=== PATIENT | male | born 1935 | race Caucasian/White ===

== ENCOUNTER → 2019-05-26 08:46 | Outpatient (BNVA) | payer MEDICARE, OTHER, SELFPAY | PROVIDERS: Family Provider Nurse Practitioner Family; PCP Nurse Practitioner Family; Visit Provider Family Medicine | DX: I10 Essential (primary) hypertension (principal); I50.9 Heart failure, unspecified; E87.6 Hypokalemia; N40.0 Benign prostatic hyperplasia without lower urinary tract symptoms; I50.32 Chronic diastolic (congestive) heart failure; I25.10 Atherosclerotic heart disease of native coronary artery without angina pectoris; L82.1 Other seborrheic keratosis | CPT/HCPCS: 80048 ==

== ENCOUNTER → 2019-11-03 09:13 | Outpatient (BNVA) | payer MEDICARE, OTHER, SELFPAY | PROVIDERS: Family Provider Nurse Practitioner Family; PCP Nurse Practitioner Family; Visit Provider Family Medicine | DX: E87.6 Hypokalemia (principal); I10 Essential (primary) hypertension | CPT/HCPCS: 80048 ==

== ENCOUNTER → 2019-12-30 14:58 | Outpatient (BNVA) | payer MEDICARE, SELFPAY | PROVIDERS: Family Provider Nurse Practitioner Family; PCP Nurse Practitioner Family; Referring Provider Family Medicine; Visit Provider Dermatology | DX: D48.5 Neoplasm of uncertain behavior of skin (principal); L57.0 Actinic keratosis; L81.4 Other melanin hyperpigmentation; D48.9 Neoplasm of uncertain behavior, unspecified | CPT/HCPCS: 11102; 11103; 17000; 17003; 88304; 99202; 99203 ==

== ENCOUNTER 2020-09-05 10:22 | Outpatient (CLI) | payer OTHER, MEDICARE, SELFPAY ==
--- NOTE | 2020-09-05 10:50 | CT_ITS ---
WS: [id number] CTA NECK TECHNIQUE: Contrast enhanced CTA of the neck with coronal and sagittal reformatted images and maximum intensity projection (MIP) images. NASCET criteria utilized. CLINICAL INFORMATION: I65.23 - Occlusion and stenosis of bilateral carotid katey... COMPARISON: Ultrasound June 26, 2020 DLP: 1070.[address] scans at [facility] use at least one of these dose optimization techniques: automat ed exposure control; mA and/or kV adjustment per patient size (includes targeted exams where dose is matched to clinical indication); or iterative reconstruction. FINDINGS: RIGHT: Right common carotid artery is patent. Mild stenosis right proximal ICA measuring less than 50 %. No flow-limiting stenosis. Mild to moderate calcified atheromatous plaque right carotid bulb exten ding into the ICA. Mild stenosis ECA which is patent. Right ICA remains patent to the skull base. LEFT: Left common carotid artery is patent. Occlusion of the left ICA just distal to the bifurcation. Left ICA is occluded to the skull base. ECA is patent. Right cavernous carotid calcification. Left dominant vertebral artery. No flow in the right proximal vertebral artery. This reconstitutes in the mid vertebral artery with a tiny amount of flow distally. Proximal basilar artery is patent. Normal vascularity to the DRESSER TENDER territory bilaterally.Mastoid air c ells are well aerated. Retention cyst right maxillary sinus. No cervical lymphadenopathy. Prior sternotomy. Moderate chronic emphysematous changes in the lung apices. CT/CT angio neck 55673 IMPRESSION: 1. Chronic occlusion of the left ICA unchanged from the prior ultrasound. 2. Less than 50% right ICA stenosis. ICA is patent to the skull base. 3. Left dominant vertebral artery.
[2020-09-05 11:25] LABS: Blood Urea Nitrogen 23 mg/dL (8-23)
== END 2020-09-05 10:23 | disposition home or self-care (01) ==
PROVIDERS: PCP Nurse Practitioner Family; Visit Provider Thoracic Surgery (Cardiothoracic Vascular Surgery)
DX: I65.23 Occlusion and stenosis of bilateral carotid arteries (principal); I25.10 Atherosclerotic heart disease of native coronary artery without angina pectoris; I50.32 Chronic diastolic (congestive) heart failure
CPT/HCPCS: 70498; 82565; 84520; Q9967

== ENCOUNTER → 2021-02-13 07:40 | Outpatient (BNVA) | payer OTHER, MEDICARE, SELFPAY | PROVIDERS: PCP Family Medicine; Visit Provider Urology | DX: N28.89 Other specified disorders of kidney and ureter (principal) | CPT/HCPCS: 81003 ==

== ENCOUNTER → 2021-04-18 09:57 | Outpatient (BNVA) | payer MEDICARE, SELFPAY | PROVIDERS: PCP Family Medicine; Visit Provider Family Medicine | DX: I10 Essential (primary) hypertension (principal); I25.10 Atherosclerotic heart disease of native coronary artery without angina pectoris; E87.6 Hypokalemia; R42 Dizziness and giddiness | CPT/HCPCS: 80053; 80061; 83735; 85025 ==

== ENCOUNTER → 2021-07-17 10:36 | Outpatient (BNVA) | payer MEDICARE, SELFPAY | PROVIDERS: PCP Family Medicine; Visit Provider Family Medicine | DX: J44.9 Chronic obstructive pulmonary disease, unspecified (principal); E87.6 Hypokalemia | CPT/HCPCS: 80048 ==

== ENCOUNTER 2021-08-27 12:52 | Outpatient (CLI) | payer OTHER, SELFPAY ==
--- NOTE | 2021-08-27 12:52 | USCV_ITS ---
Lowell Salazar Age: 86 Gender: M : 1935 Exam Date: 08/27/2021 13:10 Ordering Phys: Joss Whitehead MD (Andy) ([email or web address] [place]) Technologist: [place] [facility] [place]: RT SIDE ENARDECTOMY LT SIDE ICA OCCUSION Risk Factors: Previous Vascular Surgery: Right Brachial BP: / Left Brachial BP: / Right Left Velocity (cm/s) Spectral Plaque Velocity (cm/s) Spectral Plaque Syst/Diast Broadening Syst/Diast Broadening 76.45/ 12.65 Prox CCA 47.10 / 1.10 75.00/ 12.10 Hetro Mid CCA 46.00 / 2.10 62.60/ 11.30 Hetro Distal CCA 42.80 / 2.10 162.40/27.90 Hetro Prox ICA / 146.70/36.70 Hetro Mid ICA / 138.00/33.20 Distal ICA / 185.10 ECA 94.20 2.17 ICA/CCA Antegrade Vertebral Antegrade 31.10/ 5.80 cm/s 69.60/ 13.90 cm/s Tri Subclavian Tri 92.10 133.8 0 CONCLUSIONS Prior right CEA. Right ICA stenosis 50-69%. Moderate atheromatous plaque right carotid bulb/ICA. Left ICA is occluded Normal antegrade Doppler flow noted in the right vertebral artery. Normal antegrade Doppler flow noted in the left vertebral artery. Fidel Milner MD (Electronically Signed) Final Date: 27 Aug 2021 15:35 S
== END 2021-08-27 12:53 | disposition home or self-care (01) ==
PROVIDERS: PCP Family Medicine; Visit Provider Thoracic Surgery (Cardiothoracic Vascular Surgery)
DX: I65.23 Occlusion and stenosis of bilateral carotid arteries (principal)
CPT/HCPCS: 93880

== ENCOUNTER → 2021-08-30 09:00 | Outpatient (BNVA) | payer OTHER, SELFPAY | PROVIDERS: PCP Family Medicine; Visit Provider Thoracic Surgery (Cardiothoracic Vascular Surgery) | DX: I65.23 Occlusion and stenosis of bilateral carotid arteries (principal); Z87.891 Personal history of nicotine dependence | CPT/HCPCS: 99213 ==

== ENCOUNTER → 2021-09-12 14:55 | Outpatient (BNVA) | payer OTHER, MEDICARE, SELFPAY | PROVIDERS: PCP Family Medicine; Visit Provider Nurse Practitioner Family | DX: N40.1 Benign prostatic hyperplasia with lower urinary tract symptoms (principal) | CPT/HCPCS: 51728; 51784; 99212 ==

== ENCOUNTER → 2021-10-17 08:41 | Outpatient (BNVA) | payer MEDICARE, SELFPAY | PROVIDERS: PCP Family Medicine; Visit Provider Family Medicine | DX: I10 Essential (primary) hypertension (principal); I50.9 Heart failure, unspecified; E87.6 Hypokalemia; J44.9 Chronic obstructive pulmonary disease, unspecified; N40.1 Benign prostatic hyperplasia with lower urinary tract symptoms; N18.2 Chronic kidney disease, stage 2 (mild); I25.10 Atherosclerotic heart disease of native coronary artery without angina pectoris | CPT/HCPCS: 80048 ==

== ENCOUNTER → 2021-10-22 13:06 | Outpatient (BNVA) | payer OTHER, MEDICARE, SELFPAY | PROVIDERS: PCP Family Medicine; Visit Provider Urology | DX: N40.1 Benign prostatic hyperplasia with lower urinary tract symptoms (principal); R33.9 Retention of urine, unspecified | CPT/HCPCS: G0463; 99214 ==

== ENCOUNTER 2021-11-14 15:01 | Observation (INO) | payer OTHER, MEDICARE, SELFPAY ==
[2021-11-13 14:00] VITALS: BMI 23.5
[2021-11-14] VITALS (20 sets, daily range): BP systolic 175–201; BP diastolic 62–79; PULSE 50–84; RESP 12–20; TEMP 36.2–36.7; O2SAT 93–98; BMI 23.5
--- NOTE | 2021-11-14 05:49 | P.HPUD_ITS ---
Surgery/Procedure H&P Update DATE OF PROCEDURE: November 14, 2021 DATE H&P PERFORMED: 10/22/21 H&P UPDATE INFORMATION: I have reviewed H&P completed within last 30 days, I have examined patient prior to procedure, No changes to prior documentation and H&P is in [facility] [place] on date indicated PLANNED PROCEDURE: Operation Date: 11/14/21 09:35 Proposed Procedures p TRANSURETHRAL RESECTION /VAPORIZATION PROSTATE 91547,77482, N40.1(Not Applicable) - Austen Grajeda MD s Cystoscopy(Not Applicable) - Austen Grajeda MD
--- NOTE | 2021-11-14 07:39 | ECG_ITS ---
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 Measurements Intervals Olar Rate: 54 P: -35 RI: 294 QRS: 75 QRSD: 131 T: 104 QT: 484 QTc: 459 Interpretive Statements SINUS BRADYCARDIA WITH FIRST DEGREE AV BLOCK INTRAVENTRICULAR CONDUCTION DELAY [130+ ms QRS DURATION] ANTEROLATERAL MYOCARDIAL INFARCTION , OF INDETERMINATE AGE [40+ ms Q WAVE IN I/aVL/V3-V6] Compared to ECG 04/14/2016 18:08:13 Intraventricular conduction delay now present Sinus rhythm no longer present Myocardial infarct finding still present Electronically Signed On 11-14-2021 19:48:43 CDT by Kaylee Luna M.D. [id number]
[2021-11-14 08:29] LABS: Basophils # 0.1 10^3/uL (0.0-0.1); Basophils % 0.6 %; Eosinophils # 0.2 10^3/uL (0.0-0.8); Eosinophils % 1.8 %; Hematocrit 41.8 % (42.0-52.0); Hemoglobin 14.1 g/dL (11.7-16.6); Lymphocytes % 23.8 %; Mean Corpuscular HGB Conc 33.7 g/dL (30.0-36.0); Mean Corpuscular Hemoglobin 30.6 pg (28.0-34.0); Mean Corpuscular Volume 90.7 fl (80-94); Mean Platelet Volume 10.3 fL (7.4-10.4); Monocytes # 1.2 10^3/uL (0.2-0.9); Monocytes % 9.4 %; Neutrophils # 7.93 10^3/uL (1.8-7.7); Neutrophils % 63.9 %; Nucleated Red Blood Cells % 0 %; Platelet Count 238 10^3/cmm (130-400); Red Blood Count 4.61 10^6/uL (4.1-5.3); Red Cell Distribution Width 13.1 % (12.1-15.1); White Blood Count 12.4 10^3/uL (4.0-10.0)
--- NOTE | 2021-11-14 08:34 | P.ANESASSM_ITS ---
Pre-Anesthetic Assessment Height/Weight: Height 1.85 m Weight 80.739 kg Temp Pulse Resp BP Pulse Ox O2 Del Method 97.7 F 62 18 176/73 95 11/14/21 07:49 11/14/21 07:49 11/14/21 07:49 11/14/21 07:49 11/14/21 07:49 11/14/21 07:49 Preop Diagnosis: Chronic urinary retention secondary to BPH/obstruction Operation Date: 11/14/21 09:35 Proposed Procedures p TRANSURETHRAL RESECTION /VAPORIZATION PROSTATE 63698,24629, N40.1(Not Applicable) - Austen Grajeda MD s Cystoscopy(Not Applicable) - Austen Grajeda MD Familial anesthetic complications: none Was Beta Ambar taken within 24 hours: Yes Was Clonidine taken within 24 hours: N/A Last intake: Intake Last Liquid Date 11/13/21 Last Liquid Time 16:30 Last Solid Date 11/13/21 Last Solid Time 16:30 Social No alcohol and No tobacco Exam alert, oriented x 3, clear to auscultation bilaterally and regular rate & rhythm Airway Submandibular: within normal limits Cervical ROM: within normal limits Mallampati: Class II Dentition: partials Pulmonary Chronic Obstructive Pulmonary Disease and Sleep Apnea CV/HEM Arrythmia (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 Right ICA stenosis 50-69%. Moderate ?atheromatous plaque right carotid bulb/ICA. ?Left ICA is occluded ?Normal antegrade Doppler flow noted in the right vertebral ?artery. ?Normal antegrade Doppler flow noted in the left vertebral ?artery. CTA 09/01 CT/CT angio neck [id number] IMPRESSION: ? 1.? Chronic occlusion of the left ICA unchanged from the prior ultrasound. 2.? Less than 50% right ICA stenosis. ICA is patent to the skull base. 3.? Left dominant vertebral artery. ? Left renal mass BPH Urinary retention, self cath K 3.4 Hepatic None reported GI Gastroesophageal Reflux Disease (Well controlled ) Metabolic Diabetes Mellitus Musc/skel Osteoarthritis/DJD Neuropsych None reported Denies hx of stroke Anesthetic Plan ASA status: 3 (86 year old male former smoker with complete occlusion left ca rotid, s/p CABG, hx CHF, COPD, SAURABH, BPH with urinary retention) Anesthesia: Anesthesia Evaluation and General Other: We discussed risk and benefits of general anesthesia including PONV, sore throat (sometimes severe), corneal abrasion, positioning and peripheral nerve injuries, life threatening allergic reaction, post operative ICU admission requiring prolonged intubation, aspiration, stroke, heart attack, , and rare incidences of recall. Patient consents to proceed with general anesthesia. Risk of > 500 ml blood loss (7ml/kg in children): No Medications/Allergies Home Medications Medication Instructions Recorded Confirmed Last Taken Type albuterol sulfate 90 mcg/actuation 2 inh inhalation Q6H PRN Shortness 05/22/19 11/13/21 08/22/21 History breath activated powder Of Breath inhaler,sensor aspirin 81 mg tablet,delayed 81 mg PO DAILY 05/22/19 11/13/21 10/31/21 History release latanoprost 0.005 % eye drops 1 drop ophthalmic (eye) DAILY 05/22/19 11/13/21 11/12/21 20:00 History methylsulfonylmethane 1,000 mg 1,000 mg PO DAILY 05/22/19 11/01/21 Unknown History tablet (MSM) multivitamin 1 cap PO DAILY 05/22/19 11/14/21 10/16/21 History timolol 0.5 % eye drops 1 drop ophthalmic (eye) BID 05/22/19 11/13/21 11/13/21 06:00 History vitamins A,C,G-cnki-qugmuq 14,320 1 cap PO BID 05/22/19 11/13/21 11/05/21 History unit-226 mg-200 unit capsule (PreserVision AREDS) tamsulosin 0.4 mg capsule 0.4 mg PO BID #180 caps 02/13/21 11/13/21 11/12/21 20:00 Rx hydrochlorothiazide 25 mg tablet 25 mg PO QAM 90 days #90 tabs 10/17/21 11/13/21 11/13/21 06:00 Rx metoprolol succinate 50 mg 50 mg PO DAILY 90 days #90 tabs 10/17/21 11/13/21 11/14/21 07:48 Rx tablet,extended release 24 hr potassium chloride 10 mEq 10 meq PO QID 90 days #360 tabs 10/17/21 11/13/21 11/13/21 06:00 Rx tablet,extended release(part/cryst) tiotropium bromide 2.5 2 inh inhalation QAM #4 grams 10/17/21 11/13/21 11/13/21 06:00 Rx mcg/actuation mist for inhalation (Spiriva Respimat) atorvastatin 80 mg tablet 80 mg PO DAILY 10/23/21 11/13/21 11/12/21 History furosemide 20 mg tablet 20 mg PO DAILY 10/23/21 11/13/21 11/13/21 06:00 History mupirocin 2 % topical ointment 1 applic topical BID PRN dryness 10/23/21 11/13/21 Unknown History Allergies Allergy/AdvReac Type Severity Reaction Status Date / Time ranitidine [From Zantac] Allergy Unknown UNKNOWN Verified 11/01/21 11:09 simvastatin [From Zocor] Allergy Unknown ADR-Muscle Verified 11/01/21 11:09 Pain PFSH Anesthesia Medical History BPH (benign prostatic hyperplasia) BPH loc w urin obs/LUTS CAD (coronary atherosclerotic disease) Congestive heart failure (CHF) Enrolled in chronic care management Essential hypertension History of nonmelanoma skin cancer Hypokalemia Left renal mass Urinary retention Surgical History H/O carotid angioplasty H/O heart surgery Hx of knee surgery Family History Mother , at age 65 Cancer Other CAD (coronary artery disease) Social History Smoking and tobacco status: never smoked Quit status (tobacco): has quit using tobacco Former quit date comment: 40 yr 1-3ppd Second hand smoke exposure: No Alcohol intake: never Desire information about alcohol rehabilitation?: No Desire information about substance/drug rehabilitation?: No Caregiver/support person: Yes Lives independently: No Household members: spouse Housing: House Marital status: History of recent travel: No Current gender identity: Male Data Anesthesia : 11/14/21 08:12 11/14/21 08:12 Short CBC 11/14/21 Range/Units 08:12 WBC 12.4 H (4.0-10.0) 10^3/uL Hgb 14.1 (11.7-16.6) g/dL Hct 41.8 L (42.0-52.0) % MCV 90.7 (80-94) fl Plt Count 238 (130-400) 10^3/cmm Neut % (Auto) 63.9 % Neut # (Auto) 7.93 H (1.8-7.7) 10^3/uL Cardiac Studies: No Data to Display
[2021-11-14 09:24] LABS: Alanine Aminotransferase 17 U/L (0-41); Albumin Level 3.9 g/dL (3.5-5.2); Alkaline Phosphatase 111 IU/L (40-130); Anion Gap 14.4 (5-19); Aspartate Amino Transferase 24 U/L (0-40); Blood Urea Nitrogen 33 mg/dL (8-23); Calcium 9.6 mg/dL (8.5-10.5); Carbon Dioxide 30 mmol/L (22-29); Chloride 98 mmol/L (98-107); Creatinine Clr Calc Pharmacy 36.0536; Globulin 2.9 g/dL (1.3-4.6); Glucose 115 mg/dL (65-115); Osmolality Calculated 296 mOsm/kg (285-295); Potassium 3.4 mmol/L (3.5-5.1); Sodium 139 mmol/L (136-145); Total Protein 6.8 g/dL (6.6-8.7)
[2021-11-14] MEDS: sodium chloride 0.9% 1,000 ML 30 ML IV (10:01)
[2021-11-14] MEDS: levofloxacin-dextrose 5 % 500 MG/100 ML PREMIX 100 MG IV (11:20)
--- NOTE | 2021-11-14 11:22 | P.OP_ITS ---
Operative Report Date of procedure: November 14, 2021 Pre-op diagnosis: Chronic urinary retention secondary to BPH/obstruction Post-op diagnosis: Chronic urinary retention secondary to BPH/obstruction Procedure done: Cystoscopy, transurethral resection/vaporization prostate . Specimens removed/disposition: Prostate chips Pathology: Prostate chips Surgeon: Taras Anesthesia: General Estimated blood loss: Minimal Urine output: Not measured Complications: None Findings: Certainly not a huge prostate but significant tissue was vaporized with dramatically different intra prostatic fossa appearance postoperatively with wide open characteristics of the bladder neck and fossa. No other gross pathology identified. Condition: stable Disposition: PACU Brief History: Mr. Salazar is a delightful 86-year-old white male with a history of urinary retention diagnosed February 2021 with about 1700 cc in his bladder. At had progressive bladder outlet obstructive type symptoms for preceding number of years. Cystoscopy revealed high-pressure trabeculation changes in the bladder. The prostate was not overtly enlarged. Was originally treated with Sam catheter and double dose TAMSULOSIN. Converted to SCIC program which she did very well with. He went an extended period with no spontaneous voiding but then began to have more increased sensation as well as some spontaneous voiding. He was offered urodynamics to assess for detrusor function preservation and indeed there appeared to be fairly robust detrusor contraction without Valsalva and evidence of obstruction manifested by increased Pdet and low flow. Based on that information he has elected to proceed with attempt at definitive therapy via transurethral section/vaporization of the prostate. . Procedure: After routine preoperative evaluation examination and obtaining of informed consent he was taken to the operating suite on 11/14/2021 where general anesthesia was administered without difficulty after appropriate timeout was performed, SCDs confirmed to be functioning, preoperative antibiotics administered, beta- branden protocol confirmed. Prepped and draped in usual sterile fashion in dorsolithotomy position paying careful attention to avoiding pressure points. 21 Montserratian cystoscope with 30 degree lens was introduced into the urethra meatus and advanced into the bladder under videoscopy. Bladder was systematically examined with findings as described above on previous cystoscopy. No other gross abnormalities identified. The urethra was calibrated with Villard sounds and easily accommodated 30 Montserratian. 2% lidocaine jelly was instilled into the urethra and then a 25 Montserratian continuous-flow resectoscope sheath with visual obturator in place was advanced into the bladder without difficulty. The gyrus bipolar system was utilized for resection and vaporization. The orifices were identified to be well away from the bladder neck. The verumontanum was easily identifiable. The button probe was utilized first for vaporization around the bladder neck opening up the bladder neck widely. Vaporization was then extended to the left lateral lobe from the 12 o'clock position down to the 5 o'clock position from the bladder neck out to but not distal to the verumontanum and then to the right lateral lobe in the same longitudinal extent. Vaporization was then conducted on the floor the prostate opening up further. Super loop was utilized for some sampling but most of the tissue was actually vaporized and not resected. Throughout the procedure care was made to identify the orifices and stay well away from them as well as tissue distal to the verumontanum. At the completion of procedure the prostatic fossa was wide open. There were no residual chips in the bladder. Hemostasis was very good after vaporization of the prostatic fossa for sculpting and hemostatic purposes. Bladder was drained with a 20 Montserratian three-way Sam catheter with 30 cc placed in the balloon. Efflux was clear and catheter was functioning well. Catheter was placed to dependent drainage and the procedure was completed. He tolerated procedure well without complications and was awakened in the operating room and returned to the recovery room in stable condition. PLANS: 1. Admit for observation status 2. Anticipate discharge tomorrow with Sam catheter in place with voiding trial in my office next week.
[2021-11-14] MEDS: lidocaine 2% Urojet 20 mL TOPICAL (11:51)
--- NOTE | 2021-11-14 12:53 | SUR.PHASEI ---
1238 Pt to PACU. SCDs on and attached to pump. Pump on and working.
[2021-11-14] MEDS: hyDRALAzine 20 mg/mL INJ 1 mL 10 MG IVP (13:15)
--- NOTE | 2021-11-14 14:08 | SUR.EXTENDED ---
patient into extended care in ops. patient awake and alert. cbi running, urine very light yellow/mostly clear. patient states no pain. pt called and notified of arrival to extended care, she went home and wants called when he is ready for D/C. Patient is eating a sandwich.
--- NOTE | 2021-11-14 14:45 | ANE.PACU2 ---
Inpatient post-anesthesia follow up: Airway intact: Yes Vital signs: Temperature 97.3 F Pulse Rate 65 Respiratory Rate 18 Blood Pressure 179/72 Pulse Oximetry 98 Oxygen Delivery Me thod Room Air Oxygen Flow Rate 6 Fraction of Inspir ed Oxygen Hydration adequate: Yes Nausea and vomiting: No Pain level: 1 Mental status: Baseline
--- NOTE | 2021-11-14 15:03 | SUR.EXTENDED ---
CBI: New 3000 bag hung at 1435. Previous 6000 bags hung in OR and total amount out between PACU and extended care is 4550ml.
--- NOTE | 2021-11-14 15:37 | SUR.EXTENDED ---
patient taken to 254-1. report called to nurse camila. patient awake and alert. cbi connected and irrigating. urine in haynes light pink. patient ambulated to floor bed. no complaints of pain. no abd distention. iv in right ac. haynes strapped to right leg.
[2021-11-14] MEDS: D5-NS 0.45% + KCL 20 mEq 20 MEQ/1,000 ML BAG 30 MEQ IV (17:19)
[2021-11-14] MEDS: atorvastatin 40 mg Tablet 80 MG PO (17:21)
[2021-11-14] MEDS: tamsulosin 0.4 mg Capsule PO (17:21)
[2021-11-14] MEDS: potassium chloride ER 10 mEq Tablet PO ×2 (17:23→20:50)
[2021-11-14] MEDS: HYDROcodone-acetaminophen 5-325 mg Tablet 1 TAB PO (21:53)
--- NOTE | 2021-11-15 07:19 | PM.DCS ---
Discharge Providers Date of Admission: 11/14/21 15:01 Date of Discharge: November 15, 2021 Attending Provider at Admission: Austen Grajeda MD Attending Provider at Discharge: Austen Grajeda MD Primary Care Provider: Deloris Conway MD Reason for Visit Reason for Visit: Brief History: Mr. Salazar is a delightful 86-year-old white male who was discovered to be in urinary retention without significant painful symptoms back in March 2021. Was maintained transiently with a Sam catheter followed by SCIC and medical therapy for BPH/obstruction. He did have some recovery of spontaneous voiding but PVRs were consistently high. Ultimately he was interested in determining whether surgical intervention would be helpful and urodynamics were performed that showed what appeared to be a good detrusor sparing and contractile force. TURP/TUVP was scheduled. Hospital Course Hospital Course Admitted on the day of the procedure which went very well. He did not have a very enlarged prostate but he did have trabeculation of the bladder. The prostatic fossa was wide open at the completion of the procedure. Sam catheter was left indwelling at the completion and his urine remained clear. He was discharged on postoperative day #[address] catheter in [address]. Plan was to return to clinic on 11/20/2021 for voiding trial and reinitiation of SCIC to make sure that he can get the catheter in well. Reviewed restrictions expectations perioperative limitations etc. Physical Exam Narrative: Alert oriented no acute distress Respiratory: No labored respiration Abdomen soft nontender Genitourinary shows clear urine via Sam catheter. Extremities good range of motion. No limitations. Mental status: Normal Urinary Catheter Management: 3-way Urethral CBI Latex: Cath Placed During This Visit: yes Reason for Continuing Indwelling Catheter: Acute Urinary Retention or Obstruction Urinary Catheter Date of Insertion: 11/14/21 Urinary Catheter Time of Insertion: 12:28 Discharge Data Studies Completed and Pending Pending at discharge Category Date Time Status Pathology: Surgical [PTH] Routine Pth 11/14/21 12:38 Received Laboratory Results WBC 12.4 10^3/uL (4.0-10.0) H 11/14/21 08:12 RBC 4.61 10^6/uL (4.1-5.3) 11/14/21 08:12 Hgb 14.1 g/dL (11.7-16.6) 11/14/21 08:12 Hct 41.8 % (42.0-52.0) L 11/14/21 08:12 MCV 90.7 fl (80-94) 11/14/21 08:12 MCH 30.6 pg (28.0-34.0) 11/14/21 08:12 MCHC 33.7 g/dL (30.0-36.0) 11/14/21 08:12 RDW 13.1 % (12.1-15.1) 11/14/21 08:12 Plt Count 238 10^3/cmm (130-400) 11/14/21 08:12 MPV 10.3 fL (7.4-10.4) 11/14/21 08:12 Neut % (Auto) 63.9 % 11/14/21 08:12 Lymph % (Auto) 23.8 % 11/14/21 08:12 [place] % (Auto) 9.4 % 11/14/21 08:12 Eos % (Auto) 1.8 % 11/14/21 08:12 Baso % (Auto) 0.6 % 11/14/21 08:12 Neut # (Auto) 7.93 10^3/uL (1.8-7.7) H 11/14/21 08:12 Lymph # (Auto) 3.0 10^3/uL (0.8-4.8) 11/14/21 08:12 [place] # (Auto) 1.2 10^3/uL (0.2-0.9) H 11/14/21 08:12 Eos # (Auto) 0.2 10^3/uL (0.0-0.8) 11/14/21 08:12 Baso # (Auto) 0.1 10^3/uL (0.0-0.1) 11/14/21 08:12 Nucleated RBC % (auto) 0 % 11/14/21 08:12 Nucleated RBCs # 0.0 /100WBC 11/14/21 08:12 Sodium 139 mmol/L (136-145) 11/14/21 08:12 Potassium 3.4 mmol/L (3.5-5.1) L 11/14/21 08:12 Chloride 98 mmol/L (98-107) 11/14/21 08:12 Carbon Dioxide 30 mmol/L (22-29) H 11/14/21 08:12 Anion Gap 14.4 (5-19) 11/14/21 08:12 BUN 33 mg/dL (8-23) H 11/14/21 08:12 Creatinine 1.7 mg/dL (0.7-1.2) H 11/14/21 08:12 GFR Calculation Not Reportable 11/14/21 08:12 Glucose 115 mg/dL (65-115) 11/14/21 08:12 Calculated Osmolality 296 mOsm/kg (285-295) H 11/14/21 08:12 Calcium 9.6 mg/dL (8.5-10.5) 11/14/21 08:12 Total Bilirubin 1.0 mg/dL (0.15-1.2) 11/14/21 08:12 AST 24 U/L (0-40) 11/14/21 08:12 ALT 17 U/L (0-41) 11/14/21 08:12 Alkaline Phosphatase 111 IU/L (40-130) 11/14/21 08:12 Total Protein 6.8 g/dL (6.6-8.7) 11/14/21 08:12 Albumin 3.9 g/dL (3.5-5.2) 11/14/21 08:12 Globulin 2.9 g/dL (1.3-4.6) 11/14/21 08:12 Procedures Performed Cystoscopy, transurethral resection/vaporization of the prostate Vitals Last Vital Signs Temp 98.0 F 11/14/21 15:41 Pulse 84 11/14/21 20:23 Resp 15 11/14/21 20:23 BP 189/62 11/14/21 15:41 Pulse Ox 94 11/14/21 20:23 O2 Del Method 11/14/21 20:23 O2 Flow Rate 6 11/14/21 12:40 Discharge Plan Discharge Patient Disposition: Home Condition: Stable Prescriptions: New levofloxacin 250 mg tablet 250 mg PO DAILY 7 Days Qty: 7 0RF Continued albuterol sulfate 90 mcg/actuation aero powdr breath act w/sensor 2 inh INHALATION Q6H PRN (Reason: Shortness Of Breath) methylsulfonylmethane [MSM] 1,000 mg tablet 1,000 mg PO DAILY PreserVision AREDS 14,320-226-200 uqto-rn-rcep capsule 1 cap PO BID timolol 0.5 % drops 1 drop ophthalmic (eye) BID latanoprost 0.005 % drops 1 drop ophthalmic (eye) DAILY multivitamin Capsule 1 cap PO DAILY tamsulosin 0.4 mg capsule 0.4 mg PO BID Qty: 180 3RF hydrochlorothiazide 25 mg tablet 25 mg PO QAM 90 Days Qty: 90 2RF metoprolol succinate 50 mg tablet extended release 24 hr 50 mg PO DAILY 90 Days Qty: 90 2RF potassium chloride 10 mEq tablet,ER particles/crystals 10 meq PO QID 90 Days Qty: 360 1RF Spiriva Respimat 2.5 mcg/actuation mist 2 inh INHALATION QAM Qty: 4 5RF mupirocin 2 % ointment 1 applic topical BID PRN (Reason: dryness) Rx Instructions: apply to cotton swab and into each nostril atorvastatin 80 mg tablet 80 mg PO DAILY furosemide 20 mg tablet 20 mg PO DAILY Held aspirin 81 mg tablet,delayed release (DR/EC) 81 mg PO DAILY Hold Instructions: Resume on 11/21/21. Discharge Orders: Discharge Order (Routine); Ordered 11/15/21 Ordered By: Austen Grajeda Referrals: Austen Grajeda MD [Physician] - 11/20/21 (Voiding trial, SCIC reinstruction) Discharge Diet: Advance as tolerated Discharge Activity: Limit activity as instructed Patient Instructions: Levofloxacin (By mouth), TURP Activity Restrictions/Additional Instructions: 1. The procedure went very well. The prostatic fossa was wide open at the completion of the procedure. No abnormalities identified. 2. You can use either the leg bag or night bag at home, what ever your preferences. 3. We will see you back in the office next Friday for a voiding trial and go over self-catheterization again to make sure that you can get a catheter in. 4. It may take a while for your voiding to recover. 5. Will be important not to do any strenuous activity for about 3 to 4 weeks. Leisure activity is fine. No straining. 6. Prescription for antibiotics for 1 week has been sent to your pharmacy. Please continue them until they are gone. Discharge Attestations Time Spent in Discharge Care*: less than 30 min Quality Metrics Clinical Quality Measures [ No reported AMI, CVA or VTE this stay] Coding Level of Care Code Acute Chg FW DC note
[2021-11-15] MEDS: atorvastatin 40 mg Tablet 80 MG PO (08:15)
[2021-11-15] MEDS: metoprolol succinate ER (24 HR) 50 mg Tablet PO (08:15)
[2021-11-15] MEDS: potassium chloride ER 10 mEq Tablet PO (08:15)
[2021-11-15] MEDS: tamsulosin 0.4 mg Capsule PO (08:15)
[2021-11-15] MEDS: FUROsemide 20 mg Tablet PO (08:15)
[2021-11-15] MEDS: ipratropium 0.5 mg/2.5 mL Neb INHALATION (09:59)
[2021-11-15 10:00] VITALS: PULSE 79; RESP 15; O2SAT 96
--- NOTE | 2021-11-15 10:00 | PC.CHAP ---
Pastoral Care Encounter/Spiritual Assessment Type of Contact [] Declined deputy clerk visit [] Patient/Family/Request visit [] Outpatient visit [] Follow-up visit [] Physician referral [] Code/Alert [x] Routine visit [] Staff referral [] Actively dying [] Patient sleeping [] Family support [] [] Out of room [] Palliative care [] [x] Receiving care in room [] Pre-surgical visit [] Trauma [] Long length of stay [] ICU visit [] Other: Relational/Emotional Strength [x] Patient feels connected with others/family/visitors/staff [] Distress [] Loneliness/isolation [] Abandonment Spirituality of Patient [x] Person of Aicha [] Attends Islam of their Aicha [x] Believes in Prayer [] Reads Bible or Yarsani materials [] There are Spiritual issues to be addressed Rn L And D Interventions [x] Prayer [x] Active listening [x] Non-anxious presence [x] Spiritual/emotional support [] Crisis/trauma care [x] Spiritual counseling [] Bereavement support [] Provided bereavement packet [] Provided Bible/devotional materials [] Provided toy/stuffed animal, coloring book to patient or family member [] Provided Communion [] Anointing/[place] [] Salvation [x] Completed spiritual assessment [] Other: Impact on Illness or Injury [] Angry [] Fearful [] Anxious [] Often cries [] Exhaustion [] Unable to work [] Unable to attend amish [] Unable to walk/stand [] Unable to read [] Unable to drive [] Unable to eat/drink [] Unable to sleep [] Unable to be with family [] Patient intubated [] Other: Summary Senior had prosate surgery going home has a good attitude Time spent with patient 10 mins
[2021-11-15 12:22] VITALS: PULSE 79; RESP 15; O2SAT 96
== END 2021-11-15 11:30 | disposition home or self-care (01) ==
LOC: MEDSURG 15:02
PROVIDERS: Admitting Provider Urology; PCP Family Medicine; Visit Provider Urology
PROC: 0VT08ZZ Resection of Prostate, Via Natural or Artificial Opening Endoscopic (ICD-10-PCS; CPT 52601; principal; 2021-11-14 09:25)
PROC: 0TJB8ZZ Inspection of Bladder, Via Natural or Artificial Opening Endoscopic (ICD-10-PCS; CPT 52000; 2021-11-14 09:25)
DX: R33.9 Retention of urine, unspecified (principal); N40.1 Benign prostatic hyperplasia with lower urinary tract symptoms; N13.8 Other obstructive and reflux uropathy; J44.9 Chronic obstructive pulmonary disease, unspecified; G47.30 Sleep apnea, unspecified; I25.10 Atherosclerotic heart disease of native coronary artery without angina pectoris; Z95.1 Presence of aortocoronary bypass graft; I11.0 Hypertensive heart disease with heart failure; I50.9 Heart failure, unspecified; I65.23 Occlusion and stenosis of bilateral carotid arteries; K21.9 Gastro-esophageal reflux disease without esophagitis; E11.9 Type 2 diabetes mellitus without complications; Z87.891 Personal history of nicotine dependence; G47.33 Obstructive sleep apnea (adult) (pediatric)
CPT/HCPCS: 52601; 80053; 85025; 88305; 93005; 94640; G0378; J0360; J1100; J1956; J2405; J2704; J2710; J3010; J3490; J7030; J7644

== ENCOUNTER → 2021-11-21 12:34 | Outpatient (BNVA) | payer OTHER, SELFPAY | PROVIDERS: PCP Family Medicine; Visit Provider Urology | DX: N40.1 Benign prostatic hyperplasia with lower urinary tract symptoms (principal); R33.9 Retention of urine, unspecified | CPT/HCPCS: 51700; 99024 ==

== ENCOUNTER 2021-11-27 17:07 | Emergency (ER) | payer OTHER, MEDICARE, SELFPAY ==
[2021-11-27 17:35] VITALS: BP 189/90; PULSE 69; RESP 16; TEMP 36.5; O2SAT 97; BMI 22.8
[2021-11-27 18:07] LABS: Basophils # 0.1 10^3/uL (0.0-0.1); Basophils % 0.5 %; Eosinophils # 0.2 10^3/uL (0.0-0.8); Eosinophils % 1.5 %; Hematocrit 40.4 % (42.0-52.0); Hemoglobin 14.2 g/dL (11.7-16.6); Lymphocytes # 3.7 10^3/uL (0.8-4.8); Lymphocytes % 28.2 %; Mean Corpuscular HGB Conc 35.1 g/dL (30.0-36.0); Mean Corpuscular Hemoglobin 30.5 pg (28.0-34.0); Mean Corpuscular Volume 86.9 fl (80-94); Mean Platelet Volume 10.4 fL (7.4-10.4); Monocytes # 1.3 10^3/uL (0.2-0.9); Neutrophils # 7.86 10^3/uL (1.8-7.7); Neutrophils % 59.3 %; Nucleated Red Blood Cells % 0 %; Platelet Count 292 10^3/cmm (130-400); Red Blood Count 4.65 10^6/uL (4.1-5.3); Red Cell Distribution Width 12.9 % (12.1-15.1); White Blood Count 13.3 10^3/uL (4.0-10.0)
[2021-11-27 18:41] LABS: Alanine Aminotransferase 23 U/L (0-41); Albumin Level 3.9 g/dL (3.5-5.2); Alkaline Phosphatase 137 U/L (40-130); Anion Gap 16.6 (5-19); Aspartate Amino Transferase 29 U/L (0-40); Blood Urea Nitrogen 36 mg/dL (8-23); Calcium 9.3 mg/dL (8.5-10.5); Carbon Dioxide 28 mmol/L (22-29); Chloride 95 mmol/L (98-107); Globulin 2.9 g/dL (1.3-4.6); Glucose 135 mg/dL (65-115); Osmolality Calculated 294 mOsm/kg (285-295); Sodium 137 mmol/L (136-145); Total Bilirubin 0.7 mg/dL (0.15-1.2); Total Protein 6.8 g/dL (6.6-8.7)
[2021-11-27 18:48] LABS: Potassium 2.6 mmol/L (3.5-5.1)
--- NOTE | 2021-11-27 18:51 | ECG_ITS ---
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 Measurements Intervals [place] Rate: 77 P: -3 NH: 184 QRS: 80 QRSD: 125 T: -14 QT: 441 QTc: 500 Interpretive Statements SINUS RHYTHM WITH OCCASIONAL VENTRICULAR PREMATURE COMPLEXES LEFT VENTRICULAR HYPERTROPHY AND ST-T CHANGE INFERIOR MYOCARDIAL INFARCTION , OF INDETERMINATE AGE ANTEROLATERAL MYOCARDIAL INFARCTION , OF INDETERMINATE AGE Compared to ECG 11/14/2021 07:56:07 Ventricular premature complex(es) now present Left ventricular hypertrophy now present ST (T wave) deviation now present Sinus bradycardia no longer present First degree AV block no longer present Intraventricular conduction delay no longer present Myocardial infarct finding still present Electronically Signed On 11-28-2021 14:53:34 CDT by Kaylee Luna M.D. [id number]
[2021-11-27] MEDS: potassium chloride ER 20 mEq Tablet 60 MEQ PO (19:43)
[2021-11-27] MEDS: potassium chloride premix 100 ML 50 MEQ IV (19:43)
--- NOTE | 2021-11-27 19:44 | ED_ITS ---
HPI - Recheck/Abnormal Lab/Rx General: Chief Complaint: Recheck/Abnormal Lab/Rx Stated Complaint: abnormal labs Time Seen by Provider: 11/27/21 19:10 Source: patient Mode of arrival: ambulatory Limitations: no limitations History of Present Illness: 86-year-old male who states that he had not seen his PCP yesterday at [facility] and had blood drawn and called him today and told me to come to ER because his potassium was 2.8. Patient here denies any medical complaints he states he feels great he has had no vomiting no diarrhea does have a history of low potassium takes potassium chloride at home Review of Systems Const: Denies: fever(s), chills, body aches or change in appetite Eyes: Denies: blurry vision or eye discomfort ENMT: Denies: throat pain or dental pain Card: Denies: chest pain Resp: Denies: dyspnea GI: Denies: abdominal pain, nausea, vomiting or diarrhea : Denies: dysuria Musc: Denies: neck pain or back pain Skin/Breast: Denies: rash Neuro: Denies: headache(s) Psych: Denies: depression Brock/Lymph: Denies: easy bruising All/Imm: Denies: urticaria PFSH ED PFSH: Medical History BPH (benign prostatic hyperplasia) BPH loc w urin obs/LUTS CAD (coronary atherosclerotic disease) Congestive heart failure (CHF) Enrolled in chronic care management Essential hypertension History of nonmelanoma skin cancer Hypokalemia Left renal mass Urinary retention Surgical History H/O carotid angioplasty H/O heart surgery Hx of knee surgery Family History Mother , at age 65 Cancer Other CAD (coronary artery disease) Social History Smoking and tobacco status: former smoker Quit status (tobacco): has quit using tobacco Former quit date comment: 40 yr 1-3ppd Second hand smoke exposure: No Alcohol intake: never Desire information about alcohol rehabilitation?: No Desire information about substance/drug rehabilitation?: No Caregiver/support person: Yes Lives independently: No Household members: spouse Housing: House Marital status: Current occupational status: retired History of recent travel: No Current gender identity: Male Physical Exam Const: COMMON NORMALS: no acute distress, patient oriented x3 and healthy appearing HENMT: COMMON NORMALS: normocephalic and atraumatic HEAD & SCALP: normocephalic and atraumatic Eye: COMMON NORMALS: Equal, round and reactive pupils present and EOMs intact bilaterally PUPIL: Yes Equal, round and reactive pupils present Neck/C-Spine: COMMON NORMALS: full ROM and supple Chest: COMMONS NORMALS: normal inspection of the chest and normal palpation of entire chest wall Resp: COMMON NORMALS: normal respiratory effort, No retractions, No use of accessory muscles and clear to auscultation bilaterally AUSCULTATION: clear to auscultation bilaterally Cardio: COMMON NORMALS: regular rate, regular rhythm and No murmurs present (Cardio) RATE: regular rate RHYTHM: regular rhythm GI: COMMON NORMALS: Normal to inspection, nondistended, normoactive bowel sounds present, Soft to palpation, non-tender and no masses PALPATION: Yes Soft to palpation Extremity: COMMON NORMALS: normal to inspection and full ROM Neuro: COMMON NORMALS: patient oriented x3, moves all extremities and no focal motor deficits Psych: COMMON NORMALS: mental status grossly normal, Normal thought process present and cooperative THOUGHT PROCESS: Normal thought process present Skin: COMMON NORMALS: no rashes or lesions noted and no wounds GENERAL SKIN EXAM: no rashes or lesions noted Course Vital Signs: Vital signs: Vital Signs Temperature 97.7 F 11/27/21 17:35 Pulse Rate 79 11/27/21 21:03 Respiratory Rate 16 11/27/21 21:03 Blood Pressure 158/79 11/27/21 21:03 Pulse Oximetry 98 11/27/21 21:03 Oxygen Delivery Me thod 11/27/21 21:03 MDM - Recheck/Abnormal Lab/Rx Medical Decision Making Patient presents with hyperkalemia his potassium went up to 2.71 spoke patient form is still little low at mind watch him longer he states he feels great he does not want to stay in the ER anymore. I instructed him he needs to double his potassium he takes at home over the next week [facility] his [facility] rechecked then if he has any symptoms he is return he understands agrees to plan. Lab Data : 11/27/21 17:45 11/27/21 21:00 Laboratory Results WBC 13.3 10^3/uL (4.0-10.0) H 11/27/21 17:45 RBC 4.65 10^6/uL (4.1-5.3) 11/27/21 17:45 Hgb 14.2 g/dL (11.7-16.6) 11/27/21 17:45 Hct 40.4 % (42.0-52.0) L 11/27/21 17:45 MCV 86.9 fl (80-94) 11/27/21 17:45 MCH 30.5 pg (28.0-34.0) 11/27/21 17:45 MCHC 35.1 g/dL (30.0-36.0) 11/27/21 17:45 RDW 12.9 % (12.1-15.1) 11/27/21 17:45 Plt Count 292 10^3/cmm (130-400) 11/27/21 17:45 MPV 10.4 fL (7.4-10.4) 11/27/21 17:45 Neut % (Auto) 59.3 % 11/27/21 17:45 Lymph % (Auto) 28.2 % 11/27/21 17:45 [place] % (Auto) 10.0 % 11/27/21 17:45 Eos % (Auto) 1.5 % 11/27/21 17:45 Baso % (Auto) 0.5 % 11/27/21 17:45 Neut # (Auto) 7.86 10^3/uL (1.8-7.7) H 11/27/21 17:45 Lymph # (Auto) 3.7 10^3/uL (0.8-4.8) 11/27/21 17:45 [place] # (Auto) 1.3 10^3/uL (0.2-0.9) H 11/27/21 17:45 Eos # (Auto) 0.2 10^3/uL (0.0-0.8) 11/27/21 17:45 Baso # (Auto) 0.1 10^3/uL (0.0-0.1) 11/27/21 17:45 Nucleated RBC % (auto) 0 % 11/27/21 17:45 Nucleated RBCs # 0.0 /100WBC 11/27/21 17:45 Sodium 137 mmol/L (136-145) 11/27/21 17:45 Potassium 2.7 mmol/L (3.5-5.1) L* 11/27/21 21:00 Chloride 95 mmol/L (98-107) L 11/27/21 17:45 Carbon Dioxide 28 mmol/L (22-29) 11/27/21 17:45 Anion Gap 16.6 (5-19) 11/27/21 17:45 BUN 36 mg/dL (8-23) H 11/27/21 17:45 Creatinine 1.5 mg/dL (0.7-1.2) H 11/27/21 17:45 GFR Calculation Not Reportable 11/27/21 17:45 Glucose 135 mg/dL (65-115) H 11/27/21 17:45 Calculated Osmolality 294 mOsm/kg (285-295) 11/27/21 17:45 Calcium 9.3 mg/dL (8.5-10.5) 11/27/21 17:45 Magnesium 2.0 mg/dL (1.7-2.3) 11/27/21 17:45 Total Bilirubin 0.7 mg/dL (0.15-1.2) 11/27/21 17:45 AST 29 U/L (0-40) 11/27/21 17:45 ALT 23 U/L (0-41) 11/27/21 17:45 Alkaline Phosphatase 137 U/L (40-130) H 11/27/21 17:45 Total Protein 6.8 g/dL (6.6-8.7) 11/27/21 17:45 Albumin 3.9 g/dL (3.5-5.2) 11/27/21 17:45 Globulin 2.9 g/dL (1.3-4.6) 11/27/21 17:45 Discharge Plan Discharge Patient Disposition: Home Clinical Impression: Hypokalemia Condition: Stable Prescriptions: No Action albuterol sulfate 90 mcg/actuation aero powdr breath act w/sensor 2 inh INHALATION Q6H PRN (Reason: Shortness Of Breath) methylsulfonylmethane [MSM] 1,000 mg tablet 1,000 mg PO DAILY PreserVision AREDS 14,320-226-200 wkvf-[id number]-bela capsule 1 cap PO BID timolol 0.5 % drops 1 drop ophthalmic (eye) BID Rx Instructions: both eyes aspirin 81 mg tablet,delayed release (DR/EC) 81 mg PO DAILY Hold Instructions: Resume on 11/21/21. latanoprost 0.005 % drops 1 drop ophthalmic (eye) DAILY Rx Instructions: both eyes tamsulosin 0.4 mg capsule 0.4 mg PO BID Qty: 180 3RF hydrochlorothiazide 25 mg tablet 25 mg PO QAM 90 Days Qty: 90 2RF metoprolol succinate 50 mg tablet extended release 24 hr 50 mg PO DAILY 90 Days Qty: 90 2RF Spiriva Respimat 2.5 mcg/actuation mist 2 inh INHALATION QAM Qty: 4 5RF multivitamin Tablet 1 tab PO DAILY potassium chloride 10 mEq tablet,ER particles/crystals 10 meq PO TID mupirocin 2 % ointment 1 applic topical BID PRN (Reason: dryness) Rx Instructions: apply to cotton swab and into each nostril atorvastatin 80 mg tablet 80 mg PO DAILY furosemide 20 mg tablet 20 mg PO DAILY Discharge Orders: Discharge ED (Routine); Ordered 11/27/21 Ordered By: Ayde Maurice Referrals: Deloris Conway MD [Primary Care Provider] - Discharge Diet: Advance as tolerated Discharge Activity: Resume usual activity Patient Instructions: Hypokalemia (ED) Coding Level of Care Code ED Livestock Exhibitor for Randellg Fwd Exam Comprehensive
[2021-11-27] MEDS: sodium chloride 0.9% 250 ML IV (20:09)
[2021-11-27 21:03] VITALS: BP 158/79; PULSE 79; RESP 16; O2SAT 98
[2021-11-27 21:44] LABS: Potassium 2.7 mmol/L (3.5-5.1)
[2021-11-27 22:17] VITALS: PULSE 70; RESP 16; O2SAT 98
== END 2021-11-27 22:22 | disposition home or self-care (01) ==
PROVIDERS: Physician Assistant; Emergency Provider Emergency Medicine; PCP Family Medicine
DX: E87.6 Hypokalemia (principal); Z79.82 Long term (current) use of aspirin; Z87.891 Personal history of nicotine dependence; I25.10 Atherosclerotic heart disease of native coronary artery without angina pectoris; I11.0 Hypertensive heart disease with heart failure; I50.9 Heart failure, unspecified
CPT/HCPCS: 80053; 83735; 84132; 85025; 93005; 96360; 96361; 99284; J3480; J7050

== ENCOUNTER → 2021-12-24 14:50 | Outpatient (BNVA) | payer OTHER, MEDICARE, SELFPAY | PROVIDERS: PCP Family Medicine; Visit Provider Urology | DX: N28.89 Other specified disorders of kidney and ureter (principal); N40.1 Benign prostatic hyperplasia with lower urinary tract symptoms; R33.9 Retention of urine, unspecified; N18.2 Chronic kidney disease, stage 2 (mild) | CPT/HCPCS: 87077; 87086; 87186; 99024 ==

== ENCOUNTER 2022-03-25 18:40 | Inpatient (IN) | payer OTHER, SELFPAY ==
[2022-03-25] VITALS (10 sets, daily range): BP systolic 109–172; BP diastolic 70–86; PULSE 91–111; RESP 15–18; TEMP 37.2; O2SAT 93–98; BMI 22.5
--- NOTE | 2022-03-25 18:44 | XRR_ITS ---
PROCEDURE INFORMATION: Exam: XR Chest Exam date and time: 03/25/2022 7:07 PM Age: 86 years old Clinical indication: Other: Syncope; Prior surgery; Surgery date: 6+ months; Surgery type: Quadruple bypass; Patient HX: Patient says he passed out; Additional info: AMS TECHNIQUE: Imaging protocol: Radiologic exam of the chest. Views: 1 view. COMPARISON: CR XR chest 2V* [id number] 04/25/2016 3:13 PM FINDINGS: Lungs: Emphysematous changes suspected. Pleural spaces: Left costophrenic angle probable scarring. Heart/Mediastinum: Cardiomegaly. Bones/joints: Sternotomy wires. XR/XR chest 1V portable [id number] IMPRESSION: 1. Negative for infiltrate. 2. Cardiomegaly. 3. Left costophrenic angle probable scarring. 4. Emphysematous changes suspected.
--- NOTE | 2022-03-25 18:44 | CTR_ITS ---
PROCEDURE INFORMATION: Exam: CT Head Without Contrast Exam date and time: 03/25/2022 7:10 PM Age: 86 years old Clinical indication: Altered mental status/memory loss; Patient HX: HX of skin cancer; Additional info: AMS TECHNIQUE: Imaging protocol: Computed tomography of the head without contrast. Radiation optimization: All CT scans at this facility use at least one of these dose optimization techniques: automated exposure control; mA and/or kV adjustment per patient size (includes targeted exams where dose is matched to clinical indication); or iterative reconstruction. COMPARISON: CT head wo con* [id number] 04/14/2016 6:35 PM RADIATION DOSE METRICS: Total DLP (mGy-cm): 1062.89 FINDINGS: Brain: Mild to moderate diffuse white matter disease likely reflecting chronic microvascular ischemic changes. Cerebral ventricles: No ventriculomegaly. Paranasal sinuses: Visualized sinuses are unremarkable. No fluid levels. Mastoid air cells: Visualized mastoid air cells are well aerated. Bones/joints: Unremarkable. No acute fracture. Soft tissues: Unremarkable. CT/CT head wo con* [id number] IMPRESSION: Negative for intracranial hemorrhage or mass effect.
--- NOTE | 2022-03-25 18:44 | ECG_ITS ---
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 Measurements Intervals [place] Rate: 104 P: 253 GA: 206 QRS: 86 QRSD: 124 T: -47 QT: 377 QTc: 498 Interpretive Statements Possible junctional tachycardia ST DEPRESSION, CONSIDER SUBENDOCARDIAL INJURY [0.1+ mV ST DEPRESSION] Compared to ECG 11/27/2021 17:26:46 Sinus rhythm no longer present Ventricular premature complex(es) no longer present Left ventricular hypertrophy no longer present Myocardial infarct finding no longer present ST (T wave) deviation still present Electronically Signed On 03-26-2022 23:58:34 GROUNDWATER MONITORING TECHNICIAN by Kristi Vazquez M.D. [email or web address] behavioral [facility] [email or web address] [email or web address]/[id number]
--- NOTE | 2022-03-25 18:47 | ED_ITS ---
HPI - General Adult General: Chief complaint: General Medical Stated complaint: AMS Time Seen by Provider: 03/25/22 18:40 Source: patient and EMS Mode of arrival: EMS Limitations: no limitations History of Present Illness: 86-year-old male extensive history of coronary artery disease Per EMS patient's family found him in the bathroom believe that he had had a syncopal event he was originally very lethargic when EMS arrived he was in a wide-complex tachycardia: I reviewed the EKG looks like atrial flutter they gave him amiodarone his heart rates currently improved patient is now awake and alert and able answer all my questions appropriately he denies any pain he is not sure what happened today. Associated symptoms: Reports syncope; Deny chest pain, dyspnea, headache(s), nausea, rash or vomiting Review of Systems Const: Denies: fever(s), chills, body aches or change in appetite Eyes: Denies: blurry vision or eye discomfort ENMT: Denies: throat pain or dental pain Card: Reports: syncope; Denies: chest pain Resp: Denies: dyspnea GI: Denies: abdominal pain, nausea, vomiting or diarrhea : Denies: dysuria Musc: Denies: neck pain or back pain Skin/Breast: Denies: rash Neuro: Denies: headache(s) Psych: Denies: depression Brock/Lymph: Denies: easy bruising All/Imm: Denies: urticaria PFSH ED PFSH: Medical History BPH (benign prostatic hyperplasia) BPH loc w urin obs/LUTS CAD (coronary atherosclerotic disease) Congestive heart failure (CHF) Enrolled in chronic care management Essential hypertension History of nonmelanoma skin cancer Hypokalemia Left renal mass Urinary retention Surgical History H/O carotid angioplasty H/O heart surgery History of cholecystectomy Hx of knee surgery S/P TURP (transurethral resection of prostate) Family History Mother , at age 65 Cancer Other CAD (coronary artery disease) Social History Smoking and tobacco status: former smoker Quit status (tobacco): has quit using tobacco Former quit date comment: 40 yr 1-3ppd Second hand smoke exposure: No Alcohol intake: never Desire information about alcohol rehabilitation?: No Desire information about substance/drug rehabilitation?: No Caregiver/support person: Yes Lives independently: No Household members: spouse Housing: House Marital status: Current occupational status: retired History of recent travel: No Current gender identity: Male Physical Exam Const: COMMON NORMALS: no acute distress, patient oriented x3 and healthy appearing HENMT: COMMON NORMALS: normocephalic and atraumatic HEAD & SCALP: normocephalic and atraumatic Eye: COMMON NORMALS: Equal, round and reactive pupils present and EOMs intact bilaterally PUPIL: Yes Equal, round and reactive pupils present Neck/C-Spine: COMMON NORMALS: full ROM and supple Chest: COMMONS NORMALS: normal inspection of the chest and normal palpation of entire chest wall Resp: COMMON NORMALS: normal respiratory effort, No retractions, No use of accessory muscles and clear to auscultation bilaterally AUSCULTATION: clear to auscultation bilaterally Cardio: COMMON NORMALS: regular rate, regular rhythm and No murmurs present (Cardio) RATE: regular rate RHYTHM: regular rhythm GI: COMMON NORMALS: Normal to inspection, nondistended, normoactive bowel sounds present, Soft to palpation, non-tender and no masses PALPATION: Yes Soft to palpation Extremity: COMMON NORMALS: normal to inspection and full ROM Neuro: COMMON NORMALS: patient oriented x3, moves all extremities and no focal motor deficits Psych: COMMON NORMALS: mental status grossly normal, Normal thought process present and cooperative THOUGHT PROCESS: Normal thought process present Skin: COMMON NORMALS: no rashes or lesions noted and no wounds GENERAL SKIN EXAM: no rashes or lesions noted Course Vital Signs: Vital signs: Vital Signs Pulse Rate 106 H 03/25/22 18:40 Respiratory Rate 18 03/25/22 18:40 Blood Pressure 155/84 03/25/22 18:40 Pulse Oximetry 96 03/25/22 18:40 Oxygen Delivery Me thod 03/25/22 18:40 Oxygen Flow Rate 2 03/25/22 18:40 [facility] - General Adult Medical Decision Making Patient presents here after syncopal event he has been well-appearing here he is hyponatremic, slightly dehydrated patient given IV fluids spoke to hospitalist will admit for observation. Lab Data 03/25/22 19:07 03/25/22 19:07 Radiology Impressions Chest X-Ray 03/25/22 18:44 IMPRESSION: 1. Negative for infiltrate. 2. Cardiomegaly. 3. Left costophrenic angle probable scarring. 4. Emphysematous changes suspected. Head CT 03/25/22 18:44 IMPRESSION: Negative for intracranial hemorrhage or mass effect. Laboratory Results WBC 21.7 10^3/uL (4.0-10.0) H 03/25/22 19:07 RBC 4.57 10^6/uL (4.1-5.3) 03/25/22 19:07 Hgb 13.9 g/dL (11.7-16.6) 03/25/22 19:07 Hct 41.6 % (42.0-52.0) L 03/25/22 19:07 MCV 91.0 fl (80-94) 03/25/22 19:07 MCH 30.4 pg (28.0-34.0) 03/25/22 19:07 MCHC 33.4 g/dL (30.0-36.0) 03/25/22 19:07 RDW 13.4 % (12.1-15.1) 03/25/22 19:07 Plt Count 171 10^3/cmm (130-400) 03/25/22 19:07 MPV 10.6 fL (7.4-10.4) H 03/25/22 19:07 Neut % (Auto) 87.8 % 03/25/22 19:07 Lymph % (Auto) 3.0 % 03/25/22 19:07 [place] % (Auto) 7.7 % 03/25/22 19:07 Eos % (Auto) 0.5 % 03/25/22 19:07 Baso % (Auto) 0.2 % 03/25/22 19:07 Neut # (Auto) 19.06 10^3/uL (1.8-7.7) H 03/25/22 19:07 Lymph # (Auto) 0.6 10^3/uL (0.8-4.8) L 03/25/22 19:07 [place] # (Auto) 1.7 10^3/uL (0.2-0.9) H 03/25/22 19:07 Eos # (Auto) 0.1 10^3/uL (0.0-0.8) 03/25/22 19:07 Baso # (Auto) 0.0 10^3/uL (0.0-0.1) 03/25/22 19:07 Nucleated RBC % (auto) 0 % 03/25/22 19:07 Nucleated RBCs # 0.0 /100WBC 03/25/22 19:07 PT 14.90 SECONDS (12.1-14.9) 03/25/22 19:07 INR 1.14 (0.8-1.2) 03/25/22 19:07 Sodium 125 mmol/L (136-145) L 03/25/22 19:07 Potassium 3.5 mmol/L (3.5-5.1) 03/25/22 19:07 Chloride 90 mmol/L (98-107) L 03/25/22 19:07 Carbon Dioxide 23 mmol/L (22-29) 03/25/22 19:07 Anion Gap 15.5 (5-19) 03/25/22 19:07 BUN 38 mg/dL (8-23) H 03/25/22 19:07 Creatinine 2.0 mg/dL (0.7-1.2) H 03/25/22 19:07 GFR Calculation Not Reportable 03/25/22 19:07 Glucose 163 mg/dL (65-115) H 03/25/22 19:07 POC Glucose 159 mg/dL (70-110) H 03/25/22 19:10 Calculated Osmolality 273 mOsm/kg (285-295) L 03/25/22 19:07 Calcium 9.0 mg/dL (8.5-10.5) 03/25/22 19:07 Total Bilirubin 1.5 mg/dL (0.15-1.2) H 03/25/22 19:07 AST 34 U/L (0-40) 03/25/22 19:07 ALT 20 U/L (0-41) 03/25/22 19:07 Alkaline Phosphatase 107 U/L (40-130) 03/25/22 19:07 Troponin T Baseline 53 ng/L (0-15) H 03/25/22 19:07 Total Protein 6.8 g/dL (6.6-8.7) 03/25/22 19:07 Albumin 3.5 g/dL (3.5-5.2) 03/25/22 19:07 Globulin 3.3 g/dL (1.3-4.6) 03/25/22 19:07 EKG Data EKG 1: I personally reviewed and interpreted this EKG as follows: EKG interpretation date: 03/25/22 EKG interpretation time: 18:56 Interpretation: sinus tach hr [address] or t wave abnormalities qrs 124 qtc 438 Computer generated interpretation: Chest X-Ray 03/25/22 18:44 IMPRESSION: 1. Negative for infiltrate. 2. Cardiomegaly. 3. Left costophrenic angle probable scarring. 4. Emphysematous changes suspected. Head CT 03/25/22 18:44 IMPRESSION: Negative for intracranial hemorrhage or mass effect. Discharge Plan Discharge Patient Disposition: Placed in Observation Clinical Impression: Syncope, Hyponatremia Condition: Stable Prescriptions: No Action albuterol sulfate 90 mcg/actuation aero powdr breath act w/sensor 2 inh INHALATION Q6H PRN (Reason: Shortness Of Breath) methylsulfonylmethane [MSM] 1,000 mg tablet 1,000 mg PO DAILY PreserVision AREDS 14,320-226-200 [id number]-[id number]-vwmj capsule 1 cap PO BID timolol 0.5 % drops 1 drop ophthalmic (eye) BID Rx Instructions: both eyes aspirin 81 mg tablet,delayed release (DR/EC) 81 mg PO DAILY Hold Instructions: Resume on 11/21/21. latanoprost 0.005 % drops 1 drop ophthalmic (eye) DAILY Rx Instructions: both eyes lisinopril 5 mg tablet 5 mg PO DAILY PRN hydrochlorothiazide 25 mg tablet 25 mg PO QAM 90 Days Qty: 90 2RF metoprolol succinate 50 mg tablet extended release 24 hr 50 mg PO DAILY 90 Days Qty: 90 2RF Spiriva Respimat 2.5 mcg/actuation mist 2 inh INHALATION QAM Qty: 4 5RF amoxicillin-pot clavulanate 875-125 mg tablet 1 tab PO BID Qty: 28 1RF tamsulosin 0.4 mg capsule See Rx Instructions .ROUTE .COMPLEX Qty: 180 3RF Dose Instruction: TAKE 1 CAPSULE TWICE DAILY Rx Instructions: TAKE 1 CAPSULE TWICE DAILY potassium chloride 10 mEq tablet,ER particles/crystals See Rx Instructions .ROUTE .COMPLEX Qty: 360 0RF Dose Instruction: TAKE 1 TABLET FOUR TIMES DAILY Rx Instructions: TAKE 1 TABLET FOUR TIMES DAILY multivitamin Tablet 1 tab PO DAILY mupirocin 2 % ointment 1 applic topical BID PRN (Reason: dryness) Rx Instructions: apply to cotton swab and into each nostril atorvastatin 80 mg tablet 80 mg PO DAILY furosemide 20 mg tablet 20 mg PO DAILY Referrals: Deloris Conway MD [Primary Care Provider] - Coding Level of Care Code ED Self Storage Manager for Chg Fwd Exam Comprehensive
[2022-03-25 19:13] LABS: Basophils % 0.2 %; Eosinophils # 0.1 10^3/uL (0.0-0.8); Eosinophils % 0.5 %; Hematocrit 41.6 % (42.0-52.0); Hemoglobin 13.9 g/dL (11.7-16.6); Lymphocytes # 0.6 10^3/uL (0.8-4.8); Mean Corpuscular HGB Conc 33.4 g/dL (30.0-36.0); Mean Corpuscular Hemoglobin 30.4 pg (28.0-34.0); Mean Platelet Volume 10.6 fL (7.4-10.4); Monocytes # 1.7 10^3/uL (0.2-0.9); Monocytes % 7.7 %; Neutrophils # 19.06 10^3/uL (1.8-7.7); Neutrophils % 87.8 %; Nucleated Red Blood Cells % 0 %; Platelet Count 171 10^3/cmm (130-400); Red Blood Count 4.57 10^6/uL (4.1-5.3); Red Cell Distribution Width 13.4 % (12.1-15.1); White Blood Count 21.7 10^3/uL (4.0-10.0)
[2022-03-25 19:13] LABS: Glucose Point of Care 159 mg/dL (70-110)
[2022-03-25 19:34] LABS: INR 1.14 (0.8-1.2)
[2022-03-25 19:43] LABS: Troponin(5th) Baseline 53 ng/L (0-15)
[2022-03-25 19:46] LABS: Alanine Aminotransferase 20 U/L (0-41); Albumin Level 3.5 g/dL (3.5-5.2); Alkaline Phosphatase 107 U/L (40-130); Blood Urea Nitrogen 38 mg/dL (8-23); Carbon Dioxide 23 mmol/L (22-29); Chloride 90 mmol/L (98-107); Globulin 3.3 g/dL (1.3-4.6); Glucose 163 mg/dL (65-115); Osmolality Calculated 273 mOsm/kg (285-295); Sodium 125 mmol/L (136-145); Total Bilirubin 1.5 mg/dL (0.15-1.2); Total Protein 6.8 g/dL (6.6-8.7)
[2022-03-25 19:47] LABS: Anion Gap 15.5 (5-19); Aspartate Amino Transferase 34 U/L (0-40); Potassium 3.5 mmol/L (3.5-5.1)
--- NOTE | 2022-03-25 20:34 | P.HP_ITS ---
Providers/Chief Complaint Primary Care Provider: Deloris Conway MD Chief Complaint: AMS History of Present Illness Lowell Salazar is a 86 year old male with history of BPH, self catheterizes, nonoxygen pendant COPD, quadruple bypass, chronic kidney disease presented with an episode of syncope. Mrs. Salazar is admitted in this hospital, he visited her today, son is at the bedside who is stating that he checked on his father around 5 PM(when he returned from the hospital), he found him hunched over the sink in the bathroom. He was barely arousable. At that time EMS was called. Son did not check blood pressure or blood glucose. As per EMT they were concerned about malignant arrhythmia wide-complex tachyarrhythmia he was given amiodarone, patient never lost pulse no CPR or signs of cardiac arrest. Patient is stating that he has been feeling weak and lethargic for drop in blood pressure. He is compliant with his medications. He has not noticed any nausea, vomiting, chest pain. Before this event he did not void urine or had any bowel movement. No seizure-like activity. He thinks his blood pressure dropped that made him very confused and drowsy. No recent fever. In the ER he has been diagnosed with UTI, leukocytosis, narrow complex sinus rhythm with questionable atrial flutter rhythm pattern, patient is asymptomatic chest pain-free hemodynamically stable acute on chronic kidney disease, D-dimer 1.9, hyponatremia, Baseline troponin 53, 2-hour troponin 52.4, EKG showing ST depression inferior lateral leads, cloudy urine with multiple RBCs and white blood cells Review of Systems Const: Denies: fever(s) Eyes: Denies: change in vision ENMT: Denies: throat pain Card: Denies: chest pain Resp: Denies: dyspnea GI: Denies: abdominal pain : Denies: flank pain Musc: Denies: neck pain Skin/Breast: Reports: rash Neuro: Denies: headache(s) Endo: Denies: polyuria Brock/Lymph: Denies: easy bruising All/Imm: Denies: urticaria Medications/Allergies Home Medications Medication Instructions Recorded Confirmed Last Taken Type albuterol sulfate 90 mcg/actuation 2 inh inhalation Q6H PRN Shortness 05/22/19 0 12/24/21 08/22/21 History breath activated powder Of Breath inhaler,sensor aspirin 81 mg tablet,delayed 81 mg PO DAILY 05/22/19 12/24/21 11/24/21 History release latanoprost 0.005 % eye drops 1 drop ophthalmic (eye) DAILY 05/22/19 12/24/21 11/27/21 History methylsulfonylmethane 1,000 mg 1,000 mg PO DAILY 05/22/19 12/24/21 11/26/21 History tablet (MSM) timolol 0.5 % eye drops 1 drop ophthalmic (eye) BID 05/22/19 12/24/21 11/27/21 History vitamins A,C,Z-rqoi-mengju 14,320 1 cap PO BID 05/22/19 12/24/21 11/27/21 History unit-226 mg-200 unit capsule (PreserVision AREDS) hydrochlorothiazide 25 mg tablet 25 mg PO QAM 90 days #90 tabs 10/17/21 12/24/21 11/27/21 Rx metoprolol succinate 50 mg 50 mg PO DAILY 90 days #90 tabs 10/17/21 12/24/21 11/24/21 Rx tablet,extended release 24 hr tiotropium bromide 2.5 2 inh inhalation QAM #4 grams 10/17/21 12/24/21 11/27/21 Rx mcg/actuation mist for inhalation (Spiriva Respimat) atorvastatin 80 mg tablet 80 mg PO DAILY 10/23/21 12/24/21 11/26/21 History furosemide 20 mg tablet 20 mg PO DAILY 10/23/21 12/24/21 11/27/21 History mupirocin 2 % topical ointment 1 applic topical BID PRN dryness 10/23/21 12/24/21 Unknown History multivitamin 1 tab PO DAILY 11/27/21 12/24/21 11/27/21 History lisinopril 5 mg tablet 5 mg PO DAILY PRN 12/24/21 12/24/21 Unknown History amoxicillin 875 mg-potassium 1 tab PO BID #28 tabs 12/28/21 Unknown Rx clavulanate 125 mg tablet tamsulosin 0.4 mg capsule See Rx Instructions .Route 01/07/22 Unknown Rx .COMPLEX #180 caps potassium chloride 10 mEq See Rx Instructions .Route 03/25/22 Unknown Rx tablet,extended release(part/cryst) .COMPLEX #360 tabs Allergies Allergy/AdvReac Type Severity Reaction Status Date / Time ranitidine [From Zantac] Allergy Unknown UNKNOWN Verified 12/24/21 15:09 simvastatin [From Zocor] Allergy Unknown ADR-Muscle Verified 12/24/21 15:09 Pain PFSH Acute PFSH: Medical History BPH (benign prostatic hyperplasia) BPH loc w urin obs/LUTS CAD (coronary atherosclerotic disease) Congestive heart failure (CHF) Enrolled in chronic care management Essential hypertension History of nonmelanoma skin cancer Hypokalemia Left renal mass Urinary retention Surgical History H/O carotid angioplasty H/O heart surgery History of cholecystectomy Hx of knee surgery S/P TURP (transurethral resection of prostate) Family History Mother , at age 65 Cancer Other CAD (coronary artery disease) Social History Smoking and tobacco status: former smoker Quit status (tobacco): has quit using tobacco Former quit date comment: 40 yr 1-3ppd Second hand smoke exposure: No Alcohol intake: never Desire information about alcohol rehabilitation?: No Desire information about substance/drug rehabilitation?: No Caregiver/support person: Yes Lives independently: No Household members: spouse Housing: House Marital status: Current occupational status: retired History of recent travel: No Current gender identity: Male Vitals/I&O/Wt Last Vital Signs Pulse 106 H 03/25/22 18:40 Resp 18 03/25/22 18:40 BP 155/84 03/25/22 18:40 Pulse Ox 96 03/25/22 18:40 O2 Del Method 03/25/22 18:40 O2 Flow Rate 2 03/25/22 18:40 Weight last 48 hrs Weight 77.564 kg Physical Exam Narrative: Very pleasant cooperative elderly male Hemodynamically stable S1, S2 Abdomen soft No signs of congestive heart failure clinically Awake and alert Doing well on room air Abdomen soft Appropriate mood and affect Multiple petechiae noticed on extremities Data 03/25/22 19:07 03/25/22 19:07 A&P Assessment and plan (1) Syncope: (2) Hypokalemia: (3) BPH loc w urin obs/LUTS: (4) Bacteriuria: Plan Syncope Orthostatic hypotension? Check orthostatics History of BPH 3 cm left renal mass(follows up with Dr. Grajeda, complex cyst?) Requested CT abdomen pelvis without contrast No signs of tachyarrhythmia or wide-complex tachycardia Currently sinus rhythm Concern for atrial flutter: Patient has history of atrial flutter status post ablation, on aspirin and metoprolol succinate EKG showing ST depression, troponin not significantly high we will start him on ACS protocol because of history of coronary disease/quadruple bypass, if echo does not show significant wall motion abnormality, ACS protocol may be discontinued Requested echo, check D-dimer UTI: Patient is not endorsing any symptoms he self catheterizes at home Hematuria, pyuria Bacteriuria Check urine culture Significant white count, previous urine culture showed ESBL E. coli, will use Zosyn for now, previous culture and sensitivity reviewed Hyponatremia Clinically does not look fluid overloaded High BNP Bedside ultrasound showed collapsible IVC, does not look distended I would avoid giving him diuretics for now Gentle fluid hydration DNR/DNI Cardiac diet Attestations Medical Necessity Statement*: Anticipating discharge within 48 hours Time Spent in Patient Care: 40 Coding Level of Care Code Acute Clinical Rehabilitation Coordinator for Sobeida Zambrano Diagnoses Syncope R55 Hypokalemia E87.6 BPH loc w urin obs/LUTS N40.1 Bacteriuria R82.71
--- NOTE | 2022-03-25 20:44 | ECG_ITS ---
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 Measurements Intervals [place] Rate: 92 P: 158 RI: 217 QRS: 80 QRSD: 133 T: 74 QT: 403 QTc: 500 Interpretive Statements ECTOPIC ATRIAL RHYTHM WITH FIRST DEGREE AV BLOCK INTRAVENTRICULAR CONDUCTION DELAY [130+ ms QRS DURATION] PROBABLE ANTERIOR MYOCARDIAL INFARCTION , OF INDETERMINATE AGE [35 ms Q WAVE IN V3/V4] Compared to ECG 03/25/2022 18:56:38 Ectopic atrial rhythm now present First degree AV block now present Intraventricular conduction delay now present Myocardial infarct finding now present Sinus tachycardia no longer present ST (T wave) deviation no longer present Electronically Signed On 03-27-2022 0:10:08 [employer] by Kristi Vazquez M.D. [id number]
[2022-03-25] MEDS: sodium chloride 0.9% 1,000 ML 999 ML IV (20:45)
[2022-03-25 21:14] LABS: Add Urine Microscopic? YES; Bilirubin Urine Neg (Negative); Blood Urine 3+ (Negative); Glucose Urine UA Norm (Normal); Ketones Urine Negative (Negative); Leukocyte Esterase Urine Trace (Negative); Nitrate Urine Positive (Negative); Protein Urine 1+ (Negative); Specific Gravity, Urine 1.015 (1.005-1.030); Urine Appearance Cloudy (CLEAR); Urine Color Yellow (Yellow); Urobilinogen Urine Neg (Negative); pH Urine 6 (5-7)
[2022-03-25 21:15] LABS: Add Urine Culture? Yes; Bacteria Urine 4+ /hpf; RBC Urine TOO NUMEROUS TO CNT /hpf (0-2); WBC Urine 80-100 /hpf (0-5)
[2022-03-25 21:34] LABS: D Dimer 1.95 ug/mIFEU (0-0.59)
--- NOTE | 2022-03-25 21:34 | PC.NURSE ---
Called report to Cintia Rowland
[2022-03-25 21:40] LABS: Troponin 5 2HR 52.49 ng/L (0-15)
[2022-03-25 21:45] LABS: Troponin 5 2HR Delta -0.51 ABS# (0-10)
[2022-03-25 21:50] LABS: NT Pro B Type Natriuretic Pept 13154 pg/mL (0-450); Prolactin 8.04 ng/mL (4.0-15.2)
[2022-03-25] MEDS: clopidogrel 75 mg Tablet PO (22:25)
[2022-03-25] MEDS: sodium chloride 0.9% 1,000 ML 75 ML IV (22:25)
[2022-03-25] MEDS: piperacillin-tazobactam 3.375 GM in sodium chloride 0.9% (plus) 50 ML IV (23:08)
[2022-03-26] VITALS (7 sets, daily range): BP systolic 126–175; BP diastolic 57–77; PULSE 63–116; RESP 13–18; TEMP 36.4–38.3; O2SAT 92–98
[2022-03-26 00:26] LABS: Urine Random Sodium 86 mmol/L
[2022-03-26] MEDS: heparin drip 25,000 UNIT/500 ML PREMIX 22 UNIT IV (01:09)
[2022-03-26] MEDS: heparin 5,000 unit/mL INJ 1 mL IV (01:11)
[2022-03-26 01:52] LABS: Basophils % 0.2 %; Eosinophils # 0.1 10^3/uL (0.0-0.8); Eosinophils % 0.3 %; Hematocrit 40.1 % (42.0-52.0); Hemoglobin 13.1 g/dL (11.7-16.6); Lymphocytes # 1.2 10^3/uL (0.8-4.8); Lymphocytes % 6.6 %; Mean Corpuscular HGB Conc 32.7 g/dL (30.0-36.0); Mean Corpuscular Hemoglobin 30.5 pg (28.0-34.0); Mean Corpuscular Volume 93.5 fl (80-94); Mean Platelet Volume 10.8 fL (7.4-10.4); Monocytes # 0.7 10^3/uL (0.2-0.9); Monocytes % 3.8 %; Neutrophils # 16.31 10^3/uL (1.8-7.7); Neutrophils % 88.4 %; Nucleated Red Blood Cells % 0 %; Platelet Count 152 10^3/cmm (130-400); Red Blood Count 4.29 10^6/uL (4.1-5.3); Red Cell Distribution Width 13.5 % (12.1-15.1); White Blood Count 18.5 10^3/uL (4.0-10.0)
[2022-03-26] MEDS: acetaminophen 500 mg Tablet PO (02:24)
[2022-03-26 03:00] LABS: Troponin 5 6HR 54.57 ng/L (0-15)
[2022-03-26 03:04] LABS: Troponin 5 6HR Delta 1.57 ng/L (0-12)
[2022-03-26 03:07] LABS: Anion Gap 18.6 (5-19); Blood Urea Nitrogen 36 mg/dL (8-23); Calcium 8.9 mg/dL (8.5-10.5); Carbon Dioxide 24 mmol/L (22-29); Chloride 97 mmol/L (98-107); Glucose 181 mg/dL (65-115); Magnesium 1.7 mg/dL (1.7-2.3); Osmolality Calculated 295 mOsm/kg (285-295); Phosphorus 3.4 mg/dL (2.5-4.5); Potassium 3.6 mmol/L (3.5-5.1); Sodium 136 mmol/L (136-145)
[2022-03-26 03:28] LABS: Thyroid Stimulating Hormone 0.84 uIU/mL (0.27-4.20); Uric Acid 7.4 mg/dL (3.4-7.0); Vitamin B12 536 pg/mL (232-1245)
[2022-03-26] MEDS: piperacillin-tazobactam 3.375 GM in sodium chloride 0.9% (plus) 50 ML IV ×3 (06:03→23:12)
[2022-03-26 07:29] LABS: Partial Thromboplastin Time 133.3 SECONDS (23.9-36.7)
[2022-03-26] MEDS: aspirin 81 mg EC Tablet PO (08:28)
[2022-03-26] MEDS: metoprolol succinate ER (24 HR) 50 mg Tablet PO (08:28)
[2022-03-26] MEDS: clopidogrel 75 mg Tablet PO (08:28)
--- NOTE | 2022-03-26 09:03 | PC.PHAR ---
PT UNABLE TO VERIFY MEDICATIONS DUE TO AMS- PT IS ALSO IN THE HOSPITAL AND DOES NOT KNOW PTS MEDICATIONS- [facility] AFTER [facility]IPLE CALLS- [facility] AT 9 AM ON 03/26/2022
--- NOTE | 2022-03-26 10:18 | PC.CHAP ---
Pastoral Care Encounter/Spiritual Assessment Type of Contact [] Declined tank operator visit [] Patient/Family/Request visit [] Outpatient visit [] Follow-up visit [] Physician referral [] Code/Alert [x] Routine visit [] Staff referral [] Actively dying [x] Patient sleeping [] Family support [] [] Out of room [] Palliative care [] [] Receiving care in room [] Pre-surgical visit [] Trauma [] Long length of stay [] ICU visit [] Other: Relational/Emotional Strength [] Patient feels connected with others/family/visitors/staff [] Distress [] Loneliness/isolation [] Abandonment Spirituality of Patient [] Person of Aicha [] Attends Restorationism of their Aicha [] Believes in Prayer [] Reads Bible or Restorationism materials [] There are Spiritual issues to be addressed Manager Order Interventions [] Prayer [] Active listening [] Non-anxious presence [] Spiritual/emotional support [] Crisis/trauma care [] Spiritual counseling [] Bereavement support [] Provided bereavement packet [] Provided Bible/devotional materials [] Provided toy/stuffed animal, coloring book to patient or family member [] Provided Communion [] Anointing/[place] [] Salvation [] Completed spiritual assessment [] Other: Impact on Illness or Injury [] Angry [] Fearful [] Anxious [] Often cries [] Exhaustion [] Unable to work [] Unable to attend rastafari [] Unable to walk/stand [] Unable to read [] Unable to drive [] Unable to eat/drink [] Unable to sleep [] Unable to be with family [] Patient intubated [] Other: Summary Time spent with patient
[2022-03-26 14:32] LABS: Total Iron Binding Capacity 178 mcg/dl; Unsaturated Iron Binding 167 ug/dL (112-347)
[2022-03-26 14:39] LABS: Procalcitonin 20.78 ng/mL (0-0.5)
[2022-03-26 14:43] LABS: Iron 11 ug/dL (59-158); Percent Saturation 6.1 % (20-50)
[2022-03-26] MEDS: sodium chloride 0.9% 1,000 ML 75 ML IV (14:43)
[2022-03-26 16:01] LABS: Partial Thromboplastin Time 64.1 SECONDS (23.9-36.7)
--- NOTE | 2022-03-26 16:02 | PM.PN ---
Subjective Subjective: Admitted overnight. Seen with family at bedside. H&P and labs appreciated. Examination patient sitting comfortably in bed having his breakfast. States he is feeling a lot better. Denies any nausea, vomiting, headache. Able to self catheterize like at home. Post catheterization bladder scan shows minimal urine retention. Appreciate CT results. T-max since admission 100.9 Fahrenheit. Vitals/I&O/Wt Last Vital Signs Temp 100.9 F H 03/26/22 15:51 Pulse 89 03/26/22 15:51 Resp 18 03/26/22 15:51 BP 167/70 03/26/22 15:51 Pulse Ox 93 03/26/22 15:51 O2 Del Method 03/26/22 15:51 O2 Flow Rate 2 03/26/22 08:00 03/26/22 03/26/22 03/26/22 06:59 14:59 22:59 Intake Total 650 / 1650 1431.9 / 1431.9 Output Total 500 / 500 Balance 150 / 1150 1431.9 / 1431.9 Weight last 48 hrs Weight 77.564 kg Physical Exam Narrative: Very pleasant cooperative elderly male Hemodynamically stable S1, S2 regular, no tachycardia, no gallops Abdomen soft, nontender, no renal angle tenderness, bowel sounds present Neurological: Moving all limbs, 4 x 4 pupils bilaterally equal and reactive reactive Data 03/26/22 01:33 03/26/22 01:33 Micro: Microbiology 03/26/22 13:45 Blood Culture - Preliminary Blood SPECIMEN COLLECTED 03/26/22 13:50 Blood Culture - Preliminary Blood SPECIMEN COLLECTED A&P Assessment and plan (1) Sepsis: Qualifiers: Sepsis type: Escherichia coli Sepsis acute organ dysfunction status: with acute organ dysfunction Severe sepsis acute organ dysfunction type: encephalopathy Severe sepsis shock status: without septic shock Qualified Code(s): A41.51 - Sepsis due to Escherichia coli [E. coli]; R65.20 - Severe sepsis without septic shock; G93.41 - Metabolic encephalopathy (2) Syncope: Most likely secondary to sepsis from UTI. Sepsis present on admission. Source UTI. Endorgan damage acute metabolic encephalopathy. Ruled in by leukocytosis, fever. Cannot rule out secondary to arrhythmia, ACS in setting of history of CABG though patient denies any chest pain. Also has history of right-sided carotid stenosis. No active signs of CVA currently though TIA cannot be ruled out. (3) UTI due to extended-spectrum beta lactamase (ESBL) producing Escherichia coli: History of ESBL E. coli UTI. Also has history of heart catheterization with left renal mass and complex bilateral renal cysts. Pyelonephritis or obstructive nephropathy ruled out. Continue with Zosyn. Check MRSA swab, urine Legionella, bacterial antigen. Check blood culture. Follow-up urine culture. (4) CAD (coronary atherosclerotic disease): Post CABG. Denies chest pain. Troponin on admission was slightly elevated with negative delta. Elevated troponin most likely secondary to type II [place] versus elevated creatinine. Echocardiogram pending. For now hold off on heparin drip. Check A1c, lipid panel. Continue with aspirin, statin. Continue Plavix for now. If echocardiogram without regional wall motion abnormality more than baseline we will stop Plavix. Qualifiers: Coronary Disease-Associated Artery/Lesion type: [place] artery [place] vs. transplanted heart: [place] heart Associated angina: without angina Qualified Code(s): I25.10 - Atherosclerotic heart disease of [place] coronary artery without angina pectoris (5) Carotid stenosis, right: (6) Intermittent self-catheterization of bladder: (7) Urinary retention: (8) Left renal mass: Chronic. Follows up with Dr. Grajeda. (9) Acute metabolic encephalopathy: Resolved. Present on admission most likely secondary to sepsis along with hyponatremia from dehydration. Plan CODE STATUS: DNR/DNI. Cardiac diet. Heparin 5000 every 12 hourly for DVT prophylaxis. Stop heparin drip. Restart chronic home medications including metoprolol, Flomax, atorvastatin. Attestations Medical Necessity Statement*: Requires further hospitalization for management of sepsis secondary to ESBL UTI while CAD is ruled out in a patient with a history of CABG Time Spent in Patient Care: Greater than 35 minutes Coding Level of Care Code Acute Buying Agent for [facility] Fwd Diagnoses Sepsis A41.51; R65.20; G93.41 Sepsis type: Escherichia coli Sepsis acute organ dysfunction status: with acute organ dysfunction Severe sepsis acute organ dysfunction type: encephalopathy Severe sepsis shock status: without septic shock Syncope R55 UTI due to extended-spectrum beta lactamase (ESBL) producing Escherichia coli N39.0; B96.29; Z16.12 CAD (coronary atherosclerotic disease) I25.10 Coronary Disease-Associated Artery/Lesion type: [place] artery [place] vs. transplanted heart: [place] heart Associated angina: without angina Carotid stenosis, right I65.21 Intermittent self-catheterization of bladder Z78.9 Urinary retention R33.9 Left renal mass N28.89 Acute metabolic encephalopathy G93.41
[2022-03-26] MEDS: amlodipine 10 mg Tablet PO (17:35)
[2022-03-26] MEDS: acetaminophen 325 mg Tablet 650 MG PO (17:35)
[2022-03-26] MEDS: tamsulosin 0.4 mg Capsule 0.8 MG PO (17:35)
[2022-03-26] MEDS: heparin 5,000 unit/mL INJ 1 mL 5000 UNIT SUBCUT (17:36)
--- NOTE | 2022-03-26 21:19 | CT_ITS ---
WS: [id number] CT ABDOMEN PELVIS TECHNIQUE: Noncontrast CT of the abdomen and pelvis with coronal and sagittal reformatted images. CLINICAL INFORMATION: hematuria ivana COMPARISON: None. DLP: 491.[address] scans at [facility] use at least one of these dose optimization techniques: automated e xposure control; mA and/or kV adjustment per patient size (includes targeted exams where dose is matc hed to clinical indication); or iterative reconstruction. FINDINGS: Lung bases are well aerated. Adrenal glands are normal. Noncontrast liver is normal. Cholecystectomy clips. Small esophageal hiatal hernia. Noncontrast spleen is normal. Fatty atrophy of the pancreas. S plenic artery calcification. Adrenal glands are normal. No hydronephrosis. Large RIGHT renal cyst [place] 7.1 x 6.1 CM. Prior cholecystectomy. Suspicious septated lesion medial aspect of the LEFT kidney measuring 3.0 x 2.6 cm suspicious for karlie plasm. This is similar in appearance prior MRI from outside facility. Recommend urology cons ultation. Hemorrhagic complex LEFT upper pole renal cyst. No hydronephrosis in either kidney. 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 Infrarenal abdominal aortic aneurysm measures 2.9 x 3.5 cm AP by transverse. Additi onal distal infrarenal abdominal aortic aneurysm measuring 3.1 x 2.8 cm AP by transverse. Sigmoid diverticulosis. No evidence of acute diverticulitis. CT/CT abdomen pelvis con [id number] IMPRESSION: 1. No hydronephrosis in either kidney. 2. Suspected LEFT renal neoplasm measuring 3.0 x 2.6 cm unchanged since the [facility] MRI January 10, 2021. Recommend urology consultation. 3. Hemorrhagic LEFT upper pole renal cyst measuring 3.5 x 3.1 CM. 4. Large RIGHT renal cyst measuring 6.0 x 7.1 CM. 5. Lobulated abdominal aortic aneurysms described above with dense aortic calc ification. Aortic endograft with biiliac extension. 6. Small esophageal hiatal hernia.
[2022-03-26 21:38] LABS: Folate Level > 20.0 ng/mL (4.5-32.2)
--- NOTE | 2022-03-26 22:14 | USCV_ITS ---
Lowell Salazar Age: 86 Gender: M : 1935 Exam Date: 03/26/2022 09:44 Ordering Phys: Uriah Malin MD Technologist: Mayur Duran [place] [facility] [place]: syncope BP: 126 / 67 HR: 37 Rhythm: Sinus Technical Quality: Adequate MEASUREMENTS (Male / Female) Normal Values 2D ECHO LV Diastolic Diameter PLAX 5.7 cm 4.2 - 5.9 / 3.9 - 5.3 cm LV Systolic Diameter PLAX 4.2 cm IVS Diastolic Thickness 1.1 cm 0.6 - 1.0 / 0.6 - 0.9 cm IVS Systolic Thickness 1.5 cm LVPW Diastolic Thickness 1.1 cm 0.6 - 1.0 / 0.6 - 0.9 cm LVPW Systolic Thickness 1.3 cm LVOT Diameter 2.0 cm LV Ejection Fraction 2D Teich 52.1 % LV Ejection Fraction MOD 2C 45.5 % LV Ejection Fraction 2C AL 47.3 % LA Diameter 3.8 cm Aorta at Sinotubular Diameter 2.9 cm IVC Diameter 1.6 cm M-MODE Aortic Annulus Diameter 3.8 cm LA Ao Ratio MM 1.1 MV E Point Septal Separation 0.9 cm DOPPLER AV Peak Velocity 126.0 cm/s LVOT Peak Velocity 72.0 cm/s AV Area Cont Eq vti 1.8 cm squared AV Area Cont Eq pk 1.8 cm squared TR Peak Velocity 234.0 cm/s TR Peak Gradient 21.9 mmHg TV Peak E Velocity 57.0 cm/s Right Atrial Pressure 3.0 mmHg Pulmonary Artery Systolic Pressu 24.9 mmHg RV Acceleration Time 0.1 s FINDINGS Left Ventricle Normal left-ventricular size with diminished ejection fraction of 35 to 40%(visual). diffuse hypokinesia of the left ventricle. Right Ventricle The right ventricle is normal in size and function. Right Atrium The right atrium is normal in size. Left Atrium The left atrium is normal in size. Mitral Valve Thickened mitral valve. Mild mitral valve regurgitation. Aortic Valve Thickened aortic valve. Tricuspid Valve Mild tricuspid valve regurgitation. Pulmonic Valve Mild pulmonary valve regurgitation. Pericardium No pericardial effusion. Aorta Normal aortic annulus size. IVC Normal IVC dimension with <50% respiratory change of the inferior vena cava. CONCLUSIONS Normal left-ventricular size with diminished ejection fraction of 35 to 40%(visual). Diffuse hypokinesia of the left ventricle. Thickened mitral valve. Mild mitral valve regurgitation. Mild tricuspid valve regurgitation. Thickened aortic valve. Estimated pulmonary artery peak systolic pressure 25 mmHg. There is no pericardial effusion. There are no intracardiac masses. No similar previous studies are available for comparison Dr Kristi Vazquez MD [facility] (Electronically Signed) Final Date: 26 March 2022 20:44 S
[2022-03-27] VITALS (7 sets, daily range): BP systolic 154–186; BP diastolic 57–71; PULSE 56–100; RESP 15–18; TEMP 36.7–38.4; O2SAT 90–95
[2022-03-27 03:53] LABS: Basophils % 0.2 %; Eosinophils % 0.3 %; Hemoglobin 11.4 g/dL (11.7-16.6); Lymphocytes # 1.1 10^3/uL (0.8-4.8); Lymphocytes % 8.3 %; Mean Corpuscular HGB Conc 33.5 g/dL (30.0-36.0); Mean Corpuscular Hemoglobin 31.1 pg (28.0-34.0); Mean Corpuscular Volume 92.6 fl (80-94); Mean Platelet Volume 10.9 fL (7.4-10.4); Monocytes % 7.7 %; Neutrophils # 10.56 10^3/uL (1.8-7.7); Nucleated Red Blood Cells % 0 %; Platelet Count 135 10^3/cmm (130-400); Red Blood Count 3.67 10^6/uL (4.1-5.3); Red Cell Distribution Width 13.8 % (12.1-15.1); White Blood Count 12.7 10^3/uL (4.0-10.0)
[2022-03-27] MEDS: sodium chloride 0.9% 1,000 ML 75 ML IV (04:06)
[2022-03-27 04:17] LABS: Alanine Aminotransferase 43 U/L (0-41); Alkaline Phosphatase 77 U/L (40-130); Anion Gap 15.6 (5-19); Aspartate Amino Transferase 98 U/L (0-40); Blood Urea Nitrogen 37 mg/dL (8-23); Calcium 8.4 mg/dL (8.5-10.5); Carbon Dioxide 25 mmol/L (22-29); Chloride 98 mmol/L (98-107); Globulin 2.4 g/dL (1.3-4.6); Glucose 98 mg/dL (65-115); Osmolality Calculated 289 mOsm/kg (285-295); Potassium 3.6 mmol/L (3.5-5.1); Sodium 135 mmol/L (136-145); Total Protein 5.4 g/dL (6.6-8.7)
[2022-03-27] MEDS: heparin 5,000 unit/mL INJ 1 mL 5000 UNIT SUBCUT ×2 (04:27→18:18)
[2022-03-27] MEDS: acetaminophen 325 mg Tablet 650 MG PO (04:49)
[2022-03-27] MEDS: piperacillin-tazobactam 3.375 GM in sodium chloride 0.9% (plus) 50 ML IV (06:22)
[2022-03-27] MEDS: metoprolol succinate ER (24 HR) 50 mg Tablet PO (10:20)
[2022-03-27] MEDS: cyanocobalamin 1,000 mcg Tablet 500 MCG PO (10:21)
[2022-03-27] MEDS: amlodipine 10 mg Tablet PO (10:21)
[2022-03-27] MEDS: atorvastatin 40 mg Tablet 80 MG PO (10:23)
[2022-03-27] MEDS: aspirin 81 mg EC Tablet PO (10:23)
[2022-03-27] MEDS: clopidogrel 75 mg Tablet PO (10:23)
[2022-03-27] MEDS: meropenem 1,000 MG in sodium chloride 0.9% (plus) 50 ML 100 MG IV ×2 (11:53→22:13)
[2022-03-27 16:19] LABS: Osmolality Urine 435 mOsm/kg (50-1200)
[2022-03-27 16:19] LABS: Osmolality Serum 286 mOsm/kg (278-305)
--- NOTE | 2022-03-27 16:25 | P.PN_ITS ---
Subjective Subjective: No acute events overnight. Patient has remained hemodynamically stable and afebrile. On examination sleeping comfortably in bed. Continues to remain on room air. Able to self catheterize. T-max since last 24 hours 101.2 Fahrenheit. Cultures so far have remained negative. Vitals/I&O/Wt Last Vital Signs Temp 98.0 F 03/27/22 12:00 Pulse 100 03/27/22 16:00 Resp 18 03/27/22 16:00 BP 186/71 03/27/22 16:00 Pulse Ox 91 03/27/22 16:00 O2 Del Method 03/27/22 16:00 O2 Flow Rate 2 03/27/22 08:00 03/27/22 03/27/22 03/27/22 06:59 14:59 22:59 Intake Total 1290 / 3125.3 480 / 480 100 / 580 Output Total 650 / 1250 350 / 350 400 / 750 Balance 640 / 1875.3 130 / 130 -300 / -170 Weight last 48 hrs Weight 77.564 kg Physical Exam Narrative: Very pleasant cooperative elderly male Hemodynamically stable S1, S2 regular, no tachycardia, no gallops Abdomen soft, nontender, no renal angle tenderness, bowel sounds present Neurological: Moving all limbs, 4 x 4 pupils bilaterally equal and reactive reactive Data 03/27/22 03:16 03/27/22 03:16 Micro: Microbiology 03/26/22 13:45 Blood Culture - Preliminary Blood NEGATIVE TO DATE 03/26/22 13:50 Blood Culture - Preliminary Blood NEGATIVE TO DATE 03/25/22 20:10 Urine Culture - Preliminary Urine,Clean Catch Gram Negative Rods 03/25/22 20:10 Bacterial Antigens - Final Urine Kidney A&P Assessment and plan (1) Sepsis: Qualifiers: Sepsis type: Escherichia coli Sepsis acute organ dysfunction status: with acute organ dysfunction Severe sepsis acute organ dysfunction type: encephalopathy Severe sepsis shock status: without septic shock Qualified Code(s): A41.51 - Sepsis due to Escherichia coli [E. coli]; R65.20 - Severe sepsis without septic shock; G93.41 - Metabolic encephalopathy (2) Syncope: Most likely secondary to sepsis from UTI. Sepsis present on admission. Source UTI. Endorgan damage acute metabolic encephalopath and worsening of kidney functions. Ruled in by leukocytosis, fever. Cannot rule out secondary to arrhythmia, ACS in setting of history of CABG john malin patient denies any chest pain. Also has history of right-sided carotid stenosis. No active signs of CVA currently though TIA cannot be ruled out. (3) UTI due to extended-spectrum beta lactamase (ESBL) producing Escherichia coli: History of ESBL E. coli UTI. Also has history of heart catheterization with left renal mass and complex bilateral renal cysts. Pyelonephritis or obstructive nephropathy ruled out. Because of persistent leukocytosis and fever for now we will switch to meropenem. Check MRSA swab. Follow-up culture results. Patient will most likely need to be discharged on IV or ertapenem to finish a 10-day course given complicated UTI (4) CAD (coronary atherosclerotic disease): Post CABG. Denies chest pain. Troponin on admission was slightly elevated with negative delta. Elevated troponin most likely secondary to type II [place] versus elevated creatinine. Echocardiogram results appreciated. Continue with aspirin, statin. Continue Plavix for now. Qualifiers: Coronary Disease-Associated Artery/Lesion type: [place] artery [place] vs. transplanted heart: [place] heart Associated angina: without angina Qualified Code(s): I25.10 - Atherosclerotic heart disease of [place] coronary artery without angina pectoris (5) Carotid stenosis, right: (6) Intermittent self-catheterization of bladder: (7) Urinary retention: (8) Left renal mass: Chronic. Follows up with Dr. Grajeda. (9) Acute metabolic encephalopathy: Resolved. Present on admission most likely secondary to sepsis along with hyponatremia from dehydration. (10) Complicated UTI (urinary tract infection): Plan Hypertension: Goal blood pressure less than 140/90 mmHg. At home patient takes lisinopril 40 mg oral daily, metoprolol succinate 50 mg oral daily. Lisinopril withheld for now secondary to ALISSA. For now start on amlodipine 10 mg daily. Switch to Coreg 6.25 mg twice daily. Hold off on metoprolol. CODE STATUS: DNR/DNI. Cardiac diet. Heparin 5000 every 12 hourly for DVT prophylaxis. Stop heparin drip. Restart chronic home medications including metoprolol, Flomax, atorvastatin. Attestations Medical Necessity Statement*: Requires further hospitalization for management of sepsis secondary to complicated UTI, acute kidney injury Time Spent in Patient Care: Greater than 35 minutes Coding Level of Care Code Acute Utilities Service Investigator for [facility] Diagnoses Sepsis A41.51; R65.20; G93.41 Sepsis type: Escherichia coli Sepsis acute organ dysfunction status: with acute organ dysfunction Severe sepsis acute organ dysfunction type: encephalopathy Severe sepsis shock status: without septic shock Syncope R55 UTI due to extended-spectrum beta lactamase (ESBL) producing Escherichia coli N39.0; B96.29; Z16.12 CAD (coronary atherosclerotic disease) I25.10 Coronary Disease-Associated Artery/Lesion type: [place] artery [place] vs. transplanted heart: [place] heart Associated angina: without angina Carotid stenosis, right I65.21 Intermittent self-catheterization of bladder Z78.9 Urinary retention R33.9 Left renal mass N28.89 Acute metabolic encephalopathy G93.41 Complicated UTI (urinary tract infection) N39.0
[2022-03-27] MEDS: tamsulosin 0.4 mg Capsule 0.8 MG PO (18:17)
[2022-03-27] MEDS: carvedilol 6.25 mg Tablet PO (18:18)
[2022-03-28] VITALS (10 sets, daily range): BP systolic 146–188; BP diastolic 54–80; PULSE 62–92; RESP 16–18; TEMP 36.4–38.6; O2SAT 90–94
[2022-03-28] MEDS: acetaminophen 325 mg Tablet 650 MG PO
[2022-03-28 02:33] LABS: Basophils % 0.2 %; Eosinophils % 0.4 %; Hematocrit 31.2 % (42.0-52.0); Hemoglobin 10.6 g/dL (11.7-16.6); Lymphocytes # 1.8 10^3/uL (0.8-4.8); Lymphocytes % 17.5 %; Mean Corpuscular Hemoglobin 30.9 pg (28.0-34.0); Mean Platelet Volume 10.9 fL (7.4-10.4); Monocytes # 1.6 10^3/uL (0.2-0.9); Monocytes % 15.9 %; Neutrophils # 6.75 10^3/uL (1.8-7.7); Neutrophils % 65.6 %; Nucleated Red Blood Cells % 0 %; Platelet Count 124 10^3/cmm (130-400); Red Blood Count 3.43 10^6/uL (4.1-5.3); Red Cell Distribution Width 13.4 % (12.1-15.1); White Blood Count 10.3 10^3/uL (4.0-10.0)
[2022-03-28 02:50] LABS: Alanine Aminotransferase 40 U/L (0-41); Albumin Level 2.7 g/dL (3.5-5.2); Alkaline Phosphatase 103 U/L (40-130); Aspartate Amino Transferase 74 U/L (0-40); Blood Urea Nitrogen 38 mg/dL (8-23); Calcium 8.2 mg/dL (8.5-10.5); Carbon Dioxide 24 mmol/L (22-29); Chloride 102 mmol/L (98-107); Globulin 2.3 g/dL (1.3-4.6); Glucose 105 mg/dL (65-115); Osmolality Calculated 289 mOsm/kg (285-295); Sodium 135 mmol/L (136-145); Total Bilirubin 0.8 mg/dL (0.15-1.2)
[2022-03-28] MEDS: heparin 5,000 unit/mL INJ 1 mL 5000 UNIT SUBCUT ×2 (04:34→17:46)
[2022-03-28] MEDS: clopidogrel 75 mg Tablet PO (09:49)
[2022-03-28] MEDS: aspirin 81 mg EC Tablet PO (09:49)
[2022-03-28] MEDS: amlodipine 10 mg Tablet PO (09:49)
[2022-03-28] MEDS: hyDRALAzine 25 mg Tablet PO ×4 (09:49→20:08)
[2022-03-28] MEDS: atorvastatin 40 mg Tablet 80 MG PO (09:49)
[2022-03-28] MEDS: carvedilol 6.25 mg Tablet PO ×2 (09:49→17:52)
[2022-03-28] MEDS: cyanocobalamin 1,000 mcg Tablet 500 MCG PO (09:49)
[2022-03-28] MEDS: meropenem 1,000 MG in sodium chloride 0.9% (plus) 50 ML 100 MG IV ×2 (11:57→22:21)
[2022-03-28] MEDS: magnesium hydroxide 30 mL UDC PO (12:52)
--- NOTE | 2022-03-28 14:04 | PM.PN ---
Subjective Subjective: No acute events overnight. Patient denies any nausea, vomiting, headache. Again had fever of 101.5 Fahrenheit overnight. Denies any complaints. Complaining of constipation otherwise. Vitals/I&O/Wt Last Vital Signs Temp 97.6 F 03/28/22 12:00 Pulse 90 03/28/22 12:00 Resp 16 03/28/22 12:00 BP 182/71 03/28/22 12:00 Pulse Ox 90 03/28/22 12:00 O2 Del Method 03/28/22 12:00 O2 Flow Rate 2 03/28/22 08:00 03/27/22 03/28/22 03/28/22 22:59 06:59 14:59 Intake Total 1630 / 2110 240 / 2350 720 / 720 Output Total 850 / 1200 600 / 1800 350 / 350 Balance 780 / 910 -360 / 550 370 / 370 Physical Exam Narrative: Very pleasant cooperative elderly male Hemodynamically stable S1, S2 regular, no tachycardia, no gallops Abdomen soft, nontender, no renal angle tenderness, bowel sounds present Neurological: Moving all limbs, 4 x 4 pupils bilaterally equal and reactive reactive Data 03/28/22 02:17 03/28/22 02:17 Micro: Microbiology 03/28/22 02:19 Blood Culture - Preliminary Blood SPECIMEN COLLECTED 03/28/22 02:17 Blood Culture - Preliminary Blood SPECIMEN COLLECTED 03/26/22 13:45 Blood Culture - Preliminary Blood NEGATIVE TO DATE 03/26/22 13:50 Blood Culture - Preliminary Blood NEGATIVE TO DATE 03/25/22 20:10 Urine Culture - Preliminary Urine,Clean Catch Gram Negative Rods A&P Assessment and plan (1) Sepsis: Qualifiers: Sepsis type: Escherichia coli Sepsis acute organ dysfunction status: with acute organ dysfunction Severe sepsis acute organ dysfunction type: encephalopathy Severe sepsis shock status: without septic shock Qualified Code(s): A41.51 - Sepsis due to Escherichia coli [E. coli]; R65.20 - Severe sepsis without septic shock; G93.41 - Metabolic encephalopathy (2) Syncope: Most likely secondary to sepsis from UTI. Sepsis present on admission. Source UTI. Endorgan damage acute metabolic encephalopath and worsening of kidney functions. Ruled in by leukocytosis, fever. Cannot rule out secondary to arrhythmia, ACS in setting of history of CABG though patient denies any chest pain. Patient has not had any chest pain or arrhythmia while being hospitalized for last 3 days so unlikely. Also has history of right-sided carotid stenosis. No active signs of CVA currently though TIA cannot be ruled out. No complains of weakness in any of the arms or legs. Patient able to ambulate by self. So CVA ruled out. (3) UTI due to extended-spectrum beta lactamase (ESBL) producing Escherichia coli: History of ESBL E. coli UTI. Also has history of heart catheterization with left renal mass and complex bilateral renal cysts. Obstructive nephropathy ruled out. Leukocytosis improving. Patient still had 1 spike of fever overnight. Continue with meropenem for now. Blood cultures so far negative. MRSA pending. Patient will most likely need to be discharged on IV or ertapenem to finish a 10-day course given complicated UTI (4) Complicated UTI (urinary tract infection): (5) Acute kidney injury superimposed on CKD: Baseline creatinine 1.5-1.8. Trending to 2.1 today. Slightly better. Continue to monitor daily. Medical reconciliation done for nephrotoxic drugs. (6) CAD (coronary atherosclerotic disease): Post CABG. Denies chest pain. Troponin on admission was slightly elevated with negative delta. Elevated troponin most likely secondary to type II [place] versus elevated creatinine. Echocardiogram results appreciated. Continue with aspirin, statin. Continue Plavix for now. Qualifiers: Coronary Disease-Associated Artery/Lesion type: [place] artery [place] vs. transplanted heart: [place] heart Associated angina: without angina Qualified Code(s): I25.10 - Atherosclerotic heart disease of [place] coronary artery without angina pectoris (7) Carotid stenosis, right: (8) Intermittent self-catheterization of bladder: (9) Urinary retention: (10) Left renal mass: Chronic. Follows up with Dr. Grajeda. (11) Acute metabolic encephalopathy: Resolved. Present on admission most likely secondary to sepsis along with hyponatremia from dehydration. Plan Hypertension: Goal blood pressure less than 140/90 mmHg. At home patient takes lisinopril 40 mg oral daily, metoprolol succinate 50 mg oral daily. Lisinopril withheld for now secondary to ALISSA. For now start on amlodipine 10 mg daily. Switch to Coreg 6.25 mg twice daily. Hold off on metoprolol. Add hydralazine 25 mg 4 times daily. Will uptitrate as per blood pressure goals. Given CKD, history of obstructive nephropathy and advanced age for now will be better to hold off on ANNIE or ARB's. We will try to discharge off these medications. CODE STATUS: DNR/DNI. Cardiac diet. Heparin 5000 every 12 hourly for DVT prophylaxis. Ambulate. Aggressive bowel regimen. Attestations Medical Necessity Statement*: Requires further hospitalization for management of sepsis secondary to complicated UTI in a patient with history of ESBL E. coli UTI, ALISSA on CKD Time Spent in Patient Care: Greater than 35 minutes Coding Level of Care Code Acute Physician Credentialing Specialist for [facility] Diagnoses Sepsis A41.51; R65.20; G93.41 Sepsis type: Escherichia coli Sepsis acute organ dysfunction status: with acute organ dysfunction Severe sepsis acute organ dysfunction type: encephalopathy Severe sepsis shock status: without septic shock Syncope R55 UTI due to extended-spectrum beta lactamase (ESBL) producing Escherichia coli N39.0; B96.29; Z16.12 Complicated UTI (urinary tract infection) N39.0 Acute kidney injury superimposed on CKD N17.9; N18.9 CAD (coronary atherosclerotic disease) I25.10 Coronary Disease-Associated Artery/Lesion type: [place] artery [place] vs. transplanted heart: [place] heart Associated angina: without angina Carotid stenosis, right I65.21 Intermittent self-catheterization of bladder Z78.9 Urinary retention R33.9 Left renal mass N28.89 Acute metabolic encephalopathy G93.41
[2022-03-28] MEDS: sennosides-docusate Tablet 1 TAB PO (17:47)
[2022-03-28] MEDS: tamsulosin 0.4 mg Capsule 0.8 MG PO (17:50)
[2022-03-28] MEDS: ipratropium-albuterol 3 mL Neb INHALATION (23:13)
[2022-03-29] VITALS (8 sets, daily range): BP systolic 172–183; BP diastolic 66–81; PULSE 79–96; RESP 16–24; TEMP 36.4–36.9; O2SAT 90–93
[2022-03-29] MEDS: heparin 5,000 unit/mL INJ 1 mL 5000 UNIT SUBCUT (05:24)
[2022-03-29 05:45] LABS: Basophils % 0.2 %; Eosinophils % 0.2 %; Hematocrit 30.8 % (42.0-52.0); Hemoglobin 10.7 g/dL (11.7-16.6); Lymphocytes # 1.4 10^3/uL (0.8-4.8); Lymphocytes % 11.3 %; Mean Corpuscular HGB Conc 34.7 g/dL (30.0-36.0); Mean Corpuscular Hemoglobin 30.7 pg (28.0-34.0); Mean Corpuscular Volume 88.3 fl (80-94); Mean Platelet Volume 10.8 fL (7.4-10.4); Monocytes # 1.9 10^3/uL (0.2-0.9); Monocytes % 15.9 %; Neutrophils # 8.74 10^3/uL (1.8-7.7); Neutrophils % 71.7 %; Nucleated Red Blood Cells % 0 %; Platelet Count 136 10^3/cmm (130-400); Red Blood Count 3.49 10^6/uL (4.1-5.3); Red Cell Distribution Width 13.5 % (12.1-15.1); White Blood Count 12.2 10^3/uL (4.0-10.0)
[2022-03-29 06:01] LABS: Alanine Aminotransferase 42 U/L (0-41); Albumin Level 3.1 g/dL (3.5-5.2); Alkaline Phosphatase 116 U/L (40-130); Anion Gap 13.1 (5-19); Aspartate Amino Transferase 59 U/L (0-40); Blood Urea Nitrogen 14 mg/dL (8-23); Calcium 8.7 mg/dL (8.5-10.5); Carbon Dioxide 24 mmol/L (22-29); Chloride 101 mmol/L (98-107); Globulin 2.6 g/dL (1.3-4.6); Glucose 131 mg/dL (65-115); Osmolality Calculated 282 mOsm/kg (285-295); Potassium 3.1 mmol/L (3.5-5.1); Sodium 135 mmol/L (136-145); Total Protein 5.7 g/dL (6.6-8.7)
[2022-03-29] MEDS: ipratropium-albuterol 3 mL Neb INHALATION (07:55)
[2022-03-29] MEDS: carvedilol 6.25 mg Tablet PO (09:01)
[2022-03-29] MEDS: sennosides-docusate Tablet 1 TAB PO (09:01)
[2022-03-29] MEDS: cyanocobalamin 1,000 mcg Tablet 500 MCG PO (09:02)
[2022-03-29] MEDS: clopidogrel 75 mg Tablet PO (09:02)
[2022-03-29] MEDS: atorvastatin 40 mg Tablet 80 MG PO (09:02)
[2022-03-29] MEDS: hyDRALAzine 25 mg Tablet PO ×2 (09:02→14:39)
[2022-03-29] MEDS: amlodipine 10 mg Tablet PO (09:02)
[2022-03-29] MEDS: aspirin 81 mg EC Tablet PO (09:02)
[2022-03-29] MEDS: meropenem 1,000 MG in sodium chloride 0.9% (plus) 50 ML 100 MG IV (11:06)
--- NOTE | 2022-03-29 12:16 | PM.DCS ---
Discharge Providers Date of Admission: 03/26/22 16:03 Date of Discharge: March 29, 2022 Attending Provider at Admission: Uriah Malin MD Attending Provider at Discharge: Scooby Montalvo MD Primary Care Provider: Deloris Conway MD Diagnoses at Discharge Discharge Diagnosis (1) Sepsis: Status: Acute Qualifiers: Sepsis type: Escherichia coli Sepsis acute organ dysfunction status: with acute organ dysfunction Severe sepsis acute organ dysfunction type: encephalopathy Severe sepsis shock status: without septic shock Qualified Code(s): A41.51 - Sepsis due to Escherichia coli [E. coli]; R65.20 - Severe sepsis without septic shock; G93.41 - Metabolic encephalopathy (2) Syncope: Status: Acute (3) UTI due to extended-spectrum beta lactamase (ESBL) producing Escherichia coli: Status: Acute (4) Complicated UTI (urinary tract infection): Status: Acute (5) Acute kidney injury superimposed on CKD: Status: Acute (6) CAD (coronary atherosclerotic disease): Status: Chronic Qualifiers: Coronary Disease-Associated Artery/Lesion type: [place] artery [place] vs. transplanted heart: [place] heart Associated angina: without angina Qualified Code(s): I25.10 - Atherosclerotic heart disease of [place] coronary artery without angina pectoris (7) Carotid stenosis, right: Status: Acute (8) Intermittent self-catheterization of bladder: Status: Acute (9) Urinary retention: Status: Acute (10) Left renal mass: Status: Acute (11) Acute metabolic encephalopathy: Status: Acute Reason for Visit Reason for Visit: AMS Brief History: History as per HPI: Lowell Salazar is a 86 year old male with history of BPH, self catheterizes, nonoxygen pendant COPD, quadruple bypass, chronic kidney disease presented with an episode of syncope. Mrs. Salazar is admitted in this hospital, he visited her today, son is at the bedside who is stating that he checked on his father around 5 PM(when he returned from the hospital), he found him hunched over the sink in the bathroom.? He was barely arousable.? At that time EMS was called.? Son did not check blood pressure or blood glucose.? As per EMT they were concerned about malignant arrhythmia wide-complex tachyarrhythmia he was given amiodarone, patient never lost pulse no CPR or signs of cardiac arrest. Patient is stating that he has been feeling weak and lethargic for drop in blood pressure.? He is compliant with his medications.? He has not noticed any nausea, vomiting, chest pain.? Before this event he did not void urine or had any bowel movement.? No seizure-like activity.? He thinks his blood pressure dropped that made him very confused and drowsy.? No recent fever. In the ER he has been diagnosed with UTI, leukocytosis, narrow complex sinus rhythm with questionable atrial flutter rhythm pattern, patient is asymptomatic chest pain-free hemodynamically stable acute on chronic kidney disease, D-dimer 1.9, hyponatremia, Baseline troponin 53, 2-hour troponin 52.4, EKG showing ST depression inferior lateral leads, cloudy urine with multiple RBCs and white blood cells 6 Hospital Course Hospital Course Patient was admitted to the hospital for further evaluation and management of syncope. On admission there was a concern for cardiac event given elevated troponins versus TIA with history of carotid artery stenosis versus sepsis given history of ESBL E. coli UTI in a patient who self catheterizes. On admission he was also found to be in acute kidney injury on his baseline CKD. ALISSA from CKD is most likely secondary dehydration. Echocardiogram was done which ruled out new or WMA. Patient denied of having any chest pains. Patient was back to his mentation by next morning. Cardiac or neurological events were ruled out by negative telemetry, no chest pain or weakness in any of the limbs. On admission he was found to be slightly dehydrated along with leukocytosis with concern for sepsis from UTI. He was continued on broad-spectrum antibiotics. Urine cultures came back positive again for ESBL while blood cultures remain negative. Patient has been afebrile for more than 24 hours. He has been discharged in medically stable condition with advised to continue taking IV ertapenem 1 g daily as per creatinine clearance for next 6 days. He is to repeat his CBC and BMP on Friday. He is also advised to follow-up with ID clinic for possible long-term oral suppression. During admission he was found to have elevated blood pressures for which his antihypertensives were adjusted. Physical Exam Narrative: Very pleasant cooperative elderly male Hemodynamically stable S1, S2 regular, no tachycardia, no gallops Abdomen soft, nontender, no renal angle tenderness, bowel sounds present Neurological: Moving all limbs, 4 x 4 pupils bilaterally equal and reactive reactive Discharge Data Studies Completed and Pending Completed Studies During Hospitalization Category Date Time Status CT abdomen pelvis wo con [id number] Stat Cat Scan 03/26/22 21:[address] head wo con* [id number] Stat Cat Scan 03/25/22 18:44 Completed XR chest 1V portable [id number] Stat Exams 03/25/22 18:44 Completed CV. echo complete* [id number] Routine Ultrasound 03/26/22 22:14 Completed Pending at discharge Category Date Time Status Blood Culture AM LABS Lab 03/28/22 02:19 Results Blood Culture Stat Lab 03/26/22 13:45 Results Complete Blood Count w/Auto AM LABS Lab 03/30/22 04:00 Ordered Comprehensive Metabolic Panel AM LABS Lab 03/30/22 04:00 Ordered Legionella Antigen STAT Routine Lab 03/26/22 16:03 Received Radiology Impressions Chest X-Ray 03/25/22 18:44 IMPRESSION: 1. Negative for infiltrate. 2. Cardiomegaly. 3. Left costophrenic angle probable scarring. 4. Emphysematous changes suspected. Head CT 03/25/22 18:44 IMPRESSION: Negative for intracranial hemorrhage or mass effect. Abdomen/Pelvis CT 03/26/22 21:19 IMPRESSION: 1. No hydronephrosis in either kidney. 2. Suspected LEFT renal neoplasm measuring 3.0 x 2.6 cm unchanged since the outside MRI January 10, 2021. Recommend urology consultation. 3. Hemorrhagic LEFT upper pole renal cyst measuring 3.5 x 3.1 CM. 4. Large RIGHT renal cyst measuring 6.0 x 7.1 CM. 5. Lobulated abdominal aortic aneurysms described above with dense aortic calcification. Aortic endograft with biiliac extension. 6. Small esophageal hiatal hernia. Echocardiogram CONCLUSIONS ?Normal left-ventricular size with diminished ejection fraction ?of 35 to 40%(visual). ?Diffuse hypokinesia of the left ventricle. ?Thickened mitral valve. Mild mitral valve regurgitation. ?Mild tricuspid valve regurgitation. ?Thickened aortic valve. ?Estimated pulmonary artery peak systolic pressure 25 mmHg. ?There is no pericardial effusion. ?There are no intracardiac masses. ?No similar previous studies are available for comparison ?Dr Kristi Vazquez MD [facility] ?(Electronically Signed) ?Final Date:? ? ? 26 March 2022 ? 20:44 S Laboratory Results WBC 12.2 10^3/uL (4.0-10.0) H 03/29/22 05:33 RBC 3.49 10^6/uL (4.1-5.3) L 03/29/22 05:33 Hgb 10.7 g/dL (11.7-16.6) L 03/29/22 05:33 Hct 30.8 % (42.0-52.0) L 03/29/22 05:33 MCV 88.3 fl (80-94) 03/29/22 05:33 MCH 30.7 pg (28.0-34.0) 03/29/22 05:33 MCHC 34.7 g/dL (30.0-36.0) 03/29/22 05:33 RDW 13.5 % (12.1-15.1) 03/29/22 05:33 Plt Count 136 10^3/cmm (130-400) 03/29/22 05:33 MPV 10.8 fL (7.4-10.4) H 03/29/22 05:33 Neut % (Auto) 71.7 % 03/29/22 05:33 Lymph % (Auto) 11.3 % 03/29/22 05:33 [place] % (Auto) 15.9 % 03/29/22 05:33 Eos % (Auto) 0.2 % 03/29/22 05:33 Baso % (Auto) 0.2 % 03/29/22 05:33 Neut # (Auto) 8.74 10^3/uL (1.8-7.7) H 03/29/22 05:33 Lymph # (Auto) 1.4 10^3/uL (0.8-4.8) 03/29/22 05:33 [place] # (Auto) 1.9 10^3/uL (0.2-0.9) H 03/29/22 05:33 Eos # (Auto) 0.0 10^3/uL (0.0-0.8) 03/29/22 05:33 Baso # (Auto) 0.0 10^3/uL (0.0-0.1) 03/29/22 05:33 Nucleated RBC % (auto) 0 % 03/29/22 05:33 Nucleated RBCs # 0.0 /100WBC 03/29/22 05:33 PT 14.90 SECONDS (12.1-14.9) 03/25/22 19:07 INR 1.14 (0.8-1.2) 03/25/22 19:07 APTT 64.1 SECONDS (23.9-36.7) H D 03/26/22 15:24 D-Dimer 1.95 ug/mIFEU (0-0.59) H 03/25/22 21:15 Sodium 135 mmol/L (136-145) L 03/29/22 05:20 Potassium 3.1 mmol/L (3.5-5.1) L 03/29/22 05:20 Chloride 101 mmol/L (98-107) 03/29/22 05:20 Carbon Dioxide 24 mmol/L (22-29) 03/29/22 05:20 Anion Gap 13.1 (5-19) 03/29/22 05:20 BUN 14 mg/dL (8-23) 03/29/22 05:20 Creatinine 1.8 mg/dL (0.7-1.2) H 03/29/22 05:20 GFR Calculation Not Reportable 03/29/22 05:20 Glucose 131 mg/dL (65-115) H 03/29/22 05:20 POC Glucose 159 mg/dL (70-110) H 03/25/22 19:10 Serum Osmolality 286 mOsm/kg (278-305) 03/25/22 21:15 Calculated Osmolality 282 mOsm/kg (285-295) L 03/29/22 05:20 Uric Acid 7.4 mg/dL (3.4-7.0) H 03/25/22 21:15 Calcium 8.7 mg/dL (8.5-10.5) 03/29/22 05:20 Phosphorus 3.4 mg/dL (2.5-4.5) 03/26/22 01:33 Magnesium 1.7 mg/dL (1.7-2.3) 03/26/22 01:33 Iron 11 ug/dL (59-158) L 03/26/22 13:50 TIBC 178 mcg/dl 03/26/22 13:50 % Saturation 6.1 % (20-50) L 03/26/22 13:50 Unsat Iron Binding 167 ug/dL (112-347) 03/26/22 13:50 Total Bilirubin 1.0 mg/dL (0.15-1.2) 03/29/22 05:20 AST 59 U/L (0-40) H 03/29/22 05:20 ALT 42 U/L (0-41) H 03/29/22 05:20 Alkaline Phosphatase 116 U/L (40-130) 03/29/22 05:20 Troponin T Baseline 53 ng/L (0-15) H 03/25/22 19:07 Troponin T 120 Minute 52.49 ng/L (0-15) H 03/25/22 21:15 Delta Troponin T -0.51 ABS# (0-10) L 03/25/22 21:15 Troponin T Hi Sens 6Hr 54.57 ng/L (0-15) H 03/26/22 01:33 Troponin T Hi Sens 6Hr Delta 1.57 ng/L (0-12) 03/26/22 01:33 NT-Pro-B Natriuret Pep 12170 pg/mL (0-450) H 03/25/22 21:15 Total Protein 5.7 g/dL (6.6-8.7) L 03/29/22 05:20 Albumin 3.1 g/dL (3.5-5.2) L 03/29/22 05:20 Globulin 2.6 g/dL (1.3-4.6) 03/29/22 05:20 Vitamin B12 536 pg/mL (232-1245) 03/25/22 21:15 Folate > 20.0 ng/mL (4.5-32.2) 03/26/22 13:50 Procalcitonin 20.78 ng/mL (0-0.5) H 03/26/22 13:50 TSH 0.84 uIU/mL (0.27-4.20) 03/25/22 21:15 Prolactin 8.04 ng/mL (4.0-15.2) 03/25/22 21:15 Urine Color Yellow (Yellow) 03/25/22 20:10 Urine Appearance Cloudy (CLEAR) A 03/25/22 20:10 Urine pH 6 (5-7) 03/25/22 20:10 Ur Specific La[place] 1.015 (1.005-1.030) 03/25/22 20:10 Urine Protein 1+ (Negative) H 03/25/22 20:10 Urine Glucose (UA) Norm (Normal) 03/25/22 20:10 Urine Ketones Negative (Negative) 03/25/22 20:10 Urine Blood 3+ (Negative) H 03/25/22 20:10 Urine Nitrate Positive (Negative) H 03/25/22 20:10 Urine Bilirubin Neg (Negative) 03/25/22 20:10 Urine Urobilinogen Neg mg/dL (Negative) 03/25/22 20:10 Ur Leukocyte Esterase Trace (Negative) H 03/25/22 20:10 Urine RBC Too numerous to cnt /hpf (0-2) H 03/25/22 20:10 Urine WBC 80-100 /hpf (0-5) H 03/25/22 20:10 Ur Squamous Epith Cells None /hpf (0-5) 03/25/22 20:10 Amorphous Sediment Not Reportable 03/25/22 20:10 Urine Bacteria 4+ /hpf (NONE) H 03/25/22 20:10 Urine Osmolality 435 mOsm/kg (50-1200) 03/24/22 20:10 Ur Random Sodium 86 mmol/L 03/24/22 20:10 Vitals Last Vital Signs Temp 98.0 F 03/29/22 11:25 Pulse 85 03/29/22 11:25 Resp 18 03/29/22 11:25 BP 172/74 03/29/22 11:25 Pulse Ox 91 03/29/22 11:25 O2 Del Method 03/29/22 11:25 O2 Flow Rate 0 03/29/22 08:00 FiO2 2 03/28/22 23:14 Discharge Plan Discharge Patient Disposition: Home Condition: Stable Prescriptions: New amlodipine 10 mg Tablet 10 mg PO DAILY Qty: 90 0RF carvedilol 6.25 mg Tablet 12.5 mg PO BID 90 Days Qty: 360 0RF hydralazine 25 mg Tablet 50 mg PO TID 90 Days Qty: 540 0RF Continued albuterol sulfate 90 mcg/actuation aero powdr breath act w/sensor 2 inh INHALATION Q6H PRN (Reason: Shortness Of Breath) methylsulfonylmethane [MSM] 1,000 mg tablet 1,000 mg PO DAILY PreserVision AREDS [id number] capsule 1 cap PO BID timolol 0.5 % drops 1 drop ophthalmic (eye) BID Rx Instructions: both eyes aspirin 81 mg tablet,delayed release (DR/EC) 81 mg PO DAILY Hold Instructions: Resume on 11/21/21. latanoprost 0.005 % drops 1 drop ophthalmic (eye) DAILY Rx Instructions: both eyes Spiriva Respimat 2.5 mcg/actuation mist 2 inh INHALATION QAM Qty: 4 5RF multivitamin Tablet 1 tab PO DAILY fluticasone propion-salmeterol 250-50 mcg/dose Blister With Device 1 inh INHALATION BID tamsulosin 0.4 mg capsule 0.8 mg PO QPM potassium chloride 10 mEq tablet,ER particles/crystals 10 meq PO QID magnesium gluconate 30 mg (550 mg) Tablet 30 mg PO DAILY atorvastatin 80 mg tablet 80 mg PO DAILY furosemide 20 mg tablet 20 mg PO DAILY Discontinued hydrochlorothiazide 25 mg tablet 25 mg PO QAM 90 Days Qty: 90 2RF metoprolol succinate 100 mg tablet extended release 24 hr 50 mg PO DAILY lisinopril 40 mg tablet 40 mg PO DAILY Discharge Orders: Discharge Order (Routine); Ordered 03/29/22 Ordered By: Scooby Montalvo Other Ambulatory Orders: Basic Metabolic Panel (Routine) Timeframe: 20220402 Facility: [facility] - Location: GI Lab Ordered By: Scooby Montalvo Complete Blood Count w/Auto (Routine) Timeframe: 20220402 Facility: [facility] - Location: GI Lab Ordered By: Scooby Montalvo Referrals: Deloris Conway MD [Primary Care Provider] - 7-10 days Discharge Diet: Cardiac Discharge Activity: Resume usual activity and Increase activity as tolerated Patient Instructions: Opioid Safety Activity Restrictions/Additional Instructions: Please check your blood pressure daily and maintain blood pressure diary and follow-up with a primary care provider within next 1 week for further adjustment of antihypertensives as needed. You will need to follow-up with GI Lab daily for next 6 days for ertapenem 1 g IV daily. He will have a repeat CBC and BMP on Friday. Labs will be followed up by her primary care provider. You should follow-up with ID going forward within next 1 month for possible chronic oral suppression. Multiple blood pressure medications have been changed. Do not take hydrochlorothiazide, lisinopril or metoprolol anymore. It has been switched to carvedilol, amlodipine and hydralazine as discussed. Discharge Attestations Time Spent in Discharge Care*: greater than 30 min Specific Discharge Activities: educating patient, discussing with pcp/other providers, discussing with case monitor/social workers/dc planners, documenting/other paperwork and evaluating patient/reviewing data Status at Discharge: Cognitive status at discharge: cognitively intact, Behavioral status at discharge: cooperative, Functional status at discharge: uses cane/walker, Overall status at discharge: patient is back to baseline Quality Metrics Clinical Quality Measures [ No reported AMI, CVA or VTE this stay] Coding Level of Care Code Acute Chg FW DC note Diagnoses Sepsis A41.51; R65.20; G93.41 Sepsis type: Escherichia coli Sepsis acute organ dysfunction status: with acute organ dysfunction Severe sepsis acute organ dysfunction type: encephalopathy Severe sepsis shock status: without septic shock Syncope R55 UTI due to extended-spectrum beta lactamase (ESBL) producing Escherichia coli N39.0; B96.29; Z16.12 Complicated UTI (urinary tract infection) N39.0 Acute kidney injury superimposed on CKD N17.9; N18.9 CAD (coronary atherosclerotic disease) I25.10 Coronary Disease-Associated Artery/Lesion type: [place] artery [place] vs. transplanted heart: [place] heart Associated angina: without angina Carotid stenosis, right I65.21 Intermittent self-catheterization of bladder Z78.9 Urinary retention R33.9 Left renal mass N28.89 Acute metabolic encephalopathy G93.41
[2022-03-29] MEDS: ertapenem 1,000 MG in sodium chloride 0.9% (plus) 100 ML 200 MG IV (13:08)
--- NOTE | 2022-03-29 15:36 | PC.SOCIAL ---
IMM Update pg 2 of IMM updated and reviewed w/ patient. Copy provided and Copy dated, initialed and placed in chart.
--- NOTE | 2022-03-29 16:49 | PC.NURSE ---
Discussed discharge with patient along with new medications, stopped medications and follow up appointments. Verbalized understanding
== END 2022-03-29 16:00 | disposition home or self-care (01) | DRG 871 ==
LOC: ER 21:09 → MEDSURG 21:31
PROVIDERS: Admitting Provider Internal Medicine; Emergency Provider Emergency Medicine; PCP Family Medicine; Visit Provider Student in an Organized Health Care Education/Training Program
DX: A41.51 Sepsis due to Escherichia coli [E. coli] (principal); G93.41 Metabolic encephalopathy; N39.0 Urinary tract infection, site not specified; N17.9 Acute kidney failure, unspecified; I13.0 Hypertensive heart and chronic kidney disease with heart failure and stage 1 through stage 4 chronic kidney disease, or unspecified chronic kidney disease; I50.22 Chronic systolic (congestive) heart failure; E87.1 Hypo-osmolality and hyponatremia; I48.92 Unspecified atrial flutter; Z16.12 Extended spectrum beta lactamase (ESBL) resistance; R65.20 Severe sepsis without septic shock; N18.9 Chronic kidney disease, unspecified; I25.10 Atherosclerotic heart disease of native coronary artery without angina pectoris; Z95.1 Presence of aortocoronary bypass graft; N40.1 Benign prostatic hyperplasia with lower urinary tract symptoms; R33.8 Other retention of urine; J44.9 Chronic obstructive pulmonary disease, unspecified; E86.0 Dehydration; Z79.51 Long term (current) use of inhaled steroids; Z79.82 Long term (current) use of aspirin; Z87.891 Personal history of nicotine dependence; Z66 Do not resuscitate; I65.21 Occlusion and stenosis of right carotid artery
CPT/HCPCS: 36415; 36416; 51798; 70450; 71045; 74176; 80048; 80053; 81001; 82607; 82746; 82962; 83540; 83550; 83735; 83880; 83930; 83935; 84100; 84145; 84146; 84300; 84443; 84484; 84550; 85025; 85378; 85610; 85730; 86403; 87040; 87077; 87086; 87186; 87449; 87641; 93005; 93306; 94640; 96372; G0378; J1335; J1644; J2185; J2543; J7030

== ENCOUNTER 2022-04-04 07:48 | Outpatient (RCR) | payer OTHER, MEDICARE, SELFPAY ==
[2022-03-30] MEDS: ertapenem 1,000 MG in sodium chloride 0.9% (plus) 100 ML 200 MG IV (08:35)
[2022-03-30 08:40] VITALS: BP 196/79; PULSE 68; RESP 18; TEMP 36.9; O2SAT 93
[2022-03-31 08:01] VITALS: BP 158/66; PULSE 60; RESP 17; TEMP 36.3; O2SAT 95
[2022-03-31] MEDS: ertapenem 1,000 MG in sodium chloride 0.9% (plus) 100 ML 200 MG IV (08:03)
[2022-04-01 08:32] VITALS: BP 158/63; PULSE 63; RESP 18; TEMP 36.1; O2SAT 100
[2022-04-02 08:03] VITALS: BP 152/72; PULSE 61; RESP 16; TEMP 36.2; O2SAT 99
[2022-04-03 08:57] VITALS: BP 143/52; PULSE 61; RESP 18; TEMP 36.3; O2SAT 98
[2022-04-04 08:25] VITALS: BP 132/61; PULSE 70; RESP 18; TEMP 36.1; O2SAT 98
[2022-04-04 08:29] LABS: Basophils # 0.1 10^3/uL (0.0-0.1); Basophils % 0.5 %; Eosinophils # 0.1 10^3/uL (0.0-0.8); Eosinophils % 0.8 %; Hematocrit 34.1 % (42.0-52.0); Lymphocytes % 16.3 %; Mean Corpuscular HGB Conc 32.3 g/dL (30.0-36.0); Mean Corpuscular Hemoglobin 30.2 pg (28.0-34.0); Mean Corpuscular Volume 93.7 fl (80-94); Mean Platelet Volume 9.7 fL (7.4-10.4); Monocytes % 8.3 %; Neutrophils # 8.92 10^3/uL (1.8-7.7); Neutrophils % 72.4 %; Nucleated Red Blood Cells % 0 %; Platelet Count 385 10^3/cmm (130-400); Red Blood Count 3.64 10^6/uL (4.1-5.3); Red Cell Distribution Width 14.6 % (12.1-15.1); White Blood Count 12.3 10^3/uL (4.0-10.0)
[2022-04-04 09:28] LABS: Alanine Aminotransferase 47 U/L (0-41); Alkaline Phosphatase 134 U/L (40-130); Anion Gap 12.1 (5-19); Aspartate Amino Transferase 46 U/L (0-40); Blood Urea Nitrogen 24 mg/dL (8-23); Calcium 8.5 mg/dL (8.5-10.5); Carbon Dioxide 24 mmol/L (22-29); Chloride 103 mmol/L (98-107); Glucose 134 mg/dL (65-115); Magnesium 2.3 mg/dL (1.7-2.3); Osmolality Calculated 286 mOsm/kg (285-295); Potassium 4.1 mmol/L (3.5-5.1); Sodium 135 mmol/L (136-145); Total Bilirubin 0.6 mg/dL (0.15-1.2)
== END 2022-04-13 23:59 | disposition home or self-care (01) ==
LOC: GILAB 07:48
PROVIDERS: PCP Family Medicine; Referring Provider Family Medicine; Visit Provider Student in an Organized Health Care Education/Training Program
DX: N39.0 Urinary tract infection, site not specified (principal); B96.29 Other Escherichia coli [E. coli] as the cause of diseases classified elsewhere; Z16.12 Extended spectrum beta lactamase (ESBL) resistance; A41.9 Sepsis, unspecified organism; N17.9 Acute kidney failure, unspecified; N18.9 Chronic kidney disease, unspecified
CPT/HCPCS: 36415; 76937; 80053; 83735; 85025; 96365; J1335

== ENCOUNTER → 2022-04-12 09:54 | Outpatient (BNVA) | payer MEDICARE, SELFPAY | PROVIDERS: PCP Family Medicine; Visit Provider Urology | DX: R33.9 Retention of urine, unspecified (principal); N39.0 Urinary tract infection, site not specified; B96.29 Other Escherichia coli [E. coli] as the cause of diseases classified elsewhere; Z16.12 Extended spectrum beta lactamase (ESBL) resistance; Z78.9 Other specified health status | CPT/HCPCS: 99213 ==

== ENCOUNTER → 2022-04-17 09:15 | Outpatient (BNVA) | payer MEDICARE, SELFPAY | PROVIDERS: PCP Family Medicine; Visit Provider Family Medicine | DX: I50.32 Chronic diastolic (congestive) heart failure (principal); I10 Essential (primary) hypertension; N40.1 Benign prostatic hyperplasia with lower urinary tract symptoms; N18.9 Chronic kidney disease, unspecified; J44.9 Chronic obstructive pulmonary disease, unspecified; I25.10 Atherosclerotic heart disease of native coronary artery without angina pectoris; N39.0 Urinary tract infection, site not specified; R42 Dizziness and giddiness; N17.9 Acute kidney failure, unspecified | CPT/HCPCS: 80053; 83735; 83880; 85025 ==

== ENCOUNTER → 2022-05-07 10:19 | Outpatient (BNVA) | payer MEDICARE, SELFPAY | PROVIDERS: PCP Family Medicine; Visit Provider Family Medicine | DX: E87.1 Hypo-osmolality and hyponatremia (principal) | CPT/HCPCS: 80048 ==

== ENCOUNTER 2022-06-05 07:06 | Outpatient (CLI) | payer OTHER, SELFPAY ==
--- NOTE | 2022-06-05 | ECG_ITS ---
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 Interpretive Statements NAME OF STUDY: LEXISCAN SESTAMIBI STRESS TEST INDICATION: [Shortness of Breath, ] Procedure: At the baseline, the blood pressure was 191/66 mmHg with a heart rate of 65 bpm. The electrocardiogram showed normal sinus rhythm, interventricular conduction delay and left ventricular hypertrophy changes. The Lexiscan was infused over a period of 20 seconds. A total of 0.4 mg of Lexiscan was infused. The stress phase was continued for a total of 5 minutes. Heart rate was at the end of stress phase was 77 bpm and a blood pressure of 166/56 mmHg. The EKG at the peak infusion revealed normal sinus rhythm with no significant ST-T wave changes. Sestamibi was injected 20 seconds after the Lexiscan infusion. Blood pressure at the end of recovery phase was 160/54 mmHg with a heart rate of 76 bpm. Frequent PVCs were noted. Conclusion: 1. Normal EKG response to Lexiscan infusion 2. No Lexiscan induced chest pain or cardiac arrhythmia. 3. Normal blood pressure and heart rate response. 4. Sestamibi/sestamibi perfusion scan pending; see separate report. Electronically Signed On 06-15-2022 18:43:54 [employer] UTILITY WORKER by Dionisio Ansari M.D. [id number]
[2022-06-05 07:13] VITALS: BMI 22.4
--- NOTE | 2022-06-05 07:48 | NMCV_ITS ---
NM narendra perf SPECT r/s* [id number] Lowell Salazar Age: 87 Gender: M : 1935 Exam Date: 06/05/2022 08:19 Ordering Phys: Kristi Vazquez MD ([email or web address]) Technologist: KAYLEY Jones Exam Location: [facility] Indications: CHEST PAIN; ATHEROSCLEROTIC HEART DISEASE STRESS TEST Please see separate stress test report in [facility] for full findings IMAGE PROTOCOL Rest/Stress 1 Lexiscan Day Radiopharmaceutical Dose (mCi) Administration Site Administered by Rest: Tc-99m 10.6 IV KAYLEY Sue Sestamibi Stress:Tc-99m 32.5 IV KAYLEY Sue Sestamibi Rest: 05-Jun-2022 60 Discovery 630 Stress: 05-Jun-2022 30 Discovery 630 0.4mg Lexiscan. Images obtained in supine and prone position. SPECT RESULTS Technical Quality: Excellent Raw Data Analysis: Normal Image Corrections: No attenuation or motion correction applied Summed Stress Score: 9 Summed Rest Score: 12 Summed Difference Score: 0 PERFUSION FINDINGS Moderate area of moderately decreased tracer uptake was noted in the basal, mid and apical inferior, basal and mid inferolateral and mid anterolateral regions. No significant reversibility was noted in these regions. FUNCTIONAL RESULTS (calculated via Gated SPECT) Stress Image LV EF (%): 41 Stress EDV (mL):178 TID: 0.97 Stress ESV (mL):105 FUNCTIONAL FINDINGS: Segmental wall motion analysis revealed diffuse hypokinesia of the septum and the LV apex. IMPRESSIONS 1. Myocardial perfusion imaging revealing moderate area of persistent decreased tracer uptake in the inferior, inferolateral and anterolateral regions. Features suggesting myocardial scarring in the distribution of the right coronary artery, circumflex and left anterior descending artery 2. Diminished LV ejection fraction of 41%. 3. LV wall motion analysis revealing diffuse hypokinesia of the septum and the LV apex. 4. Moderately dilated LV cavity, LV end-systolic volume of 105 mL No significant coronary ischemia, based on the above findings No similar previous studies are available for comparison Dr Kristi Vazquez MD [facility] (Electronically Signed) Final Date: 05 June 2022 16:44 S
[2022-06-05] MEDS: regadenoson 0.4 Mg/5 ml Syringe IVP (08:50)
[2022-06-05 09:14] VITALS: BP 160/54; PULSE 76
== END 2022-06-05 07:07 | disposition home or self-care (01) ==
LOC: CDL 07:08
PROVIDERS: PCP Family Medicine; Visit Provider Internal Medicine Cardiovascular Disease
DX: R60.0 Localized edema (principal); R07.9 Chest pain, unspecified; R46.89 Other symptoms and signs involving appearance and behavior; G24.01 Drug induced subacute dyskinesia; G47.30 Sleep apnea, unspecified; Z86.711 Personal history of pulmonary embolism; G40.909 Epilepsy, unspecified, not intractable, without status epilepticus
CPT/HCPCS: 36415; 78452; 93017; 96374; A9500; J2785

== ENCOUNTER 2022-06-13 15:30 | Outpatient (CLI) | payer OTHER, SELFPAY ==
[2022-06-13 16:16] LABS: Anion Gap 15.9 (5-19); Blood Urea Nitrogen 23 mg/dL (8-23); Calcium 9.3 mg/dL (8.5-10.5); Carbon Dioxide 25 mmol/L (22-29); Chloride 103 mmol/L (98-107); Glucose 115 mg/dL (65-115); Osmolality Calculated 295 mOsm/kg (285-295); Potassium 3.9 mmol/L (3.5-5.1); Sodium 140 mmol/L (136-145)
== END 2022-06-13 15:31 | disposition home or self-care (01) ==
LOC: LAB 15:32
PROVIDERS: PCP Family Medicine; Visit Provider Urology
DX: R33.9 Retention of urine, unspecified (principal); Z78.9 Other specified health status; Z87.440 Personal history of urinary (tract) infections; N28.89 Other specified disorders of kidney and ureter; N31.8 Other neuromuscular dysfunction of bladder
CPT/HCPCS: 80048; 99213

== ENCOUNTER → 2022-06-19 10:30 | Outpatient (BNVA) | payer MEDICARE, SELFPAY | PROVIDERS: PCP Family Medicine; Visit Provider Family Medicine | DX: I11.0 Hypertensive heart disease with heart failure (principal); I50.32 Chronic diastolic (congestive) heart failure; I25.10 Atherosclerotic heart disease of native coronary artery without angina pectoris; R73.03 Prediabetes | CPT/HCPCS: 80048; 80061; 83036; 83880 ==

== ENCOUNTER 2022-07-22 09:45 | Outpatient (CLI) | payer MEDICARE, SELFPAY ==
--- NOTE | 2022-07-22 10:15 | USCV_ITS ---
Lowell Salazar Age: 87 Gender: M : 1935 Exam Date: 07/22/2022 10:39 Ordering Phys: Joss Whitehead MD (Andy) ([email or web address]) Technologist: CT Exam Location: [facility] [place] Indication: Risk Factors: Previous Vascular Surgery: Right Brachial BP: / Left Brachial BP: / Right Left Velocity (cm/s) Spectral Plaque Velocity (cm/s) Spectral Plaque Syst/Diast Broadening Syst/Diast Broadening 149.10/23.30 Prox CCA 71.50 / 5.30 98.10/ 18.70 Mid CCA 85.40 / 7.50 100.30/19.80 Distal CCA 63.20 / 4.90 141.10/25.90 Prox ICA / 119.80/29.50 Mid ICA / 97.70/ 21.40 Distal ICA / 344.90 ECA 135.50 0.95 ICA/CCA Antegrade Vertebral Antegrade 19.70/ 7.90 cm/s 69.20/ 19.80 cm/s Bi Subclavian Bi 113.1 169.2 0 0 FINDINGS pt with hx of bilateral cea's and known left ica occlusion No significant changes since 2021 CONCLUSIONS Right ICA stenosis 50-69%. Moderate atheromatous plaque right carotid bulb/ICA. Chronic Left ICA occlusion Bilateral CEAs Normal antegrade Doppler flow noted in the right vertebral artery. Normal antegrade Doppler flow noted in the left vertebral artery. Fidel Milner MD (Electronically Signed) Final Date: 22 July 2022 15:26 S
== END 2022-07-22 09:46 | disposition home or self-care (01) ==
PROVIDERS: PCP Family Medicine; Visit Provider Thoracic Surgery (Cardiothoracic Vascular Surgery)
DX: I65.23 Occlusion and stenosis of bilateral carotid arteries (principal)
CPT/HCPCS: 93880

== ENCOUNTER 2022-07-27 08:46 | Inpatient (IN) | payer OTHER, SELFPAY ==
[2022-07-27] VITALS (62 sets, daily range): BP systolic 98–189; BP diastolic 61–121; PULSE 65–90; RESP 4–37; TEMP 36.2–36.7; O2SAT 79–98; BMI 21.7; BMI 22.0
--- NOTE | 2022-07-27 08:57 | ECG_ITS ---
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 Measurements Intervals [place] Rate: 67 P: 36 WV: 303 QRS: 77 QRSD: 121 T: 265 QT: 443 QTc: 469 Interpretive Statements SINUS RHYTHM WITH FIRST DEGREE AV BLOCK ANTEROLATERAL MYOCARDIAL INFARCTION , OF INDETERMINATE AGE [40+ ms Q WAVE IN I/aVL/V3-V6] Compared to ECG 03/25/2022 21:27:38 Ectopic atrial rhythm no longer present Intraventricular conduction delay no longer present Myocardial infarct finding still present Electronically Signed On 07-27-2022 10:28:51 CDT by Dionisio Ansari M.D. [email or web address] [email or web address].[email or web address]/store/[id number] f
--- NOTE | 2022-07-27 09:12 | XRR_ITS ---
PROCEDURE INFORMATION: Exam: XR Chest Exam date and time: 07/27/2022 9:36 AM Age: 87 years old Clinical indication: Dyspnea TECHNIQUE: Imaging protocol: Radiologic exam of the chest. Views: 1 view. COMPARISON: CR XR chest 1V portable [id number] 03/25/2022 7:07 PM FINDINGS: Lungs: Subtle ground-glass opacities in the upper lobes not present on prior exam. Could be consistent with airspace consolidation versus scarring. Dense consolidation in the left lower lung concerning for pneumonia. Pleural spaces: Blunting of the costophrenic angles more prominent on the left versus the right concerning for small pleural effusions. Heart/Mediastinum: The cardiomediastinal silhouette is within normal limits. Bones/joints: Median sternotomy wires noted. XR/XR chest 1V portable [id number] IMPRESSION: Findings concerning for pneumonia and small pleural effusions.
[2022-07-27] MEDS: ipratropium-albuterol 3 mL Neb INHALATION ×2 (09:26→14:56)
[2022-07-27 09:34] LABS: Basophils # 0.1 10^3/uL (0.0-0.1); Basophils % 0.4 %; Eosinophils # 0.2 10^3/uL (0.0-0.8); Hematocrit 37.9 % (42.0-52.0); Hemoglobin 12.3 g/dL (11.7-16.6); Lymphocytes # 1.5 10^3/uL (0.8-4.8); Lymphocytes % 13.4 %; Mean Corpuscular HGB Conc 32.5 g/dL (30.0-36.0); Mean Corpuscular Hemoglobin 30.4 pg (28.0-34.0); Mean Corpuscular Volume 93.8 fl (80-94); Monocytes % 8.4 %; Neutrophils % 75.3 %; Nucleated Red Blood Cells % 0 %; Platelet Count 285 10^3/cmm (130-400); Red Blood Count 4.04 10^6/uL (4.1-5.3); Red Cell Distribution Width 13.6 % (12.1-15.1); White Blood Count 11.3 10^3/uL (4.0-10.0)
--- NOTE | 2022-07-27 09:40 | W.ED.SOB ---
HPI - SOB/Dyspnea General: Chief Complaint: Shortness of Breath/Dyspnea Stated Complaint: SOB Time Seen by Provider: 07/27/22 09:00 History of Present Illness: HPI Narrative: Patient presents to the ER with complaints of shortness of breath over 3 weeks, has steadily gotten worse. Patient does not use oxygen at home however he is on multiple as needed and scheduled inhalers. Patient states that shortness of breath is better when he is sitting still and worsens with activity. Patient occasionally feels dizzy. Patient is on 3 L of oxygen per nasal cannula and satting 95% here. MD elicited complaint: shortness of breath Pertinent past history: COPD and congestive heart failure Onset (ago): week(s) (3 weeks ago progressively getting worse) Timing: constant and progressively worsening Severity: moderate Exacerbating factors: exertion Relieving factors: nothing Known history of: COPD Associated symptoms: Deny abdominal pain, chest pain, fever(s), nausea, palpitations, polydipsia, polyuria or vomiting Treatment prior to arrival: none Review of Systems General: Reports: 10 or more systems reviewed and unremarkable except in HPI and below Const: Denies: fever(s) or chills Eyes: Denies: change in vision ENMT: Denies: throat pain or odynophagia Card: Denies: chest pain, palpitations or irregular heart rhythm Resp: Reports: dyspnea; Denies: productive cough or non-productive cough GI: Denies: abdominal pain, nausea, vomiting or diarrhea : Denies: flank pain Musc: Denies: neck pain or back pain Skin/Breast: Denies: rash or pruritus Neuro: Denies: headache(s) or numbness in extremities Psych: Denies: anxiety or depression Endo: Denies: polyuria or polydipsia Brock/Lymph: Denies: easy bruising or easy bleeding PFSH ED PFSH: Medical History BPH (benign prostatic hyperplasia) CAD (coronary atherosclerotic disease) Carotid artery disease Congestive heart failure (CHF) Enrolled in chronic care management Essential hypertension History of nonmelanoma skin cancer Hypokalemia Intermittent self-catheterization of bladder Left renal mass Urinary retention UTI due to extended-spectrum beta lactamase (ESBL) producing Escherichia coli Surgical History H/O carotid angioplasty H/O heart surgery History of cholecystectomy History of quadruple bypass Hx of knee surgery S/P TURP (transurethral resection of prostate) Family History Mother , at age 65 Cancer Other CAD (coronary artery disease) Social History Smoking and tobacco status: former smoker Quit status (tobacco): has quit using tobacco Former quit date comment: 40 yr 1-3ppd Second hand smoke exposure: No Alcohol intake: never Desire information about alcohol rehabilitation?: No Desire information about substance/drug rehabilitation?: No Caregiver/support person: Yes Lives independently: No Housing: House Marital status: / Current occupational status: retired Current gender identity: Male Physical Exam Const: COMMON NORMALS: no acute distress, average body habitus, patient oriented x3, no limitations, healthy appearing, alert and well nourished HENMT: COMMON NORMALS: normocephalic, atraumatic, hearing grossly normal bilaterally, external ears normal, Normal external nose present and moist oral mucous membranes HEAD & SCALP: normocephalic and atraumatic NOSE: Normal external nose present EXTERNAL EAR: Yes external ears normal Eye: COMMON NORMALS: Equal, round and reactive pupils present, EOMs intact bilaterally, conjunctivae normal and no scleral icterus CONJUNCTIVA: Yes conjunctivae normal PUPIL: Yes Equal, round and reactive pupils present Neck/C-Spine: COMMON NORMALS: full ROM, no lymphadenopathy, supple, no meningeal signs, no JVD and Thyroid normal THYROID: Thyroid normal Lymph: LYMPHATIC: no lymphadenopathy noted Chest: COMMONS NORMALS: normal inspection of the chest and normal palpation of entire chest wall Resp: COMMON NORMALS: normal respiratory effort and No use of accessory muscles AUSCULTATION: diminished lung sounds Cardio: COMMON NORMALS: no JVD, regular rate, regular rhythm, S1 normal heart sound present and S2 normal heart sound present RATE: regular rate RHYTHM: regular rhythm HEART SOUNDS: S1 normal heart sound present and S2 normal heart sound present GI: COMMON NORMALS: Normal to inspection, nondistended, normoactive bowel sounds present, Soft to palpation, non-tender, No hepatosplenomegaly present and no masses PALPATION: Yes Soft to palpation and Yes No hepatosplenomegaly present : COMMON NORMALS: Yes no CVA tenderness BLADDER/KIDNEY EXAM: Yes no CVA tenderness Back/Pelvis: COMMON NORMALS: no CVA tenderness Neuro: COMMON NORMALS: patient oriented x3 SENSORIUM/ORIENTATION: Yes alert MENINGEAL SIGNS: Yes no meningeal signs Course Vital Signs: Vital signs: Vital Signs Temperature 97.1 F L 07/27/22 08:51 Pulse Rate 66 07/27/22 09:22 Respiratory Rate 18 07/27/22 09:22 Blood Pressure 172/71 07/27/22 08:51 Pulse Oximetry 94 07/27/22 10:03 Oxygen Delivery Me thod Nasal Cannula 07/27/22 10:03 Oxygen Flow Rate 3 07/27/22 10:03 MDM - SOB/Dyspnea Medical Decision Making Patient presents to the ER with shortness of breath x2 weeks. It is worsening in nature. Patient was approximately 88% on room air upon arrival however during the work-up we titrated him off 3 L of oxygen and his saturation dropped all the way to 81% on room air. On 3 L of oxygen his saturation stays up in the mid 90s. Chest x-ray was obtained which showed signs of pneumonia small pleural effusions and CHF. Lab work was obtained which showed a white count of 11.3. And a BNP of 5508 patient was given 40 mg of Lasix IV and Zosyn 3.[address] Gaspar was consulted who agreed to accept the patient as an inpatient admission Differential Diagnosis Likely acute exacerbation of chronic obstructive airways disease; Unlikely congestive heart failure, community acquired pneumonia, asthma with exacerbation or pulmonary embolism Medical Records I reviewed the patient's medical records. Lab Data I reviewed the patient's lab results. 07/27/22 09:05 07/27/22 09:05 Labs/Radiology: Radiology Impressions Chest X-Ray 07/27/22 09:12 IMPRESSION: Findings concerning for pneumonia and small pleural effusions. Laboratory Results WBC 11.3 10^3/uL (4.0-10.0) H 07/27/22 09:05 RBC 4.04 10^6/uL (4.1-5.3) L 07/27/22 09:05 Hgb 12.3 g/dL (11.7-16.6) 07/27/22 09:05 Hct 37.9 % (42.0-52.0) L 07/27/22 09:05 MCV 93.8 fl (80-94) 07/27/22 09:05 MCH 30.4 pg (28.0-34.0) 07/27/22 09:05 MCHC 32.5 g/dL (30.0-36.0) 07/27/22 09:05 RDW 13.6 % (12.1-15.1) 07/27/22 09:05 Plt Count 285 10^3/cmm (130-400) 07/27/22 09:05 MPV 10.0 fL (7.4-10.4) 07/27/22 09:05 Neut % (Auto) 75.3 % 07/27/22 09:05 Lymph % (Auto) 13.4 % 07/27/22 09:05 [place] % (Auto) 8.4 % 07/27/22 09:05 Eos % (Auto) 2.0 % 07/27/22 09:05 Baso % (Auto) 0.4 % 07/27/22 09:05 Neut # (Auto) 8.50 10^3/uL (1.8-7.7) H 07/27/22 09:05 Lymph # (Auto) 1.5 10^3/uL (0.8-4.8) 07/27/22 09:05 [place] # (Auto) 1.0 10^3/uL (0.2-0.9) H 07/27/22 09:05 Eos # (Auto) 0.2 10^3/uL (0.0-0.8) 07/27/22 09:05 Baso # (Auto) 0.1 10^3/uL (0.0-0.1) 07/27/22 09:05 Nucleated RBC % (auto) 0 % 07/27/22 09:05 Nucleated RBCs # 0.0 /100WBC 07/27/22 09:05 D-Dimer 1.34 ug/mIFEU (0-0.59) H 07/27/22 09:05 Sodium 137 mmol/L (136-145) 07/27/22 09:05 Potassium 4.1 mmol/L (3.5-5.1) 07/27/22 09:05 Chloride 102 mmol/L (98-107) 07/27/22 09:05 Carbon Dioxide 24 mmol/L (22-29) 07/27/22 09:05 Anion Gap 15.1 (5-19) 07/27/22 09:05 BUN 15 mg/dL (8-23) 07/27/22 09:05 Creatinine 1.4 mg/dL (0.7-1.2) H 07/27/22 09:05 GFR Calculation Not Reportable 07/27/22 09:05 Glucose 111 mg/dL (65-115) 07/27/22 09:05 Calculated Osmolality 286 mOsm/kg (285-295) 07/27/22 09:05 Lactic Acid 1.2 mmol/L (0.5-2.2) 07/27/22 09:05 Calcium 9.2 mg/dL (8.5-10.5) 07/27/22 09:05 Magnesium 2.0 mg/dL (1.7-2.3) 07/27/22 09:05 Total Bilirubin 1.1 mg/dL (0.15-1.2) 07/27/22 09:05 AST 26 U/L (0-40) 07/27/22 09:05 ALT 31 U/L (0-41) 07/27/22 09:05 Alkaline Phosphatase 183 U/L (40-130) H 07/27/22 09:05 Troponin T Baseline 31 ng/L (0-15) H 07/27/22 09:05 Troponin T 120 Minute 28.40 ng/L (0-15) H 07/27/22 10:51 Delta Troponin T -2.60 ABS# (0-10) L 07/27/22 10:51 NT-Pro-B Natriuret Pep 5508 pg/mL (0-450) H 07/27/22 09:05 Total Protein 6.7 g/dL (6.6-8.7) 07/27/22 09:05 Albumin 3.6 g/dL (3.5-5.2) 07/27/22 09:05 Globulin 3.1 g/dL (1.3-4.6) 07/27/22 09:05 Procalcitonin 0.08 ng/mL (0-0.5) 07/27/22 09:05 EKG Data EKG 1: I personally reviewed and interpreted this EKG as follows: EKG Interpretation Date: 07/27/22 EKG interpretation time: 11:53 Interpretation: EKG showed normal sinus rhythm with first-degree AV block, ventricular rate of 70 bpm, CT interval at 298, QRS duration 124, QTc of 469, Discharge Plan Discharge Patient Disposition: Admitted As Inpatient Admit Provider: James Gaspar Clinical Impression: Acute exacerbation of chronic obstructive airways disease, Hypoxia Community acquired pneumonia Qualifiers: Laterality: left Lung location: lower lobe of lung Qualified Code(s): J18.9 - Pneumonia, unspecified organism Congestive heart failure Qualifiers: Heart failure type: unspecified Heart failure chronicity: acute on chronic Qualified Code(s): I50.9 - Heart failure, unspecified Condition: Stable Coding Level of Care Code ED Fertilizer Supervisor for Sobeida Zambrano
[2022-07-27 10:01] LABS: Alanine Aminotransferase 31 U/L (0-41); Albumin Level 3.6 g/dL (3.5-5.2); Alkaline Phosphatase 183 U/L (40-130); Anion Gap 15.1 (5-19); Aspartate Amino Transferase 26 U/L (0-40); Blood Urea Nitrogen 15 mg/dL (8-23); Calcium 9.2 mg/dL (8.5-10.5); Carbon Dioxide 24 mmol/L (22-29); Chloride 102 mmol/L (98-107); Globulin 3.1 g/dL (1.3-4.6); Glucose 111 mg/dL (65-115); NT Pro B Type Natriuretic Pept 5508 pg/mL (0-450); Osmolality Calculated 286 mOsm/kg (285-295); Potassium 4.1 mmol/L (3.5-5.1); Sodium 137 mmol/L (136-145); Total Bilirubin 1.1 mg/dL (0.15-1.2); Total Protein 6.7 g/dL (6.6-8.7)
[2022-07-27 10:23] LABS: Procalcitonin 0.08 ng/mL (0-0.5)
[2022-07-27 10:29] LABS: Troponin(5th) Baseline 31 ng/L (0-15)
[2022-07-27] MEDS: FUROsemide 10 mg/mL SDV 4mL 40 MG IVP (10:33)
[2022-07-27 11:02] LABS: Lactic Sepsis W/Reflex 1.2 mmol/L (0.5-2.2)
[2022-07-27 11:40] LABS: D Dimer 1.34 ug/mIFEU (0-0.59)
--- NOTE | 2022-07-27 11:42 | ECG_ITS ---
[facility] Test Date: 2022-07-27 Pat Name: Lowell Salazar Department: Room: 105 Gender: Male [place] Seamer: : 1935 Requested By: Jon Simeon Order Number: [id number] Jose Alberto MD: Dionisio Ansari M.D. Measurements Intervals [place] Rate: 70 P: 21 [place]: 298 QRS: 76 QRSD: 124 T: -41 QT: 449 QTc: 485 Interpretive Statements SINUS RHYTHM WITH FIRST DEGREE AV BLOCK INFERIOR MYOCARDIAL INFARCTION , OF INDETERMINATE AGE [40+ ms Q WAVE AND/OR ST/T ABNORMALITY IN II/aVF] ANTEROLATERAL MYOCARDIAL INFARCTION , OF INDETERMINATE AGE [40+ ms Q WAVE IN I/aVL/V3-V6] Compared to ECG 07/27/2022 08:57:06 No significant changes Electronically Signed On 07-27-2022 13:23:09 CDT by Dionisio Ansari M.D. [id number]
[2022-07-27] MEDS: piperacillin-tazobactam 3.375 GM in sodium chloride 0.9% (plus) 50 ML IV (11:55)
--- NOTE | 2022-07-27 12:50 | PM.HP ---
Providers/Chief Complaint Admitting Physician: James Gaspar Primary Care Provider: Deloris Conway MD Chief Complaint: SOB History of Present Illness 87-year-old gentleman with history of COPD, asthma, CAD, CABG, PAD, lower extremity stenting, carotid artery stenosis, presents due to progressive dyspnea, productive cough, over the last week. Some heaviness in his chest, denies chest pain. Has been using his inhalers at home. Not normally on oxygen, in ER finding of new desaturation down to as low as 81% on room air. He has been taking his 81 mg aspirin only on and off. He has been having some swelling in his lower extremities, his left leg usually swells worse. In ER he is hypertensive. At home he states last few days his blood pressure was running on the higher side 150s systolic. Otherwise it is better than that. In terms of CODE STATUS, he would want attempted resuscitation, would not want prolonged life support. Review of Systems Const: Denies: fever(s), chills, body aches or malaise ENMT: Denies: throat pain Card: Reports: other (Chest pressure); Denies: edema, pre-syncope or dyspnea on exertion Resp: Reports: dyspnea and productive cough; Denies: hemoptysis GI: Denies: abdominal pain, nausea, vomiting, diarrhea, constipation, hematochezia or melena : Denies: flank pain, difficulty urinating, urinary frequency or hematuria Musc: Denies: back pain, joint swelling or joint redness Skin/Breast: Denies: rash or new lesions Neuro: Denies: headache(s), numbness in extremities, weakness in extremities, dizziness, confusion or seizure-like activity Medications/Allergies Home Medications Medication Instructions Recorded Confirmed Last Taken Type albuterol sulfate 90 mcg/actuation 2 inh inhalation Q6H PRN Shortness 05/22/19 07/27/22 03/29/22 History breath activated powder Of Breath inhaler,sensor aspirin 81 mg tablet,delayed 81 mg PO DAILY 05/22/19 07/27/22 07/27/22 History release latanoprost 0.005 % eye drops 1 drop ophthalmic (eye) DAILY 05/22/19 07/27/22 07/27/22 History methylsulfonylmethane 1,000 mg 1,000 mg PO DAILY 05/22/19 07/27/22 07/27/22 History tablet (MSM) timolol 0.5 % eye drops 1 drop ophthalmic (eye) BID 05/22/19 07/27/22 07/27/22 History vitamins A,C,K-edhp-mecfqa 14,320 1 cap PO BID 05/22/19 07/27/22 07/27/22 History unit-226 mg-200 unit capsule (PreserVision AREDS) tiotropium bromide 2.5 2 inh inhalation QAM #4 grams 10/17/21 07/27/22 07/27/22 Rx mcg/actuation mist for inhalation (Spiriva Respimat) multivitamin 1 tab PO DAILY 11/27/21 07/27/22 07/27/22 History fluticasone 250 mcg-salmeterol 50 1 inh inhalation BID 03/26/22 07/27/22 03/29/22 History mcg/dose blistr powdr for inhalation magnesium gluconate 30 mg (550 mg) 30 mg PO DAILY 03/26/22 07/27/22 07/27/22 History tablet potassium chloride 10 mEq 10 meq PO QID 03/26/22 07/27/22 07/27/22 History tablet,extended release(part/cryst) tamsulosin 0.4 mg capsule 0.8 mg PO QPM 03/26/22 07/27/22 07/26/22 History amlodipine 10 mg tablet 10 mg PO DAILY #90 tabs 07/11/22 07/27/22 07/27/22 Rx atorvastatin 80 mg tablet 80 mg PO DAILY #90 tabs 07/11/22 07/27/22 07/27/22 Rx carvedilol 6.25 mg tablet 12.5 mg PO BID #180 tabs 07/11/22 07/27/22 07/27/22 Rx hydralazine 25 mg tablet 25 mg PO BID PRN BP >150/90 #180 07/11/22 07/27/22 Unknown Rx tabs furosemide 20 mg tablet 20 mg PO DAILY 07/27/22 07/27/22 07/27/22 History Allergies Allergy/AdvReac Type Severity Reaction Status Date / Time ranitidine [From Zantac] Allergy Unknown UNKNOWN Verified 07/27/22 09:33 simvastatin [From Zocor] Allergy Unknown ADR-Muscle Verified 07/27/22 09:33 Pain PFSH Acute PFSH: Medical History (Updated 07/27/22 @ 13:32 by James Gaspar MD) BPH (benign prostatic hyperplasia) CAD (coronary atherosclerotic disease) Carotid artery disease Congestive heart failure (CHF) Enrolled in chronic care management Essential hypertension History of nonmelanoma skin cancer Hypokalemia Intermittent self-catheterization of bladder Left renal mass Lung granuloma Urinary retention UTI due to extended-spectrum beta lactamase (ESBL) producing Escherichia coli Surgical History H/O carotid angioplasty H/O heart surgery History of cholecystectomy History of quadruple bypass Hx of knee surgery S/P TURP (transurethral resection of prostate) Family History (Updated 07/27/22 @ 13:12 by James Gaspar MD) Mother , at age 65 Cancer Brother Tuberculosis Brother Tuberculosis Other CAD (coronary artery disease) Social History Smoking and tobacco status: former smoker Quit status (tobacco): has quit using tobacco Former quit date comment: 40 yr 1-3ppd Second hand smoke exposure: No Alcohol intake: never Desire information about alcohol rehabilitation?: No Desire information about substance/drug rehabilitation?: No Caregiver/support person: Yes Lives independently: No Housing: House Marital status: / Current occupational status: retired Current gender identity: Male Vitals/I&O/Wt Last Vital Signs Temp 97.1 F L 07/27/22 08:51 Pulse 68 07/27/22 12:35 Resp 18 07/27/22 09:22 BP 171/68 07/27/22 12:45 Pulse Ox 97 07/27/22 12:35 O2 Del Method Nasal Cannula 07/27/22 10:03 O2 Flow Rate 3 07/27/22 10:03 Weight last 48 hrs Weight 74.843 kg Physical Exam Narrative: Adopted son at bedside Const: COMMON NORMALS: patient oriented x3 and alert GENERAL APPEARANCE: cooperative ORIENTATION/CONSCIOUSNESS: Yes awake HENMT: COMMON NORMALS: oropharynx normal Neck/C-Spine: COMMON NORMALS: no JVD Resp: COMMON NORMALS: normal respiratory effort and clear to auscultation bilaterally AUSCULTATION: clear to auscultation bilaterally Cardio: COMMON NORMALS: no JVD, regular rhythm, S1 normal heart sound present, S2 normal heart sound present and No murmurs present (Cardio) RHYTHM: regular rhythm HEART SOUNDS: S1 normal heart sound present and S2 normal heart sound present GI: COMMON NORMALS: Normal to inspection, nondistended, normoactive bowel sounds present, Soft to palpation and non-tender PALPATION: Yes Soft to palpation Extremity: COMMON NORMALS: no joint enlargement GENERAL: Yes edema (trace) Neuro: COMMON NORMALS: patient oriented x3 and moves all extremities SENSORIUM/ORIENTATION: Yes alert Skin: COMMON NORMALS: no rashes or lesions noted GENERAL SKIN EXAM: no rashes or lesions noted Data 07/27/22 09:05 07/27/22 09:05 Micro: Microbiology 07/27/22 11:59 Blood Culture - Preliminary Blood SPECIMEN COLLECTED 07/27/22 11:57 Blood Culture - Preliminary Blood SPECIMEN COLLECTED A&P Assessment and plan (1) Acute respiratory failure: Dyspnea, productive cough, saturation down to 81% in ER. Not normally on oxygen. Used his home inhalers without success. Pneumonia, possible small parapneumonic effusion versus CHF, acute systolic and diastolic CHF exacerbation elevation of BNP 5508, lower extremity edema, small pleural effusion, severe exacerbation of COPD with cough, dyspnea, purulent sputum, hypoxia. X-ray appreciated. Mild leukocytosis 11.3. Most neutrophilic 8.5. Afebrile. No signs tachycardia. No other signs of sepsis. Additionally noted elevated D-dimer. He has CKD. With his symptom concern for possible PE, discussed consideration of evaluation, CTA may carry risk of contrast-induced nephropathy and in the setting of CKD may be risky in his case. Discussed alternatively empiric anticoagulation, VQ scan when possible to exclude, and then de-escalation if nothing found. Additionally discussed testing COVID-19. Empiric antibiotic coverage with ceftriaxone, azithromycin, IV Solu-Medrol. Maintain oxygen support. RT assess and treat. Neb treatments. Inhaled budesonide. Check sputum culture, urine bacterial antigen panel, Legionella antigen, COVID PCR Lasix IV 40 mg every 24 hours, reassess volume status. Monitor TASHA. Monitor on telemetry. Monitor electrolytes with diuresis at risk of electrolyte deficiency. Monitor renal function at risk of ALISSA with chronic kidney disease. Discussed with ER physician. ER documentation reviewed. (2) Community acquired pneumonia: Qualifiers: Laterality: left Lung location: lower lobe of lung Qualified Code(s): J18.9 - Pneumonia, unspecified organism (3) Congestive heart failure: Acute systolic and diastolic congestive heart failure exacerbation as above. Complete troponin EKG series to exclude ischemia triggering CHF exacerbation. Qualifiers: Heart failure chronicity: acute on chronic Heart failure type: unspecified Qualified Code(s): I50.9 - Heart failure, unspecified (4) Chest pressure: We will complete troponin EKG series. So far mild elevation of troponin EKG on my interpretation without acute ischemia. He is at risk of progression of CAD as he only has been taking his aspirin sporadically due to easy bruising. (5) Acute exacerbation of chronic obstructive airways disease: As above. (6) Hypoxia: (7) CAD (coronary atherosclerotic disease): As above. Continue aspirin statin, beta-branden. Qualifiers: Associated angina: without angina Coronary Disease-Associated Artery/Lesion type: [place] artery [place] vs. transplanted heart: [place] heart Qualified Code(s): I25.10 - Atherosclerotic heart disease of [place] coronary artery without angina pectoris (8) Essential hypertension: Blood pressure elevated in ER, continue amlodipine, vital, hydralazine, treat respiratory insufficiency. Otherwise his blood pressure usually runs better than this, suspect this is related to acute illness. Cardiac diet. (9) D-dimer, elevated: As above, empiric anticoagulation, monitor for bleeding. Heparin drip. Monitor PTTs. Plan History of asthma, not in exacerbation. Will benefit from CT follow-up with pulmonology. Discussed with him and his son. History of lung granuloma BPH: flomax Carotid artery disease: Continue aspirin, discussed with him importance of not missing his aspirin doses, statin Peripheral artery disease, left leg arterial stent Other chronic problems noted. Attestations Medical Necessity Statement*: Admission of over 2 midnights anticipated for assessment management of acute respiratory failure with pneumonia, is acute CHF, COPD exacerbation and gentleman with underlying asthma, CKD, CAD, additional comorbidities as above and advanced age. Diagnoses Acute respiratory failure J96.00 Community acquired pneumonia J18.9 Laterality: left Lung location: lower lobe of lung Congestive heart failure I50.9 Heart failure chronicity: acute on chronic Heart failure type: unspecified Chest pressure R07.89 Acute exacerbation of chronic obstructive airways disease J44.1 Hypoxia R09.02 CAD (coronary atherosclerotic disease) I25.10 Associated angina: without angina Coronary Disease-Associated Artery/Lesion type: [place] artery [place] vs. transplanted heart: [place] heart Essential hypertension I10 D-dimer, elevated R79.89
[2022-07-27] MEDS: azithromycin 500 MG in sodium chloride 0.9% 250 ML 250 MG IV (14:11)
[2022-07-27] MEDS: aspirin 81 mg EC Tablet PO (14:27)
[2022-07-27 14:59] LABS: Adenovirus Not Detected (NOT DETECT); Chlamydia Pneumoniae Not Detected (NOT DETECT); Coronavirus 229E,HKU1,NL63,OC4 Not Detected (NOT DETECT); Human Metapneumovirus Not Detected (NOT DETECT); Human Rhinovirus/Enterovirus Not Detected (NOT DETECT); Influenza A Not Detected (NOT DETECT); Influenza A H1 Not Detected (NOT DETECT); Influenza A H1-2009 Not Detected (NOT DETECT); Influenza A H3 Not Detected (NOT DETECT); Influenza B Not Detected (NOT DETECT); Mycoplasma Pneumoniae Not Detected (NOT DETECT); Parainfluenza Virus Type 1 Not Detected (NOT DETECT); Parainfluenza Virus Type 2 Not Detected (NOT DETECT); Parainfluenza Virus Type 3 Not Detected (NOT DETECT); Parainfluenza Virus Type 4 Not Detected (NOT DETECT); Respiratory Syncytial Virus A Not Detected (NOT DETECT); Respiratory Syncytial Virus B Not Detected (NOT DETECT); SARS-COV-2 Not Detected (NOT DETECT)
[2022-07-27] MEDS: heparin drip 25,000 UNIT/500 ML PREMIX 21 UNIT IV (15:08)
--- NOTE | 2022-07-27 15:14 | ECG_ITS ---
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 Measurements Intervals [place] Rate: 72 P: 0 [place]: 0 QRS: 84 QRSD: 116 T: -55 QT: 451 QTc: 496 Interpretive Statements ATRIAL FIBRILLATION PROBABLE LATERAL MYOCARDIAL INFARCTION , OF INDETERMINATE AGE [35 ms Q WAVE IN I/aVL/V5/V6] INFERIOR MYOCARDIAL INFARCTION , OF INDETERMINATE AGE [40+ ms Q WAVE AND/OR ST/T ABNORMALITY IN II/aVF] Compared to ECG 07/27/2022 11:53:53 Sinus rhythm no longer present First degree AV block no longer present Myocardial infarct finding still present Electronically Signed On 07-28-2022 11:51:02 CDT by Dionisio Ansari M.D. [id number]
[2022-07-27 15:53] LABS: Troponin 5 6HR 26.65 ng/L (0-15)
[2022-07-27 15:57] LABS: Troponin 5 6HR Delta -4.35 ng/L (0-12)
[2022-07-27] MEDS: guaiFENesin 600 mg Tablet 1200 MG PO (18:05)
[2022-07-27] MEDS: carvedilol 6.25 mg Tablet 12.5 MG PO (18:06)
[2022-07-27] MEDS: tamsulosin 0.4 mg Capsule 0.8 MG PO (18:06)
--- NOTE | 2022-07-27 18:36 | PC.NURSE ---
admitted into room 106 from er,via stretcher,at 1255.pt is alert and oriented x 4.denies pain or sob at present.sr w/occas pvc's on monitor.oriented to room environment.pt states he in and out caths self at home about every 4 hours .provided with equipment to do so here.instructed to notify staff for any sob,pain,or for any concerns at all.pt verb understanding of instructions
[2022-07-27] MEDS: cefTRIAXone 1,000 MG in sodium chloride 0.9% (plus) 50 ML 100 MG IV (19:59)
[2022-07-28] VITALS (33 sets, daily range): BP systolic 142–162; BP diastolic 48–74; PULSE 63–90; RESP 12–32; TEMP 36.7–37; O2SAT 89–99
[2022-07-28] MEDS: hyDRALAzine 25 mg Tablet PO (00:03)
[2022-07-28] MEDS: acetaminophen 325 mg Tablet 650 MG PO (02:03)
[2022-07-28 04:38] LABS: Hematocrit 33.8 % (42.0-52.0); Lymphocytes # 0.8 10^3/uL (0.8-4.8); Lymphocytes % 9.6 %; Mean Corpuscular HGB Conc 32.5 g/dL (30.0-36.0); Mean Corpuscular Hemoglobin 30.1 pg (28.0-34.0); Mean Corpuscular Volume 92.3 fl (80-94); Mean Platelet Volume 9.9 fL (7.4-10.4); Monocytes # 0.1 10^3/uL (0.2-0.9); Monocytes % 0.8 %; Neutrophils # 7.43 10^3/uL (1.8-7.7); Neutrophils % 89.1 %; Nucleated Red Blood Cells % 0 %; Platelet Count 252 10^3/cmm (130-400); Red Blood Count 3.66 10^6/uL (4.1-5.3); Red Cell Distribution Width 13.2 % (12.1-15.1); White Blood Count 8.3 10^3/uL (4.0-10.0)
[2022-07-28 05:04] LABS: Alanine Aminotransferase 23 U/L (0-41); Albumin Level 3.2 g/dL (3.5-5.2); Alkaline Phosphatase 144 U/L (40-130); Anion Gap 14.9 (5-19); Aspartate Amino Transferase 17 U/L (0-40); Blood Urea Nitrogen 23 mg/dL (8-23); Calcium 8.7 mg/dL (8.5-10.5); Carbon Dioxide 23 mmol/L (22-29); Chloride 102 mmol/L (98-107); Globulin 2.6 g/dL (1.3-4.6); Glucose 138 mg/dL (65-115); Osmolality Calculated 288 mOsm/kg (285-295); Potassium 3.9 mmol/L (3.5-5.1); Sodium 136 mmol/L (136-145); Total Bilirubin 0.6 mg/dL (0.15-1.2); Total Protein 5.8 g/dL (6.6-8.7)
[2022-07-28 05:07] LABS: Partial Thromboplastin Time 74.1 SECONDS (23.9-36.7)
[2022-07-28] MEDS: FUROsemide 10 mg/mL SDV 4mL 40 MG IVP (05:24)
[2022-07-28] MEDS: budesonide 0.5 mg/2 mL Neb 0.25 MG INHALATION ×2 (08:20→20:58)
[2022-07-28] MEDS: ipratropium-albuterol 3 mL Neb INHALATION ×3 (08:20→20:59)
[2022-07-28] MEDS: carvedilol 6.25 mg Tablet 12.5 MG PO ×2 (08:47→17:14)
[2022-07-28] MEDS: guaiFENesin 600 mg Tablet 1200 MG PO ×2 (08:47→17:14)
[2022-07-28] MEDS: aspirin 81 mg EC Tablet PO (08:47)
[2022-07-28] MEDS: atorvastatin 40 mg Tablet 80 MG PO (08:47)
[2022-07-28] MEDS: amlodipine 10 mg Tablet PO (08:47)
[2022-07-28] MEDS: latanoprost 0.005% Op Soln 2.5 mL Btl 1 DROP EYE-BOTH (10:20)
[2022-07-28] MEDS: azithromycin 500 MG in sodium chloride 0.9% 250 ML 250 MG IV (15:10)
[2022-07-28 16:57] LABS: Partial Thromboplastin Time 59.6 SECONDS (23.9-36.7)
[2022-07-28] MEDS: tamsulosin 0.4 mg Capsule 0.8 MG PO (17:14)
[2022-07-28] MEDS: efferdent effervescent 1 EACH DENTAL (17:50)
[2022-07-28] MEDS: cefTRIAXone 1,000 MG in sodium chloride 0.9% (plus) 50 ML 100 MG IV (21:19)
[2022-07-28] MEDS: heparin drip 25,000 UNIT/500 ML PREMIX 16 UNIT IV (21:20)
--- NOTE | 2022-07-28 22:03 | PM.PN ---
Subjective Subjective: He is feeling somewhat better today. No chest pain. Continues on heparin. Looks forward to coming off of it as he bruises easily. Vitals/I&O/Wt Last Vital Signs Temp 98.6 F 07/28/22 20:00 Pulse 74 07/28/22 21:05 Resp 18 07/28/22 21:05 BP 145/58 07/28/22 20:00 Pulse Ox 98 07/28/22 21:05 O2 Del Method Room Air 07/28/22 21:05 O2 Flow Rate 0.5 07/28/22 20:59 07/28/22 07/28/22 07/28/22 06:59 14:59 22:59 Intake Total 580 / 1075.25 600 / 600 854.75 / 1454.75 Output Total 650 / 1710 875 / 875 300 / 1175 Balance -70 / -634.75 -275 / -275 554.75 / 279.75 Weight last 48 hrs Weight 76.566 kg Weight 75.75 kg Weight 74.843 kg Physical Exam Narrative: Accompanied by family. Const: COMMON NORMALS: patient oriented x3 and alert GENERAL APPEARANCE: cooperative ORIENTATION/CONSCIOUSNESS: Yes awake HENMT: COMMON NORMALS: oropharynx normal Neck/C-Spine: COMMON NORMALS: no JVD Resp: COMMON NORMALS: normal respiratory effort OTHER: Better air entry. Cardio: COMMON NORMALS: no JVD, regular rhythm, S1 normal heart sound present, S2 normal heart sound present and No murmurs present (Cardio) RHYTHM: regular rhythm HEART SOUNDS: S1 normal heart sound present and S2 normal heart sound present GI: COMMON NORMALS: Normal to inspection, nondistended, normoactive bowel sounds present, Soft to palpation and non-tender PALPATION: Yes Soft to palpation Extremity: COMMON NORMALS: no joint enlargement and no pedal edema GENERAL: Yes edema (trace) Neuro: COMMON NORMALS: patient oriented x3 and moves all extremities SENSORIUM/ORIENTATION: Yes alert Skin: COMMON NORMALS: no rashes or lesions noted GENERAL SKIN EXAM: no rashes or lesions noted Data 07/28/22 04:10 07/28/22 04:10 Micro: Microbiology 07/27/22 11:59 Blood Culture - Preliminary Blood NEGATIVE TO DATE 07/27/22 11:57 Blood Culture - Preliminary Blood NEGATIVE TO DATE 07/27/22 14:30 Bacterial Antigens - Final Urine,Clean Catch 07/27/22 14:30 Legionella Urinary Antigen - Final Urine Catheterized A&P Assessment and plan (1) Acute respiratory failure: VQ scan morning. Home O2 evaluation. O2 requirement appears to be improving, weaning down on oxygen, turned down t to 2 L during my visit and should be able to wean down further. Not normally on oxygen. Used his home inhalers without success. Pneumonia, possible small parapneumonic effusion versus CHF, acute systolic and diastolic CHF exacerbation elevation of BNP 5508, lower extremity edema, small pleural effusion, severe exacerbation of COPD with cough, dyspnea, purulent sputum, hypoxia. X-ray appreciated. Leukocytosis resolved. Neutrophilia resolved. Noted worsening creatinine up to 1.7. Hold further Lasix. Afebrile. No signs tachycardia. No other signs of sepsis. Continue empiric antibiotic coverage with ceftriaxone, azithromycin, Switch Solu-Medrol to prednisone. Maintain oxygen support. RT assess and treat. Neb treatments. Inhaled budesonide. Check sputum culture, urine bacterial antigen panel, Legionella antigen, COVID PCR (2) Community acquired pneumonia: Qualifiers: Laterality: left Lung location: lower lobe of lung Qualified Code(s): J18.9 - Pneumonia, unspecified organism (3) Congestive heart failure: Improved. Also noted worsening creatinine up to 1.7. Hold any further Lasix. Recheck chemistry. Qualifiers: Heart failure chronicity: acute on chronic Heart failure type: unspecified Qualified Code(s): I50.9 - Heart failure, unspecified (4) Chest pressure: No further chest pain or pressure. Troponin series not suggestive of acute [place]. Suspect related to his respiratory failure. He is at risk of progression of CAD as he only has been taking his aspirin sporadically due to easy bruising. Consider follow-up with stress test. (5) Acute exacerbation of chronic obstructive airways disease: As above. (6) Hypoxia: (7) CAD (coronary atherosclerotic disease): As above. Continue aspirin statin, beta-branden. Qualifiers: Coronary Disease-Associated Artery/Lesion type: [place] artery [place] vs. transplanted heart: [place] heart Associated angina: without angina Qualified Code(s): I25.10 - Atherosclerotic heart disease of [place] coronary artery without angina pectoris (8) Essential hypertension: Blood pressure elevated in ER, continue amlodipine, vital, hydralazine, treat respiratory insufficiency. Otherwise his blood pressure usually runs better than this, suspect this is related to acute illness. Cardiac diet. (9) D-dimer, elevated: As above, empiric anticoagulation, monitor for bleeding. Heparin drip. Monitor PTTs. V/Q in the morning. Plan History of asthma, not in exacerbation. Will benefit from CT follow-up with pulmonology. Discussed with him and his son. History of lung granuloma BPH: flomax Carotid artery disease: Continue aspirin, discussed with him importance of not missing his aspirin doses, statin Peripheral artery disease, left leg arterial stent Other chronic problems noted. Attestations Medical Necessity Statement*: Continue admission for assessment management of improved respiratory failure, treatment of pneumonia, COPD exacerbation. Assessment for PE. Diagnoses Acute respiratory failure J96.00 Community acquired pneumonia J18.9 Laterality: left Lung location: lower lobe of lung Congestive heart failure I50.9 Heart failure chronicity: acute on chronic Heart failure type: unspecified Chest pressure R07.89 Acute exacerbation of chronic obstructive airways disease J44.1 Hypoxia R09.02 CAD (coronary atherosclerotic disease) I25.10 Coronary Disease-Associated Artery/Lesion type: [place] artery [place] vs. transplanted heart: [place] heart Associated angina: without angina Essential hypertension I10 D-dimer, elevated R79.89
[2022-07-28 22:23] LABS: Partial Thromboplastin Time 58.2 SECONDS (23.9-36.7)
[2022-07-29] VITALS (25 sets, daily range): BP systolic 133–167; BP diastolic 58–70; PULSE 59–91; RESP 16–26; TEMP 36.6–36.8; O2SAT 85–97
[2022-07-29 04:13] LABS: Basophils % 0.1 %; Hematocrit 34.2 % (42.0-52.0); Hemoglobin 11.2 g/dL (11.7-16.6); Lymphocytes # 0.9 10^3/uL (0.8-4.8); Lymphocytes % 5.1 %; Mean Corpuscular HGB Conc 32.7 g/dL (30.0-36.0); Mean Corpuscular Hemoglobin 30.3 pg (28.0-34.0); Mean Corpuscular Volume 92.4 fl (80-94); Monocytes # 0.6 10^3/uL (0.2-0.9); Monocytes % 3.1 %; Neutrophils % 90.7 %; Nucleated Red Blood Cells % 0 %; Platelet Count 259 10^3/cmm (130-400); Red Cell Distribution Width 13.5 % (12.1-15.1); White Blood Count 18.1 10^3/uL (4.0-10.0)
[2022-07-29 04:18] LABS: Partial Thromboplastin Time 60.9 SECONDS (23.9-36.7)
[2022-07-29 04:30] LABS: Alanine Aminotransferase 20 U/L (0-41); Albumin Level 3.2 g/dL (3.5-5.2); Alkaline Phosphatase 127 U/L (40-130); Anion Gap 16.3 (5-19); Aspartate Amino Transferase 14 U/L (0-40); Blood Urea Nitrogen 31 mg/dL (8-23); Calcium 8.7 mg/dL (8.5-10.5); Carbon Dioxide 23 mmol/L (22-29); Chloride 98 mmol/L (98-107); Globulin 2.3 g/dL (1.3-4.6); Glucose 148 mg/dL (65-115); Osmolality Calculated 287 mOsm/kg (285-295); Potassium 3.3 mmol/L (3.5-5.1); Sodium 134 mmol/L (136-145); Total Bilirubin 0.4 mg/dL (0.15-1.2); Total Protein 5.5 g/dL (6.6-8.7)
[2022-07-29] MEDS: budesonide 0.5 mg/2 mL Neb 0.25 MG INHALATION ×2 (08:29→19:11)
[2022-07-29] MEDS: ipratropium-albuterol 3 mL Neb INHALATION ×3 (08:29→19:11)
[2022-07-29] MEDS: carvedilol 6.25 mg Tablet 12.5 MG PO ×2 (08:36→18:42)
[2022-07-29] MEDS: atorvastatin 40 mg Tablet 80 MG PO (08:36)
[2022-07-29] MEDS: predniSONE 20 mg Tablet PO (08:36)
[2022-07-29] MEDS: aspirin 81 mg EC Tablet PO (08:38)
[2022-07-29] MEDS: guaiFENesin 600 mg Tablet 1200 MG PO ×2 (08:38→18:42)
[2022-07-29] MEDS: amlodipine 10 mg Tablet PO (08:38)
[2022-07-29] MEDS: latanoprost 0.005% Op Soln 2.5 mL Btl 1 DROP EYE-BOTH (08:38)
--- NOTE | 2022-07-29 08:43 | XR_ITS ---
WS: [id number] Portable AP upright chest, 07/29/2022 Clinical Data: pna, worsened WBC Comparison: Portable chest, 07/27/2022 Findings: There is a small right pleural effusion with a minimal opacity over the right diaphragm. Th ere is a small left pleural effusion with opacity over the surface left diaphragm. These opacities co uld represent atelectasis and/or pneumonia. The heart is slightly enlarged. The pulmonary vascularity is not increased. No pneumothorax is seen. The aortic arch and descending thoracic aorta show calcif ication and tortuosity. There are midline mediastinal sutures and monitor leads over the chest wall. XR/XR chest 1V portable [id number] Impression: 1. Small bilateral pleural effusions with bibasilar opacities. 2. Cardiomegaly and atherosclerosis.
--- NOTE | 2022-07-29 11:22 | NM_ITS ---
WS: [id number] NUCLEAR MEDICINE VENTILATION/PERFUSION LUNG SCAN HISTORY: assess for PE COMPARISON: Chest radiograph 07/29/2022 TECHNIQUE: Ventilation: 28.1 mCi of Technetium 99 DTPA aerosol inhaled. Perfusion: 5.0 mCi of technetium 99m MAA IV. Heterogeneous distribution of radioisotope throughout both lungs. Slightly greater distribution in th e lower lung [place]. There is a subsegmental very minimal matched defect in the periphery of the RIGH T lower lobe. There may be an additional wedge-shaped defect in the RIGHT upper lobe. Due to the asym metric distribution of radionuclide in the ventilatory scan this is difficult to be more certain. NM/NM pul vent and perfus* [id number] IMPRESSION: Moderate probability pulmonary emboli.
[2022-07-29] MEDS: azithromycin 500 MG in sodium chloride 0.9% 250 ML 250 MG IV (14:35)
--- NOTE | 2022-07-29 15:30 | PC.NURSE ---
pt off unit at 1500
--- NOTE | 2022-07-29 16:05 | PC.NURSE ---
1538 pt back in room
[2022-07-29] MEDS: tamsulosin 0.4 mg Capsule 0.8 MG PO (18:42)
[2022-07-29] MEDS: efferdent effervescent 1 EACH DENTAL (18:56)
[2022-07-29] MEDS: acetaminophen 325 mg Tablet 650 MG PO (20:00)
--- NOTE | 2022-07-29 20:55 | PM.PN ---
Subjective Subjective: He is feeling better today. Breathing overall has been improving. Denies chest pain or pressure. Vitals/I&O/Wt Last Vital Signs Temp 98.3 F 07/29/22 20:00 Pulse 75 07/29/22 20:00 Resp 16 07/29/22 20:00 BP 133/59 07/29/22 20:00 Pulse Ox 95 07/29/22 20:00 O2 Del Method Nasal Cannula 07/29/22 20:00 O2 Flow Rate 2 07/29/22 20:00 07/29/22 07/29/22 07/29/22 06:59 14:59 22:59 Intake Total 720 / 720 1072.133 / 1792.133 Output Total 350 / 1875 400 / 400 300 / 700 Balance -350 / -370.25 320 / 320 772.133 / 1092.133 Weight last 48 hrs Weight 77.292 kg Weight 76.566 kg Physical Exam Const: COMMON NORMALS: patient oriented x3 and alert GENERAL APPEARANCE: cooperative ORIENTATION/CONSCIOUSNESS: Yes awake HENMT: COMMON NORMALS: oropharynx normal Neck/C-Spine: COMMON NORMALS: no JVD Resp: COMMON NORMALS: normal respiratory effort and clear to auscultation bilaterally AUSCULTATION: clear to auscultation bilaterally OTHER: Better air entry. Cardio: COMMON NORMALS: no JVD, regular rhythm, S1 normal heart sound present, S2 normal heart sound present and No murmurs present (Cardio) RHYTHM: regular rhythm HEART SOUNDS: S1 normal heart sound present and S2 normal heart sound present GI: COMMON NORMALS: Normal to inspection, nondistended, normoactive bowel sounds present, Soft to palpation and non-tender PALPATION: Yes Soft to palpation Extremity: COMMON NORMALS: no joint enlargement and no pedal edema GENERAL: Yes edema (trace) Neuro: COMMON NORMALS: patient oriented x3 and moves all extremities SENSORIUM/ORIENTATION: Yes alert Skin: COMMON NORMALS: no rashes or lesions noted GENERAL SKIN EXAM: no rashes or lesions noted Data 07/29/22 03:57 07/29/22 03:57 Micro: Microbiology 07/29/22 13:30 Gram Stain - Final Sputum - Expectorated Sputum A&P Assessment and plan (1) Acute respiratory failure: VQ scan obtained, pending read. On heparin drip. Otherwise improving. Does require some oxygen with exertion on home oxygen evaluation, requested. Not normally on oxygen. Acute CHF component compensated. Continue to biotic for pneumonia, COPD. Leukocytosis noted worsened up to 18,000 today, but he is improving, likely secondary to thyroid. Noted worsening creatinine up to 1.7. Lasix on hold. Afebrile. No signs tachycardia. No other signs of sepsis. Continue empiric antibiotic coverage with ceftriaxone, azithromycin, Decrease prednisone dose. Maintain oxygen support. RT assess and treat. Neb treatments. Inhaled budesonide. Micro labs reviewed. Sputum culture pending, few WBC, rare GPC, rare yeast on Gram stain. Bacterial antigen panel, Legionella antigen negative. COVID PCR panel negative. (2) Community acquired pneumonia: As above Qualifiers: Laterality: left Lung location: lower lobe of lung Qualified Code(s): J18.9 - Pneumonia, unspecified organism (3) Congestive heart failure: Improved. Also noted worsening creatinine up to 1.7. Hold any further Lasix. Recheck chemistry. Qualifiers: Heart failure chronicity: acute on chronic Heart failure type: unspecified Qualified Code(s): I50.9 - Heart failure, unspecified (4) Chest pressure: No further chest pain or pressure. Troponin series not suggestive of acute [place]. Suspect related to his respiratory failure. He is at risk of progression of CAD as he only has been taking his aspirin sporadically due to easy bruising. Consider follow-up with stress test. (5) Acute exacerbation of chronic obstructive airways disease: As above. (6) Hypoxia: (7) CAD (coronary atherosclerotic disease): As above. Continue aspirin statin, beta-branden. Qualifiers: Coronary Disease-Associated Artery/Lesion type: [place] artery [place] vs. transplanted heart: [place] heart Associated angina: without angina Qualified Code(s): I25.10 - Atherosclerotic heart disease of [place] coronary artery without angina pectoris (8) Essential hypertension: Blood pressure is doing better. Cardiac diet. (9) D-dimer, elevated: VQ scan obtained, pending read. As above, empiric anticoagulation, monitor for bleeding. Heparin drip. Monitor PTTs. Plan History of asthma, not in exacerbation. Will benefit from CT follow-up with pulmonology. Discussed with him and his son. History of lung granuloma BPH: flomax Carotid artery disease: Continue aspirin, discussed with him importance of not missing his aspirin doses, statin Peripheral artery disease, left leg arterial stent Other chronic problems noted. Attestations Medical Necessity Statement*: Continue admission for assessment management of community-acquired pneumonia, COPD exacerbation, rule out PE, Diagnoses Acute respiratory failure J96.00 Community acquired pneumonia J18.9 Laterality: left Lung location: lower lobe of lung Congestive heart failure I50.9 Heart failure chronicity: acute on chronic Heart failure type: unspecified Chest pressure R07.89 Acute exacerbation of chronic obstructive airways disease J44.1 Hypoxia R09.02 CAD (coronary atherosclerotic disease) I25.10 Coronary Disease-Associated Artery/Lesion type: [place] artery [place] vs. transplanted heart: [place] heart Associated angina: without angina Essential hypertension I10 D-dimer, elevated R79.89
[2022-07-29] MEDS: cefTRIAXone 1,000 MG in sodium chloride 0.9% (plus) 50 ML 100 MG IV (21:13)
[2022-07-30] VITALS (7 sets, daily range): BP systolic 148–182; BP diastolic 60–84; PULSE 59–78; RESP 14–19; TEMP 36.6–36.9; O2SAT 92–95
[2022-07-30] MEDS: heparin drip 25,000 UNIT/500 ML PREMIX 18 UNIT IV (04:45)
[2022-07-30 05:33] LABS: Basophils % 0.1 %; Hematocrit 32.5 % (42.0-52.0); Hemoglobin 10.7 g/dL (11.7-16.6); Lymphocytes # 1.6 10^3/uL (0.8-4.8); Lymphocytes % 9.3 %; Mean Corpuscular HGB Conc 32.9 g/dL (30.0-36.0); Mean Corpuscular Hemoglobin 30.6 pg (28.0-34.0); Mean Corpuscular Volume 92.9 fl (80-94); Mean Platelet Volume 10.3 fL (7.4-10.4); Monocytes # 1.2 10^3/uL (0.2-0.9); Monocytes % 7.1 %; Neutrophils # 14.17 10^3/uL (1.8-7.7); Nucleated Red Blood Cells % 0 %; Platelet Count 249 10^3/cmm (130-400); Red Cell Distribution Width 13.5 % (12.1-15.1); White Blood Count 17.1 10^3/uL (4.0-10.0)
[2022-07-30 05:52] LABS: Alanine Aminotransferase 22 U/L (0-41); Albumin Level 3.2 g/dL (3.5-5.2); Alkaline Phosphatase 134 U/L (40-130); Anion Gap 13.5 (5-19); Aspartate Amino Transferase 17 U/L (0-40); Blood Urea Nitrogen 35 mg/dL (8-23); Calcium 8.7 mg/dL (8.5-10.5); Carbon Dioxide 24 mmol/L (22-29); Chloride 101 mmol/L (98-107); Globulin 2.3 g/dL (1.3-4.6); Glucose 117 mg/dL (65-115); Osmolality Calculated 289 mOsm/kg (285-295); Potassium 3.5 mmol/L (3.5-5.1); Sodium 135 mmol/L (136-145); Total Bilirubin 0.4 mg/dL (0.15-1.2); Total Protein 5.5 g/dL (6.6-8.7)
[2022-07-30] MEDS: budesonide 0.5 mg/2 mL Neb 0.25 MG INHALATION (07:58)
[2022-07-30] MEDS: latanoprost 0.005% Op Soln 2.5 mL Btl 1 DROP EYE-BOTH (08:51)
[2022-07-30] MEDS: carvedilol 6.25 mg Tablet 12.5 MG PO (08:52)
[2022-07-30] MEDS: guaiFENesin 600 mg Tablet 1200 MG PO (08:52)
[2022-07-30] MEDS: amlodipine 10 mg Tablet PO (08:52)
[2022-07-30] MEDS: atorvastatin 40 mg Tablet 80 MG PO (08:52)
[2022-07-30] MEDS: predniSONE 10 mg Tablet PO (08:52)
[2022-07-30] MEDS: aspirin 81 mg EC Tablet PO (08:53)
--- NOTE | 2022-07-30 09:49 | CT_ITS ---
WS: [id number] CT CHEST ANGIOGRAPHY WITH REFORMATS HISTORY: assess for PE TECHNIQUE: Contiguous axial images are obtained through the chest during arterial injection of intrav enous contrast. Images are reconstructed to evaluate the pulmonary arteries. MIP imaging also reviewe d. All CT scans at [facility] use at least one of these dose optimization techniques: automat ed exposure control; mA and/or kV adjustment per patient size (includes targeted exams where dose is matched to clinical indication); or iterative reconstruction. CONTRAST: Omnipaque 350; 100 mL IV. DLP: 417.52 mGy.cm COMPARISON: Chest radiograph and VQ scan 07/29/2022. Good opacification of the pulmonary arteries centrally. There is good opacification through the lobar and portions of the segmental branches. No filling defects. Peripheral pulmonary arteries are less w ell opacified. There are no pulmonary emboli corresponding to the defects on the recent VQ scan. Bilateral small pleural effusions. Bilateral pulmonary opacifications, greatest in the RIGHT upper lo be. This may correspond to the abnormality seen on the recent view skin due to its shape and appearan ce. Marked emphysema. Mild enlargement of the LEFT heart chambers. No RIGHT heart strain. Normal size pulmonary artery. Mod erate atherosclerotic disease in the aorta. Numerous, small to moderate lymph nodes which are may be reactive. Solid, heterogeneous mass associated with the posterior medial LEFT kidney measures 2.7 x 2.8 cm. Itzel picious for renal cell neoplasm the previously described on 03/26/2022. There is a hyperdense mass ex tending exophytic from the upper pole measuring 3.0 x 3.9 cm which is unchanged. Partially visualized RIGHT renal cyst. Prior cholecystectomy. Advanced atherosclerosis suprarenal aorta extending into th e splenic artery. CT/CT angio chest PE protcl [id number] IMPRESSION: 1. No pulmonary embolism identified. 2. Small bilateral pleural effusions. 3. Opacification RIGHT upper lobe may be pneumonia. 4. Severe chronic emphysema. 5. No RIGHT heart strain. 6. Reidentified LEFT renal neoplasm. Previously described and suspicious for n eoplasm without increase in size.
--- NOTE | 2022-07-30 12:25 | P.DS_ITS ---
Discharge Providers Date of Admission: 07/27/22 11:47 Date of Discharge: July 30, 2022 Attending Provider at Admission: James Gaspar Attending Provider at Discharge: James Gaspar Primary Care Provider: Deloris Conway MD Diagnoses at Discharge Discharge Diagnosis (1) Acute respiratory failure: Status: Acute (2) Community acquired pneumonia: Status: Acute Qualifiers: Laterality: left Lung location: lower lobe of lung Qualified Code(s): J18.9 - Pneumonia, unspecified organism (3) Congestive heart failure: Status: Acute Qualifiers: Heart failure chronicity: acute on chronic Heart failure type: unspecified Qualified Code(s): I50.9 - Heart failure, unspecified (4) Chest pressure: Status: Acute (5) Acute exacerbation of chronic obstructive airways disease: Status: Acute (6) Hypoxia: Status: Acute (7) CAD (coronary atherosclerotic disease): Status: Chronic Qualifiers: Coronary Disease-Associated Artery/Lesion type: [place] artery [place] vs. transplanted heart: [place] heart Associated angina: without angina Qualified Code(s): I25.10 - Atherosclerotic heart disease of [place] coronary artery without angina pectoris (8) Essential hypertension: Status: Chronic (9) D-dimer, elevated: Status: Acute Reason for Visit Reason for Visit: SOB Hospital Course Hospital Course Pleasant 87-year-old gentleman was admitted for assessment management of pneumonia, COPD exacerbation with new oxygen requirement, previously not on oxygen. Treated with ceftriaxone, azithromycin, initially IV, then switch to oral steroid, breathing treatments, inhaled steroid, with gradual improvement in his condition, improvement in air entry, subjectively feeling much better. Leukocytosis initially resolved but then worse likely secondary to steroid. On presentation with abnormal D-dimer, empirically on inspiration heparin drip during hospitalization, VQ scan with moderate probability of PE, CT angiogram initially held due to CKD, subsequently obtained with no PE prescription sent out for risk of contrast nephropathy. He bruises easily and preferred to get off anticoagulation. Noted small bilateral pleural effusions. Opacification of right upper lobe suspected pneumonia. Severe chronic emphysema Re-identified left renal neoplasm. Previously described at suspicious for neoplasm without increase in size. Please follow-up with him with regards to the finding, he is aware of this but states he was not aware that there was suspicion of possible neoplasm and he would consider hearing more about risks and benefits of further diagnostic and treatment options if such were indicated. On presentation additionally with component of acute congestive heart failure. Treated with Lasix, volume status optimized. Some worsening in creatinine noted up to 1.7, today better at 1.6. Please follow-up renal function. He had admitted that he would not always take his aspirin and seems was not aware of the importance. He was informed to make sure to take it daily. He is worried about bruising. Please reinforce with him importance of aspirin with history of CAD and PAD. Troponin with mild elevation, no suggestion of acute OH during hospitalization. Some chest pressure on presentation related likely secondary to acute respiratory failure which had resolved without recurrence. Noted recent stress test back in May, please see results. Physical Exam Narrative: Reports he is feeling much better. States has been ready to return home. Const: COMMON NORMALS: patient oriented x3 and alert GENERAL APPEARANCE: cooperative ORIENTATION/CONSCIOUSNESS: Yes awake HENMT: COMMON NORMALS: oropharynx normal Neck/C-Spine: COMMON NORMALS: no JVD Resp: COMMON NORMALS: normal respiratory effort and clear to auscultation bilaterally EFFORT & INSPECTION: Yes able to speak in complete sentences AUSCULTATION: clear to auscultation bilaterally Cardio: COMMON NORMALS: no JVD, regular rhythm, S1 normal heart sound present, S2 normal heart sound present and No murmurs present (Cardio) RHYTHM: regular rhythm HEART SOUNDS: S1 normal heart sound present and S2 normal heart sound present GI: COMMON NORMALS: Normal to inspection, nondistended, normoactive bowel sounds present, Soft to palpation and non-tender PALPATION: Yes Soft to palpation Extremity: COMMON NORMALS: no joint enlargement and no pedal edema GENERAL: Yes edema (trace) Neuro: COMMON NORMALS: patient oriented x3 and moves all extremities SENSORIUM/ORIENTATION: Yes alert Skin: COMMON NORMALS: no rashes or lesions noted GENERAL SKIN EXAM: no rashes or lesions noted Discharge Data Studies Completed and Pending Completed Studies During Hospitalization Category Date Time Status CTA chest [CT angio chest PE protcl [id number]] Stat Cat Scan 07/30/22 09:49 Completed CXRP [XR chest 1V portable [id number]] Routine Exams 07/29/22 08:43 Completed XR chest 1V portable [id number] Stat Exams 07/27/22 09:12 Completed NM pulmonary ventilation and perfusion [NM pul vent and Nuc Med 04/17/23 11:22 Completed perfus* [id number]] Stat Pending at discharge Category Date Time Status Blood Culture Stat Lab 07/27/22 11:59 Results Platelet Count Q2D Lab 07/31/22 04:00 Ordered Sputum Culture and Gram Stain Routine Lab 07/29/22 13:30 Results Radiology Impressions Chest X-Ray 07/29/22 08:43 Impression: 1. Small bilateral pleural effusions with bibasilar opacities. 2. Cardiomegaly and atherosclerosis. Pulmonary Perfusion Imaging 07/29/22 11:22 IMPRESSION: Moderate probability pulmonary emboli. Chest CTA 07/30/22 09:49 IMPRESSION: 1. No pulmonary embolism identified. 2. Small bilateral pleural effusions. 3. Opacification RIGHT upper lobe may be pneumonia. 4. Severe chronic emphysema. 5. No RIGHT heart strain. 6. Reidentified LEFT renal neoplasm. Previously described and suspicious for neoplasm without increase in size. Laboratory Results WBC 17.1 10^3/uL (4.0-10.0) H 07/30/22 04:38 RBC 3.50 10^6/uL (4.1-5.3) L 07/30/22 04:38 Hgb 10.7 g/dL (11.7-16.6) L 07/30/22 04:38 Hct 32.5 % (42.0-52.0) L 07/30/22 04:38 MCV 92.9 fl (80-94) 07/30/22 04:38 MCH 30.6 pg (28.0-34.0) 07/30/22 04:38 MCHC 32.9 g/dL (30.0-36.0) 07/30/22 04:38 RDW 13.5 % (12.1-15.1) 07/30/22 04:38 Plt Count 249 10^3/cmm (130-400) 07/30/22 04:38 MPV 10.3 fL (7.4-10.4) 07/30/22 04:38 Neut % (Auto) 83.0 % 07/30/22 04:38 Lymph % (Auto) 9.3 % 07/30/22 04:38 [place] % (Auto) 7.1 % 07/30/22 04:38 Eos % (Auto) 0.0 % 07/30/22 04:38 Baso % (Auto) 0.1 % 07/30/22 04:38 Neut # (Auto) 14.17 10^3/uL (1.8-7.7) H 07/30/22 04:38 Lymph # (Auto) 1.6 10^3/uL (0.8-4.8) 07/30/22 04:38 [place] # (Auto) 1.2 10^3/uL (0.2-0.9) H 07/30/22 04:38 Eos # (Auto) 0.0 10^3/uL (0.0-0.8) 07/30/22 04:38 Baso # (Auto) 0.0 10^3/uL (0.0-0.1) 07/30/22 04:38 Nucleated RBC % (auto) 0 % 07/30/22 04:38 Nucleated RBCs # 0.0 /100WBC 07/30/22 04:38 APTT 49.0 SECONDS (23.9-36.7) H 07/30/22 04:38 D-Dimer 1.34 ug/mIFEU (0-0.59) H 07/27/22 09:05 Sodium 135 mmol/L (136-145) L 07/30/22 04:38 Potassium 3.5 mmol/L (3.5-5.1) 07/30/22 04:38 Chloride 101 mmol/L (98-107) 07/30/22 04:38 Carbon Dioxide 24 mmol/L (22-29) 07/30/22 04:38 Anion Gap 13.5 (5-19) 07/30/22 04:38 BUN 35 mg/dL (8-23) H 07/30/22 04:38 Creatinine 1.6 mg/dL (0.7-1.2) H 07/30/22 04:38 GFR Calculation Not Reportable 07/30/22 04:38 Glucose 117 mg/dL (65-115) H 07/30/22 04:38 Calculated Osmolality 289 mOsm/kg (285-295) 07/30/22 04:38 Lactic Acid 1.2 mmol/L (0.5-2.2) 07/27/22 09:05 Calcium 8.7 mg/dL (8.5-10.5) 07/30/22 04:38 Magnesium 2.0 mg/dL (1.7-2.3) 07/27/22 09:05 Total Bilirubin 0.4 mg/dL (0.15-1.2) 07/30/22 04:38 AST 17 U/L (0-40) 07/30/22 04:38 ALT 22 U/L (0-41) 07/30/22 04:38 Alkaline Phosphatase 134 U/L (40-130) H 07/30/22 04:38 Troponin T Baseline 31 ng/L (0-15) H 07/27/22 09:05 Troponin T 120 Minute 28.40 ng/L (0-15) H 07/27/22 10:51 Delta Troponin T -2.60 ABS# (0-10) L 07/27/22 10:51 Troponin T Hi Sens 6Hr 26.65 ng/L (0-15) H 07/27/22 15:08 Troponin T Hi Sens 6Hr Delta -4.35 ng/L (0-12) L 07/27/22 15:08 NT-Pro-B Natriuret Pep 5508 pg/mL (0-450) H 07/27/22 09:05 Total Protein 5.5 g/dL (6.6-8.7) L 07/30/22 04:38 Albumin 3.2 g/dL (3.5-5.2) L 07/30/22 04:38 Globulin 2.3 g/dL (1.3-4.6) 07/30/22 04:38 Procalcitonin 0.08 ng/mL (0-0.5) 07/27/22 09:05 Coronavirus 229E (PCR) Not detected (NOT DETECT) 07/27/22 11:46 SARS-CoV-2 (PCR) Not detected (NOT DETECT) 07/27/22 11:46 Vitals Last Vital Signs Temp 97.9 F 07/30/22 04:00 Pulse 59 L 07/30/22 11:09 Resp 19 H 07/30/22 11:09 BP 166/70 07/30/22 11:09 Pulse Ox 95 07/30/22 11:09 O2 Del Method Nasal Cannula 07/30/22 11:09 O2 Flow Rate 2 07/30/22 07:59 Discharge Plan Discharge Patient Disposition: Home Condition: Stable Prescriptions: New cefdinir 300 mg capsule 300 mg PO BID 5 Days Qty: 10 0RF azithromycin 500 mg tablet 500 mg PO DAILY 5 Days Qty: 5 0RF prednisone 10 mg tablet 10 mg PO DAILY Qty: 3 0RF Continued albuterol sulfate 90 mcg/actuation aero powdr breath act w/sensor 2 inh INHALATION Q6H PRN (Reason: Shortness Of Breath) methylsulfonylmethane [MSM] 1,000 mg tablet 1,000 mg PO DAILY PreserVision AREDS [phone] [id number]-ha-zixs capsule 1 cap PO BID timolol 0.5 % drops 1 drop ophthalmic (eye) BID Rx Instructions: both eyes aspirin 81 mg tablet,delayed release (DR/EC) 81 mg PO DAILY Hold Instructions: Resume on 11/21/21. latanoprost 0.005 % drops 1 drop ophthalmic (eye) DAILY Rx Instructions: both eyes Spiriva Respimat 2.5 mcg/actuation mist 2 inh INHALATION QAM Qty: 4 5RF amlodipine 10 mg tablet 10 mg PO DAILY Qty: 90 3RF atorvastatin 80 mg tablet 80 mg PO DAILY Qty: 90 3RF carvedilol 6.25 mg tablet 12.5 mg PO BID Qty: 180 3RF hydralazine 25 mg tablet 25 mg PO BID PRN (Reason: BP >150/90) Qty: 180 2RF multivitamin Tablet 1 tab PO DAILY fluticasone propion-salmeterol 250-50 mcg/dose Blister With Device 1 inh INHALATION BID tamsulosin 0.4 mg capsule 0.8 mg PO QPM potassium chloride 10 mEq tablet,ER particles/crystals 10 meq PO QID magnesium gluconate 30 mg (550 mg) Tablet 30 mg PO DAILY furosemide 20 mg tablet 20 mg PO DAILY Discharge Orders: Discharge Order (Routine); Ordered 07/30/22 Ordered By: James Gaspar Other Ambulatory Orders: DME: Oxygen (Order) Location: None Selected Ordered By: James Gaspar Referrals: Deloris Conway MD [Primary Care Provider] - 4-7 days ([facility] will contact you within 24 hours to schedule an follow-up appointment in 4 to 7 days. If you haven't heard from them in that time frame. Please call ) Discharge Diet: Cardiac Discharge Activity: Oxygen as instructed Patient Instructions: Prednisone (By mouth) (predniSONE Intensol, Prednicot, Deltasone, Zev), Azithromycin (By mouth) (Zithromax, Zithromax Tri-Kayode, Zithromax..., Cefdinir (By mouth) (Omnicef), Heart Failure (DC), COPD (Chronic Obstructive Pulmonary Disease) (GEN), Community Acquired Pneumonia (GEN), CHF Stoplight, COPD Stoplight, Pneumonia Stoplight Activity Restrictions/Additional Instructions: Follow-up with your primary doctor for reassessment of improvement of pneumonia and COPD exacerbation as well as mild exacerbation of congestive heart failure. Return to the hospital in case you have bothersome shortness of breath, chest pain, high fever, or any other concerning symptoms. Please do not forget to take your aspirin daily. Please have your primary doctor recheck your kidney function at next visit with noted mild worsening in creatinine with diuresis of 1.7. Follow-up with your primary doctor regarding chronic problems as well as left renal mass. Discharge Attestations 2 Time Spent in Discharge Care*: greater than 30 min Status at Discharge: Cognitive status at discharge: cognitively intact , Behavioral status at discharge: cooperative , Quality Metrics Clinical Quality Measures [ No reported AMI, CVA or VTE this stay] Coding Level of Care Code Acute Code for [employer] F[facility] Diagnoses Acute respiratory failure J96.00 Community acquired pneumonia J18.9 Laterality: left Lung location: lower lobe of lung Congestive heart failure I50.9 Heart failure chronicity: acute on chronic Heart failure type: unspecified Chest pressure R07.89 Acute exacerbation of chronic obstructive airways disease J44.1 Hypoxia R09.02 CAD (coronary atherosclerotic disease) I25.10 Coronary Disease-Associated Artery/Lesion type: [place] artery [place] vs. transplanted heart: [place] heart Associated angina: without angina Essential hypertension I10 D-dimer, elevated R79.89
[2022-07-30] MEDS: ipratropium-albuterol 3 mL Neb INHALATION (13:25)
== END 2022-07-30 13:35 | disposition home or self-care (01) | DRG 193 ==
LOC: ER 11:47 → CSU 11:53
PROVIDERS: Admitting Provider Internal Medicine; Emergency Provider Emergency Medicine; PCP Family Medicine; Visit Provider Internal Medicine
DX: J18.9 Pneumonia, unspecified organism (principal); I50.43 Acute on chronic combined systolic (congestive) and diastolic (congestive) heart failure; J96.01 Acute respiratory failure with hypoxia; I13.0 Hypertensive heart and chronic kidney disease with heart failure and stage 1 through stage 4 chronic kidney disease, or unspecified chronic kidney disease; J43.9 Emphysema, unspecified; N18.9 Chronic kidney disease, unspecified; I25.10 Atherosclerotic heart disease of native coronary artery without angina pectoris; I73.9 Peripheral vascular disease, unspecified; R07.89 Other chest pain; R79.1 Abnormal coagulation profile; N40.0 Benign prostatic hyperplasia without lower urinary tract symptoms; Z87.891 Personal history of nicotine dependence; Z95.828 Presence of other vascular implants and grafts; Z79.82 Long term (current) use of aspirin
CPT/HCPCS: 36415; 71045; 71275; 78014; 80053; 83605; 83735; 83880; 84145; 84484; 85025; 85378; 85730; 86403; 87040; 87070; 87205; 87449; 87635; 93005; 94640; 94664; 94760; 96365; 96375; 96376; 99285; A9540; A9567; J0456; J0696; J1644; J1940; J2543; J2920; J7050; J7512; J7626; Q9967

== ENCOUNTER → 2022-08-06 11:44 | Outpatient (BNVA) | payer OTHER, SELFPAY | PROVIDERS: PCP Family Medicine; Visit Provider Family Medicine | DX: I50.9 Heart failure, unspecified (principal); I25.10 Atherosclerotic heart disease of native coronary artery without angina pectoris; J44.9 Chronic obstructive pulmonary disease, unspecified; N18.2 Chronic kidney disease, stage 2 (mild); J18.9 Pneumonia, unspecified organism; J96.01 Acute respiratory failure with hypoxia; Z74.09 Other reduced mobility; Z78.9 Other specified health status; Z09 Encounter for follow-up examination after completed treatment for conditions other than malignant neoplasm | CPT/HCPCS: 80053; 85025 ==

== ENCOUNTER 2022-08-18 16:31 | Emergency (ER) | payer OTHER, SELFPAY ==
[2022-08-18 16:37] VITALS: BP 197/64; PULSE 81; RESP 17; TEMP 36.4; O2SAT 92; BMI 21.4
--- NOTE | 2022-08-18 17:21 | XRR_ITS ---
PROCEDURE INFORMATION: Exam: XR Chest Exam date and time: 08/18/2022 5:57 PM Age: 87 years old Clinical indication: Shortness of breath; Additional info: SOB HX of recent pna TECHNIQUE: Imaging protocol: Radiologic exam of the chest. Views: 2 views. COMPARISON: CR (CHEST, ) 07/27/2022 9:36 AM FINDINGS: Lungs: Emphysematous change with mild interstitial prominence, particularly upper lungs, though less prominent than prior exam. Findings likely represent a component of scarring or fibrosis. Opacity seen in the left lung base with blunting of the left costophrenic angle. Mild blunting of the right costophrenic angle also noted. Small nodule mid right lung is unchanged from prior exam. No pneumothorax. Pleural spaces: See Lungs finding. Heart/Mediastinum: Cardiac is stable without significant overall enlargement. Vasculature: Arteriosclerosis of the thoracic aorta. Bones/joints: Postsurgical changes of sternotomy or CABG. Degenerative bony changes. XR/XR chest 2V* [id number] IMPRESSION: 1. Emphysematous change with interstitial prominence of scarring or fibrosis and stable small nodule mid right lung with prior exam. 2. Opacity left lung base with associated blunting of the left costophrenic angle as well as mild blunting of the right costophrenic angle. These findings are similar in appearance to prior exam. Findings suggest basilar effusion with atelectasis, though component of underlying infiltrate left lung base not excluded.
--- NOTE | 2022-08-18 17:24 | ECG_ITS ---
[facility] Test Date: 2022-08-18 Pat Name: Lowell Salazar Department: Room: Gender: Male [employer]: : [id number] Requested By: Yusef Barker Order Number: [id number] Jose Alberto MD: Robert Mcdaniel M.D. Measurements Intervals [place] Rate: 84 P: 50 [place]: 292 QRS: 78 QRSD: 115 T: 46 QT: 396 QTc: 470 Interpretive Statements SINUS RHYTHM WITH FIRST DEGREE AV BLOCK WITH FREQUENT VENTRICULAR PREMATURE COMPLEXES INFERIOR MYOCARDIAL INFARCTION , OF INDETERMINATE AGE [40+ ms Q WAVE AND/OR ST/T ABNORMALITY IN II/aVF] Compared to ECG 07/27/2022 15:14:10 First degree AV block now present Atrial fibrillation no longer present Myocardial infarct finding still present Electronically Signed On 08-19-2022 17:06:54 CDT by Robert Mcdaniel M.D. [email or web address], Servicios para pro[facility]ariosall[facility].[employer]/store/NU/[id number] f
[2022-08-18 17:52] LABS: Basophils # 0.1 10^3/uL (0.0-0.1); Basophils % 0.8 %; Eosinophils # 0.1 10^3/uL (0.0-0.8); Eosinophils % 1.1 %; Hemoglobin 12.2 g/dL (11.7-16.6); Lymphocytes # 1.8 10^3/uL (0.8-4.8); Lymphocytes % 18.5 %; Mean Corpuscular HGB Conc 32.1 g/dL (30.0-36.0); Mean Corpuscular Hemoglobin 29.3 pg (28.0-34.0); Mean Corpuscular Volume 91.3 fl (80-94); Monocytes % 10.5 %; Neutrophils # 6.67 10^3/uL (1.8-7.7); Neutrophils % 68.6 %; Nucleated Red Blood Cells % 0 %; Platelet Count 260 10^3/cmm (130-400); Red Blood Count 4.16 10^6/uL (4.1-5.3); Red Cell Distribution Width 13.9 % (12.1-15.1); White Blood Count 9.7 10^3/uL (4.0-10.0)
[2022-08-18 18:29] LABS: Troponin(5th) Baseline 35 ng/L (0-15)
--- NOTE | 2022-08-18 18:34 | W.ED.SOB ---
HPI - SOB/Dyspnea General: Chief Complaint: Shortness of Breath/Dyspnea Stated Complaint: SOB, dizziness Time Seen by Provider: 08/18/22 16:53 History of Present Illness: HPI Narrative: 87-year-old male with prior history of recent pneumonia last week presents emergency department chief complaint of productive cough and moderate shortness of breath patient reports having a known history Heart and lung issues patient presents to the ER for further assessment management he does not recall any recent additional swelling in his legs or any other associated symptoms. Patient reports he is currently not on any antibiotics or steroids. Patient does not recall any recent additional swelling in his leg or any other associated symptoms. Associated symptoms: Reports chest congestion; Deny abdominal pain, chest pain, extremity pain, fever(s), nausea, palpitations or vomiting Review of Systems General: Reports: 10 or more systems reviewed and unremarkable except in HPI and below Const: Denies: fever(s), chills, fatigue or malaise Eyes: Denies: change in vision or blurry vision Card: Denies: chest pain or palpitations Resp: Reports: dyspnea, productive cough and chest congestion GI: Denies: abdominal pain, nausea or vomiting : Denies: flank pain Musc: Denies: extremity pain or extremity swelling Skin/Breast: Denies: rash or pruritus Neuro: Denies: headache(s) Psych: Denies: anxiety or depression Brock/Lymph: Denies: easy bleeding All/Imm: Denies: urticaria, throat swelling or facial swelling PFSH ED PFSH: Medical History BPH (benign prostatic hyperplasia) CAD (coronary atherosclerotic disease) Carotid artery disease Congestive heart failure (CHF) Enrolled in chronic care management Essential hypertension History of nonmelanoma skin cancer Hypokalemia Intermittent self-catheterization of bladder Left renal mass Lung granuloma Urinary retention UTI due to extended-spectrum beta lactamase (ESBL) producing Escherichia coli Surgical History H/O carotid angioplasty H/O heart surgery History of cholecystectomy History of quadruple bypass Hx of knee surgery S/P TURP (transurethral resection of prostate) Family History Mother , at age 65 Cancer Brother Tuberculosis Brother Tuberculosis Other CAD (coronary artery disease) Social History Smoking and tobacco status: former smoker Quit status (tobacco): has quit using tobacco Former quit date comment: 40 yr 1-3ppd Second hand smoke exposure: No Alcohol intake: never Desire information about alcohol rehabilitation?: No Substance/Drug Use: never Desire information about substance/drug rehabilitation?: No Caregiver/support person: Yes Lives independently: No Housing: House Marital status: / Current occupational status: retired Do you think of yourself as: Straight/Heterosexual Current gender identity: Male Physical Exam Const: COMMON NORMALS: no acute distress, patient oriented x3 and healthy appearing HENMT: COMMON NORMALS: normocephalic and atraumatic HEAD & SCALP: normocephalic and atraumatic Eye: COMMON NORMALS: Equal, round and reactive pupils present and EOMs intact bilaterally PUPIL: Yes Equal, round and reactive pupils present Neck/C-Spine: COMMON NORMALS: full ROM, supple and no JVD Lymph: LYMPHATIC: no lymphadenopathy noted Chest: COMMONS NORMALS: normal inspection of the chest and normal palpation of entire chest wall Resp: OTHER: Diminished breath sounds in the bases bilaterally no obvious wheezing crackles rales or rhonchi noted.. Cardio: COMMON NORMALS: no JVD, regular rate and regular rhythm RATE: regular rate RHYTHM: regular rhythm GI: COMMON NORMALS: Normal to inspection, nondistended, normoactive bowel sounds present, Soft to palpation and non-tender INSPECTION: Yes normal to inspection PALPATION: Yes Soft to palpation : COMMON NORMALS: Yes no CVA tenderness BLADDER/KIDNEY EXAM: Yes no CVA tenderness Back/Pelvis: COMMON NORMALS: no CVA tenderness Extremity: COMMON NORMALS: normal to inspection and full ROM Neuro: COMMON NORMALS: patient oriented x3, CN's II-XII intact bilaterally, moves all extremities and no focal motor deficits Psych: COMMON NORMALS: mental status grossly normal, Normal thought process present, cooperative and normal affect THOUGHT PROCESS: Normal thought process present Skin: COMMON NORMALS: no rashes or lesions noted GENERAL SKIN EXAM: no rashes or lesions noted Course Vital Signs: Vital signs: Vital Signs Temperature 97.5 F L 08/18/22 16:37 Pulse Rate 88 08/18/22 19:14 Respiratory Rate 16 08/18/22 19:14 Blood Pressure 170/117 08/18/22 19:14 Pulse Oximetry 90 08/18/22 19:14 Oxygen Delivery Me thod Room Air 08/18/22 18:37 MDM - SOB/Dyspnea Medical Decision Making Due to patient's symptoms and condition I will establish EKG will be obtained basic lab work and imaging obtained we will continue to follow. Patient's been asked if he was elevated to provide a dose of some Lasix for that she was found to have emphysema in his lungs otherwise no obvious pneumonia appreciated patient was found with small bibasilar effusions patient appears to be stable condition this time endorsing no current chest pain EKG normal for him patient was simply discharged home with addition medication with diuretics and some meds for his lower advised further follow-up primary care in 3 to 5 days which was advised to return the interim if any of his symptoms persist or worse. Lab Data 08/18/22 17:35 08/18/22 17:35 Labs/Radiology: Radiology Impressions Chest X-Ray 08/18/22 17:21 IMPRESSION: 1. Emphysematous change with interstitial prominence of scarring or fibrosis and stable small nodule mid right lung with prior exam. 2. Opacity left lung base with associated blunting of the left costophrenic angle as well as mild blunting of the right costophrenic angle. These findings are similar in appearance to prior exam. Findings suggest basilar effusion with atelectasis, though component of underlying infiltrate left lung base not excluded. Laboratory Results WBC 9.7 10^3/uL (4.0-10.0) 08/18/22 17:35 RBC 4.16 10^6/uL (4.1-5.3) 08/18/22 17:35 Hgb 12.2 g/dL (11.7-16.6) 08/18/22 17:35 Hct 38.0 % (42.0-52.0) L 08/18/22 17:35 MCV 91.3 fl (80-94) 08/18/22 17:35 MCH 29.3 pg (28.0-34.0) 08/18/22 17:35 MCHC 32.1 g/dL (30.0-36.0) 08/18/22 17:35 RDW 13.9 % (12.1-15.1) 08/18/22 17:35 Plt Count 260 10^3/cmm (130-400) 08/18/22 17:35 MPV 10.0 fL (7.4-10.4) 08/18/22 17:35 Neut % (Auto) 68.6 % 08/18/22 17:35 Lymph % (Auto) 18.5 % 08/18/22 17:35 [place] % (Auto) 10.5 % 08/18/22 17:35 Eos % (Auto) 1.1 % 08/18/22 17:35 Baso % (Auto) 0.8 % 08/18/22 17:35 Neut # (Auto) 6.67 10^3/uL (1.8-7.7) 08/18/22 17:35 Lymph # (Auto) 1.8 10^3/uL (0.8-4.8) 08/18/22 17:35 [place] # (Auto) 1.0 10^3/uL (0.2-0.9) H 08/18/22 17:35 Eos # (Auto) 0.1 10^3/uL (0.0-0.8) 08/18/22 17:35 Baso # (Auto) 0.1 10^3/uL (0.0-0.1) 08/18/22 17:35 Nucleated RBC % (auto) 0 % 08/18/22 17:35 Nucleated RBCs # 0.0 /100WBC 08/18/22 17:35 Sodium 140 mmol/L (136-145) 08/18/22 17:35 Potassium 3.4 mmol/L (3.5-5.1) L 08/18/22 17:35 Chloride 104 mmol/L (98-107) 08/18/22 17:35 Carbon Dioxide 23 mmol/L (22-29) 08/18/22 17:35 Anion Gap 16.4 (5-19) 08/18/22 17:35 BUN 18 mg/dL (8-23) 08/18/22 17:35 Creatinine 1.3 mg/dL (0.7-1.2) H 08/18/22 17:35 GFR Calculation Not Reportable 08/18/22 17:35 Glucose 103 mg/dL (65-115) 08/18/22 17:35 Calculated Osmolality 292 mOsm/kg (285-295) 08/18/22 17:35 Calcium 9.0 mg/dL (8.5-10.5) 08/18/22 17:35 Total Bilirubin 1.1 mg/dL (0.15-1.2) 08/18/22 17:35 AST 16 U/L (0-40) 08/18/22 17:35 ALT 17 U/L (0-41) 08/18/22 17:35 Alkaline Phosphatase 150 U/L (40-130) H 08/18/22 17:35 Troponin T Baseline 35 ng/L (0-15) H 08/18/22 17:35 Troponin T 120 Minute 31.62 ng/L (0-15) H 08/18/22 19:32 Delta Troponin T -3.38 ABS# (0-10) L 08/18/22 19:32 C-Reactive Protein 8.7 mg/L (0.0-4.9) H 08/18/22 17:35 NT-Pro-B Natriuret Pep 6765 pg/mL (0-450) H 08/18/22 17:35 Total Protein 6.4 g/dL (6.6-8.7) L 08/18/22 17:35 Albumin 3.7 g/dL (3.5-5.2) 08/18/22 17:35 Globulin 2.7 g/dL (1.3-4.6) 08/18/22 17:35 Discharge Plan Discharge Patient Disposition: Home Clinical Impression: Congestive heart failure, Emphysema lung Condition: Stable Prescriptions: New prednisone 20 mg tablet 20 mg PO BID Qty: 10 0RF Ventolin HFA 90 mcg/actuation HFA aerosol inhaler 1 inh inhalation Q6H PRN (Reason: shortness of breath or wheezing) Qty: 6.7 0RF No Action albuterol sulfate 90 mcg/actuation aero powdr breath act w/sensor 2 inh INHALATION Q6H PRN (Reason: Shortness Of Breath) PreserVision AREDS [id number] gtol-pq-[id number] capsule 1 cap PO BID timolol 0.5 % drops 1 drop ophthalmic (eye) BID Rx Instructions: both eyes aspirin 81 mg tablet,delayed release (DR/EC) 81 mg PO DAILY Hold Instructions: Resume on 11/21/21. latanoprost 0.005 % drops 1 drop ophthalmic (eye) DAILY Rx Instructions: both eyes Spiriva Respimat 2.5 mcg/actuation mist 2 inh INHALATION QAM Qty: 4 5RF amlodipine 10 mg tablet 10 mg PO DAILY Qty: 90 3RF atorvastatin 80 mg tablet 80 mg PO DAILY Qty: 90 3RF carvedilol 6.25 mg tablet 12.5 mg PO BID Qty: 180 3RF hydralazine 25 mg tablet 25 mg PO BID PRN (Reason: BP >150/90) Qty: 180 2RF multivitamin Tablet 1 tab PO DAILY fluticasone propion-salmeterol 250-50 mcg/dose Blister With Device 1 inh INHALATION BID tamsulosin 0.4 mg capsule 0.4 mg PO BID magnesium gluconate 30 mg (550 mg) Tablet 30 mg PO DAILY furosemide 20 mg tablet 20 mg PO DAILY potassium chloride 10 mEq tablet,ER particles/crystals 20 meq PO BID Discharge Orders: Discharge ED (Routine); Ordered 08/18/22 Ordered By: Yusef Barker Referrals: Deloris Conway MD [Primary Care Provider] - 1-3 days Discharge Diet: Advance as tolerated Discharge Activity: Increase activity as tolerated Patient Instructions: COPD - Emphysema, Heart Failure (ED), Pulmonary Edema (ED) Activity Restrictions/Additional Instructions: Please further follow-up with your doctor in 3 to 5 days for repeat chest x-ray today while emergency department he been found to have mild emphysema as well as congestive heart failure you are instructed continue on your Lasix as previously prescribed and start taking the steroids and neb treatments as for your additional respiratory issues please return the interim if any of your symptoms persist or worse Coding Level of Care Code ED Roll Up Guider Operator for Sobeida Zambrano
[2022-08-18 18:37] VITALS: BP 190/77; PULSE 75; O2SAT 92
[2022-08-18 18:37] LABS: Alanine Aminotransferase 17 U/L (0-41); Albumin Level 3.7 g/dL (3.5-5.2); Alkaline Phosphatase 150 U/L (40-130); Anion Gap 16.4 (5-19); Aspartate Amino Transferase 16 U/L (0-40); Blood Urea Nitrogen 18 mg/dL (8-23); C Reactive Protein 8.7 mg/L (0.0-4.9); Carbon Dioxide 23 mmol/L (22-29); Chloride 104 mmol/L (98-107); Globulin 2.7 g/dL (1.3-4.6); Glucose 103 mg/dL (65-115); NT Pro B Type Natriuretic Pept 6765 pg/mL (0-450); Osmolality Calculated 292 mOsm/kg (285-295); Potassium 3.4 mmol/L (3.5-5.1); Sodium 140 mmol/L (136-145); Total Bilirubin 1.1 mg/dL (0.15-1.2); Total Protein 6.4 g/dL (6.6-8.7)
[2022-08-18] MEDS: carvedilol 12.5 mg Tablet PO (19:09)
[2022-08-18] MEDS: hyDRALAzine 25 mg Tablet PO (19:09)
[2022-08-18 19:14] VITALS: BP 170/117; PULSE 88; RESP 16; O2SAT 90
[2022-08-18 19:57] LABS: Troponin 5 2HR 31.62 ng/L (0-15)
[2022-08-18] MEDS: FUROsemide 10 mg/mL SDV 4mL 40 MG IVP (20:04)
[2022-08-18 20:10] LABS: Troponin 5 2HR Delta -3.38 ABS# (0-10)
[2022-08-18 20:48] VITALS: BP 170/117; PULSE 88; RESP 16; TEMP 36.4; O2SAT 90
== END 2022-08-18 20:49 | disposition home or self-care (01) ==
PROVIDERS: Emergency Provider Emergency Medicine; PCP Family Medicine
DX: J43.9 Emphysema, unspecified (principal); I11.0 Hypertensive heart disease with heart failure; I50.9 Heart failure, unspecified; Z79.82 Long term (current) use of aspirin; Z87.891 Personal history of nicotine dependence; I25.10 Atherosclerotic heart disease of native coronary artery without angina pectoris
CPT/HCPCS: 71046; 80053; 83880; 84484; 85025; 86140; 93005; 96374; 99284; J1940

== ENCOUNTER → 2022-08-22 10:23 | Outpatient (BNVA) | payer OTHER, SELFPAY | PROVIDERS: PCP Family Medicine; Visit Provider Nurse Practitioner Family | DX: I11.0 Hypertensive heart disease with heart failure (principal); I50.9 Heart failure, unspecified; I25.10 Atherosclerotic heart disease of native coronary artery without angina pectoris; Z87.891 Personal history of nicotine dependence; Z79.82 Long term (current) use of aspirin | CPT/HCPCS: 99214 ==

== ENCOUNTER → 2022-08-27 16:59 | Outpatient (BNVA) | payer MEDICARE, SELFPAY | PROVIDERS: PCP Family Medicine; Visit Provider Nurse Practitioner Family | DX: R06.02 Shortness of breath (principal); J90 Pleural effusion, not elsewhere classified | CPT/HCPCS: 71046 ==

== ENCOUNTER 2022-09-05 07:30 | Outpatient (CLI) | payer OTHER, SELFPAY ==
--- NOTE | 2022-09-05 07:44 | USCV_ITS ---
Lowell Salazar Age: 87 Gender: M : 1935 Exam Date: 09/05/2022 08:08 Ordering Phys: Technologist: BM Exam Location: [facility] [place] Indication: AAA HISTORY: Diameter (cm) AP x Transverse x Length Velocity (cm/s) Waveform Prox Aorta: 1.54 x 1.58 x 88.90 Mid Aorta: 1.96 x 1.77 x 79.40 Distal Aorta: 3.17 x 3.60 x 4.73 42.40 Right Iliac Prox: 0.91 x 0.92 x 98.30 Left Iliac Prox: 0.96 x 1.03 x 104.10 Stent Prox Landing x x Aneurysmal Sac Max x x Lt Lat Sac Dim Rt Lat Sac Dim Stent Dist Landing x x Right Iliac Stent x x Left Iliac Stent x x Right Renal Art Left Renal Art FINDINGS: CONCLUSIONS 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 Moderate atheromatous disease Normal iliac arteries Fidel Milner MD (Electronically Signed) Final Date: 05 Sep 2022 17:43 S
== END 2022-09-05 07:31 | disposition home or self-care (01) ==
LOC: RAD 07:33
PROVIDERS: PCP Family Medicine; Visit Provider Nurse Practitioner Family
DX: I71.40 Abdominal aortic aneurysm, without rupture, unspecified (principal); I70.0 Atherosclerosis of aorta
CPT/HCPCS: 93978

== ENCOUNTER 2022-10-01 18:26 | Observation (INO) | payer MEDICARE, SELFPAY ==
[2022-10-01] VITALS (8 sets, daily range): BP systolic 126–179; BP diastolic 73–86; PULSE 71–89; RESP 16–28; TEMP 36.5–36.7; O2SAT 92–96
--- NOTE | 2022-10-01 18:28 | XRR_ITS ---
PROCEDURE INFORMATION: Exam: XR Chest Exam date and time: 10/01/2022 6:43 PM Age: 87 years old Clinical indication: Shortness of breath; Additional info: SOB TECHNIQUE: Imaging protocol: Radiologic exam of the chest. Views: 1 view. COMPARISON: CR XR chest 2V* [id number] 08/27/2022 5:08 PM FINDINGS: Lungs: Emphysematous changes. Bibasilar and bilateral upper lobe atelectasis versus early infiltrate. Pleural spaces: Small right and small to moderate left pleural effusion. Heart/Mediastinum: Unremarkable. No cardiomegaly. Bones/joints: Sternotomy wires. XR/XR chest 1V portable [id number] IMPRESSION: 1. Small right and small to moderate left pleural effusion. 2. Emphysematous changes. 3. Bibasilar and bilateral upper lobe atelectasis versus early infiltrate. 4. Sternotomy wires.
--- NOTE | 2022-10-01 18:28 | ECG_ITS ---
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 Measurements Intervals Walker Rate: 73 P: 0 [place]: 0 QRS: 71 QRSD: 114 T: 67 QT: 424 QTc: 470 Interpretive Statements SUPRAVENTRICULAR RHYTHM PROBABLE LATERAL MYOCARDIAL INFARCTION , OF INDETERMINATE AGE [35 ms Q WAVE IN I/aVL/V5/V6] INFERIOR MYOCARDIAL INFARCTION , PROBABLY OLD [40+ ms Q WAVE AND/OR ST/T ABNORMALITY IN II/aVF] Compared to ECG 08/18/2022 16:46:05 Supraventricular rhythm now present Sinus rhythm no longer present First degree AV block no longer present Myocardial infarct finding still present Electronically Signed On 10-02-2022 9:46:53 CDT by Dionisio Ansari M.D. [id number]
--- NOTE | 2022-10-01 19:09 | ED_ITS ---
HPI - SOB/Dyspnea General: Chief Complaint: Shortness of Breath/Dyspnea Stated Complaint: SOB,Low 02 sent by PCP Time Seen by Provider: 10/01/22 18:55 Source: patient Mode of arrival: ambulatory Limitations: no limitations History of Present Illness: HPI Narrative: 87-year-old male who has history of COPD along with CHF states he is here by his PCP due to hypoxia. He states he has had increasing shortness of breath over the last week he states gotten much worse for last 2 to 3 days he states he is very short of breath when any exertion. Is had some increased leg swelling states mainly today he denies any cough or fever denies any chest pain when seen at his PCP he was not on his oxygen he is typically on 2 L and he was in the 60s at that here on 3 L he is 95%. States at rest he feels improved. He is on Lasix for CHF states he takes 20 some days and 40 some days he took 40 this morning. Associated symptoms: Deny abdominal pain, chest pain, fever(s), nausea or vomiting Review of Systems Const: Denies: fever(s), chills, body aches or change in appetite Eyes: Denies: eye discomfort ENMT: Denies: dental pain Card: Denies: chest pain Resp: Reports: dyspnea GI: Denies: abdominal pain, nausea, vomiting or diarrhea Musc: Reports: extremity swelling; Denies: neck pain or back pain Skin/Breast: Denies: rash Neuro: Denies: headache(s) PFSH ED PFSH: Medical History BPH (benign prostatic hyperplasia) CAD (coronary atherosclerotic disease) Carotid artery disease Congestive heart failure (CHF) Enrolled in chronic care management Essential hypertension History of nonmelanoma skin cancer Hypokalemia Intermittent self-catheterization of bladder Left renal mass Lung granuloma Urinary retention UTI due to extended-spectrum beta lactamase (ESBL) producing Escherichia coli Surgical History H/O carotid angioplasty H/O heart surgery History of cholecystectomy History of quadruple bypass Hx of knee surgery S/P TURP (transurethral resection of prostate) Family History Mother , at age 65 Cancer Brother Tuberculosis Brother Tuberculosis Other CAD (coronary artery disease) Social History Smoking and tobacco status: former smoker Quit status (tobacco): has quit using tobacco Former quit date comment: 40 yr 1-3ppd Second hand smoke exposure: No Alcohol intake: never Desire information about alcohol rehabilitation?: No Substance/Drug Use: never Desire information about substance/drug rehabilitation?: No Caregiver/support person: Yes Lives independently: No Housing: House Marital status: / Current occupational status: retired Do you think of yourself as: Straight/Heterosexual Current gender identity: Male Physical Exam Const: COMMON NORMALS: patient oriented x3 HENMT: COMMON NORMALS: normocephalic and atraumatic HEAD & SCALP: normocephalic and atraumatic Eye: COMMON NORMALS: Equal, round and reactive pupils present and EOMs intact bilaterally PUPIL: Yes Equal, round and reactive pupils present Neck/C-Spine: COMMON NORMALS: full ROM and supple Chest: COMMONS NORMALS: normal inspection of the chest and normal palpation of entire chest wall Resp: COMMON NORMALS: No retractions and No use of accessory muscles AUSCULTATION: rales Cardio: COMMON NORMALS: regular rate, regular rhythm and No murmurs present (Cardio) RATE: regular rate RHYTHM: regular rhythm GI: COMMON NORMALS: Normal to inspection, nondistended, normoactive bowel sounds present, Soft to palpation, non-tender and no masses PALPATION: Yes Soft to palpation Extremity: COMMON NORMALS: full ROM NARRATIVE EXTREMITY EXAM: 2+ LE edema Neuro: COMMON NORMALS: patient oriented x3, moves all extremities and no focal motor deficits Psych: COMMON NORMALS: mental status grossly normal, Normal thought process present and cooperative THOUGHT PROCESS: Normal thought process present Skin: COMMON NORMALS: no rashes or lesions noted and no wounds GENERAL SKIN EXAM: no rashes or lesions noted Course Vital Signs: Vital signs: Vital Signs Temperature 98.1 F 10/01/22 18:34 Pulse Rate 85 10/01/22 20:04 Respiratory Rate 22 H 10/01/22 20:04 Blood Pressure 176/86 10/01/22 20:04 Pulse Oximetry 92 10/01/22 20:04 Oxygen Delivery Me thod Room Air 10/01/22 20:04 Oxygen Flow Rate 4 10/01/22 19:24 MDM - SOB/Dyspnea Medical Decision Making Patient presents here with CHF exacerbation he is requiring 3 L he is typically on 2 L oxygen at home with severe exertional dyspnea his BNP is elevated did give him Roger here spoke to the hospitalist will admit at this time. He had no chest pain or cough or fever. Medical Records I reviewed the patient's medical records. Lab Data I reviewed the patient's lab results. 10/01/22 19:15 10/01/22 19:15 Labs/Radiology: Radiology Impressions Chest X-Ray 10/01/22 18:28 IMPRESSION: 1. Small right and small to moderate left pleural effusion. 2. Emphysematous changes. 3. Bibasilar and bilateral upper lobe atelectasis versus early infiltrate. 4. Sternotomy wires. Laboratory Results WBC 10.0 10^3/uL (4.0-10.0) 10/01/22 19:15 RBC 4.14 10^6/uL (4.1-5.3) 10/01/22 19:15 Hgb 12.1 g/dL (11.7-16.6) 10/01/22 19:15 Hct 38.3 % (42.0-52.0) L 10/01/22 19:15 MCV 92.5 fl (80-94) 10/01/22 19:15 MCH 29.2 pg (28.0-34.0) 10/01/22 19:15 MCHC 31.6 g/dL (30.0-36.0) 10/01/22 19:15 RDW 15.2 % (12.1-15.1) H 10/01/22 19:15 Plt Count 273 10^3/cmm (130-400) 10/01/22 19:15 MPV 9.8 fL (7.4-10.4) 10/01/22 19:15 Neut % (Auto) 68.4 % 10/01/22 19:15 Lymph % (Auto) 16.6 % 10/01/22 19:15 [place] % (Auto) 12.7 % 10/01/22 19:15 Eos % (Auto) 1.3 % 10/01/22 19:15 Baso % (Auto) 0.5 % 10/01/22 19:15 Neut # (Auto) 6.81 10^3/uL (1.8-7.7) 10/01/22 19:15 Lymph # (Auto) 1.7 10^3/uL (0.8-4.8) 10/01/22 19:15 [place] # (Auto) 1.3 10^3/uL (0.2-0.9) H 10/01/22 19:15 Eos # (Auto) 0.1 10^3/uL (0.0-0.8) 10/01/22 19:15 Baso # (Auto) 0.1 10^3/uL (0.0-0.1) 10/01/22 19:15 Nucleated RBC % (auto) 0 % 10/01/22 19:15 Nucleated RBCs # 0.0 /100WBC 10/01/22 19:15 PT 14.40 SECONDS (12.1-14.9) 10/01/22 19:15 INR 1.09 (0.8-1.2) 10/01/22 19:15 Sodium 138 mmol/L (136-145) 10/01/22 19:15 Potassium 4.0 mmol/L (3.5-5.1) 10/01/22 19:15 Chloride 103 mmol/L (98-107) 10/01/22 19:15 Carbon Dioxide 23 mmol/L (22-29) 10/01/22 19:15 Anion Gap 16.0 (5-19) 10/01/22 19:15 BUN 16 mg/dL (8-23) 10/01/22 19:15 Creatinine 1.2 mg/dL (0.7-1.2) 10/01/22 19:15 GFR Calculation Not Reportable 10/01/22 19:15 Glucose 104 mg/dL (65-115) 10/01/22 19:15 Calculated Osmolality 287 mOsm/kg (285-295) 10/01/22 19:15 Calcium 9.0 mg/dL (8.5-10.5) 10/01/22 19:15 Total Bilirubin 0.9 mg/dL (0.15-1.2) 10/01/22 19:15 AST 22 U/L (0-40) 10/01/22 19:15 ALT 17 U/L (0-41) 10/01/22 19:15 Alkaline Phosphatase 148 U/L (40-130) H 10/01/22 19:15 Troponin T Baseline 38 ng/L (0-15) H 10/01/22 19:15 NT-Pro-B Natriuret Pep 7554 pg/mL (0-450) H 10/01/22 19:15 Total Protein 6.3 g/dL (6.6-8.7) L 10/01/22 19:15 Albumin 3.6 g/dL (3.5-5.2) 10/01/22 19:15 Globulin 2.7 g/dL (1.3-4.6) 10/01/22 19:15 EKG Data EKG 1: I personally reviewed and interpreted this EKG as follows: EKG Interpretation Date: 10/01/22 EKG interpretation time: 18:53 Interpretation: nsr hr [address] elevation qrs 114 qtc 451 Discharge Plan Discharge Patient Disposition: Admitted As Inpatient Clinical Impression: Congestive heart failure (CHF) Condition: Stable Prescriptions: No Action PreserVision AREDS [id number] brbz-nd-glus capsule 1 cap PO BID timolol 0.5 % drops 1 drop ophthalmic (eye) BID Rx Instructions: both eyes aspirin 81 mg tablet,delayed release (DR/EC) 81 mg PO DAILY Hold Instructions: Resume on 11/21/21. latanoprost 0.005 % drops 1 drop ophthalmic (eye) DAILY Rx Instructions: both eyes Spiriva Respimat 2.5 mcg/actuation mist 2 inh INHALATION QAM Qty: 4 5RF ipratropium-albuterol 0.5 mg-3 mg(2.5 mg base)/3 mL solution for nebulization 3 ml inhalation Q6H PRN (Reason: wheezing) Qty: 90 0RF (DME) nebulizers [facility] [place] See Rx Instructions .Route Qty: 1 0RF Rx Instructions: Nebulizer machine with tubing and supplies potassium chloride 10 mEq tablet,ER particles/crystals 30 meq PO BID 30 Days Qty: 180 1RF furosemide 20 mg tablet 20 mg PO DAILY 90 Days Qty: 90 1RF Rx Instructions: 2 tabs MWF if needed Combivent Respimat 20-100 mcg/actuation mist 1 puff inhalation QID Qty: 4 5RF Rx Instructions: space evenly during waking hours miscellaneous medical supply Misc See Rx Instructions miscellaneous .COMPLEX Qty: 1 0RF Rx Instructions: rolling walker with seat as directed; atorvastatin 80 mg tablet 80 mg PO DAILY Qty: 90 3RF hydralazine 25 mg tablet 25 mg PO BID PRN (Reason: BP >150/90) Qty: 180 2RF albuterol sulfate [Ventolin HFA] 90 mcg/actuation HFA aerosol inhaler 1 inh inhalation Q6H PRN (Reason: shortness of breath or wheezing) Qty: 6.7 0RF amlodipine 10 mg tablet 10 mg PO DAILY Qty: 90 3RF carvedilol 6.25 mg tablet 12.5 mg PO BID Qty: 180 3RF multivitamin Tablet 1 tab PO DAILY fluticasone propion-salmeterol 250-50 mcg/dose Blister With Device 1 inh INHALATION BID tamsulosin 0.4 mg capsule 0.4 mg PO BID magnesium gluconate 30 mg (550 mg) Tablet 30 mg PO DAILY Referrals: Deloris Conway MD [Primary Care Provider] - Coding Level of Care Code ED Prestressed Concrete Laborer for Sobeida Zambrano
[2022-10-01] MEDS: FUROsemide 10 mg/mL SDV 4mL 40 MG IVP (19:26)
[2022-10-01 19:34] LABS: Basophils # 0.1 10^3/uL (0.0-0.1); Basophils % 0.5 %; Eosinophils # 0.1 10^3/uL (0.0-0.8); Eosinophils % 1.3 %; Hematocrit 38.3 % (42.0-52.0); Hemoglobin 12.1 g/dL (11.7-16.6); Lymphocytes # 1.7 10^3/uL (0.8-4.8); Lymphocytes % 16.6 %; Mean Corpuscular HGB Conc 31.6 g/dL (30.0-36.0); Mean Corpuscular Hemoglobin 29.2 pg (28.0-34.0); Mean Corpuscular Volume 92.5 fl (80-94); Mean Platelet Volume 9.8 fL (7.4-10.4); Monocytes # 1.3 10^3/uL (0.2-0.9); Monocytes % 12.7 %; Neutrophils # 6.81 10^3/uL (1.8-7.7); Neutrophils % 68.4 %; Nucleated Red Blood Cells % 0 %; Platelet Count 273 10^3/cmm (130-400); Red Blood Count 4.14 10^6/uL (4.1-5.3); Red Cell Distribution Width 15.2 % (12.1-15.1)
[2022-10-01 19:53] LABS: INR 1.09 (0.8-1.2)
[2022-10-01 19:56] LABS: Troponin(5th) Baseline 38 ng/L (0-15)
[2022-10-01 20:01] LABS: Alanine Aminotransferase 17 U/L (0-41); Albumin Level 3.6 g/dL (3.5-5.2); Alkaline Phosphatase 148 U/L (40-130); Aspartate Amino Transferase 22 U/L (0-40); Blood Urea Nitrogen 16 mg/dL (8-23); Carbon Dioxide 23 mmol/L (22-29); Chloride 103 mmol/L (98-107); Globulin 2.7 g/dL (1.3-4.6); Glucose 104 mg/dL (65-115); NT Pro B Type Natriuretic Pept 7554 pg/mL (0-450); Osmolality Calculated 287 mOsm/kg (285-295); Sodium 138 mmol/L (136-145); Total Bilirubin 0.9 mg/dL (0.15-1.2); Total Protein 6.3 g/dL (6.6-8.7)
--- NOTE | 2022-10-01 20:30 | ECG_ITS ---
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 Measurements Intervals [place] Rate: 81 P: 0 [place]: 0 QRS: 64 QRSD: 125 T: 54 QT: 421 QTc: 491 Interpretive Statements SINUS RHYTHM WITH FIRST DEGREE AV BLOCK INFERIOR MYOCARDIAL INFARCTION , PROBABLY OLD [40+ ms Q WAVE AND/OR ST/T ABNORMALITY IN II/aVF] ANTEROLATERAL MYOCARDIAL INFARCTION , OF INDETERMINATE AGE [40+ ms Q WAVE IN I/aVL/V3-V6] Compared to ECG 10/01/2022 18:53:45 Supraventricular rhythm no longer present Myocardial infarct finding still present Electronically Signed On 10-02-2022 0:32:53 CDT by Kaylee Luna M.D. [id number]
--- NOTE | 2022-10-01 20:57 | P.HP_ITS ---
Providers/Chief Complaint Admitting Physician: Godfrey Cole MD Primary Care Provider: Deloris Conway MD Chief Complaint: SOB,Low 02 sent by PCP History of Present Illness Lowell Salazar is a 87 year old male presenting from home with shortness of breath. He reports this is gradually been worsening over the last week. He has had swelling increasing since somewhat before that. He reports his chest feels little tight, with the swelling. He has had an occasional cough, but rare. No fever. No blood in his sputum. No blood in his stool. Reports his abdomen feels little bloated to and he had a rather hard stool yesterday. States he usually uses about 2 L of oxygen, and has been given 3 in the emergency department. No vomiting, or diarrhea. Only recent medication changes have been increasing his Lasix 3 days a week. He has not been fluid restricting. He does not weigh himself daily. He does not think the Lasix is effective as it used to be. Review of Systems General: Reports: 10 or more systems reviewed and unremarkable except in HPI and below Card: Reports: swelling of feet/ankles, dyspnea on exertion and orthopnea Resp: Reports: dyspnea GI: Denies: abdominal pain, nausea, vomiting, hematochezia or melena Medications/Allergies Home Medications Medication Instructions Recorded Confirmed Last Taken Type aspirin 81 mg tablet,delayed 81 mg PO DAILY 05/22/19 10/01/22 08/17/22 History release latanoprost 0.005 % eye drops 1 drop ophthalmic (eye) DAILY 05/22/19 10/01/22 08/17/22 History timolol 0.5 % eye drops 1 drop ophthalmic (eye) BID 05/22/19 10/01/22 08/17/22 History vitamins A,C,W-kptr-taxtjo 4,296 1 cap PO BID 05/22/19 10/01/22 08/17/22 History mcg-226 mg-90 mg capsule (PreserVision AREDS) tiotropium bromide 2.5 2 inh inhalation QAM #4 grams 10/17/21 10/01/22 08/17/22 Rx mcg/actuation mist for inhalation (Spiriva Respimat) multivitamin 1 tab PO DAILY 11/27/21 10/01/22 08/17/22 History fluticasone 250 mcg-salmeterol 50 1 inh inhalation BID 03/26/22 10/01/22 08/17/22 History mcg/dose blistr powdr for inhalation magnesium gluconate 30 mg (550 mg) 30 mg PO DAILY 03/26/22 10/01/22 08/17/22 History tablet tamsulosin 0.4 mg capsule 0.4 mg PO BID 03/26/22 10/01/22 08/17/22 History atorvastatin 80 mg tablet 80 mg PO DAILY #90 tabs 07/11/22 10/01/22 08/17/22 Rx hydralazine 25 mg tablet 25 mg PO BID PRN BP >150/90 #180 07/11/22 10/01/22 Unknown Rx tabs albuterol sulfate 90 mcg/actuation 1 inh inhalation Q6H PRN shortness 08/20/22 10/01/22 Unknown Rx aerosol inhaler (Ventolin HFA) of breath or wheezing #6.7 grams potassium chloride 10 mEq 30 meq PO BID 30 days #180 tabs 08/29/22 10/01/22 Unknown Rx tablet,extended release(part/cryst) furosemide 20 mg tablet 20 mg PO DAILY 90 days #90 tabs 09/11/22 10/01/22 Unknown Rx ipratropium 20 mcg-albuterol 100 1 puff inhalation QID #4 grams 09/11/22 10/01/22 Unknown Rx mcg/actuation mist for inhalation (Combivent Respimat) miscellaneous medical supply See Rx Instructions miscellaneous 09/11/22 10/01/22 Unknown Rx .COMPLEX #1 ea ipratropium 0.5 mg-albuterol 3 mg 3 ml inhalation Q6H PRN wheezing 09/18/22 10/01/22 Unknown Rx (2.5 mg base)/3 mL nebulization #90 mL soln nebulizers #1 ea 09/18/22 10/01/22 Unknown Rx amlodipine 10 mg tablet 10 mg PO DAILY #90 tabs 09/26/22 10/01/22 Unknown Rx carvedilol 6.25 mg tablet 12.5 mg PO BID #180 tabs 09/26/22 10/01/22 Unknown Rx Allergies Allergy/AdvReac Type Severity Reaction Status Date / Time ranitidine [From Zantac] Allergy Unknown UNKNOWN Verified 10/01/22 17:03 simvastatin [From Zocor] Allergy Unknown ADR-Muscle Verified 10/01/22 17:03 Pain PFSH Acute PFSH: Medical History BPH (benign prostatic hyperplasia) CAD (coronary atherosclerotic disease) Carotid artery disease Congestive heart failure (CHF) Enrolled in chronic care management Essential hypertension History of nonmelanoma skin cancer Hypokalemia Intermittent self-catheterization of bladder Left renal mass Lung granuloma Urinary retention UTI due to extended-spectrum beta lactamase (ESBL) producing Escherichia coli Surgical History H/O carotid angioplasty H/O heart surgery History of cholecystectomy History of quadruple bypass Hx of knee surgery S/P TURP (transurethral resection of prostate) Family History Mother , at age 65 Cancer Brother Tuberculosis Brother Tuberculosis Other CAD (coronary artery disease) Social History Smoking and tobacco status: former smoker Quit status (tobacco): has quit using tobacco Former quit date comment: 40 yr 1-3ppd Second hand smoke exposure: No Alcohol intake: never Desire information about alcohol rehabilitation?: No Substance/Drug Use: never Desire information about substance/drug rehabilitation?: No Caregiver/support person: Yes Lives independently: No Housing: House Marital status: / Current occupational status: retired Do you think of yourself as: Straight/Heterosexual Current gender identity: Male Vitals/I&O/Wt Last Vital Signs Temp 98.1 F 10/01/22 18:34 Pulse 85 10/01/22 20:04 Resp 22 H 10/01/22 20:04 BP 176/86 10/01/22 20:04 Pulse Ox 92 10/01/22 20:04 O2 Del Method Room Air 10/01/22 20:04 O2 Flow Rate 4 10/01/22 19:24 Physical Exam Narrative: General exam is no apparent distress Neck is supple no lymphadenopathy thyromegaly Cardiovascular regular in rhythm, occasional premature beat, 2 or 6 systolic murmur Lungs diminished breath sounds at the bases but overall clear Abdomen is soft with positive bowel sounds. No obvious organomegaly exams deferred Extremities show 2+ edema bilaterally. Skin no rash Neuro no obvious focal deficits. Urinary Catheter Management: Sam: Cath Placed During This Visit: yes Urinary Catheter Date of Insertion: 10/01/22 Urinary Catheter Time of Insertion: 19:41 Data 10/01/22 19:15 10/01/22 19:15 Other Labs: Chest x-ray by my read demonstrates no infiltrate, postoperative heart, bilateral pleural effusions. The right pleural effusion appears mild and new. The left appears old comparing previous x-rays INR is normal Calcium normal at 9.0 LFTs normal with exception of alk phos of 148 Troponin 38, repeat pending BNP 7554 Albumin 3.6 Urinalysis not obtained EKG demonstrates sinus rhythm, normal axis, occasional PVCs, inferior Q waves Previous echocardiogram, May of this year demonstrated no ischemia. Previous echocardiogram March 2022 demonstrated an EF of 35 to 40% A&P Assessment and plan (1) Congestive heart failure (CHF): Patient presents with acute systolic heart failure Last echocardiogram demonstrated an EF of 35 to 40% in March. Has known un derlying ischemic cardiomyopathy. At this point given his cold of care of improved symptomatology, I do not believe a repeat echocardiogram is needed at this time. Diuresis has been initiated in the emergency department with IV Lasix. We will continue this every 12 hours. BMP daily with magnesium level to monitor renal function during diuresis. CBC will also be done tomorrow. Troponin is elevated, I suspect chronically secondary to his cardiac dysfunction. Trend troponins. Discussed with him weighing daily, salt restriction. Fluid restriction in the hospital He has evidence of bilateral pleural effusions which appear small on x-ray. At this point we will not evaluate them further unless evidence of infection should present Note that a catheter was placed in the emergency department to monitor diuresis, ins and outs. He has intermittently self cath in the past secondary to urinary retention. (2) COPD (chronic obstructive pulmonary disease): No evidence of acute exacerbation DuoNeb every 4 hours, budesonide twice daily Qualifiers: COPD type: chronic bronchitis Chronic bronchitis type: simple Qualified Code(s): J41.0 - Simple chronic bronchitis (3) Hypoxia: Secondary to heart failure. Wean oxygen as tolerated (4) Elevated troponin: Chronically elevated secondary to heart dysfunction (5) CKD (chronic kidney disease): Renal function is improved currently. Monitor closely while diuresing. Qualifiers: Chronic kidney disease stage: stage 2 (mild) Qualified Code(s): N18.2 - Chronic kidney disease, stage 2 (mild) Plan Multiple other medical problems as outlined in past medical history Allow natural Lovenox for DVT prophylaxis Attestations Medical Necessity Statement*: At this point observation. Possible discharge tomorrow if improves. However, if has significant continued edema will likely need to be converted to regular admission. Diagnoses Congestive heart failure (CHF) I50.9 COPD (chronic obstructive pulmonary disease) J41.0 COPD type: chronic bronchitis Chronic bronchitis type: simple Hypoxia R09.02 Elevated troponin R77.8 CKD (chronic kidney disease) N18.2 Chronic kidney disease stage: stage 2 (mild) Time Spent (min) 46
--- NOTE | 2022-10-01 21:28 | PC.NURSE ---
Report called to MAME Rojas on Med-Surg.
[2022-10-01 21:53] LABS: Thyroid Stimulating Hormone 2.34 uIU/mL (0.27-4.20)
--- NOTE | 2022-10-01 22:01 | PC.NURSE ---
Patient self-caths at home. Patient states he had a CPAP at home but it was recalled and he hasn't been able to get a new one yet.
[2022-10-01] MEDS: pneumococcal (23 valent) SDV 0.5 mL IM (22:42)
[2022-10-01] MEDS: enoxaparin 40 mg/0.4 mL Syringe SUBCUT (22:47)
[2022-10-01] MEDS: acetaminophen 325 mg Tablet 650 MG PO (22:56)
[2022-10-02] VITALS (15 sets, daily range): BP systolic 115–170; BP diastolic 63–75; PULSE 66–86; RESP 16–20; TEMP 36.4–37; O2SAT 90–98
[2022-10-02] MEDS: ipratropium-albuterol 3 mL Neb INHALATION ×4 (01:00→19:51)
--- NOTE | 2022-10-02 01:04 | ECG_ITS ---
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 Measurements Intervals [place] Rate: 84 P: 0 CA: 0 QRS: 80 QRSD: 124 T: -2 QT: 417 QTc: 495 Interpretive Statements SINUS RHYTHM WITH FIRST DEGREE AV BLOCK INFERIOR MYOCARDIAL INFARCTION , OF INDETERMINATE AGE [40+ ms Q WAVE AND/OR ST/T ABNORMALITY IN II/aVF] ANTEROLATERAL MYOCARDIAL INFARCTION , OF INDETERMINATE AGE [40+ ms Q WAVE IN I/aVL/V3-V6] Compared to ECG 10/01/2022 20:30:28 Sinus rhythm no longer present First degree AV block no longer present Myocardial infarct finding still present Electronically Signed On 10-02-2022 9:48:26 CDT by Dionisio Ansari M.D. [id number]
[2022-10-02 01:15] LABS: Basophils # 0.1 10^3/uL (0.0-0.1); Basophils % 0.5 %; Eosinophils # 0.1 10^3/uL (0.0-0.8); Eosinophils % 1.4 %; Hematocrit 33.4 % (42.0-52.0); Hemoglobin 10.7 g/dL (11.7-16.6); Lymphocytes % 20.1 %; Mean Corpuscular Hemoglobin 29.4 pg (28.0-34.0); Mean Corpuscular Volume 91.8 fl (80-94); Mean Platelet Volume 9.2 fL (7.4-10.4); Monocytes # 1.3 10^3/uL (0.2-0.9); Monocytes % 12.6 %; Neutrophils # 6.51 10^3/uL (1.8-7.7); Neutrophils % 64.9 %; Nucleated Red Blood Cells % 0 %; Platelet Count 225 10^3/cmm (130-400); Red Blood Count 3.64 10^6/uL (4.1-5.3)
[2022-10-02 01:37] LABS: Troponin 5 6HR 43.63 ng/L (0-15); Troponin 5 6HR Delta 5.63 ng/L (0-12)
[2022-10-02] MEDS: pramipexole 0.25 mg Tablet 0.125 MG PO (02:14)
[2022-10-02 02:17] LABS: Anion Gap 13.1 (5-19); Blood Urea Nitrogen 18 mg/dL (8-23); Calcium 8.7 mg/dL (8.5-10.5); Carbon Dioxide 27 mmol/L (22-29); Chloride 101 mmol/L (98-107); Glucose 97 mg/dL (65-115); Magnesium 1.8 mg/dL (1.7-2.3); Osmolality Calculated 288 mOsm/kg (285-295); Potassium 3.1 mmol/L (3.5-5.1); Sodium 138 mmol/L (136-145)
[2022-10-02] MEDS: potassium chloride ER 20 mEq Tablet 40 MEQ PO (05:43)
[2022-10-02] MEDS: lidocaine 1% 5 ML in potassium chloride premix 100 ML 26.25 ML IV (05:43)
[2022-10-02] MEDS: FUROsemide 10 mg/mL SDV 4mL 40 MG IVP ×2 (05:51→18:12)
[2022-10-02] MEDS: budesonide 0.5 mg/2 mL Neb INHALATION ×2 (08:19→19:51)
--- NOTE | 2022-10-02 09:12 | PC.PHAR ---
pt states he takes care of his own medications-pt states he [facility] all his inhalers [facility] -pt states he is no longer taking lisinopril 40mg daily filled 09/04/22 90d/s,metoprolol succ er 100mg daily filled 04/14/22 90d/s and hctz 25mg daily filled 04/14/22 90d/s-pt states he takes kcl 10meq takes 30meq qam and 20meq hs rx written 08/29/22 30meq bid-rx written 09/11/22 lasix 20mg po qam and 2 tabs mwf prn-pt states he takes lasix 20mg po qam on mon,wed,fri, and sun and 40mg po daily on ,th,and sat-notes are made in the pharmacy comments
[2022-10-02] MEDS: atorvastatin 40 mg Tablet 80 MG PO (09:40)
[2022-10-02] MEDS: tamsulosin 0.4 mg Capsule PO ×2 (09:40→18:12)
[2022-10-02] MEDS: aspirin 81 mg EC Tablet PO (09:40)
[2022-10-02] MEDS: amlodipine 10 mg Tablet PO (09:40)
[2022-10-02] MEDS: carvedilol 6.25 mg Tablet 12.5 MG PO ×2 (09:40→18:12)
[2022-10-02] MEDS: docusate sodium 100 mg Capsule PO ×2 (09:40→18:11)
--- NOTE | 2022-10-02 15:44 | P.PN_ITS ---
Subjective Subjective: Patient was seen and examined this morning, good urine output with Lasix, shortness of breath is improved. Has trace lower extremity pedal, which is also appears to be improving, currently saturating well on 2 L supplemental oxygen. Medications: Medication Review Details: Generic Name Dose Route Start Last Admin Trade Name Pepeq PRN Reason Stop Dose Admin Acetaminophen 650 mg 10/01/22 21:49 10/01/22 22:56 Acetaminophen 32 5 Mg Tablet PO 650 mg Q6H PRN Administration Mild/Mod Pain Or Temp >/= 101 Albuterol/Ipratrop ium 3 ml 10/02/22 02:00 10/02/22 13:43 Ipratropium-Albu terol 3 Ml Neb INHALATION 3 ml Q6H.RESP ANDREW Administration Amlodipine Besylat e 10 mg 10/02/22 09:00 10/02/22 09:40 Amlodipine 10 Mg Tablet PO 10 mg DAILY ANDREW Administration Aspirin 81 mg 10/02/22 09:00 10/02/22 09:40 Aspirin 81 Mg Ec Tablet PO 81 mg DAILY ANDREW Administration Atorvastatin Calci um 80 mg 10/02/22 09:00 10/02/22 09:40 Atorvastatin 40 Mg Tablet PO 80 mg DAILY ANDREW Administration Budesonide 0.5 mg 10/02/22 08:00 10/02/22 08:19 Budesonide 0.5 M g/2 Ml Neb INHALATION 0.5 mg BID.RESPIRATORY S CH Administration Carvedilol 12.5 mg 10/02/22 09:00 10/02/22 09:40 Carvedilol 6.25 Mg Tablet PO 12.5 mg BID ANDREW Administration Docusate Sodium 100 mg 10/02/22 09:00 10/02/22 09:40 Docusate Sodium 100 Mg Capsule PO 100 mg BID ANDREW Administration Enoxaparin Sodium 40 mg 10/01/22 22:30 10/01/22 22:47 Enoxaparin 40 Mg /0.4 Ml Syringe SUBCUT 40 mg 2100 ANDREW Administration Furosemide 40 mg 10/02/22 07:00 10/02/22 05:51 Furosemide 10 Mg /Ml Sdv 4ml IVP 40 mg Q12H ANDREW Administration Tamsulosin HCl 0.4 mg 10/02/22 09:00 10/02/22 09:40 Tamsulosin 0.4 M g Capsule PO 0.4 mg BID ANDREW Administration Vitals/I&O/Wt Last Vital Signs Temp 98.1 F 10/02/22 10:49 Pulse 66 10/02/22 13:43 Resp 16 10/02/22 13:43 BP 136/73 10/02/22 10:49 Pulse Ox 96 10/02/22 13:43 O2 Del Method Nasal Cannula 10/02/22 13:43 O2 Flow Rate 2 10/02/22 13:43 10/02/22 10/02/22 10/02/22 06:59 14:59 22:59 Intake Total 150 / 150 480 / 480 Output Total 2700 / 3700 1700 / 1700 Balance -2550 / -3550 -1220 / -1220 Weight last 48 hrs Weight 75.024 kg Physical Exam HENMT: COMMON NORMALS: normocephalic and atraumatic HEAD & SCALP: no rmocephalic and atraumatic Resp: COMMON NORMALS: clear to auscultation bilaterally AUSCULTATION: clear to auscultation bilaterally Cardio: COMMON NORMALS: regular rate, regular rhythm, S1 normal heart sound present, S2 normal heart sound present, No gallops present (Cardio), No murmurs present (Cardio), No rub (Cardio) and Peripheral pulses 2+ throughout RATE: regular rate RHYTHM: regular rhythm HEART SOUNDS: S1 normal heart sound present and S2 normal heart sound present PERIPHERAL PULSES: Peripheral pulses 2+ throughout GI: COMMON NORMALS: Normal to inspection, nondistended, normoactive bowel s ounds present, Soft to palpation, non-tender, No hepatosplenomegaly present and no masses AUSCULTATION: Yes normoactive bowel sounds PALPATION: Yes Soft to palpation and Yes No hepatosplenomegaly present RECTAL EXAM: Yes deferred Extremity: COMMON NORMALS: no clubbing, cyanosis or edema and no pedal edema Urinary Catheter Management: Sam: Cath Placed During This Visit: yes Reason for Continuing Indwelling Catheter: Accurate Measurement of Urinary Output in Critically Ill Patients Urinary Catheter Date of Insertion: 10/01/22 Urinary Catheter Time of Insertion: 19:41 Data 10/02/22 01:09 10/02/22 01:09 A&P Assessment and plan (1) Congestive heart failure (CHF): Patient presents with acute systolic heart failure Last echocardiogram demonstrated an EF of 35 to 40% in March. Has known underlying ischemic cardiomyopathy. At this point given his cold of care of improved symptomatology, I do not believe a repeat echocardiogram is needed at this time. Diuresis has been initiated in the emergency department with IV Lasix. We will continue this every 12 hours. BMP daily with magnesium level to monitor renal function during diuresis. CBC will also be done tomorrow. Troponin is elevated, I suspect chronically secondary to his cardiac dysfunction. Trend troponins. Discussed with him weighing daily, salt restriction. Fluid restriction in the hospital He has evidence of bilateral pleural effusions which appear small on x-ray. At this point we will not evaluate them further unless evidence of infection should present Note that a catheter was placed in the emergency department to monitor diuresis, ins and outs. He has intermittently self cath in the past secondary to urinary retention. (2) COPD (chronic obstructive pulmonary disease): No evidence of acute exacerbation DuoNeb every 4 hours, budesonide twice daily Qualifiers: COPD type: chronic bronchitis Chronic bronchitis type: simple Qualifi ed Code(s): J41.0 - Simple chronic bronchitis (3) Hypoxia: Secondary to heart failure. Wean oxygen as tolerated (4) Elevated troponin: Chronically elevated secondary to heart dysfunction (5) CKD (chronic kidney disease): Renal function is improved currently. Monitor closely while diuresing. Qualifiers: Chronic kidney disease stage: stage 2 (mild) Qualified Code(s): N18.2 - Chronic kidney disease, stage 2 (mild) Plan Multiple other medical problems as outlined in past medical history Allow natural Lovenox for DVT prophylaxis Attestations Medical Necessity Statement*: Needs to be in hospital for management of heart failure and need for IV diuresis. Coding Level of Care Code Acute Code for [facility] Fwd Diagnoses Congestive heart failure (CHF) I50.9 COPD (chronic obstructive pulmonary disease) J41.0 COPD type: chronic bronchitis Chronic bronchitis type: simple Hypoxia R09.02 Elevated troponin R77.8 CKD (chronic kidney disease) N18.2 Chronic kidney disease stage: stage 2 (mild)
[2022-10-02] MEDS: enoxaparin 40 mg/0.4 mL Syringe SUBCUT (20:48)
[2022-10-03] VITALS: BP 107/70; PULSE 83; RESP 16; TEMP 36.9; O2SAT 97
[2022-10-03 04:00] VITALS: BP 147/64; PULSE 83; RESP 16; TEMP 36.8; O2SAT 94
[2022-10-03 06:00] VITALS: PULSE 82
[2022-10-03] MEDS: FUROsemide 10 mg/mL SDV 4mL 40 MG IVP (06:31)
[2022-10-03] MEDS: budesonide 0.5 mg/2 mL Neb INHALATION (07:16)
[2022-10-03] MEDS: ipratropium-albuterol 3 mL Neb INHALATION (07:16)
[2022-10-03 07:18] VITALS: PULSE 64; RESP 15; O2SAT 98
[2022-10-03 08:00] VITALS: BP 163/71; PULSE 68; RESP 19; TEMP 36.3; O2SAT 97
--- NOTE | 2022-10-03 09:16 | PM.DCS ---
Discharge Providers Date of Admission: 10/01/22 20:56 Date of Discharge: October 03, 2022 Attending Provider at Admission: Godfrey Cole MD Attending Provider at Discharge: Victor Hugo Kilpatrick MD Primary Care Provider: Deloris Conway MD Diagnoses at Discharge Discharge Diagnosis (1) Congestive heart failure (CHF): Status: Acute (2) COPD (chronic obstructive pulmonary disease): Status: Acute Qualifiers: COPD type: chronic bronchitis Chronic bronchitis type: simple Qualified Code(s): J41.0 - Simple chronic bronchitis (3) Hypoxia: Status: Resolved (4) Elevated troponin: Status: Acute (5) CKD (chronic kidney disease): Status: Acute Qualifiers: Chronic kidney disease stage: stage 2 (mild) Qualified Code(s): N18.2 - Chronic kidney disease, stage 2 (mild) Reason for Visit Reason for Visit: Tao VILLAR 02 sent by PCP Hospital Course Hospital Course 87-year-old male with past medical history of coronary artery disease status post CABG,HFrEF, CKD stage III, came in with chief complaint of worsening shortness of breath going on for about a week's time, shortness of breath is particularly bad with exertion, was admitted for the management of acute on chronic decompensated heart failure with reduced ejection fraction, patient was kept on IV diuresis, electrolytes were monitored and accordingly corrected, which was monitored, was on telemetry, intake output was charted, patient responded pretty well to IV diuresis, had robust urine output during the hospital stay, shortness of breath was improving, at the time of discharge, he was at his baseline oxygen requirement of 2 L, he was discharged in stable condition to home, he will continue with his home regimen of Lasix, he will follow with his PCP as outpatient.Responded well to above medical management. Physical Exam HENMT: COMMON NORMALS: normocephalic and atraumatic HEAD & SCALP: normocephalic and atraumatic Resp: COMMON NORMALS: clear to auscultation bilaterally AUSCULTATION: clear to auscultation bilaterally Cardio: COMMON NORMALS: regular rate, regular rhythm, S1 normal heart sound present, S2 normal heart sound present, No gallops present (Cardio), No murmurs present (Cardio), No rub (Cardio) and Peripheral pulses 2+ throughout RATE: regular rate RHYTHM: regular rhythm HEART SOUNDS: S1 normal heart sound present and S2 normal heart sound present PERIPHERAL PULSES: Peripheral pulses 2+ throughout GI: COMMON NORMALS: Normal to inspection, nondistended, normoactive bowel sounds present, Soft to palpation, non-tender, No hepatosplenomegaly present and no masses AUSCULTATION: Yes normoactive bowel sounds PALPATION: Yes Soft to palpation and Yes No hepatosplenomegaly present RECTAL EXAM: Yes deferred Extremity: COMMON NORMALS: no clubbing, cyanosis or edema and no pedal edema Urinary Catheter Management: Sam: Cath Placed During This Visit: yes Reason for Continuing Indwelling Catheter: Accurate Measurement of Urinary Output in Critically Ill Patients Urinary Catheter Date of Insertion: 10/01/22 Urinary Catheter Time of Insertion: 19:41 Discharge Data Studies Completed and Pending Completed Studies During Hospitalization Category Date Time Status XR chest 1V portable [id number] Stat Exams 10/01/22 18:28 Completed Radiology Impressions Chest X-Ray 10/01/22 18:28 IMPRESSION: 1. Small right and small to moderate left pleural effusion. 2. Emphysematous changes. 3. Bibasilar and bilateral upper lobe atelectasis versus early infiltrate. 4. Sternotomy wires. Laboratory Results WBC 10.0 10^3/uL (4.0-10.0) 10/02/22 01:09 RBC 3.64 10^6/uL (4.1-5.3) L 10/02/22 01:09 Hgb 10.7 g/dL (11.7-16.6) L 10/02/22 01:09 Hct 33.4 % (42.0-52.0) L 10/02/22 01:09 MCV 91.8 fl (80-94) 10/02/22 01:09 MCH 29.4 pg (28.0-34.0) 10/02/22 01:09 MCHC 32.0 g/dL (30.0-36.0) 10/02/22 01:09 RDW 15.0 % (12.1-15.1) 10/02/22 01:09 Plt Count 225 10^3/cmm (130-400) 10/02/22 01:09 MPV 9.2 fL (7.4-10.4) 10/02/22 01:09 Neut % (Auto) 64.9 % 10/02/22 01:09 Lymph % (Auto) 20.1 % 10/02/22 01:09 [place]hing % (Auto) 12.6 % 10/02/22 01:09 Eos % (Auto) 1.4 % 10/02/22 01:09 Baso % (Auto) 0.5 % 10/02/22 01:09 Neut # (Auto) 6.51 10^3/uL (1.8-7.7) 10/02/22 01:09 Lymph # (Auto) 2.0 10^3/uL (0.8-4.8) 10/02/22 01:09 [place]hing # (Auto) 1.3 10^3/uL (0.2-0.9) H 10/02/22 01:09 Eos # (Auto) 0.1 10^3/uL (0.0-0.8) 10/02/22 01:09 Baso # (Auto) 0.1 10^3/uL (0.0-0.1) 10/02/22 01:09 Nucleated RBC % (auto) 0 % 10/02/22 01:09 Nucleated RBCs # 0.0 /100WBC 10/02/22 01:09 PT 14.40 SECONDS (12.1-14.9) 10/01/22 19:15 INR 1.09 (0.8-1.2) 10/01/22 19:15 Sodium 138 mmol/L (136-145) 10/02/22 01:09 Potassium 3.1 mmol/L (3.5-5.1) L 10/02/22 01:09 Chloride 101 mmol/L (98-107) 10/02/22 01:09 Carbon Dioxide 27 mmol/L (22-29) 10/02/22 01:09 Anion Gap 13.1 (5-19) 10/02/22 01:09 BUN 18 mg/dL (8-23) 10/02/22 01:09 Creatinine 1.3 mg/dL (0.7-1.2) H 10/02/22 01:09 GFR Calculation Not Reportable 10/02/22 01:09 Glucose 97 mg/dL (65-115) 10/02/22 01:09 Calculated Osmolality 288 mOsm/kg (285-295) 10/02/22 01:09 Calcium 8.7 mg/dL (8.5-10.5) 10/02/22 01:09 Magnesium 1.8 mg/dL (1.7-2.3) 10/02/22 01:09 Total Bilirubin 0.9 mg/dL (0.15-1.2) 10/01/22 19:15 AST 22 U/L (0-40) 10/01/22 19:15 ALT 17 U/L (0-41) 10/01/22 19:15 Alkaline Phosphatase 148 U/L (40-130) H 10/01/22 19:15 Troponin T Baseline 38 ng/L (0-15) H 10/01/22 19:15 Troponin T 120 Minute 38.30 ng/L (0-15) H 10/01/22 21:00 Delta Troponin T 0.30 ABS# (0-10) 10/01/22 21:00 Troponin T Hi Sens 6Hr 43.63 ng/L (0-15) H 10/02/22 01:09 Troponin T Hi Sens 6Hr Delta 5.63 ng/L (0-12) 10/02/22 01:09 NT-Pro-B Natriuret Pep 7554 pg/mL (0-450) H 10/01/22 19:15 Total Protein 6.3 g/dL (6.6-8.7) L 10/01/22 19:15 Albumin 3.6 g/dL (3.5-5.2) 10/01/22 19:15 Globulin 2.7 g/dL (1.3-4.6) 10/01/22 19:15 TSH 2.34 uIU/mL (0.27-4.20) 10/01/22 21:00 Vitals Last Vital Signs Temp 97.3 F L 10/03/22 08:00 Pulse 68 10/03/22 08:00 Resp 19 H 10/03/22 08:00 BP 163/71 10/03/22 08:00 Pulse Ox 97 10/03/22 08:00 O2 Del Method Nasal Cannula 10/03/22 08:00 O2 Flow Rate 2 10/03/22 07:18 Discharge Plan Discharge Patient Disposition: Home Condition: Stable Prescriptions: Continued PreserVision AREDS [id number] capsule 1 cap PO BID timolol 0.5 % drops 1 drop ophthalmic (eye) BID Rx Instructions: both eyes aspirin 81 mg tablet,delayed release (DR/EC) 81 mg PO QAM Hold Instructions: Resume on 11/21/21. latanoprost 0.005 % drops 1 drop ophthalmic (eye) QAM Rx Instructions: both eyes Spiriva Respimat 2.5 mcg/actuation mist 2 inh INHALATION QAM Qty: 4 5RF ipratropium-albuterol 0.5 mg-3 mg(2.5 mg base)/3 mL solution for nebulization 3 ml inhalation Q6H PRN (Reason: wheezing) Qty: 90 0RF (DME) nebulizers [facility] See Rx Instructions .Route Qty: 1 0RF Rx Instructions: Nebulizer machine with tubing and supplies Combivent Respimat 20-100 mcg/actuation mist 1 puff inhalation QID Qty: 4 5RF Rx Instructions: space evenly during waking hours miscellaneous medical supply Misc See Rx Instructions miscellaneous .COMPLEX Qty: 1 0RF Rx Instructions: rolling walker with seat as directed; hydralazine 25 mg tablet 25 mg PO BID PRN (Reason: BP >150/90) Qty: 180 2RF albuterol sulfate [Ventolin HFA] 90 mcg/actuation HFA aerosol inhaler 1 inh inhalation Q6H PRN (Reason: shortness of breath or wheezing) Qty: 6.7 0RF carvedilol 6.25 mg tablet 12.5 mg PO BID Qty: 180 3RF Rx Instructions: @06:00,12:00 multivitamin Tablet 1 tab PO QAM fluticasone propion-salmeterol 250-50 mcg/dose Blister With Device 1 inh INHALATION BID tamsulosin 0.4 mg capsule 0.4 mg PO BID magnesium gluconate 30 mg (550 mg) Tablet 30 mg PO DAILY atorvastatin 80 mg tablet 80 mg PO QPM amlodipine 10 mg tablet 10 mg PO QAM potassium chloride 10 mEq tablet,ER particles/crystals See Rx Instructions .ROUTE .COMPLEX Rx Instructions: 30meq po qam and 20meq po at bedtime furosemide 20 mg tablet See Rx Instructions .ROUTE .COMPLEX Rx Instructions: 20mg po qam on mon,wed,fri, and sun and 40mg po daily on ,,and sat Vitamin C 1,000 mg Tablet 1,000 mg PO BID Hiprex 1 gram Tablet 1 g PO BID Rx Instructions: take with 1000mg of vit c twice a day Discharge Orders: Discharge Order (Routine); Ordered 10/03/22 Ordered By: Victor Hugo Kilpatrick Referrals: Deloris Conway MD [Primary Care Provider] - 10/08/22 11:00 am Patient Instructions: Heart Failure (GEN), CHF Stoplight, Opioid Safety Discharge Attestations Time Spent in Discharge Care*: less than 30 min Status at Discharge: Cognitive status at discharge: cognitively intact, Behavioral status at discharge: cooperative, Quality Metrics Clinical Quality Measures [ No reported AMI, CVA or VTE this stay] Coding Level of Care Code Acute Code for Chg Fwd Diagnoses Congestive heart failure (CHF) I50.9 COPD (chronic obstructive pulmonary disease) J41.0 COPD type: chronic bronchitis Chronic bronchitis type: simple Hypoxia R09.02 Elevated troponin R77.8 CKD (chronic kidney disease) N18.2 Chronic kidney disease stage: stage 2 (mild)
[2022-10-03] MEDS: potassium chloride ER 20 mEq Tablet 80 MEQ PO (09:51)
[2022-10-03] MEDS: aspirin 81 mg EC Tablet PO (09:52)
[2022-10-03] MEDS: tamsulosin 0.4 mg Capsule PO (09:52)
[2022-10-03] MEDS: atorvastatin 40 mg Tablet 80 MG PO (09:52)
[2022-10-03] MEDS: carvedilol 6.25 mg Tablet 12.5 MG PO (09:52)
[2022-10-03] MEDS: amlodipine 10 mg Tablet PO (09:52)
[2022-10-03 11:20] VITALS: BP 126/61; PULSE 80; RESP 19; TEMP 36.4; O2SAT 93
== END 2022-10-03 11:45 | disposition home or self-care (01) ==
LOC: ER 20:37 → MEDSURG 20:57
PROVIDERS: Admitting Provider Internal Medicine; Emergency Provider Emergency Medicine; PCP Family Medicine; Visit Provider Internal Medicine
DX: I50.23 Acute on chronic systolic (congestive) heart failure (principal); I44.0 Atrioventricular block, first degree; Z87.891 Personal history of nicotine dependence; J90 Pleural effusion, not elsewhere classified; Z99.81 Dependence on supplemental oxygen; J41.0 Simple chronic bronchitis; I13.0 Hypertensive heart and chronic kidney disease with heart failure and stage 1 through stage 4 chronic kidney disease, or unspecified chronic kidney disease; N18.30 Chronic kidney disease, stage 3 unspecified; R77.8 Other specified abnormalities of plasma proteins; I25.10 Atherosclerotic heart disease of native coronary artery without angina pectoris; Z95.1 Presence of aortocoronary bypass graft; R09.02 Hypoxemia; R94.31 Abnormal electrocardiogram [ECG] [EKG]; Z23 Encounter for immunization
CPT/HCPCS: 51702; 71045; 80048; 80053; 83735; 83880; 84443; 84484; 85025; 85610; 90471; 90732; 93005; 94640; 96365; 96366; 96372; 96375; 96376; 99285; G0378; J1650; J1940; J3480; J7626

== ENCOUNTER → 2022-10-17 11:20 | Outpatient (BNVA) | payer MEDICARE, SELFPAY | PROVIDERS: PCP Family Medicine; Visit Provider Family Medicine | DX: I50.9 Heart failure, unspecified (principal) | CPT/HCPCS: 80048; 83880 ==

== ENCOUNTER 2022-10-26 15:13 | Inpatient (IN) | payer OTHER, SELFPAY ==
[2022-10-26] VITALS (10 sets, daily range): BP systolic 132–189; BP diastolic 59–109; PULSE 65–99; RESP 18–24; TEMP 36.1–36.6; O2SAT 84–96; BMI 22.3
--- NOTE | 2022-10-26 15:58 | XRR_ITS ---
PROCEDURE INFORMATION: Exam: XR Chest Exam date and time: 10/26/2022 4:20 PM Age: 87 years old Clinical indication: Dyspnea; Additional info: Dyspnea hypoxia TECHNIQUE: Imaging protocol: Radiologic exam of the chest. Views: 1 view. COMPARISON: 1. CR (CHEST, ) 10/01/2022 6:43 PM 2. CR XR chest 2V* [id number] 08/27/2022 5:08 PM 3. CR (CHEST, ) 08/18/2022 5:57 PM FINDINGS: Lungs: Right upper lung interstitial opacity is stable from last month. Left upper lung zone shows improved aeration. Mild bibasilar atelectasis is stable. No new consolidation. Pleural spaces: Moderate left and small right pleural effusions, stable. No pneumothorax. Heart/Mediastinum: Stable cardiac silhouette partially obscured by left pleural effusion. Multiple mediastinal surgical clips. Vasculature: Aortic atherosclerotic calcification. Bones/joints: Multiple median sternotomy wires. XR/XR chest 1V portable [id number] IMPRESSION: 1. Stable pzof-slznozj-zbks-right pleural effusions. 2. Right upper lung interstitial opacity stable from last month may represent scarring, atelectasis, possibly infection.
--- NOTE | 2022-10-26 16:08 | ED_ITS ---
HPI - SOB/Dyspnea General: Chief Complaint: Shortness of Breath/Dyspnea Stated Complaint: sob, coughing up blood Time Seen by Provider: 10/26/22 15:53 History of Present Illness: HPI Narrative: Patient states has been more short of breath and coughing up blood approximately last 3 days. Patient said this is usually blood streaked sputum but was a little worse today. Patient's O2 sat on room air was 84%. Patient normally wears about 2 L at home at all times. We will bump patient up to 4 L per nasal cannula his sats increased to 92% however he desats very quickly when talking. Patient does take Lasix 40 mg Friday and 20 mg every other day. Patient is on 81 mg daily aspirin. Patient is never coughed up blood like this before. Review of Systems General: Reports: 10 or more systems reviewed and unremarkable except in HPI and below PFSH ED PFSH: Medical History BPH (benign prostatic hyperplasia) CAD (coronary atherosclerotic disease) Carotid artery disease CKD (chronic kidney disease) Congestive heart failure (CHF) COPD (chronic obstructive pulmonary disease) Elevated troponin Enrolled in chronic care management Essential hypertension History of nonmelanoma skin cancer Hypokalemia Intermittent self-catheterization of bladder Left renal mass Lung granuloma Urinary retention UTI due to extended-spectrum beta lactamase (ESBL) producing Escherichia coli Surgical History H/O carotid angioplasty H/O heart surgery History of cholecystectomy History of quadruple bypass Hx of knee surgery S/P TURP (transurethral resection of prostate) Family History Mother , at age 65 Cancer Brother Tuberculosis Brother Tuberculosis Other CAD (coronary artery disease) Social History Smoking and tobacco status: former smoker Quit status (tobacco): has quit using tobacco Former quit date comment: 40 yr 1-3ppd Second hand smoke exposure: No Alcohol intake: never Desire information about alcohol rehabilitation?: No Substance/Drug Use: never Desire information about substance/drug rehabilitation?: No Caregiver/support person: Yes Lives independently: No Housing: House Marital status: / Current occupational status: retired Do you think of yourself as: Straight/Heterosexual Current gender identity: Male Physical Exam Const: COMMON NORMALS: no acute distress, average body habitus, patient oriented x3, no limitations, healthy appearing, alert and well nourished HENMT: COMMON NORMALS: normocephalic, atraumatic, hearing grossly normal bilaterally, external ears normal, Normal external nose present and moist oral mucous membranes HEAD & SCALP: normocephalic and atraumatic NOSE: Normal external nose present EXTERNAL EAR: Yes external ears normal Neck/C-Spine: COMMON NORMALS: full ROM, no lymphadenopathy, supple, no meningeal signs, no JVD and Thyroid normal THYROID: Thyroid normal Chest: COMMONS NORMALS: normal inspection of the chest and normal palpation of entire chest wall Resp: COMMON NORMALS: normal respiratory effort, No retractions, No use of accessory muscles and clear to auscultation bilaterally AUSCULTATION: clear to auscultation bilaterally Cardio: COMMON NORMALS: no JVD, regular rate, regular rhythm, S1 normal heart sound present, S2 normal heart sound present, No gallops present (Cardio), No clicks present (Cardio), No murmurs present (Cardio) and No rub (Cardio) RATE: regular rate RHYTHM: regular rhythm HEART SOUNDS: S1 normal heart sound present and S2 normal heart sound present GI: COMMON NORMALS: Normal to inspection, nondistended, normoactive bowel sounds present, Soft to palpation, non-tender, No hepatosplenomegaly present and no masses PALPATION: Yes Soft to palpation and Yes No hepatosplenomegaly pr esent : COMMON NORMALS: Yes no CVA tenderness BLADDER/KIDNEY EXAM: Yes no CVA tenderness Back/Pelvis: COMMON NORMALS: no CVA tenderness Extremity: NARRATIVE EXTREMITY EXAM: Bilateral lower extremity edema 1-2+ pitting Neuro: COMMON NORMALS: patient oriented x3 SENSORIUM/ORIENTATION: Yes alert MENINGEAL SIGNS: Yes no meningeal signs Course Vital Signs: Vital signs: Vital Signs Temperature 98.5 F 10/27/22 04:24 Pulse Rate 86 10/27/22 04:24 Respiratory Rate 13 10/27/22 04:24 Blood Pressure 134/64 10/27/22 04:24 Pulse Oximetry 95 10/27/22 04:24 Oxygen Delivery Me thod Nasal Cannula 10/27/22 04:24 Oxygen Flow Rate 3 07/16/23 02:32 MDM - SOB/Dyspnea Medical Decision Making Patient presents to the ER with complaints of shortness of breath and coughing up blood over the last 3 days. Patient states he has pitting edema on his bilateral lower extremities. Upon arrival patient's oxygen saturation was approximately 84% on room air. Patient was placed on 3 L per nasal cannula and improved to 95%. Lab work was obtained as well as chest x-ray which revealed left greater than right pleural effusion right upper lung interstitial opacity may represent atelectasis versus infection. Lab work was benign essentially other than BNP of approximately 7500. Patient be transferred to the [facility] inpatient mission. Differential Diagnosis Likely acute exacerbation of chronic obstructive airways disease and congestive heart failure; Unlikely community acquired pneumonia, asthma with exacerbation or pulmonary embolism Medical Records I reviewed the patient's medical records. Lab Data I reviewed the patient's lab results. 10/26/22 16:18 10/26/22 16:18 Labs/Radiology: Radiology Impressions Chest X-Ray 10/26/22 15:58 IMPRESSION: 1. Stable lyib-rmxllxo-hlkg-right pleural effusions. 2. Right upper lung interstitial opacity stable from last month may represent scarring, atelectasis, possibly infection. Laboratory Results WBC 10.0 10^3/uL (4.0-10.0) 10/26/22 16:18 RBC 4.05 10^6/uL (4.1-5.3) L 10/26/22 16:18 Hgb 11.6 g/dL (11.7-16.6) L 10/26/22 16:18 Hct 37.2 % (42.0-52.0) L 10/26/22 16:18 MCV 91.9 fl (80-94) 10/26/22 16:18 MCH 28.6 pg (28.0-34.0) 10/26/22 16:18 MCHC 31.2 g/dL (30.0-36.0) 10/26/22 16:18 RDW 15.2 % (12.1-15.1) H 10/26/22 16:18 Plt Count 260 10^3/cmm (130-400) 10/26/22 16:18 MPV 9.8 fL (7.4-10.4) 10/26/22 16:18 Neut % (Auto) 69.4 % 10/26/22 16:18 Lymph % (Auto) 14.9 % 10/26/22 16:18 [place] % (Auto) 12.1 % 10/26/22 16:18 Eos % (Auto) 2.3 % 10/26/22 16:18 Baso % (Auto) 0.8 % 10/26/22 16:18 Neut # (Auto) 6.93 10^3/uL (1.8-7.7) 10/26/22 16:18 Lymph # (Auto) 1.5 10^3/uL (0.8-4.8) 10/26/22 16:18 [place] # (Auto) 1.2 10^3/uL (0.2-0.9) H 10/26/22 16:18 Eos # (Auto) 0.2 10^3/uL (0.0-0.8) 10/26/22 16:18 Baso # (Auto) 0.1 10^3/uL (0.0-0.1) 10/26/22 16:18 Nucleated RBC % (auto) 0 % 10/26/22 16:18 Nucleated RBCs # 0.0 /100WBC 10/26/22 16:18 PT 14.40 SECONDS (12.1-14.9) 10/26/22 16:18 INR 1.08 (0.8-1.2) 10/26/22 16:18 Sodium 138 mmol/L (136-145) 10/26/22 16:18 Potassium 4.0 mmol/L (3.5-5.1) 10/26/22 16:18 Chloride 102 mmol/L (98-107) 10/26/22 16:18 Carbon Dioxide 26 mmol/L (22-29) 10/26/22 16:18 Anion Gap 14.0 (5-19) 10/26/22 16:18 BUN 16 mg/dL (8-23) 10/26/22 16:18 Creatinine 1.3 mg/dL (0.7-1.2) H 10/26/22 16:18 GFR Calculation Not Reportable 10/26/22 16:18 Glucose 100 mg/dL (65-115) 10/26/22 16:18 Calculated Osmolality 287 mOsm/kg (285-295) 10/26/22 16:18 Calcium 9.1 mg/dL (8.5-10.5) 10/26/22 16:18 Phosphorus 2.9 mg/dL (2.5-4.5) 10/26/22 16:18 Magnesium 2.0 mg/dL (1.7-2.3) 10/26/22 16:18 Total Bilirubin 0.9 mg/dL (0.15-1.2) 10/26/22 16:18 AST 17 U/L (0-40) 10/26/22 16:18 ALT 17 U/L (0-41) 10/26/22 16:18 Alkaline Phosphatase 140 U/L (40-130) H 10/26/22 16:18 Troponin T Baseline 32 ng/L (0-15) H 10/26/22 16:18 Troponin T 120 Minute 30.80 ng/L (0-15) H 10/26/22 18:01 Delta Troponin T -1.20 ABS# (0-10) L 10/26/22 18:01 NT-Pro-B Natriuret Pep 7658 pg/mL (0-450) H 10/26/22 16:18 Total Protein 6.1 g/dL (6.6-8.7) L 10/26/22 16:18 Albumin 3.5 g/dL (3.5-5.2) 10/26/22 16:18 Globulin 2.6 g/dL (1.3-4.6) 10/26/22 16:18 Discharge Plan Discharge Patient Disposition: Admitted As Inpatient Admit Provider: Praveena Garner Clinical Impression: Intermittent self-catheterization of bladder, Acute exacerbation of chronic obstructive airways disease, Congestive heart failure (CHF) Condition: Stable Coding Level of Care Code ED Sports Doctor for [place]
--- NOTE | 2022-10-26 16:21 | PC.PHAR ---
pt states he takes care of his own medications-pt states he gets all his inhalers and [facility] to [facility] -pt states he is no longer taking lisinopril 40mg daily filled 09/04/22 90d/s,metoprolol succ er 100mg daily filled 04/14/22 90d/s and hctz 25mg daily filled 04/14/22 90d/s-pt states he takes kcl 10meq takes 30meq qam and 20meq hs ext shows last filled 10/23/22 90d/s 10meq bid-notes are made in the pharmacy comments
[2022-10-26 16:31] LABS: Basophils # 0.1 10^3/uL (0.0-0.1); Basophils % 0.8 %; Eosinophils # 0.2 10^3/uL (0.0-0.8); Eosinophils % 2.3 %; Hematocrit 37.2 % (42.0-52.0); Hemoglobin 11.6 g/dL (11.7-16.6); Lymphocytes # 1.5 10^3/uL (0.8-4.8); Lymphocytes % 14.9 %; Mean Corpuscular HGB Conc 31.2 g/dL (30.0-36.0); Mean Corpuscular Hemoglobin 28.6 pg (28.0-34.0); Mean Corpuscular Volume 91.9 fl (80-94); Mean Platelet Volume 9.8 fL (7.4-10.4); Monocytes # 1.2 10^3/uL (0.2-0.9); Monocytes % 12.1 %; Neutrophils # 6.93 10^3/uL (1.8-7.7); Neutrophils % 69.4 %; Nucleated Red Blood Cells % 0 %; Platelet Count 260 10^3/cmm (130-400); Red Blood Count 4.05 10^6/uL (4.1-5.3); Red Cell Distribution Width 15.2 % (12.1-15.1)
--- NOTE | 2022-10-26 16:37 | ECG_ITS ---
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 Measurements Intervals [place] Rate: 73 P: 0 IN: 0 QRS: 70 QRSD: 117 T: 58 QT: 413 QTc: 457 Interpretive Statements SUPRAVENTRICULAR RHYTHM possibly sinus with frequent PVCs PROBABLE ANTEROLATERAL MYOCARDIAL INFARCTION , OF INDETERMINATE AGE [35 ms Q WAVE IN I/aVL/V3-V6] Compared to ECG 10/02/2022 01:04:31 Supraventricular rhythm now present Sinus rhythm no longer present First degree AV block no longer present Myocardial infarct finding still present Electronically Signed On 10-27-2022 21:07:30 CDT by Kristi Vazquez M.D. [id number]
--- NOTE | 2022-10-26 16:38 | ECG_ITS ---
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 Measurements Intervals [place] Rate: 72 P: 0 NH: 0 QRS: 69 QRSD: 113 T: 0 QT: 409 QTc: 449 Interpretive Statements ATRIAL FIBRILLATION WITH ABERRANT CONDUCTION OR VENTRICULAR PREMATURE COMPLEXES INFERIOR MYOCARDIAL INFARCTION , OF INDETERMINATE AGE [40+ ms Q WAVE AND/OR ST/T ABNORMALITY IN II/aVF] PROBABLE ANTEROLATERAL MYOCARDIAL INFARCTION , OF INDETERMINATE AGE [35 ms Q WAVE IN I/aVL/V3-V6] Compared to ECG 10/26/2022 16:37:11 Ventricular premature complex(es) now present Aberrant conduction of supraventricular beat(s) now present Supraventricular rhythm no longer present Myocardial infarct finding still present Electronically Signed On 10-27-2022 20:57:39 CDT by Kristi Vazquez M.D. [id number]
[2022-10-26 16:48] LABS: INR 1.08 (0.8-1.2)
[2022-10-26 16:59] LABS: Troponin(5th) Baseline 32 ng/L (0-15)
[2022-10-26 17:09] LABS: Alanine Aminotransferase 17 U/L (0-41); Albumin Level 3.5 g/dL (3.5-5.2); Alkaline Phosphatase 140 U/L (40-130); Aspartate Amino Transferase 17 U/L (0-40); Blood Urea Nitrogen 16 mg/dL (8-23); Calcium 9.1 mg/dL (8.5-10.5); Carbon Dioxide 26 mmol/L (22-29); Chloride 102 mmol/L (98-107); Globulin 2.6 g/dL (1.3-4.6); Glucose 100 mg/dL (65-115); NT Pro B Type Natriuretic Pept 7658 pg/mL (0-450); Osmolality Calculated 287 mOsm/kg (285-295); Phosphorus 2.9 mg/dL (2.5-4.5); Sodium 138 mmol/L (136-145); Total Bilirubin 0.9 mg/dL (0.15-1.2); Total Protein 6.1 g/dL (6.6-8.7)
[2022-10-26] MEDS: FUROsemide 10 mg/mL SDV 10mL 80 MG IVP (19:05)
[2022-10-26] MEDS: nitroglycerin 1 gm/inch oint Pkt 2 INCH TOPICAL (19:06)
[2022-10-26] MEDS: ondansetron 2 mg/ML SDV 2 mL 4 MG IVP (21:33)
[2022-10-26] MEDS: morphine 4 mg/mL SDV 1 mL 2 MG IVP (21:35)
--- NOTE | 2022-10-26 23:02 | ECG_ITS ---
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 Measurements Intervals [place] Rate: 65 P: 0 MI: 0 QRS: 132 QRSD: 123 T: -11 QT: 452 QTc: 471 Interpretive Statements Supraventricular rhythm with VENTRICULAR PREMATURE COMPLEXES LEFT POSTERIOR FASCICULAR BLOCK [QRS AXIS > 109, INFERIOR Q] ANTEROLATERAL MYOCARDIAL INFARCTION , OF INDETERMINATE AGE [40+ ms Q WAVE IN I/aVL/V3-V6] Compared to ECG 10/26/2022 18:43:26 Left posterior fascicular block now present Myocardial infarct finding still present Electronically Signed On 10-27-2022 21:11:17 CDT by Kristi Vazquez M.D. [id number]
[2022-10-26 23:49] LABS: Troponin 5 6HR 36.74 ng/L (0-15)
[2022-10-26 23:50] LABS: Troponin 5 6HR Delta 4.74 ng/L (0-12)
[2022-10-27] VITALS (10 sets, daily range): BP systolic 113–154; BP diastolic 55–67; PULSE 54–86; RESP 13–20; TEMP 36.7–36.9; O2SAT 90–96
--- NOTE | 2022-10-27 01:33 | P.HP_ITS ---
Providers/Chief Complaint Admitting Physician: Praveena Garner MD Primary Care Provider: Deloris Conway MD Chief Complaint: sob, coughing up blood History of Present Illness Lowell Salazar is a 87 year old male with past medical history of coronary artery disease status post CABG,HFrEF 30%, CKD stage III,presenting today with worsening shortness of breath over the past 2-3 weeks, worse on exertion, orthopena+. He has also noticed an increased cough with frothy blood and blood- tinged sputum. He was recently between October 04 October 03, 2021 with acute CHF exacerbation at which point he had responded well to IV diuresis. He has a baseline oxygen requirement of 2 L/min supplemental O2. He followed up with PCP on October 08 and was on a regimen of Lasix 40 mg and Lasix 20 mg on alternating days in a week. His oxygen requirement today is up to 4 L/min. No fever or chills. Review of Systems General: Reports: 10 or more systems reviewed and unremarkable except in HPI and below Const: Denies: fever(s), chills or body aches Eyes: Denies: change in vision, blurry vision or photophobia ENMT: Reports: hoarseness; Denies: throat pain, enlarged tonsils, odynophagia or nasal congestion Card: Denies: chest pain, palpitations, irregular heart rhythm, edema, swelling of feet/ankles, lightheadedness, pre-syncope, dyspnea on exertion or orthopnea Resp: Denies: dyspnea, productive cough, non-productive cough, wheezing, stridor, pain on inspiration, change in phlegm color, hemoptysis or chest congestion GI: Denies: abdominal pain, nausea, vomiting, hematemesis, coffee ground emesis, dysphagia, heartburn, diarrhea, constipation, GI cramping, change in stool character, hematochezia or melena : Denies: flank pain, dysuria, urinary frequency, urinary urgency, urinary hesitancy or hematuria Musc: Denies: neck pain, back pain, extremity pain, joint swelling, joint warmth or deformity Neuro: Denies: headache(s), numbness in extremities, weakness in extremities, sensory changes, difficulty walking, frequent falls, dizziness, vertigo, behavioral changes, Slurred speech present or seizure-like activity Psych: Denies: anxiety, depression, suicidal ideation or homicidal ideation Endo: Denies: polyuria, polydipsia, tired all the time, cold intolerance or hot flashes Brock/Lymph: Denies: easy bruising or easy bleeding Medications/Allergies Home Medications Medication Instructions Recorded Confirmed Last Taken Type aspirin 81 mg tablet,delayed 81 mg PO DAILY@0530 05/22/19 10/26/22 10/26/22 History release latanoprost 0.005 % eye drops 1 drop ophthalmic (eye) BEDTIME 05/22/19 10/26/22 10/25/22 History timolol 0.5 % eye drops 1 drop ophthalmic (eye) BID 05/22/19 10/26/22 10/26/22 History vitamins A,C,X-gmme-txyuwu 4,296 1 cap PO BID@0530,1730 05/22/19 10/26/22 10/26/22 05:30 History mcg-226 mg-90 mg capsule (PreserVision AREDS) tiotropium bromide 2.5 2 inh inhalation QAM #4 grams 10/17/21 10/26/22 08/17/22 Rx mcg/actuation mist for inhalation (Spiriva Respimat) multivitamin 1 tab PO DAILY@0530 11/27/21 10/26/22 10/26/22 History fluticasone 250 mcg-salmeterol 50 1 inh inhalation BID 03/26/22 10/26/22 08/17/22 History mcg/dose blistr powdr for inhalation magnesium gluconate 30 mg (550 mg) 30 mg PO QAM 03/26/22 10/26/22 10/26/22 History tablet tamsulosin 0.4 mg capsule 0.4 mg PO BID@0530,1730 03/26/22 10/26/22 10/26/22 05:30 History hydralazine 25 mg tablet 25 mg PO BID PRN BP >150/90 #180 07/11/22 10/26/22 Unknown Rx tabs ipratropium 20 mcg-albuterol 100 1 puff inhalation QID #4 grams 09/11/22 10/26/22 Unknown Rx mcg/actuation mist for inhalation (Combivent Respimat) miscellaneous medical supply See Rx Instructions miscellaneous 09/11/22 10/26/22 Unknown Rx .COMPLEX #1 ea ipratropium 0.5 mg-albuterol 3 mg 3 ml inhalation Q6H PRN wheezing 09/18/22 0 10/26/22 Unknown Rx (2.5 mg base)/3 mL nebulization #90 mL soln nebulizers #1 ea 09/18/22 10/26/22 Unknown Rx ascorbic acid (vitamin C) 1,000 mg 1,000 mg PO BID@0530,1730 10/02/22 10/26/22 10/26/22 05:30 History tablet (Vitamin C) atorvastatin 80 mg tablet 80 mg PO DAILY@1730 10/02/22 10/26/22 10/25/22 History methenamine hippurate 1 gram 1 g PO BID 10/02/22 10/26/22 10/26/22 05:30 History tablet (Hiprex) potassium chloride 10 mEq See Rx Instructions .Route .COMPLEX 10/02/22 10/26/22 10/26/22 History tablet,extended release(part/cryst) furosemide 20 mg tablet See Rx Instructions .Route .COMPLEX 10/08/22 10/26/22 10/26/22 05:30 History 20 mg albuterol sulfate 90 mcg/actuation 1 inh inhalation Q6H PRN shortness 10/19/22 10/26/22 Unknown Rx aerosol inhaler (Ventolin HFA) of breath or wheezing #6.7 grams amlodipine 10 mg tablet 5 mg PO BID@06,12 high BP 10/26/22 10/26/22 10/26/22 05:30 History carvedilol 6.25 mg tablet 12.5 mg PO BID@0530,1200 10/26/22 10/26/22 10/26/22 05:30 History Allergies Allergy/AdvReac Type Severity Reaction Status Date / Time ranitidine [From Zantac] Allergy Unknown UNKNOWN Verified 10/26/22 16:20 simvastatin [From Zocor] Allergy Unknown ADR-Muscle Verified 10/26/22 16:20 Pain PFSH Acute PFSH: Medical History BPH (benign prostatic hyperplasia) CAD (coronary atherosclerotic disease) Carotid artery disease CKD (chronic kidney disease) Congestive heart failure (CHF) COPD (chronic obstructive pulmonary disease) Elevated troponin Enrolled in chronic care management Essential hypertension History of nonmelanoma skin cancer Hypokalemia Intermittent self-catheterization of bladder Left renal mass Lung granuloma Urinary retention UTI due to extended-spectrum beta lactamase (ESBL) producing Escherichia coli Surgical History H/O carotid angioplasty H/O heart surgery History of cholecystectomy History of quadruple bypass Hx of knee surgery S/P TURP (transurethral resection of prostate) Family History Mother , at age 65 Cancer Brother Tuberculosis Brother Tuberculosis Other CAD (coronary artery disease) Social History Smoking and tobacco status: former smoker Quit status (tobacco): has quit using tobacco Former quit date comment: 40 yr 1-3ppd Second hand smoke exposure: No Alcohol intake: never Desire information about alcohol rehabilitation?: No Substance/Drug Use: never Desire information about substance/drug rehabilitation?: No Caregiver/support person: Yes Lives independently: No Housing: House Marital status: / Current occupational status: retired Do you think of yourself as: Straight/Heterosexual Current gender identity: Male Vitals/I&O/Wt Last Vital Signs Temp 97.9 F 10/26/22 23:22 Pulse 79 10/26/22 23:22 Resp 21 H 10/26/22 23:22 BP 132/64 10/26/22 23:22 Pulse Ox 91 10/26/22 23:22 O2 Del Method Nasal Cannula 10/26/22 23:22 O2 Flow Rate 4 10/26/22 23:22 10/26/22 10/26/22 10/27/22 14:59 22:59 06:59 Intake Total 480 / 480 Output Total 1720 / 1720 Balance -1240 / -1240 Weight last 48 hrs Weight 72.575 kg Physical Exam Narrative: General: No acute distress, AO x3 HEENT: PERRLA, pupils bilaterally equal and reactive, pallors not present Chest: Reduced air entry bilateral lung mobley CVS: S1-S2 regular, no murmurs, no tachycardia, no gallops, no rubs Abdomen: Soft, nontender, no organomegaly, bowel sounds present Neuro: No focal deficits, no facial deformity, AO x3, power 5/5 in all limbs Urinary Catheter Management: Sam: Cath Placed During This Visit: yes Urinary Catheter Date of Insertion: 10/26/22 Data 10/26/22 16:18 10/26/22 16:18 A&P Assessment and plan (1) Acute on chronic systolic CHF (congestive heart failure): Acute on chronic systolic heart failure. Last echocardiogram with an EF of 35 to 40%. He has known ischemic cardiomyopathy. Received 80 mg of IV Lasix in the emergency room. Continue with 40 mg IV Lasix every 12 hours. Closely monitor intake and output and renal function while on diuresis. EKG is without acute ST-T wave changes. Troponin series 32--> 30--> 36, delta not significant currently to rule in NSTEMI. Elevated BNP, bilateral pleural effusions pulmonary edema consistent with CHF exacerbation. Monitor closely for any worsening of hemoptysis. Continue DuoNeb every 6 hours for his known history of COPD, does not appear to be acutely exacerbated currently Attestations Medical Necessity Statement*: Anticipate greater than 2 midnight stay for management of acute on chronic sy stolic CHF exacerbation, need for IV diuresis Coding Level of Care Code Acute Code for Chg Fwd Diagnoses Acute on chronic systolic CHF (congestive heart failure) I50.23
[2022-10-27] MEDS: enoxaparin 40 mg/0.4 mL Syringe SUBCUT (02:34)
[2022-10-27] MEDS: carvedilol 12.5 mg Tablet PO ×2 (05:41→12:21)
[2022-10-27] MEDS: aspirin 81 mg EC Tablet PO (05:41)
[2022-10-27] MEDS: tamsulosin 0.4 mg Capsule PO ×2 (05:41→18:40)
[2022-10-27] MEDS: amlodipine 5 mg Tablet PO ×2 (05:41→12:22)
[2022-10-27] MEDS: FUROsemide 10 mg/mL SDV 4mL 40 MG IVP ×2 (06:36→18:40)
[2022-10-27] MEDS: pantoprazole DR 40 mg Tablet PO (09:22)
--- NOTE | 2022-10-27 18:04 | PM.PN ---
Subjective Subjective: - Patient tells me that he feels significantly better with the diuresis -Denies any fevers, chills -No nausea, vomiting -No abdominal pain -He tells me that the Lasix at home is not working anymore he Vitals/I&O/Wt Last Vital Signs Temp 98.1 F 10/27/22 15:34 Pulse 65 10/27/22 15:34 Resp 20 H 10/27/22 15:34 BP 140/67 10/27/22 15:34 Pulse Ox 93 10/27/22 15:34 O2 Del Method Nasal Cannula 10/27/22 15:34 O2 Flow Rate 3 10/27/22 11:24 10/27/22 10/27/22 10/27/22 06:59 14:59 22:59 Intake Total 240 / 240 Output Total 1200 / 2920 850 / 850 850 / 1700 Balance -1200 / -2440 -610 / -610 -850 / -1460 Weight last 48 hrs Weight 72.575 kg Physical Exam Narrative: - Temporal muscle wasting -Peripheral muscle wasting, bilateral arms, bilateral thighs, bilateral calves Const: COMMON NORMALS: no acute distress and patient oriented x3 Resp: COMMON NORMALS: normal respiratory effort, No retractions, No use of accessory muscles and clear to auscultation bilaterally AUSCULTATION: clear to auscultation bilaterally Cardio: COMMON NORMALS: regular rate, regular rhythm, S1 normal heart sound present and S2 normal heart sound present RATE: regular rate RHYTHM: regular rhythm HEART SOUNDS: S1 normal heart sound present and S2 normal heart sound present GI: COMMON NORMALS: Normal to inspection, nondistended, normoactive bowel sounds present and non-tender Extremity: COMMON NORMALS: no pedal edema Neuro: COMMON NORMALS: patient oriented x3 Psych: COMMON NORMALS: mental status grossly normal Urinary Catheter Management: Sam: Cath Placed During This Visit: yes Reason for Continuing Indwelling Catheter: Accurate Measurement of Urinary Output in Critically Ill Patients Urinary Catheter Date of Insertion: 10/26/22 Data 10/26/22 16:18 10/26/22 16:18 A&P Assessment and plan (1) Acute on chronic systolic CHF (congestive heart failure): Acute on chronic systolic heart failure. Last echocardiogram with an EF of 35 to 40%. He has known ischemic cardiomyopathy. Received 80 mg of IV Lasix in the emergency room. Continue with 40 mg IV Lasix every 12 hours. Closely monitor intake and output and renal function while on diuresis. Monitor creatinine, monitor potassium Elevated BNP, bilateral pleural effusions pulmonary edema consistent with CHF exacerbation. Monitor closely for any worsening of hemoptysis. Continue DuoNeb every 6 hours for his known history of COPD, does not appear to be acutely exacerbated currently (2) COPD (chronic obstructive pulmonary disease): - Not in exacerbation Qualifiers: COPD type: chronic bronchitis Chronic bronchitis type: simple Qualified Code(s): J41.0 - Simple chronic bronchitis (3) CAD (coronary atherosclerotic disease): - No chest pain complaints Qualifiers: Coronary Disease-Associated Artery/Lesion type: [place] artery [place] vs. transplanted heart: [place] heart Associated angina: without angina Qualified Code(s): I25.10 - Atherosclerotic heart disease of [place] coronary artery without angina pectoris (4) Essential hypertension: (5) Protein calorie malnutrition: - Consult dietary (6) Physical deconditioning: - PT OT (7) NSTEMI (non-ST elevated myocardial infarction): - Does have a history of ischemic cardiomyopathy -No chest pain complaints -Type broad versus type II NSTEMI -Continue telemetry monitoring Plan Plan for today continue diuresis, PT OT, monitor telemetry, consult dietary Attestations Medical Necessity Statement*: Patient requires hospitalization for systolic CHF exacerbation requiring diuresis Diagnoses Acute on chronic systolic CHF (congestive heart failure) I50.23 COPD (chronic obstructive pulmonary disease) J41.0 COPD type: chronic bronchitis Chronic bronchitis type: simple CAD (coronary atherosclerotic disease) I25.10 Coronary Disease-Associated Artery/Lesion type: [place] artery [place] vs. transplanted heart: [place] heart Associated angina: without angina Essential hypertension I10 Protein calorie malnutrition E46 Physical deconditioning R53.81 NSTEMI (non-ST elevated myocardial infarction) I21.4
[2022-10-27] MEDS: atorvastatin 40 mg Tablet 80 MG PO (18:40)
[2022-10-28] VITALS (10 sets, daily range): BP systolic 109–152; BP diastolic 48–63; PULSE 56–94; RESP 16–24; TEMP 36.3–36.7; O2SAT 93–97
[2022-10-28] MEDS: enoxaparin 40 mg/0.4 mL Syringe SUBCUT (01:13)
[2022-10-28 03:05] LABS: Basophils # 0.1 10^3/uL (0.0-0.1); Basophils % 0.7 %; Eosinophils # 0.3 10^3/uL (0.0-0.8); Eosinophils % 3.2 %; Hematocrit 35.1 % (42.0-52.0); Hemoglobin 11.1 g/dL (11.7-16.6); Lymphocytes # 1.6 10^3/uL (0.8-4.8); Lymphocytes % 14.7 %; Mean Corpuscular HGB Conc 31.6 g/dL (30.0-36.0); Mean Corpuscular Hemoglobin 29.2 pg (28.0-34.0); Mean Corpuscular Volume 92.4 fl (80-94); Monocytes # 1.2 10^3/uL (0.2-0.9); Monocytes % 10.8 %; Neutrophils # 7.51 10^3/uL (1.8-7.7); Neutrophils % 70.1 %; Nucleated Red Blood Cells % 0 %; Platelet Count 252 10^3/cmm (130-400); Red Cell Distribution Width 15.1 % (12.1-15.1); White Blood Count 10.7 10^3/uL (4.0-10.0)
[2022-10-28 03:25] LABS: Alanine Aminotransferase 12 U/L (0-41); Albumin Level 3.2 g/dL (3.5-5.2); Alkaline Phosphatase 119 U/L (40-130); Aspartate Amino Transferase 16 U/L (0-40); Blood Urea Nitrogen 19 mg/dL (8-23); Calcium 8.8 mg/dL (8.5-10.5); Carbon Dioxide 31 mmol/L (22-29); Chloride 96 mmol/L (98-107); Globulin 2.5 g/dL (1.3-4.6); Glucose 109 mg/dL (65-115); Osmolality Calculated 291 mOsm/kg (285-295); Sodium 139 mmol/L (136-145); Total Bilirubin 0.7 mg/dL (0.15-1.2); Total Protein 5.7 g/dL (6.6-8.7)
[2022-10-28 03:31] LABS: Magnesium 1.8 mg/dL (1.7-2.3)
[2022-10-28] MEDS: aspirin 81 mg EC Tablet PO (05:18)
[2022-10-28] MEDS: carvedilol 12.5 mg Tablet PO ×2 (05:18→13:51)
[2022-10-28] MEDS: amlodipine 5 mg Tablet PO ×2 (05:18→13:51)
[2022-10-28] MEDS: tamsulosin 0.4 mg Capsule PO ×2 (05:18→18:12)
[2022-10-28] MEDS: FUROsemide 10 mg/mL SDV 4mL 40 MG IVP (06:04)
[2022-10-28] MEDS: pantoprazole DR 40 mg Tablet PO (08:11)
--- NOTE | 2022-10-28 16:42 | PM.PN ---
Subjective Subjective: - Patient was seen this morning, he tells me he is feeling a lot better, he is -4 L, he is on 1 to 2 L,, his creatinine is 1.6, plan on hold Lasix today, he is agreeable, Vitals/I&O/Wt Last Vital Signs Temp 97.7 F 10/28/22 08:00 Pulse 62 10/28/22 12:00 Resp 18 10/28/22 12:00 BP 126/63 10/28/22 12:00 Pulse Ox 97 10/28/22 12:00 O2 Del Method Nasal Cannula 10/28/22 12:00 O2 Flow Rate 3 10/28/22 08:00 10/28/22 10/28/22 10/28/22 06:59 14:59 22:59 Intake Total 840 / 840 Output Total 900 / 3200 Balance -900 / -2720 840 / 840 Physical Exam Const: COMMON NORMALS: no acute distress and patient oriented x3 Resp: COMMON NORMALS: normal respiratory effort, No retractions, No use of accessory muscles and clear to auscultation bilaterally AUSCULTATION: clear to auscultation bilaterally Cardio: COMMON NORMALS: regular rate, regular rhythm, S1 normal heart sound present and S2 normal heart sound present RATE: regular rate RHYTHM: regular rhythm HEART SOUNDS: S1 normal heart sound present and S2 normal heart sound present GI: COMMON NORMALS: Normal to inspection, nondistended, normoactive bowel sounds present and non-tender Extremity: COMMON NORMALS: no calf tenderness and no pedal edema Neuro: COMMON NORMALS: patient oriented x3 Psych: COMMON NORMALS: mental status grossly normal Urinary Catheter Management: Sam: Cath Placed During This Visit: yes Reason for Continuing Indwelling Catheter: Accurate Measurement of Urinary Output in Critically Ill Patients Urinary Catheter Date of Insertion: 10/26/22 Data 10/28/22 02:25 10/28/22 02:25 A&P Assessment and plan (1) Acute on chronic systolic CHF (congestive heart failure): Acute on chronic systolic heart failure. Last echocardiogram with an EF of 35 to 40%. He has known ischemic cardiomyopathy. Received 80 mg of IV Lasix in the emergency room. Creatinine 1.6 Lasix currently on hold Closely monitor intake and output and renal function while on diuresis. Monitor creatinine, monitor potassium Elevated BNP, bilateral pleural effusions pulmonary edema consistent with CHF exacerbation. Monitor closely for any worsening of hemoptysis. Continue DuoNeb every 6 hours for his known history of COPD, does not appear to be acutely exacerbated currently (2) COPD (chronic obstructive pulmonary disease): - Not in exacerbation Qualifiers: COPD type: chronic bronchitis Chronic bronchitis type: simple Qualified Code(s): J41.0 - Simple chronic bronchitis (3) CAD (coronary atherosclerotic disease): - No chest pain complaints Qualifiers: Coronary Disease-Associated Artery/Lesion type: [place] artery [place] vs. transplanted heart: [place] heart Associated angina: without angina Qualified Code(s): I25.10 - Atherosclerotic heart disease of [place] coronary artery without angina pectoris (4) Essential hypertension: (5) Protein calorie malnutrition: - Consult dietary (6) Physical deconditioning: - PT OT (7) NSTEMI (non-ST elevated myocardial infarction): - Does have a history of ischemic cardiomyopathy -No chest pain complaints -Type broad versus type II NSTEMI -Continue telemetry monitoring Plan Plan for today hold Lasix monitor creatinine monitor urine output, up out of bed Attestations Medical Necessity Statement*: Patient requires hospitalization for CHF requiring diuresis, now with [facility] Diagnoses Acute on chronic systolic CHF (congestive heart failure) I50.23 COPD (chronic obstructive pulmonary disease) J41.0 COPD type: chronic bronchitis Chronic bronchitis type: simple CAD (coronary atherosclerotic disease) I25.10 Coronary Disease-Associated Artery/Lesion type: [place] artery [place] vs. transplanted heart: [place] heart Associated angina: without angina Essential hypertension I10 Protein calorie malnutrition E46 Physical deconditioning R53.81 NSTEMI (non-ST elevated myocardial infarction) I21.4
[2022-10-28] MEDS: atorvastatin 40 mg Tablet 80 MG PO (18:13)
[2022-10-28] MEDS: docusate sodium 100 mg Capsule PO (21:10)
[2022-10-29] VITALS (8 sets, daily range): BP systolic 107–155; BP diastolic 49–68; PULSE 58–80; RESP 18–24; TEMP 36.4–36.9; O2SAT 90–95
[2022-10-29] MEDS: enoxaparin 40 mg/0.4 mL Syringe SUBCUT (00:42)
[2022-10-29 03:57] LABS: Basophils # 0.1 10^3/uL (0.0-0.1); Basophils % 0.6 %; Eosinophils # 0.3 10^3/uL (0.0-0.8); Eosinophils % 3.2 %; Hematocrit 31.9 % (42.0-52.0); Hemoglobin 10.1 g/dL (11.7-16.6); Lymphocytes # 1.7 10^3/uL (0.8-4.8); Lymphocytes % 16.9 %; Mean Corpuscular HGB Conc 31.7 g/dL (30.0-36.0); Mean Corpuscular Hemoglobin 28.8 pg (28.0-34.0); Mean Corpuscular Volume 90.9 fl (80-94); Mean Platelet Volume 9.9 fL (7.4-10.4); Monocytes # 1.4 10^3/uL (0.2-0.9); Monocytes % 13.9 %; Neutrophils # 6.69 10^3/uL (1.8-7.7); Nucleated Red Blood Cells % 0 %; Platelet Count 218 10^3/cmm (130-400); Red Blood Count 3.51 10^6/uL (4.1-5.3); Red Cell Distribution Width 14.6 % (12.1-15.1); White Blood Count 10.3 10^3/uL (4.0-10.0)
[2022-10-29 04:20] LABS: Anion Gap 10.3 (5-19); Blood Urea Nitrogen 19 mg/dL (8-23); Calcium 8.8 mg/dL (8.5-10.5); Carbon Dioxide 33 mmol/L (22-29); Chloride 99 mmol/L (98-107); Glucose 101 mg/dL (65-115); Osmolality Calculated 290 mOsm/kg (285-295); Potassium 3.3 mmol/L (3.5-5.1); Sodium 139 mmol/L (136-145)
[2022-10-29 04:23] LABS: Magnesium 1.7 mg/dL (1.7-2.3)
[2022-10-29] MEDS: carvedilol 12.5 mg Tablet PO ×2 (05:10→11:04)
[2022-10-29] MEDS: aspirin 81 mg EC Tablet PO (05:10)
[2022-10-29] MEDS: amlodipine 5 mg Tablet PO ×2 (05:10→11:04)
[2022-10-29] MEDS: tamsulosin 0.4 mg Capsule PO (05:10)
--- NOTE | 2022-10-29 08:53 | PC.SOCIAL ---
[facility] IMM update: Page 2 of IMM dated and reviewed with pt. Copy provided. Copy dated, initialed and placed in chart.
[2022-10-29] MEDS: ipratropium-albuterol 3 mL Neb INHALATION (09:08)
[2022-10-29] MEDS: FUROsemide 10 mg/mL SDV 4mL 40 MG IVP (09:20)
[2022-10-29] MEDS: potassium chloride ER 20 mEq Tablet 40 MEQ PO (09:21)
[2022-10-29] MEDS: pantoprazole DR 40 mg Tablet PO (09:21)
[2022-10-29] MEDS: docusate sodium 100 mg Capsule PO (09:21)
--- NOTE | 2022-10-29 10:59 | P.DS_ITS ---
Discharge Providers Date of Admission: 10/26/22 21:38 Date of Discharge: October 29, 2022 Attending Provider at Admission: Praveena Garner MD Attending Provider at Discharge: Ronnell Gonzalez MD Primary Care Provider: Deloris Conway MD Diagnoses at Discharge Discharge Diagnosis (1) Acute on chronic systolic CHF (congestive heart failure): Status: Acute (2) COPD (chronic obstructive pulmonary disease): Status: Acute Qualifiers: COPD type: chronic bronchitis Chronic bronchitis type: simple Qualified Code(s): J41.0 - Simple chronic bronchitis (3) CAD (coronary atherosclerotic disease): Status: Chronic Qualifiers: Coronary Disease-Associated Artery/Lesion type: [place] artery [place] vs. transplanted heart: [place] heart Associated angina: without angina Qualified Code(s): I25.10 - Atherosclerotic heart disease of [place] coronary artery without angina pectoris (4) Essential hypertension: Status: Chronic (5) Protein calorie malnutrition: Status: Acute (6) Physical deconditioning: Status: Acute (7) NSTEMI (non-ST elevated myocardial infarction): Status: Acute Reason for Visit Reason for Visit: sob, coughing up blood Hospital Course Hospital Course Lowell Salazar is a 87 year old male with past medical history of coronary artery disease status post CABG,HFrEF 30%, CKD stage III,presenting today with? worsening shortness of breath over the past 2-3 weeks, worse on exertion, orthopena+.? He has also noticed an increased cough with frothy blood and blood- tinged sputum.? He was recently between October 04 October 03, 2021 with acute CHF exacerbation at which point he had responded well to IV diuresis. He has a baseline oxygen requirement of 2 L/min supplemental O2.? He followed up with PCP on October 08 and was on a regimen of Lasix 40 mg and Lasix 20 mg on alternating days in a week. His oxygen requirement today is up to 4 L/min.? No fever or chills. Patient was admitted to [facility] for acute on chronic systolic CHF exacerbation, received IV diuretics during his hospitalization, overall clinically improved, diuresed over 5 L. Discharged on his home Lasix therapy, with a close follow-up with primary care provider in 1 week, recheck potassium, creatinine in 1 week. Physical Exam Const: COMMON NORMALS: no acute distress and patient oriented x3 Resp: COMMON NORMALS: normal respiratory effort, No retractions, No use of accessory muscles and clear to auscultation bilaterally AUSCULTATION: clear to auscultation bilaterally Cardio: COMMON NORMALS: regular rate, regular rhythm, S1 normal heart sound present and S2 normal heart sound present RATE: regular rate RHYTHM: regu lar rhythm HEART SOUNDS: S1 normal heart sound present and S2 normal heart sound present GI: COMMON NORMALS: Normal to inspection, nondistended, normoactive bowel sounds present and non-tender Extremity: COMMON NORMALS: no pedal edema Neuro: COMMON NORMALS: patient oriented x3 Psych: COMMON NORMALS: mental status grossly normal Urinary Catheter Management: Sam: Cath Placed During This Visit: yes Reason for Continuing Indwelling Catheter: Accurate Measurement of Urinary Output in Critically Ill Patients Urinary Catheter Date of Insertion: 10/26/22 Discharge Data Studies Completed and Pending Completed Studies During Hospitalization Category Date Time Status XR chest 1V portable [id number] Stat Exams 10/26/22 15:58 Completed Pending at discharge Category Date Time Status Basic Metabolic Panel AM LABS Lab 10/30/22 04:00 Ordered Basic Metabolic Panel AM LABS Lab 10/31/22 04:00 Ordered Complete Blood Count w/Auto AM LABS Lab 10/30/22 04:00 Ordered Complete Blood Count w/Auto AM LABS Lab 10/31/22 04:00 Ordered Magnesium AM LABS Lab 10/30/22 04:00 Ordered Magnesium AM LABS Lab 10/30/22 04:00 Ordered Magnesium AM LABS Lab 10/31/22 04:00 Ordered Radiology Impressions Chest X-Ray 10/26/22 15:58 IMPRESSION: 1. Stable dhmv-fuwqnwv-dkop-right pleural effusions. 2. Right upper lung interstitial opacity stable from last month may represent scarring, atelectasis, possibly infection. Laboratory Results WBC 10.3 10^3/uL (4.0-10.0) H 10/29/22 03:30 RBC 3.51 10^6/uL (4.1-5.3) L 10/29/22 03:30 Hgb 10.1 g/dL (11.7-16.6) L 10/29/22 03:30 Hct 31.9 % (42.0-52.0) L 10/29/22 03:30 MCV 90.9 fl (80-94) 10/29/22 03:30 MCH 28.8 pg (28.0-34.0) 10/29/22 03:30 MCHC 31.7 g/dL (30.0-36.0) 10/29/22 03:30 RDW 14.6 % (12.1-15.1) 10/29/22 03:30 Plt Count 218 10^3/cmm (130-400) 10/29/22 03:30 MPV 9.9 fL (7.4-10.4) 10/29/22 03:30 Neut % (Auto) 65.0 % 10/29/22 03:30 Lymph % (Auto) 16.9 % 10/29/22 03:30 [place] % (Auto) 13.9 % 10/29/22 03:30 Eos % (Auto) 3.2 % 10/29/22 03:30 Baso % (Auto) 0.6 % 10/29/22 03:30 Neut # (Auto) 6.69 10^3/uL (1.8-7.7) 10/29/22 03:30 Lymph # (Auto) 1.7 10^3/uL (0.8-4.8) 10/29/22 03:30 [place] # (Auto) 1.4 10^3/uL (0.2-0.9) H 10/29/22 03:30 Eos # (Auto) 0.3 10^3/uL (0.0-0.8) 10/29/22 03:30 Baso # (Auto) 0.1 10^3/uL (0.0-0.1) 10/29/22 03:30 Nucleated RBC % (auto) 0 % 10/29/22 03:30 Nucleated RBCs # 0.0 /100WBC 10/29/22 03:30 PT 14.40 SECONDS (12.1-14.9) 10/26/22 16:18 INR 1.08 (0.8-1.2) 10/26/22 16:18 Sodium 139 mmol/L (136-145) 10/29/22 03:30 Potassium 3.3 mmol/L (3.5-5.1) L 10/29/22 03:30 Chloride 99 mmol/L (98-107) 10/29/22 03:30 Carbon Dioxide 33 mmol/L (22-29) H 10/29/22 03:30 Anion Gap 10.3 (5-19) 10/29/22 03:30 BUN 19 mg/dL (8-23) 10/29/22 03:30 Creatinine 1.5 mg/dL (0.7-1.2) H 10/29/22 03:30 GFR Calculation Not Reportable 10/29/22 03:30 Glucose 101 mg/dL (65-115) 10/29/22 03:30 Calculated Osmolality 290 mOsm/kg (285-295) 10/29/22 03:30 Calcium 8.8 mg/dL (8.5-10.5) 10/29/22 03:30 Phosphorus 2.9 mg/dL (2.5-4.5) 10/26/22 16:18 Magnesium 1.7 mg/dL (1.7-2.3) 10/29/22 03:30 Total Bilirubin 0.7 mg/dL (0.15-1.2) 10/28/22 02:25 AST 16 U/L (0-40) 10/28/22 02:25 ALT 12 U/L (0-41) 10/28/22 02:25 Alkaline Phosphatase 119 U/L (40-130) 10/28/22 02:25 Troponin T Baseline 32 ng/L (0-15) H 10/26/22 16:18 Troponin T 120 Minute 30.80 ng/L (0-15) H 10/26/22 18:01 Delta Troponin T -1.20 ABS# (0-10) L 10/26/22 18:01 Troponin T Hi Sens 6Hr 36.74 ng/L (0-15) H 10/26/22 22:46 Troponin T Hi Sens 6Hr Delta 4.74 ng/L (0-12) 10/26/22 22:46 NT-Pro-B Natriuret Pep 7658 pg/mL (0-450) H 10/26/22 16:18 Total Protein 5.7 g/dL (6.6-8.7) L 10/28/22 02:25 Albumin 3.2 g/dL (3.5-5.2) L 10/28/22 02:25 Globulin 2.5 g/dL (1.3-4.6) 10/28/22 02:25 Vitals Last Vital Signs Temp 97.8 F 10/29/22 09:15 Pulse 62 10/29/22 09:15 Resp 18 10/29/22 09:15 BP 121/49 10/29/22 09:15 Pulse Ox 90 10/29/22 09:15 O2 Del Method Nasal Cannula 10/29/22 09:15 O2 Flow Rate 3 10/29/22 09:09 Discharge Plan Discharge Condition: Stable Prescriptions: Continued PreserVision AREDS [id number] [id number]-ys-[id number] capsule 1 cap PO BID@0530,1730 timolol 0.5 % drops 1 drop ophthalmic (eye) BID Rx Instructions: both eyes aspirin 81 mg tablet,delayed release (DR/EC) 81 mg PO DAILY@0530 Hold Instructions: Resume on 11/21/21. latanoprost 0.005 % drops 1 drop ophthalmic (eye) BEDTIME Rx Instructions: both eyes Spiriva Respimat 2.5 mcg/actuation mist 2 inh INHALATION QAM Qty: 4 5RF ipratropium-albuterol 0.5 mg-3 mg(2.5 mg base)/3 mL solution for nebulization 3 ml inhalation Q6H PRN (Reason: wheezing) Qty: 90 0RF (DME) nebulizers [facility] See Rx Instructions .Route Qty: 1 0RF Rx Instructions: Nebulizer machine with tubing and supplies Combivent Respimat 20-100 mcg/actuation mist 1 puff inhalation QID Qty: 4 5RF Rx Instructions: space evenly during waking hours miscellaneous medical supply [facility] See Rx Instructions miscellaneous .COMPLEX Qty: 1 0RF Rx Instructions: rolling walker with seat as directed; furosemide 20 mg tablet See Rx Instructions .ROUTE .COMPLEX Rx Instructions: 40mg po qam on mon,wed,fri, and 20mg po daily on ,,sat, sun hydralazine 25 mg tablet 25 mg PO BID PRN (Reason: BP >150/90) Qty: 180 2RF albuterol sulfate [Ventolin HFA] 90 mcg/actuation HFA aerosol inhaler 1 inh inhalation Q6H PRN (Reason: shortness of breath or wheezing) Qty: 6.7 0RF multivitamin Tablet 1 tab PO DAILY@0530 fluticasone propion-salmeterol 250-50 mcg/dose Blister With Device 1 inh INHALATION BID tamsulosin 0.4 mg capsule 0.4 mg PO BID@0530,1730 magnesium gluconate 30 mg (550 mg) Tablet 30 mg PO QAM carvedilol 6.25 mg tablet 12.5 mg PO BID@0530,1200 amlodipine 10 mg tablet 5 mg PO BID@06,12 atorvastatin 80 mg tablet 80 mg PO DAILY@1730 potassium chloride 10 mEq tablet,ER particles/crystals See Rx Instructions .ROUTE .COMPLEX Rx Instructions: 30meq po qam and 20meq po at bedtime ascorbic acid (vitamin C) [Vitamin C] 1,000 mg Tablet 1,000 mg PO BID@0530,1730 methenamine hippurate [Hiprex] 1 gram Tablet 1 g PO BID Rx Instructions: take with 1000mg of vit c twice a day Discharge Orders: Discharge Order (Routine); Ordered 10/29/22 Ordered By: Ronnell Gonzalez Referrals: Deloris Conway MD [Primary Care Provider] - Discharge Diet: Regular and Cardiac Discharge Activity: Resume usual activity Patient Instructions: Opioid Safety Activity Restrictions/Additional Instructions: - Follow-up with Deloris Conway in next week -Have her recheck your potassium, and a creatinine -If you gain more than 3 pounds, or you feel more short of breath, take Lasix 40 mg once a day for 3 days, then go back to your regular schedule -If you have any chest pain or shortness of breath please go to emergency room Discharge Attestations Time Spent in Discharge Care*: greater than 30 min Status at Discharge: Cognitive status at discharge: cognitively intact , Behavioral status at discharge: cooperative , Quality Metrics Clinical Quality Measures [ No reported AMI, CVA or VTE this stay] Coding Level of Care Code 80958 Total time (in minutes) for Discharge: 45 Diagnoses Acute on chronic systolic CHF (congestive heart failure) I50.23 COPD (chronic obstructive pulmonary disease) J41.0 COPD type: chronic bronchitis Chronic bronchitis type: simple CAD (coronary atherosclerotic disease) I25.10 Coronary Disease-Associated Artery/Lesion type: [place] artery [place] vs. transplanted heart: [place] heart Associated angina: without angina Essential hypertension I10 Protein calorie malnutrition E46 Physical deconditioning R53.81 NSTEMI (non-ST elevated myocardial infarction) I21.4
[2022-10-29] MEDS: bisacodyl 5 mg Tablet 10 MG PO (11:04)
== END 2022-10-29 13:39 | disposition home health service (06) | DRG 280 ==
LOC: ER 21:19 → CSU 21:39
PROVIDERS: Emergency Medicine; Admitting Provider Student in an Organized Health Care Education/Training Program; Emergency Provider Emergency Medicine; PCP Family Medicine; Visit Provider Family Medicine
DX: I13.0 Hypertensive heart and chronic kidney disease with heart failure and stage 1 through stage 4 chronic kidney disease, or unspecified chronic kidney disease (principal); I50.23 Acute on chronic systolic (congestive) heart failure; I21.A1 Myocardial infarction type 2; E46 Unspecified protein-calorie malnutrition; N17.9 Acute kidney failure, unspecified; Z95.1 Presence of aortocoronary bypass graft; N18.30 Chronic kidney disease, stage 3 unspecified; Z79.82 Long term (current) use of aspirin; Z99.81 Dependence on supplemental oxygen; Z87.891 Personal history of nicotine dependence; Z68.22 Body mass index [BMI] 22.0-22.9, adult; I25.10 Atherosclerotic heart disease of native coronary artery without angina pectoris; J41.0 Simple chronic bronchitis; N40.0 Benign prostatic hyperplasia without lower urinary tract symptoms; E87.6 Hypokalemia; I25.5 Ischemic cardiomyopathy
CPT/HCPCS: 36415; 51702; 71045; 80048; 80053; 83735; 83880; 84100; 84484; 85025; 85610; 93005; 94640; 96372; 96374; 96375; 96376; 97165; 99285; J1650; J1940; J2270; J2405; J3480

== ENCOUNTER → 2022-10-31 11:37 | Outpatient (BNVA) | payer MEDICARE, SELFPAY | PROVIDERS: PCP Family Medicine; Visit Provider Family Medicine | DX: E87.6 Hypokalemia (principal) | CPT/HCPCS: 80048 ==

== ENCOUNTER → 2022-11-04 10:17 | Outpatient (BNVA) | payer MEDICARE, SELFPAY | PROVIDERS: PCP Family Medicine; Visit Provider Dermatology | DX: L57.0 Actinic keratosis (principal); D69.2 Other nonthrombocytopenic purpura; L82.1 Other seborrheic keratosis; L57.8 Other skin changes due to chronic exposure to nonionizing radiation; Z85.828 Personal history of other malignant neoplasm of skin; Z87.891 Personal history of nicotine dependence | CPT/HCPCS: 17000; 99213 ==

== ENCOUNTER 2022-11-16 16:43 | Observation (INO) | payer OTHER, SELFPAY ==
[2022-11-16 16:47] VITALS: BP 152/72; PULSE 78; RESP 18; TEMP 36.4; O2SAT 95
--- NOTE | 2022-11-16 16:56 | ECG_ITS ---
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 Measurements Intervals [place] Rate: 75 P: 5 AL: 215 QRS: 74 QRSD: 113 T: 91 QT: 413 QTc: 464 Interpretive Statements SINUS RHYTHM WITH SINUS ARRHYTHMIA WITH FIRST DEGREE AV BLOCK POSSIBLE LEFT ATRIAL ENLARGEMENT [-0.1mV P-WAVE IN V1/V2] INFERIOR MYOCARDIAL INFARCTION , PROBABLY OLD [40+ ms Q WAVE AND/OR ST/T ABNORMALITY IN II/aVF] POSSIBLE ANTEROLATERAL MYOCARDIAL INFARCTION , OF INDETERMINATE AGE [30 ms Q WAVE IN I/aVL/V3-V6] Compared to ECG 10/26/2022 23:02:09 First degree AV block now present Supraventricular rhythm no longer present Ventricular premature complex(es) no longer present Left posterior fascicular block no longer present Myocardial infarct finding still present Electronically Signed On 11-17-2022 19:41:28 CDT by Kristi Vazquez M.D. [id number]
--- NOTE | 2022-11-16 17:15 | XRR_ITS ---
PROCEDURE INFORMATION: Exam: XR Chest Exam date and time: 11/16/2022 5:29 PM Age: 87 years old Clinical indication: Dyspnea; Prior surgery; Surgery date: 6+ months; Surgery type: Quad bypass TECHNIQUE: Imaging protocol: Radiologic exam of the chest. Views: 1 view. COMPARISON: CR (CHEST, ) 10/26/2022 4:20 PM FINDINGS: Lungs: Probable emphysema. Stable coarse interstitial opacities in the upper lobes, right greater than left. Airspace opacities in the lung bases are stable on the left and increased on the right. Calcified granulomas in the right lung. Pleural spaces: Stable left and increased right pleural effusions. No pneumothorax. Heart/Mediastinum: Mild cardiomegaly. Bones/joints: Sternotomy wires. XR/XR chest 1V portable [id number] IMPRESSION: 1. Increased pulmonary edema and atelectasis in the right lung base. 2. Stable left and increased right pleural effusions. 3. Stable edema versus pneumonia or scarring in the upper lobes.
--- NOTE | 2022-11-16 17:30 | ECG_ITS ---
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 Measurements Intervals [place] Rate: 77 P: 0 GA: 0 QRS: 67 QRSD: 116 T: 55 QT: 412 QTc: 466 Interpretive Statements Multifocal atrial rhythm WITH ABERRANT CONDUCTION OR VENTRICULAR PREMATURE COMPLEXES PROBABLE ANTEROLATERAL MYOCARDIAL INFARCTION , OF INDETERMINATE AGE [35 ms Q WAVE IN I/aVL/V3-V6] Compared to ECG 11/16/2022 16:56:35 Ventricular premature complex(es) now present Aberrant conduction of supraventricular beat(s) now present Sinus rhythm no longer present Sinus arrhythmia no longer present First degree AV block no longer present Myocardial infarct finding still present Electronically Signed On 11-17-2022 19:42:28 CDT by Kristi Vazquez M.D. [id number]
[2022-11-16 17:38] LABS: ABG PCO2 37.6 mmHg (35-45); ABG PH Result 7.48 (7.35-7.45); Arterial Blood Gas Hematocrit 30.3 % (42-52); Base Excess ABG 4.5 mmol/L (-2.0-2.0); Blood Gas Allen Test Pos; Blood Gas Operator Identificat MONRO; Blood Gas Sample Site Radial, left; Blood Gas Sample Type Arterial; Carboxyhemoglobin 1.7 %THgb (0.4-20.1); HCO3 ABG 28.2 mmol/L (22-26); HGB O2 Sat 91.5 % (95-100); Methemoglobin 0.1 % (0.4-1.5); Oxygen Device NC; PO2 ABG 62.5 mmHg (80.0-100.0); Total Hemoglobin 9.9 g/dL (14-18)
[2022-11-16 17:59] VITALS: PULSE 72; RESP 22; O2SAT 92
[2022-11-16] MEDS: ipratropium-albuterol 3 mL Neb INHALATION (17:59)
[2022-11-16 18:04] VITALS: PULSE 74
[2022-11-16] MEDS: methylPREDNISolone sod succ 60 MG in water for injection-sterile 0.96 ML 11.52 MG IVP (18:14)
[2022-11-16 18:29] LABS: Basophils # 0.1 10^3/uL (0.0-0.1); Basophils % 0.6 %; Eosinophils # 0.5 10^3/uL (0.0-0.8); Eosinophils % 4.7 %; Hematocrit 31.3 % (42.0-52.0); Hemoglobin 9.8 g/dL (11.7-16.6); Lymphocytes # 1.4 10^3/uL (0.8-4.8); Lymphocytes % 12.3 %; Mean Corpuscular HGB Conc 31.3 g/dL (30.0-36.0); Mean Corpuscular Hemoglobin 27.8 pg (28.0-34.0); Mean Corpuscular Volume 88.9 fl (80-94); Mean Platelet Volume 9.5 fL (7.4-10.4); Monocytes # 1.4 10^3/uL (0.2-0.9); Monocytes % 12.4 %; Neutrophils % 69.6 %; Nucleated Red Blood Cells % 0 %; Platelet Count 374 10^3/cmm (130-400); Red Blood Count 3.52 10^6/uL (4.1-5.3); Red Cell Distribution Width 14.5 % (12.1-15.1); White Blood Count 11.4 10^3/uL (4.0-10.0)
[2022-11-16 19:06] LABS: Troponin(5th) Baseline 41 ng/L (0-15)
[2022-11-16 19:12] LABS: Alanine Aminotransferase 33 U/L (0-41); Albumin Level 3.2 g/dL (3.5-5.2); Alkaline Phosphatase 151 U/L (40-130); Anion Gap 14.9 (5-19); Aspartate Amino Transferase 26 U/L (0-40); Blood Urea Nitrogen 20 mg/dL (8-23); Carbon Dioxide 27 mmol/L (22-29); Chloride 99 mmol/L (98-107); Glucose 123 mg/dL (65-115); NT Pro B Type Natriuretic Pept 13056 pg/mL (0-450); Osmolality Calculated 288 mOsm/kg (285-295); Potassium 3.9 mmol/L (3.5-5.1); Sodium 137 mmol/L (136-145); Total Bilirubin 0.7 mg/dL (0.15-1.2); Total Protein 6.2 g/dL (6.6-8.7)
[2022-11-16] MEDS: FUROsemide 10 mg/mL SDV 4mL 40 MG IVP ×2 (19:31→23:02)
--- NOTE | 2022-11-16 19:34 | ED_ITS ---
HPI - SOB/Dyspnea General: Chief Complaint: Shortness of Breath/Dyspnea Stated Complaint: SOB Time Seen by Provider: 11/16/22 17:26 Source: patient Limitations: no limitations History of Present Illness: HPI Narrative: 87-year-old male with a history of CHF he states that over the last 2 to 3 days he had increased swelling in his extremities and increased shortness of breath he states with any exertion he gets short of breath he states that his pulse ox was dropping into the 60s at home. He is typically on 3 L he had to be on 4 to 5 L here. Had some mild chest pains. Associated symptoms: Reports chest pain; Deny abdominal pain, fever(s), nausea or vomiting Review of Systems Const: Denies: fever(s), chills, body aches or change in appetite Eyes: Denies: blurry vision or eye discomfort ENMT: Denies: throat pain or dental pain Card: Reports: chest pain Resp: Reports: dyspnea GI: Denies: abdominal pain, nausea, vomiting or diarrhea Musc: Denies: neck pain or back pain Skin/Breast: Denies: rash Neuro: Denies: headache(s) Psych: Denies: depression PFSH ED PFSH: Medical History BPH (benign prostatic hyperplasia) CAD (coronary atherosclerotic disease) Carotid artery disease CKD (chronic kidney disease) Congestive heart failure (CHF) COPD (chronic obstructive pulmonary disease) Elevated troponin Enrolled in chronic care management Essential hypertension History of nonmelanoma skin cancer Hypokalemia Intermittent self-catheterization of bladder Left renal mass Lung granuloma Urinary retention UTI due to extended-spectrum beta lactamase (ESBL) producing Escherichia coli Surgical History H/O carotid angioplasty H/O heart surgery History of cholecystectomy History of quadruple bypass Hx of knee surgery S/P TURP (transurethral resection of prostate) Family History Mother , at age 65 Cancer Brother Tuberculosis Brother Tuberculosis Other CAD (coronary artery disease) Social History Smoking and tobacco status: former smoker Quit status (tobacco): has quit using tobacco Former quit date comment: 40 yr 1-3ppd Second hand smoke exposure: No Alcohol intake: never Desire information about alcohol rehabilitation?: No Substance/Drug Use: never Desire information about substance/drug rehabilitation?: No Caregiver/support person: Yes Lives independently: No Housing: House Marital status: / Current occupational status: retired Do you think of yourself as: Straight/Heterosexual Current gender identity: Male Physical Exam Const: COMMON NORMALS: patient oriented x3 GENERAL APPEARANCE: ill appearing HENMT: COMMON NORMALS: normocephalic and atraumatic HEAD & SCALP: normocephalic and atraumatic Eye: COMMON NORMALS: Equal, round and reactive pupils present and EOMs intact bilaterally PUPIL: Yes Equal, round and reactive pupils present Neck/C-Spine: COMMON NORMALS: full ROM Chest: COMMONS NORMALS: normal inspection of the chest Resp: COMMON NORMALS: No retractions and No use of accessory muscles OTHER: Diffuse Rales noted Cardio: COMMON NORMALS: regular rate, regular rhythm and No murmurs present (Cardio) RATE: regular rate RHYTHM: regular rhythm GI: INSPECTION: Yes normal to inspection Extremity: COMMON NORMALS: full ROM NARRATIVE EXTREMITY EXAM: 2+ edema to lower extremities Neuro: COMMON NORMALS: patient oriented x3, moves all extremities and no focal motor deficits Psych: COMMON NORMALS: mental status grossly normal, Normal thought process present and cooperative THOUGHT PROCESS: Normal thought process present Skin: COMMON NORMALS: no rashes or lesions noted and no wounds GENERAL SKIN EXAM: no rashes or lesions noted Course Vital Signs: Vital signs: Vital Signs Temperature 97.5 F L 11/16/22 16:47 Pulse Rate 74 11/16/22 18:04 Respiratory Rate 22 H 11/16/22 17:59 Blood Pressure 152/72 11/16/22 16:47 Pulse Oximetry 92 11/16/22 17:59 Oxygen Delivery Me thod Nasal Cannula 11/16/22 17:59 Oxygen Flow Rate 3 11/16/22 17:59 MDM - SOB/Dyspnea Medical Decision Making Patient presents here with dyspnea CHF exacerbation he does have pulmonary edema on his x-ray along with elevated BNP we will admit for diuresis Lab Data 11/16/22 17:57 11/16/22 17:57 Labs/Radiology: Radiology Impressions Chest X-Ray 11/16/22 17:15 IMPRESSION: 1. Increased pulmonary edema and atelectasis in the right lung base. 2. Stable left and increased right pleural effusions. 3. Stable edema versus pneumonia or scarring in the upper lobes. Laboratory Results WBC 11.4 10^3/uL (4.0-10.0) H 11/16/22 17:57 RBC 3.52 10^6/uL (4.1-5.3) L 11/16/22 17:57 Hgb 9.8 g/dL (11.7-16.6) L 11/16/22 17:57 Hct 31.3 % (42.0-52.0) L 11/16/22 17:57 MCV 88.9 fl (80-94) 11/16/22 17:57 MCH 27.8 pg (28.0-34.0) L 11/16/22 17:57 MCHC 31.3 g/dL (30.0-36.0) 11/16/22 17:57 RDW 14.5 % (12.1-15.1) 11/16/22 17:57 Plt Count 374 10^3/cmm (130-400) 11/16/22 17:57 MPV 9.5 fL (7.4-10.4) 11/16/22 17:57 Neut % (Auto) 69.6 % 11/16/22 17:57 Lymph % (Auto) 12.3 % 11/16/22 17:57 [place] % (Auto) 12.4 % 11/16/22 17:57 Eos % (Auto) 4.7 % 11/16/22 17:57 Baso % (Auto) 0.6 % 11/16/22 17:57 Neut # (Auto) 7.90 10^3/uL (1.8-7.7) H 11/16/22 17:57 Lymph # (Auto) 1.4 10^3/uL (0.8-4.8) 11/16/22 17:57 [place] # (Auto) 1.4 10^3/uL (0.2-0.9) H 11/16/22 17:57 Eos # (Auto) 0.5 10^3/uL (0.0-0.8) 11/16/22 17:57 Baso # (Auto) 0.1 10^3/uL (0.0-0.1) 11/16/22 17:57 Nucleated RBC % (auto) 0 % 11/16/22 17:57 Nucleated RBCs # 0.0 /100WBC 11/16/22 17:57 Specimen Type Arterial 11/16/22 17:25 Sample Site Radial, left 11/16/22 17:25 ABG pH 7.48 (7.35-7.45) H 11/16/22 17:25 ABG pCO2 37.6 mmHg (35-45) 11/16/22 17:25 ABG pO2 62.5 mmHg (80.0-100.0) L 11/16/22 17:25 ABG HCO3 28.2 mmol/L (22-26) H 11/16/22 17:25 ABG Base Excess 4.5 mmol/L (-2.0-2.0) H 11/16/22 17:25 Natan Test Pos 11/16/22 17:25 Hematocrit 30.3 % (42-52) L 11/16/22 17:25 Hgb O2 Saturation 91.5 % (95-100) L 11/16/22 17:25 Carboxyhemoglobin 1.7 %THgb (0.4-20.1) 11/16/22 17:25 Methemoglobin 0.1 % (0.4-1.5) L 11/16/22 17:25 Total Hemoglobin 9.9 g/dL (14-18) L 11/16/22 17:25 O2 Delivery Device Nc 11/16/22 17:25 O2 Liters/Min 3.0 % 11/16/22 17:25 FiO2 32.0 % 11/16/22 17:25 Tandem Mill Operator ID [place] 11/16/22 17:25 Sodium 137 mmol/L (136-145) 11/16/22 17:57 Potassium 3.9 mmol/L (3.5-5.1) 11/16/22 17:57 Chloride 99 mmol/L (98-107) 11/16/22 17:57 Carbon Dioxide 27 mmol/L (22-29) 11/16/22 17:57 Anion Gap 14.9 (5-19) 11/16/22 17:57 BUN 20 mg/dL (8-23) 11/16/22 17:57 Creatinine 1.2 mg/dL (0.7-1.2) 11/16/22 17:57 GFR Calculation Not Reportable 11/16/22 17:57 Glucose 123 mg/dL (65-115) H 11/16/22 17:57 Calculated Osmolality 288 mOsm/kg (285-295) 11/16/22 17:57 Calcium 9.0 mg/dL (8.5-10.5) 11/16/22 17:57 Total Bilirubin 0.7 mg/dL (0.15-1.2) 11/16/22 17:57 AST 26 U/L (0-40) 11/16/22 17:57 ALT 33 U/L (0-41) 11/16/22 17:57 Alkaline Phosphatase 151 U/L (40-130) H 11/16/22 17:57 Troponin T Baseline 41 ng/L (0-15) H 11/16/22 17:57 NT-Pro-B Natriuret Pep 71792 pg/mL (0-450) H 11/16/22 17:57 Total Protein 6.2 g/dL (6.6-8.7) L 11/16/22 17:57 Albumin 3.2 g/dL (3.5-5.2) L 11/16/22 17:57 Globulin 3.0 g/dL (1.3-4.6) 11/16/22 17:57 Discharge Plan Discharge Condition: Stable Prescriptions: No Action PreserVision AREDS [id number] dkwe-by-[id number] capsule 1 cap PO BID@0530,1730 aspirin 81 mg tablet,delayed release (DR/EC) 81 mg PO DAILY@0530 Hold Instructions: Resume on 11/21/21. latanoprost 0.005 % drops 1 drop ophthalmic (eye) BEDTIME Rx Instructions: both eyes Spiriva Respimat 2.5 mcg/actuation mist 2 inh INHALATION QAM Qty: 4 5RF ipratropium-albuterol 0.5 mg-3 mg(2.5 mg base)/3 mL solution for nebulization 3 ml inhalation Q6H PRN (Reason: wheezing) Qty: 90 0RF (DME) nebulizers Misc See Rx Instructions .Route Qty: 1 0RF Rx Instructions: Nebulizer machine with tubing and supplies Combivent Respimat 20-100 mcg/actuation mist 1 puff inhalation QID Qty: 4 5RF Rx Instructions: space evenly during waking hours miscellaneous medical supply Misc See Rx Instructions miscellaneous .COMPLEX Qty: 1 0RF Rx Instructions: rolling walker with seat as directed; miscellaneous medical supply Misc See Rx Instructions miscellaneous .COMPLEX Qty: 1 0RF Rx Instructions: Inogen portable oxygen 3L at all times with activity and rest as directed; miscellaneous medical supply Misc See Rx Instructions miscellaneous .COMPLEX Qty: 1 0RF Rx Instructions: extra long oxygen hose as directed; for use in [facility] hydralazine 25 mg tablet 25 mg PO BID PRN (Reason: BP >150/90) Qty: 180 2RF albuterol sulfate [Ventolin HFA] 90 mcg/actuation HFA aerosol inhaler 1 inh inhalation Q6H PRN (Reason: shortness of breath or wheezing) Qty: 6.7 0RF furosemide 20 mg tablet See Rx Instructions .ROUTE .COMPLEX MDD 2 tabs Qty: 90 2RF Rx Instructions: 40mg po qam MWF, 20mg po daily tues,thurs,sat,sun multivitamin Tablet 1 tab PO DAILY@0530 fluticasone propion-salmeterol 250-50 mcg/dose Blister With Device 1 inh INHALATION BID tamsulosin 0.4 mg capsule 0.4 mg PO BID@0530,1730 magnesium gluconate 30 mg (550 mg) Tablet 30 mg PO QAM carvedilol 6.25 mg tablet 12.5 mg PO BID@0530,1200 amlodipine 10 mg tablet 5 mg PO BID@06,12 atorvastatin 80 mg tablet 80 mg PO DAILY@1730 potassium chloride 10 mEq tablet,ER particles/crystals See Rx Instructions .ROUTE .COMPLEX Rx Instructions: 30meq po qam and 20meq po at bedtime ascorbic acid (vitamin C) [Vitamin C] 1,000 mg Tablet 1,000 mg PO BID@0530,1730 methenamine hippurate [Hiprex] 1 gram Tablet 1 g PO BID Rx Instructions: take with 1000mg of vit c twice a day Referrals: Deloris Conway MD [Primary Care Provider] - Coding Level of Care Code ED Security 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
--- NOTE | 2022-11-16 19:43 | P.HP_ITS ---
Providers/Chief Complaint Admitting Physician: Jai Velasco MD Primary Care Provider: Deloris Conway MD Chief Complaint: SOB History of Present Illness Lowell Salazar is a 87 year old male with a past medical history significant for paroxysmal atrial fibrillation, COPD, coronary artery disease, hypertension, and urinary retention who presents emergency department with shortness of breath x2 to 3 days. He endorses associated symptoms of lower extremity swelling. Endorses orthopnea. He reports that his SPO2 was dropping down into the 60s and 70s at home. He does have chronic hypoxic respiratory failure which he wears 3 L at baseline. Reports he turned up his oxygen to 4 to 5 L but was still feeling short of breath. Reports exertion makes symptoms worse. Patient notes that he does live alone. Rest improves symptoms. Denies fevers, chills, nausea or emesis. Denies other alleviating or aggravating factors. Of note, patient typically will self cath at home. Sam catheter was placed emergency department. Review of Systems Narrative: A complete review of systems was obtained and is negative except as stated in HPI Medications/Allergies Home Medications Medication Instructions Recorded Confirmed Last Taken Type aspirin 81 mg tablet,delayed 81 mg PO DAILY@0530 05/22/19 11/13/22 10/26/22 History release latanoprost 0.005 % eye drops 1 drop ophthalmic (eye) BEDTIME 05/22/19 11/13/22 10/25/22 History vitamins A,C,H-pvcu-oeegcg 4,296 1 cap PO BID@0530,1730 05/22/19 11/13/22 0 10/26/22 05:30 History mcg-226 mg-90 mg capsule (PreserVision AREDS) tiotropium bromide 2.5 2 inh inhalation QAM #4 grams 10/17/21 11/13/22 08/17/22 Rx mcg/actuation mist for inhalation (Spiriva Respimat) multivitamin 1 tab PO DAILY@0530 11/27/21 11/13/22 10/26/22 History fluticasone 250 mcg-salmeterol 50 1 inh inhalation BID 03/26/22 11/13/22 08/17/22 History mcg/dose blistr powdr for inhalation magnesium gluconate 30 mg (550 mg) 30 mg PO QAM 03/26/22 11/13/22 10/26/22 History tablet tamsulosin 0.4 mg capsule 0.4 mg PO BID@0530,1730 03/26/22 11/13/22 10/26/22 05:30 History hydralazine 25 mg tablet 25 mg PO BID PRN BP >150/90 #180 07/11/22 11/13/22 Unknown Rx tabs ipratropium 20 mcg-albuterol 100 1 puff inhalation QID #4 grams 09/11/22 11/13/22 Unknown Rx mcg/actuation mist for inhalation (Combivent Respimat) miscellaneous medical supply See Rx Instructions miscellaneous 09/11/22 11/13/22 Unknown Rx .COMPLEX #1 ea ipratropium 0.5 mg-albuterol 3 mg 3 ml inhalation Q6H PRN wheezing 09/18/22 11/13/22 Unknown Rx (2.5 mg base)/3 mL nebulization #90 mL soln nebulizers #1 ea 09/18/22 11/13/22 Unknown Rx ascorbic acid (vitamin C) 1,000 mg 1,000 mg PO BID@0530,1730 10/02/22 11/13/22 10/26/22 05:30 History tablet (Vitamin C) atorvastatin 80 mg tablet 80 mg PO DAILY@1730 10/02/22 11/13/22 10/25/22 History methenamine hippurate 1 gram 1 g PO BID 10/02/22 11/13/22 10/26/22 05:30 History tablet (Hiprex) potassium chloride 10 mEq See Rx Instructions .Route .COMPLEX 10/02/22 11/13/22 10/26/22 History tablet,extended release(part/cryst) albuterol sulfate 90 mcg/actuation 1 inh inhalation Q6H PRN shortness 10/19/22 11/13/22 Unknown Rx aerosol inhaler (Ventolin HFA) of breath or wheezing #6.7 grams amlodipine 10 mg tablet 5 mg PO BID@06,12 high BP 10/26/22 11/13/22 10/26/22 05:30 History carvedilol 6.25 mg tablet 12.5 mg PO BID@0530,1200 10/26/22 11/13/22 10/26/22 05:30 History miscellaneous medical supply See Rx Instructions miscellaneous 10/31/22 11/13/22 Unknown Rx .COMPLEX #1 ea miscellaneous medical supply See Rx Instructions miscellaneous 10/31/22 11/13/22 Unknown Rx .COMPLEX #1 ea furosemide 20 mg tablet See Rx Instructions .Route 11/14/22 Unknown Rx .COMPLEX #90 tabs Allergies Allergy/AdvReac Type Severity Reaction Status Date / Time ranitidine [From Zantac] Allergy Unknown UNKNOWN Verified 11/16/22 16:53 simvastatin [From Zocor] Allergy Unknown ADR-Muscle Verified 11/16/22 16:53 Pain PFSH Acute PFSH: Medical History (Updated 11/16/22 @ 21:38 by Jai Velasco MD) BPH (benign prostatic hyperplasia) CAD (coronary atherosclerotic disease) Carotid artery disease CKD (chronic kidney disease) Congestive heart failure (CHF) COPD (chronic obstructive pulmonary disease) Elevated troponin Enrolled in chronic care management Essential hypertension History of nonmelanoma skin cancer Hypokalemia Intermittent self-catheterization of bladder Left renal mass Lung granuloma Physical deconditioning Prediabetes Protein calorie malnutrition Seborrheic keratoses Urinary retention UTI due to extended-spectrum beta lactamase (ESBL) producing Escherichia coli Surgical History H/O carotid angioplasty H/O heart surgery History of cholecystectomy History of quadruple bypass Hx of knee surgery S/P TURP (transurethral resection of prostate) Family History Mother , at age 65 Cancer Brother Tuberculosis Brother Tuberculosis Other CAD (coronary artery disease) Social History Smoking and tobacco status: former smoker Quit status (tobacco): has quit using tobacco Former quit date comment: 40 yr 1-3ppd Second hand smoke exposure: No Alcohol intake: never Desire information about alcohol rehabilitation?: No Substance/Drug Use: never Desire information about substance/drug rehabilitation?: No Caregiver/support person: Yes Lives independently: No Housing: House Marital status: / Current occupational status: retired Do you think of yourself as: Straight/Heterosexual Current gender identity: Male Vitals/I&O/Wt Last Vital Signs Temp 97.5 F L 11/16/22 16:47 Pulse 74 11/16/22 18:04 Resp 22 H 11/16/22 17:59 BP 152/72 11/16/22 16:47 Pulse Ox 92 11/16/22 17:59 O2 Del Method Nasal Cannula 11/16/22 17:59 O2 Flow Rate 3 11/16/22 17:59 Weight last 48 hrs Weight 70.307 kg Physical Exam Narrative: General: Patient is awake and alert. Appears fatigued. Pleasant. Head: Normocephalic. Atraumatic. EOM intact. Neck: No JVD. Cardiovascular: Normal S1 ans S1. No gallops. No murmurs. 2+ pitting edema bilateral lower extremities. Lungs: Tachypneic with increased work of breathing. Using billet straightener muscles. Breath sounds diminished bilateral bases. Dependent crackles. Skin: No jaundice. No rashes. Abdomen: Normal bowel sounds, abdomen soft and nontender. Extremities: No cyanosis or clubbing. Musculoskeletal: No swollen or erythematous joints. Neurological: Moves all 4 extremities. No myoclonus. Data 11/16/22 17:57 11/16/22 17:57 A&P Assessment and plan (1) Congestive heart failure (CHF): Acute on chronic decompensated heart failure with reduced ejection fraction exacerbation Bilateral pleural effusions TTE reviewed, from March 2022, LVEF 35 to 40% Strict I's and O's Daily weights Start IV Lasix 40 mg daily Procalcitonin and CRP to evaluate for evidence supporting occult pneumonia Qualifiers: Heart failure chronicity: unspecified Heart failure type: unspecified Qualified Code(s): I50.9 - Heart failure, unspecified (2) Paroxysmal A-fib: Continue beta-branden for rate control Does not appear to be on home anticoagulation (3) COPD (chronic obstructive pulmonary disease): Continue breathing treatments Qualifiers: COPD type: chronic bronchitis Chronic bronchitis type: simple Quali fied Code(s): J41.0 - Simple chronic bronchitis (4) CAD (coronary atherosclerotic disease): Continue aspirin Continue statin Continue beta-branden Qualifiers: Associated angina: without angina Coronary Disease-Associated Artery/Lesion type: [place] artery [place] vs. transplanted heart: [place] heart Qualified Code(s): I25.10 - Atherosclerotic heart disease of [place] coronary artery without angina pectoris (5) BPH (benign prostatic hyperplasia): Continue Flomax Qualifiers: Lower urinary tract symptom presence: symptoms absent Qualified Code(s): N40.0 - Benign prostatic hyperplasia without lower urinary tract symptoms Plan DVT prophylaxis: Lovenox Code: DNR Attestations Medical Necessity Statement*: Patient presents with shortness of breath, found to have acute decompensated CHF exacerbation with hospitalization not expected to cross two midnights. Coding Level of Care Code Acute Code for [facility] Fwd Diagnoses Congestive heart failure (CHF) I50.9 Heart failure chronicity: unspecified Heart failure type: unspecified Paroxysmal A-fib I48.0 COPD (chronic obstructive pulmonary disease) J41.0 COPD type: chronic bronchitis Chronic bronchitis type: simple CAD (coronary atherosclerotic disease) I25.10 Associated angina: without angina Coronary Disease-Associated Artery/Lesion type: [place] artery [place] vs. transplanted heart: [place] heart BPH (benign prostatic hyperplasia) N40.0 Lower urinary tract symptom presence: symptoms absent
[2022-11-16] MEDS: hyDRALAzine 20 mg/mL INJ 1 mL 10 MG IVP (19:59)
[2022-11-16 20:08] VITALS: BP 173/83; PULSE 92; RESP 20; O2SAT 91
[2022-11-16 20:24] LABS: Troponin 5 2HR 44.14 ng/L (0-15)
[2022-11-16 20:27] LABS: Troponin 5 2HR Delta 3.14 ABS# (0-10)
[2022-11-16 20:48] VITALS: BP 171/79; PULSE 97; RESP 19; TEMP 36.4; O2SAT 91
[2022-11-16] MEDS: enoxaparin 40 mg/0.4 mL Syringe SUBCUT (20:57)
[2022-11-16 22:00] VITALS: PULSE 96
[2022-11-16 22:24] LABS: C Reactive Protein 54.6 mg/L (0.0-4.9)
[2022-11-17] VITALS (13 sets, daily range): BP systolic 126–166; BP diastolic 47–75; PULSE 58–93; RESP 17–20; TEMP 36.1–36.9; O2SAT 93–99
[2022-11-17] MEDS: acetaminophen 325 mg Tablet 650 MG PO ×3 (01:47→21:07)
[2022-11-17 03:33] LABS: Basophils % 0.1 %; Eosinophils % 0.1 %; Hemoglobin 11.2 g/dL (11.7-16.6); Lymphocytes # 0.5 10^3/uL (0.8-4.8); Lymphocytes % 6.3 %; Mean Corpuscular HGB Conc 31.1 g/dL (30.0-36.0); Mean Corpuscular Hemoglobin 27.4 pg (28.0-34.0); Mean Platelet Volume 9.6 fL (7.4-10.4); Monocytes # 0.1 10^3/uL (0.2-0.9); Monocytes % 0.8 %; Neutrophils # 6.55 10^3/uL (1.8-7.7); Nucleated Red Blood Cells % 0 %; Platelet Count 433 10^3/cmm (130-400); Red Blood Count 4.09 10^6/uL (4.1-5.3); Red Cell Distribution Width 14.5 % (12.1-15.1); White Blood Count 7.1 10^3/uL (4.0-10.0)
[2022-11-17 03:52] LABS: Anion Gap 18.5 (5-19); Blood Urea Nitrogen 19 mg/dL (8-23); Calcium 9.4 mg/dL (8.5-10.5); Carbon Dioxide 28 mmol/L (22-29); Chloride 98 mmol/L (98-107); Glucose 169 mg/dL (65-115); Magnesium 1.8 mg/dL (1.7-2.3); Osmolality Calculated 298 mOsm/kg (285-295); Phosphorus 3.6 mg/dL (2.5-4.5); Potassium 3.5 mmol/L (3.5-5.1); Sodium 141 mmol/L (136-145)
[2022-11-17] MEDS: aspirin 81 mg EC Tablet PO (05:08)
[2022-11-17] MEDS: amlodipine 10 mg Tablet 5 MG PO (05:08)
[2022-11-17] MEDS: tamsulosin 0.4 mg Capsule PO ×2 (05:08→17:45)
[2022-11-17] MEDS: carvedilol 6.25 mg Tablet 12.5 MG PO ×2 (05:08→12:39)
--- NOTE | 2022-11-17 09:43 | PC.PHAR ---
pt states he takes care of his own medications-pt states he doesnt take lisinopril 40mg daily ext shows last filled 11/14/22 90d/s-pt states [facility] of [facility]
[2022-11-17] MEDS: FUROsemide 10 mg/mL SDV 4mL 40 MG IVP ×2 (11:01→21:17)
--- NOTE | 2022-11-17 13:01 | PM.PN ---
Subjective Subjective: Admitted overnight. H&P and labs appreciated. On examination patient lying comfortably in bed. Currently on 4 L of oxygen supplementation saturating more than 95%. Patient denies any nausea, vomiting, headache. States he is feeling a lot better than when he came in. States he started having difficulty breathing getting worse over last 1 week to 10 days. Denies any sick contacts. Takes only Lasix 20 mg at home. Patient is not on any fluid restriction. He states he is not aware that he is supposed to watch his fluid intake. Blood work appreciated. Vitals/I&O/Wt Last Vital Signs Temp 97.3 F L 11/17/22 11:50 Pulse 70 11/17/22 12:55 Resp 18 11/17/22 12:55 BP 166/75 11/17/22 11:50 Pulse Ox 98 11/17/22 12:55 O2 Del Method Nasal Cannula 11/17/22 12:55 O2 Flow Rate 4 11/17/22 12:55 11/16/22 11/17/22 11/17/22 22:59 06:59 14:59 Intake Total 240.96 / 240.96 720 / 720 Output Total 2750 / 2750 650 / 650 Balance 240.96 / 240.96 -2750 / -2509.04 70 / 70 Weight last 48 hrs Weight 70.488 kg Weight 70.307 kg Physical Exam Narrative: General: No acute distress, AO x3, 4 L oxygen supplementation, laying comfortably flat in bed HEENT: PERRLA, pupils bilaterally equal and reactive Chest: Bilateral bronchial breath sounds all over lung [place] with occasional rhonchi in bilateral lower zone CVS: S1-S2 regular, no murmurs, no tachycardia, S3 gallops, no rubs Abdomen: Soft, nontender, no organomegaly, bowel sounds present Neuro: No focal deficits, no facial deformity, AO x3, power 5/5 in all limbs Sam in place. Urinary Catheter Management: Sam: Cath Placed During This Visit: yes Reason for Continuing Indwelling Catheter: Other Urinary Catheter Date of Insertion: 11/16/22 Urinary Catheter Time of Insertion: 19:45 Data 11/17/22 02:27 11/17/22 02:27 A&P Assessment and plan (1) Shortness of breath: Most likely in setting of decompensated congestive heart failure along with mild COPD exacerbation. Keep oxygen saturations more than 90%. Wean supplementation accordingly. (2) Congestive heart failure (CHF): Acute on chronic decompensated systolic congestive heart failure. Echocardiogram done in March 2022 showed an EF of 35 to 40% with diffuse hypokinesia of LV, mild MR, mild TR with PASP of 25 mmHg. Fluid restriction up to 1500 cc. Strict input output charting. Continue with IV Lasix 40 mg twice daily for now. Continue with Sam catheterization for now. Monitor electrolytes. Keep potassium around 4, magnesium around 2. Patient does not have any leukocytosis, no fever, Pro-Hiram negative. For now low chances of pneumonia. We will hold off on antibiotics. Qualifiers: Heart failure type: unspecified Heart failure chronicity: unspecified Qualified Code(s): I50.9 - Heart failure, unspecified (3) Paroxysmal A-fib: Continue beta-branden for rate control. Rate controlled currently. Does not appear to be on home anticoagulation. (4) COPD (chronic obstructive pulmonary disease): Continue breathing treatments as needed Qualifiers: COPD type: chronic bronchitis Chronic bronchitis type: simple Qualified Code(s): J41.0 - Simple chronic bronchitis (5) CAD (coronary atherosclerotic disease): No active chest pain. Continue with aspirin, statin. Appreciate recent A1c and lipid panel. Last myocardial perfusion scan in May 2022 which was negative for acute ischemia consistent with old scarring. Qualifiers: Coronary Disease-Associated Artery/Lesion type: [place] artery [place] vs. transplanted heart: [place] heart Associated angina: without angina Qualified Code(s): I25.10 - Atherosclerotic heart disease of [place] coronary artery without angina pectoris (6) BPH (benign prostatic hyperplasia): Continue Flomax Qualifiers: Lower urinary tract symptom presence: symptoms absent Qualified Code(s): N40.0 - Benign prostatic hyperplasia without lower urinary tract symptoms Plan DVT prophylaxis: Lovenox Code: Discussed in detail with the patient again. Patient wants to remain DNR/DNI. CODE STATUS changed in the system. Fluid restriction up to 1500 cc. Cardiac diet. Famotidine for PUD prophylaxis. Discharge plan: Plan to discharge home once patient is hemodynamically stable within next 24 to 48 hours. Attestations Medical Necessity Statement*: Requires further hospitalization for management of hypoxic respiratory failure in setting of congestive decompensated systolic heart failure, monitoring electrolytes on IV diuretics Diagnoses Shortness of breath R06.02 Congestive heart failure (CHF) I50.9 Heart failure type: unspecified Heart failure chronicity: unspecified Paroxysmal A-fib I48.0 COPD (chronic obstructive pulmonary disease) J41.0 COPD type: chronic bronchitis Chronic bronchitis type: simple CAD (coronary atherosclerotic disease) I25.10 Coronary Disease-Associated Artery/Lesion type: [place] artery [place] vs. transplanted heart: [place] heart Associated angina: without angina BPH (benign prostatic hyperplasia) N40.0 Lower urinary tract symptom presence: symptoms absent
[2022-11-17 13:40] LABS: D Dimer 1.35 ug/mIFEU (0-0.59)
[2022-11-17] MEDS: atorvastatin 40 mg Tablet PO (17:45)
[2022-11-17] MEDS: enoxaparin 40 mg/0.4 mL Syringe SUBCUT (19:43)
[2022-11-17] MEDS: ipratropium-albuterol 3 mL Neb INHALATION (21:34)
[2022-11-17 23:12] LABS: Albumin Level 2.9 g/dL (3.5-5.2); Anion Gap 13.6 (5-19); Blood Urea Nitrogen 30 mg/dL (8-23); Calcium 8.6 mg/dL (8.5-10.5); Carbon Dioxide 29 mmol/L (22-29); Chloride 98 mmol/L (98-107); Glucose 105 mg/dL (65-115); Magnesium 1.7 mg/dL (1.7-2.3); Phosphorus 3.8 mg/dL (2.5-4.5); Potassium 3.6 mmol/L (3.5-5.1); Sodium 137 mmol/L (136-145)
[2022-11-17] MEDS: potassium chloride ER 20 mEq Tablet 40 MEQ PO (23:57)
[2022-11-18] VITALS (7 sets, daily range): BP systolic 150–161; BP diastolic 57–78; PULSE 57–60; RESP 16–18; TEMP 36.6–37; O2SAT 95–98
[2022-11-18] MEDS: tamsulosin 0.4 mg Capsule PO (04:31)
[2022-11-18] MEDS: aspirin 81 mg EC Tablet PO (04:31)
[2022-11-18] MEDS: carvedilol 6.25 mg Tablet 12.5 MG PO ×2 (04:32→11:36)
[2022-11-18 05:07] LABS: Basophils % 0.2 %; Eosinophils # 0.1 10^3/uL (0.0-0.8); Eosinophils % 0.3 %; Hematocrit 28.3 % (42.0-52.0); Hemoglobin 9.1 g/dL (11.7-16.6); Lymphocytes # 2.1 10^3/uL (0.8-4.8); Lymphocytes % 12.4 %; Mean Corpuscular HGB Conc 32.2 g/dL (30.0-36.0); Mean Corpuscular Hemoglobin 28.3 pg (28.0-34.0); Mean Corpuscular Volume 88.2 fl (80-94); Mean Platelet Volume 9.5 fL (7.4-10.4); Monocytes # 1.2 10^3/uL (0.2-0.9); Monocytes % 7.1 %; Neutrophils % 79.5 %; Nucleated Red Blood Cells % 0 %; Platelet Count 355 10^3/cmm (130-400); Red Blood Count 3.21 10^6/uL (4.1-5.3); Red Cell Distribution Width 14.5 % (12.1-15.1); White Blood Count 16.6 10^3/uL (4.0-10.0)
[2022-11-18 05:32] LABS: Alanine Aminotransferase 27 U/L (0-41); Albumin Level 2.8 g/dL (3.5-5.2); Alkaline Phosphatase 127 U/L (40-130); Anion Gap 14.7 (5-19); Aspartate Amino Transferase 20 U/L (0-40); Blood Urea Nitrogen 27 mg/dL (8-23); Calcium 8.7 mg/dL (8.5-10.5); Carbon Dioxide 30 mmol/L (22-29); Chloride 100 mmol/L (98-107); Globulin 2.2 g/dL (1.3-4.6); Glucose 108 mg/dL (65-115); Osmolality Calculated 298 mOsm/kg (285-295); Potassium 3.7 mmol/L (3.5-5.1); Sodium 141 mmol/L (136-145); Total Bilirubin 0.4 mg/dL (0.15-1.2)
[2022-11-18] MEDS: pantoprazole DR 40 mg Tablet PO (09:46)
[2022-11-18] MEDS: losartan 50 mg Tablet PO (09:46)
[2022-11-18] MEDS: FUROsemide 10 mg/mL SDV 4mL 40 MG IVP (09:48)
[2022-11-18 10:15] LABS: Add Urine Microscopic? NO; Charge for UA Resulting for Rev
[2022-11-18 10:34] LABS: Bilirubin Urine Neg (Negative); Blood Urine Neg (Negative); Glucose Urine UA Norm (Normal); Ketones Urine Negative (Negative); Leukocyte Esterase Urine Negative (Negative); Nitrate Urine Negative (Negative); Protein Urine Neg (Negative); Urine Appearance Clear (CLEAR); Urine Color Colorless (Yellow); Urobilinogen Urine Norm (Negative); pH Urine 7 (5-7)
--- NOTE | 2022-11-18 10:45 | PM.DCS ---
Discharge Providers Date of Admission: 11/16/22 19:47 Date of Discharge: November 18, 2022 Attending Provider at Admission: Jai Velasco MD Attending Provider at Discharge: Scooby Montalvo MD Primary Care Provider: Deloris Conway MD Diagnoses at Discharge Discharge Diagnosis (1) Shortness of breath: Status: Acute (2) Congestive heart failure (CHF): Status: Acute Qualifiers: Heart failure chronicity: unspecified Heart failure type: unspecified Qualified Code(s): I50.9 - Heart failure, unspecified (3) Paroxysmal A-fib: Status: Acute (4) COPD (chronic obstructive pulmonary disease): Status: Acute Qualifiers: COPD type: chronic bronchitis Chronic bronchitis type: simple Qualified Code(s): J41.0 - Simple chronic bronchitis (5) CAD (coronary atherosclerotic disease): Status: Chronic Qualifiers: Associated angina: without angina Coronary Disease-Associated Artery/Lesion type: [place] artery [place] vs. transplanted heart: [place] heart Qualified Code(s): I25.10 - Atherosclerotic heart disease of [place] coronary artery without angina pectoris (6) BPH (benign prostatic hyperplasia): Status: Acute Qualifiers: Lower urinary tract symptom presence: symptoms absent Qualified Code(s): N40.0 - Benign prostatic hyperplasia without lower urinary tract symptoms Reason for Visit Reason for Visit: SOB Brief History: History as per HPI: Lowell Salazar is a 87 year old male with a past medical history significant for paroxysmal atrial fibrillation, COPD, coronary artery disease, hypertension, and urinary retention who presents emergency department with shortness of breath x2 to 3 days.? He endorses associated symptoms of lower extremity swelling.? Endorses orthopnea.? He reports that his SPO2 was dropping down into the 60s and 70s at home.? He does have chronic hypoxic respiratory failure which he wears 3 L at baseline.? Reports he turned up his oxygen to 4 to 5 L but was still feeling short of breath.? Reports exertion makes symptoms worse.? Patient notes that he does live alone.? Rest improves symptoms.? Denies fevers, chills, nausea or emesis.? Denies other alleviating or aggravating factors. As per patient he is not aware of fluid restriction and does not keep any restriction on fluid intake. He does not check his body weight at home. He drinks around a liter of Diet Coke along with water throughout the day. Takes 20 mg of Lasix alternating with 40 every other day. Of note, patient typically will self cath at home.? Sam catheter was placed emergency department. Hospital Course Hospital Course Patient was admitted to the hospital for further evaluation and management of shortness of breath which on admission was thought to be secondary to decompensated systolic congestive heart failure. He was started on IV diuresis to which he responded well and has been back to his baseline oxygen supplementation and breathing effort for last 24 hours. Patient had an uncomplicated hospitalization stay. Patient was counseled in detail about fluid restriction up to 1500 cc. He was also counseled about his dry weight. He was up counseled to check his weight daily at home and maintain a blood pressure and a weight diary. He is to take 40 mg of Lasix daily at home and at the body weight increases by 5 pounds he can take 40 mg Lasix additionally daily until his weight comes back we will dry weight. Physical Exam Narrative: General: No acute distress, AO x3, 4 L oxygen supplementation, laying comfortably flat in bed HEENT: PERRLA, pupils bilaterally equal and reactive Chest: Bilateral bronchial breath sounds all over lung mobley with occasional rhonchi in bilateral lower zone CVS: S1-S2 regular, no murmurs, no tachycardia, S3 gallops, no rubs Abdomen: Soft, nontender, no organomegaly, bowel sounds present Neuro: No focal deficits, no facial deformity, AO x3, power 5/5 in all limbs Sam in place. Urinary Catheter Management: Sam: Cath Placed During This Visit: yes Reason for Continuing Indwelling Catheter: Other Urinary Catheter Date of Insertion: 11/16/22 Urinary Catheter Time of Insertion: 19:45 Discharge Data Studies Completed and Pending Completed Studies During Hospitalization Category Date Time Status XR chest 1V portable [id number] Stat Exams 11/16/22 17:15 Completed Pending at discharge Category Date Time Status Sputum Culture and Gram Stain Routine Lab 11/18/22 09:42 Uncollected Radiology Impressions Chest X-Ray 11/16/22 17:15 IMPRESSION: 1. Increased pulmonary edema and atelectasis in the right lung base. 2. Stable left and increased right pleural effusions. 3. Stable edema versus pneumonia or scarring in the upper lobes. Laboratory Results WBC 16.6 10^3/uL (4.0-10.0) H 11/18/22 04:33 RBC 3.21 10^6/uL (4.1-5.3) L 11/18/22 04:33 Hgb 9.1 g/dL (11.7-16.6) L 11/18/22 04:33 Hct 28.3 % (42.0-52.0) L 11/18/22 04:33 MCV 88.2 fl (80-94) 11/18/22 04:33 MCH 28.3 pg (28.0-34.0) 11/18/22 04:33 MCHC 32.2 g/dL (30.0-36.0) 11/18/22 04:33 RDW 14.5 % (12.1-15.1) 11/18/22 04:33 Plt Count 355 10^3/cmm (130-400) 11/18/22 04:33 MPV 9.5 fL (7.4-10.4) 11/18/22 04:33 Neut % (Auto) 79.5 % 11/18/22 04:33 Lymph % (Auto) 12.4 % 11/18/22 04:33 Tyler % (Auto) 7.1 % 11/18/22 04:33 Eos % (Auto) 0.3 % 11/18/22 04:33 Baso % (Auto) 0.2 % 11/18/22 04:33 Neut # (Auto) 13.20 10^3/uL (1.8-7.7) H 11/18/22 04:33 Lymph # (Auto) 2.1 10^3/uL (0.8-4.8) 11/18/22 04:33 Tyler # (Auto) 1.2 10^3/uL (0.2-0.9) H 11/18/22 04:33 Eos # (Auto) 0.1 10^3/uL (0.0-0.8) 11/18/22 04:33 Baso # (Auto) 0.0 10^3/uL (0.0-0.1) 11/18/22 04:33 Nucleated RBC % (auto) 0 % 11/18/22 04:33 Nucleated RBCs # 0.0 /100WBC 11/18/22 04:33 D-Dimer 1.35 ug/mIFEU (0-0.59) H 11/17/22 12:55 Specimen Type Arterial 11/16/22 17:25 Sample Site Radial, left 11/16/22 17:25 ABG pH 7.48 (7.35-7.45) H 11/16/22 17:25 ABG pCO2 37.6 mmHg (35-45) 11/16/22 17:25 ABG pO2 62.5 mmHg (80.0-100.0) L 11/16/22 17:25 ABG HCO3 28.2 mmol/L (22-26) H 11/16/22 17:25 ABG Base Excess 4.5 mmol/L (-2.0-2.0) H 11/16/22 17:25 Natan Test Pos 11/16/22 17:25 Hematocrit 30.3 % (42-52) L 11/16/22 17:25 Hgb O2 Saturation 91.5 % (95-100) L 11/16/22 17:25 Carboxyhemoglobin 1.7 %THgb (0.4-20.1) 11/16/22 17:25 Methemoglobin 0.1 % (0.4-1.5) L 11/16/22 17:25 Total Hemoglobin 9.9 g/dL (14-18) L 11/16/22 17:25 O2 Delivery Device Nc 11/16/22 17:25 O2 Liters/Min 3.0 % 11/16/22 17:25 FiO2 32.0 % 11/16/22 17:25 Liquid Compounder ID Monro 11/16/22 17:25 Sodium 141 mmol/L (136-145) 11/18/22 04:33 Potassium 3.7 mmol/L (3.5-5.1) 11/18/22 04:33 Chloride 100 mmol/L (98-107) 11/18/22 04:33 Carbon Dioxide 30 mmol/L (22-29) H 11/18/22 04:33 Anion Gap 14.7 (5-19) 11/18/22 04:33 BUN 27 mg/dL (8-23) H 11/18/22 04:33 Creatinine 1.4 mg/dL (0.7-1.2) H 11/18/22 04:33 GFR Calculation Not Reportable 11/18/22 04:33 Glucose 108 mg/dL (65-115) 11/18/22 04:33 Calculated Osmolality 298 mOsm/kg (285-295) H 11/18/22 04:33 Calcium 8.7 mg/dL (8.5-10.5) 11/18/22 04:33 Phosphorus 3.8 mg/dL (2.5-4.5) 11/17/22 22:36 Magnesium 1.7 mg/dL (1.7-2.3) 11/17/22 22:36 Total Bilirubin 0.4 mg/dL (0.15-1.2) 11/18/22 04:33 AST 20 U/L (0-40) 11/18/22 04:33 ALT 27 U/L (0-41) 11/18/22 04:33 Alkaline Phosphatase 127 U/L (40-130) 11/18/22 04:33 Troponin T Baseline 41 ng/L (0-15) H 11/16/22 17:57 Troponin T 120 Minute 44.14 ng/L (0-15) H 11/16/22 20:02 Delta Troponin T 3.14 ABS# (0-10) 11/16/22 20:02 Troponin T Hi Sens 6Hr 47.30 ng/L (0-15) H 11/17/22 00:41 Troponin T Hi Sens 6Hr Delta 6.30 ng/L (0-12) 11/17/22 00:41 C-Reactive Protein 54.6 mg/L (0.0-4.9) H 11/16/22 20:02 NT-Pro-B Natriuret Pep 95396 pg/mL (0-450) H 11/16/22 17:57 Total Protein 5.0 g/dL (6.6-8.7) L 11/18/22 04:33 Albumin 2.8 g/dL (3.5-5.2) L 11/18/22 04:33 Globulin 2.2 g/dL (1.3-4.6) 11/18/22 04:33 Procalcitonin 0.10 ng/mL (0-0.5) 11/16/22 20:02 Urine Color Colorless (Yellow) 11/18/22 10:08 Urine Appearance Clear (CLEAR) 11/18/22 10:08 Urine pH 7 (5-7) 11/18/22 10:08 Ur Specific [place] 1.000 (1.005-1.030) L 11/18/22 10:08 Urine Protein Neg (Negative) 11/18/22 10:08 Urine Glucose (UA) Norm (Normal) 11/18/22 10:08 Urine Ketones Negative (Negative) 11/18/22 10:08 Urine Blood Neg (Negative) 11/18/22 10:08 Urine Nitrate Negative (Negative) 11/18/22 10:08 Urine Bilirubin Neg (Negative) 11/18/22 10:08 Urine Urobilinogen Norm mg/dL (Negative) 11/18/22 10:08 Ur Leukocyte Esterase Negative (Negative) 11/18/22 10:08 Vitals Last Vital Signs Temp 97.9 F 11/18/22 08:00 Pulse 57 L 11/18/22 08:42 Resp 17 11/18/22 08:42 BP 160/64 11/18/22 09:46 Pulse Ox 98 11/18/22 08:42 O2 Del Method Nasal Cannula 11/18/22 08:42 O2 Flow Rate 4 11/18/22 08:42 Discharge Plan Discharge Patient Disposition: Home Condition: Stable Prescriptions: New Lasix 40 mg tablet 40 mg PO DAILY Qty: 30 0RF Continued PreserVision AREDS [id number] capsule 1 cap PO BID@0530,1730 aspirin 81 mg tablet,delayed release (DR/EC) 81 mg PO DAILY@0530 Hold Instructions: Resume on 11/21/21. latanoprost 0.005 % drops 1 drop ophthalmic (eye) BEDTIME Rx Instructions: both eyes Spiriva Respimat 2.5 mcg/actuation mist 2 inh INHALATION QAM Qty: 4 5RF ipratropium-albuterol 0.5 mg-3 mg(2.5 mg base)/3 mL solution for nebulization 3 ml inhalation Q6H PRN (Reason: wheezing) Qty: 90 0RF [place] [facility] [place] .Route Qty: 1 0RF Rx Instructions: Nebulizer machine with tubing and supplies Combivent Respimat 20-100 mcg/actuation mist 1 puff inhalation QID Qty: 4 5RF Rx Instructions: space evenly during waking hours miscellaneous medical supply Misc See Rx Instructions miscellaneous .COMPLEX Qty: 1 0RF Rx Instructions: rolling walker with seat as directed; miscellaneous medical supply [facility] See Rx Instructions miscellaneous .COMPLEX Qty: 1 0RF Rx Instructions: Inogen portable oxygen 3L at all times with activity and rest as directed; miscellaneous medical supply [facility] See Rx Instructions miscellaneous .COMPLEX Qty: 1 0RF Rx Instructions: extra long oxygen hose as directed; for use in [facility] hydralazine 25 mg tablet 25 mg PO BID PRN (Reason: BP >150/90) Qty: 180 2RF albuterol sulfate [Ventolin HFA] 90 mcg/actuation HFA aerosol inhaler 1 inh inhalation Q6H PRN (Reason: shortness of breath or wheezing) Qty: 6.7 0RF multivitamin Tablet 1 tab PO DAILY@0530 fluticasone propion-salmeterol 250-50 mcg/dose Blister With Device 1 inh INHALATION BID tamsulosin 0.4 mg capsule 0.4 mg PO BID@0530,1730 carvedilol 6.25 mg tablet 12.5 mg PO BID@0530,1200 amlodipine 10 mg tablet 5 mg PO BID@06,12 dorzolamide 2 % drops 1 drp ophthalmic (eye) BID atorvastatin 80 mg tablet 80 mg PO DAILY@1730 potassium chloride 10 mEq tablet,ER particles/crystals See Rx Instructions .ROUTE .COMPLEX Rx Instructions: 30meq po qam and 20meq po at bedtime ascorbic acid (vitamin C) [Vitamin C] 1,000 mg Tablet 1,000 mg PO BID@0530,1730 methenamine hippurate [Hiprex] 1 gram Tablet 1 g PO BID Rx Instructions: take with 1000mg of vit c twice a day Discontinued furosemide 20 mg tablet See Rx Instructions .ROUTE .COMPLEX MDD 2 tabs Qty: 90 2RF Rx Instructions: 40mg po qam MWF, 20mg po daily tues,thurs,sat,sun Discharge Orders: Discharge Order (Routine); Ordered 11/18/22 Ordered By: Scooby Montalvo Referrals: Deloris Conway MD [Primary Care Provider] - 11/19/22 11:00 am Discharge Diet: Cardiac Discharge Activity: Resume usual activity and Increase activity as tolerated Patient Instructions: Furosemide (By mouth), Heart Failure (DC), COPD (Chronic Obstructive Pulmonary Disease) (DC), Opioid Safety Activity Restrictions/Additional Instructions: Dose of Lasix has been increased to 40 mg daily. Please maintain fluid restriction of less than 1500 cc/day. Please check your body weight blood pressure daily at home and maintain a diary. If your body weight increases by 5 pounds of water?today you should take an extra pill of 40 mg daily till the body weight comes down to dry weight. Please continue with a low-salt diet. Discharge Attestations Time Spent in Discharge Care*: greater than 30 min Specific Discharge Activities: educating patient, discussing with pcp/other providers, discussing with family caseworker/social workers/dc planners, documenting/other paperwork and evaluating patient/reviewing data Status at Discharge: Cognitive status at discharge: cognitively intact, Behavioral status at discharge: cooperative, Functional status at discharge: uses cane/walker, Overall status at discharge: patient is back to baseline Quality Metrics Clinical Quality Measures [ No reported AMI, CVA or VTE this stay] Coding Level of Care Code 23563 Total time (in minutes) for Discharge: 60 Diagnoses Shortness of breath R06.02 Congestive heart failure (CHF) I50.9 Heart failure chronicity: unspecified Heart failure type: unspecified Paroxysmal A-fib I48.0 COPD (chronic obstructive pulmonary disease) J41.0 COPD type: chronic bronchitis Chronic bronchitis type: simple CAD (coronary atherosclerotic disease) I25.10 Associated angina: without angina Coronary Disease-Associated Artery/Lesion type: [place] artery [place] vs. transplanted heart: [place] heart BPH (benign prostatic hyperplasia) N40.0 Lower urinary tract symptom presence: symptoms absent
== END 2022-11-18 13:40 | disposition home or self-care (01) ==
LOC: ER 19:34 → MEDSURG 20:06
PROVIDERS: Nurse Practitioner Family; Admitting Provider Internal Medicine; Emergency Provider Emergency Medicine; PCP Family Medicine; Visit Provider Student in an Organized Health Care Education/Training Program
DX: I13.0 Hypertensive heart and chronic kidney disease with heart failure and stage 1 through stage 4 chronic kidney disease, or unspecified chronic kidney disease (principal); N18.9 Chronic kidney disease, unspecified; I50.9 Heart failure, unspecified; J44.9 Chronic obstructive pulmonary disease, unspecified; J81.1 Chronic pulmonary edema; I25.10 Atherosclerotic heart disease of native coronary artery without angina pectoris; N40.0 Benign prostatic hyperplasia without lower urinary tract symptoms; I44.0 Atrioventricular block, first degree; Z79.82 Long term (current) use of aspirin; Z79.899 Other long term (current) drug therapy; Z87.891 Personal history of nicotine dependence; Z99.81 Dependence on supplemental oxygen
CPT/HCPCS: 36415; 36600; 51702; 71045; 80048; 80053; 80069; 81003; 82805; 83735; 83880; 84100; 84145; 84484; 85025; 85378; 86140; 93005; 94640; 96372; 96374; 96375; 96376; 99285; G0378; J0360; J1650; J1940; J2930

== ENCOUNTER 2022-11-20 14:34 | Emergency (ER) | payer OTHER, SELFPAY ==
[2022-11-20 14:47] VITALS: BMI 20.6
--- NOTE | 2022-11-20 14:48 | ED_ITS ---
HPI - Epistaxis General: Chief complaint: Epistaxis Stated complaint: nose bleed Time Seen by Provider: 11/20/22 14:48 History of Present Illness: Mr. Salazar is a 87-year-old gentleman presenting the emergency department for evaluation of nosebleed. He notes atraumatic onset of symptoms this morning that has been variable. He mostly describes right anterior nosebleed though does occasionally have the sensation of things running down the back of his throat. He chronically wears oxygen through a concentrator however does not have humidifier. He also notes recent increase from 2.5 to 3 L/min. No other specific changes in health, exacerbating, or alleviating factors identified. Onset (ago): hour(s) Review of Systems General: Reports: 10 or more systems reviewed and unremarkable except in HPI and below PFSH ED PFSH: Medical History BPH (benign prostatic hyperplasia) CAD (coronary atherosclerotic disease) Carotid artery disease CKD (chronic kidney disease) Congestive heart failure (CHF) COPD (chronic obstructive pulmonary disease) Elevated troponin Enrolled in chronic care management Essential hypertension History of nonmelanoma skin cancer Hypokalemia Intermittent self-catheterization of bladder Left renal mass Lung granuloma Physical deconditioning Prediabetes Protein calorie malnutrition Seborrheic keratoses Urinary retention UTI due to extended-spectrum beta lactamase (ESBL) producing Escherichia coli Surgical History H/O carotid angioplasty H/O heart surgery History of cholecystectomy History of quadruple bypass Hx of knee surgery S/P TURP (transurethral resection of prostate) Family History Mother , at age 65 Cancer Brother Tuberculosis Brother Tuberculosis Other CAD (coronary artery disease) Social History Smoking and tobacco status: former smoker Quit status (tobacco): has quit using tobacco Former quit date comment: 40 yr 1-3ppd Second hand smoke exposure: No Alcohol intake: never Desire information about alcohol rehabilitation?: No Substance/Drug Use: never Desire information about substance/drug rehabilitation?: No Caregiver/support person: Yes Lives independently: No Housing: House Marital status: / Current occupational status: retired Do you think of yourself as: Straight/Heterosexual Current gender identity: Male Physical Exam Const: COMMON NORMALS: alert GENERAL APPEARANCE: cooperative and well developed HENMT: COMMON NORMALS: normocephalic and atraumatic HEAD & SCALP: normocephalic and atraumatic THROAT: posterior oropharynx normal OTHER: Right nare anterior plexus bleeding noted. Eye: COMMON NORMALS: conjunctivae normal CONJUNCTIVA: Yes conjunctivae normal SCLERA: sclerae normal Neck/C-Spine: COMMON NORMALS: supple GENERAL: Yes trachea midline Resp: COMMON NORMALS: clear to auscultation bilaterally EFFORT & INSPECTION : Yes able to speak in complete sentences AUSCULTATION: clear to auscultation bilaterally Cardio: COMMON NORMALS: regular rate and regular rhythm RATE: regular rate RHYTHM: regular rhythm GI: COMMON NORMALS: Soft to palpation PALPATION: Yes Soft to palpation and No Tenderness to palpation present (GI) Extremity: GENERAL: Yes normal exam except as noted and No edema Neuro: COMMON NORMALS: moves all extremities SENSORIUM/ORIENTATION: Yes alert and No Orientation impaired Psych: COMMON NORMALS: mental status grossly normal and Normal thought process present THOUGHT PROCESS: Normal thought process present Course Vital Signs: Vital signs: Vital Signs Temperature 97.5 F L 11/20/22 14:49 Pulse Rate 80 11/20/22 14:49 Respiratory Rate 16 11/20/22 14:49 Blood Pressure 150/64 11/20/22 14:49 Pulse Oximetry 94 11/20/22 14:49 Oxygen Delivery Me thod Nasal Cannula 11/20/22 14:49 Oxygen Flow Rate 3 11/20/22 14:49 MDM - Epistaxis Medical Decision Making 87-year-old gentleman presenting with nosebleed. Exam as above. Recent labs reviewed. Given exam and history no occasion for repeat. Initially attempted Afrin and nasal clamp however patient subsequently had recurrence. Area bleeding was identified and cauterized with silver nitrate with satisfactory hemostasis. Plan for ENT follow-up. Patient will likely need he medication with his baseline oxygen. I will message case management as [facility] The results of ED evaluation were discussed with the patient including prescriptions and/or symptomatic cares (if applicable) including appropriate and responsible use, followup plan, and return precautions. The patient verbalized understanding and felt safe for discharge. Medical Records I reviewed the patient's medical records. Lab Data I reviewed the patient's lab results. Discharge Plan Discharge Patient Disposition: Home Clinical Impression: Epistaxis Condition: Stable Prescriptions: No Action PreserVision AREDS [id number] capsule 1 cap PO BID@0530,1730 aspirin 81 mg tablet,delayed release (DR/EC) 81 mg PO DAILY@0530 Hold Instructions: Resume on 11/21/21. latanoprost 0.005 % drops 1 drop ophthalmic (eye) BEDTIME Rx Instructions: both eyes Spiriva Respimat 2.5 mcg/actuation mist 2 inh INHALATION QAM Qty: 4 5RF ipratropium-albuterol 0.5 mg-3 mg(2.5 mg base)/3 mL solution for nebulization 3 ml inhalation Q6H PRN (Reason: wheezing) Qty: 90 0RF (DME) nebulizers Misc See Rx Instructions .Route Qty: 1 0RF Rx Instructions: Nebulizer machine with tubing and supplies Combivent Respimat 20-100 mcg/actuation mist 1 puff inhalation QID Qty: 4 5RF Rx Instructions: space evenly during waking hours miscellaneous medical supply Misc See Rx Instructions miscellaneous .COMPLEX Qty: 1 0RF Rx Instructions: rolling walker with seat as directed; miscellaneous medical supply Misc See Rx Instructions miscellaneous .COMPLEX Qty: 1 0RF Rx Instructions: Inogen portable oxygen 3L at all times with activity and rest as directed; miscellaneous medical supply Misc See Rx Instructions miscellaneous .COMPLEX Qty: 1 0RF Rx Instructions: extra long oxygen hose as directed; for use in town hydralazine 25 mg tablet 25 mg PO BID PRN (Reason: BP >150/90) Qty: 180 2RF Hold Instructions: Home Medication placed on hold at Doctor's office albuterol sulfate [Ventolin HFA] 90 mcg/actuation HFA aerosol inhaler 1 inh inhalation Q6H PRN (Reason: shortness of breath or wheezing) Qty: 6.7 0RF multivitamin Tablet 1 tab PO DAILY@0530 fluticasone propion-salmeterol 250-50 mcg/dose Blister With Device 1 inh INHALATION BID tamsulosin 0.4 mg capsule 0.4 mg PO BID@0530,1730 carvedilol 6.25 mg tablet 12.5 mg PO BID@0530,1200 Hold Instructions: Home Medication placed on hold at Doctor's office amlodipine 10 mg tablet 5 mg PO BID@06,12 dorzolamide 2 % drops 1 drp ophthalmic (eye) BID Lasix 40 mg tablet 40 mg PO DAILY Qty: 30 0RF atorvastatin 80 mg tablet 80 mg PO DAILY@1730 potassium chloride 10 mEq tablet,ER particles/crystals See Rx Instructions .ROUTE .COMPLEX Rx Instructions: 30meq po qam and 20meq po at bedtime ascorbic acid (vitamin C) [Vitamin C] 1,000 mg Tablet 1,000 mg PO BID@0530,1730 methenamine hippurate [Hiprex] 1 gram Tablet 1 g PO BID Rx Instructions: take with 1000mg of vit c twice a day Discharge Orders: Discharge ED (Routine); Ordered 11/20/22 Ordered By: Juan Ramon Dumont Referrals: Deloris Conway MD [Primary Care Provider] - Discharge Diet: Usual diet Discharge Activity: Increase activity as tolerated Patient Instructions: Epistaxis - Adult Activity Restrictions/Additional Instructions: Thank you for visiting the emergency department. You were seen and evaluated for nosebleed. We are pleased that you had improvement with cautery. As discussed we will discharge you with Afrin and nasal clamp. Use Afrin and apply nasal clamp for 30 minutes and reassess for bleeding control. If bleeding persists return to the emergency department. Follow-up with primary care and ENT. Return for anything that you are concerned about and feel needs emergency department evaluation. I will message case management for further oxygen. Coding Level of Care Code ED Maintenance Service Dispatcher for Sobeida Zambrano
[2022-11-20 14:49] VITALS: BP 150/64; PULSE 80; RESP 16; TEMP 36.4; O2SAT 94
[2022-11-20] MEDS: oxymetazoline 0.05% Nasal Spray 15 mL 2 SPRAY NOSTRIL-B (15:20)
[2022-11-20] MEDS: silver nitrate applicator 1 EACH TOPICAL (16:20)
--- NOTE | 2022-11-27 08:29 | DCPLANNER ---
production control manager had message to get a humidifier for patient for his home O2. Patient has [facility] insurance, child welfare caseworker sent patients information to Emily with the [facility], who will send patients information to his PACT team.
== END 2022-11-20 17:20 | disposition home or self-care (01) ==
PROVIDERS: Emergency Provider Emergency Medicine; PCP Family Medicine
DX: R04.0 Epistaxis (principal); Z79.82 Long term (current) use of aspirin; Z87.891 Personal history of nicotine dependence; I25.10 Atherosclerotic heart disease of native coronary artery without angina pectoris; I13.0 Hypertensive heart and chronic kidney disease with heart failure and stage 1 through stage 4 chronic kidney disease, or unspecified chronic kidney disease; N18.9 Chronic kidney disease, unspecified; I50.9 Heart failure, unspecified; J44.9 Chronic obstructive pulmonary disease, unspecified
CPT/HCPCS: 30901; 99283

== ENCOUNTER 2022-11-21 16:19 | Emergency (ER) | payer OTHER, SELFPAY ==
--- NOTE | 2022-11-21 16:20 | W.ED.EPISTAX ---
HPI - Epistaxis General: Chief complaint: Epistaxis Stated complaint: nose bleed rt sided Time Seen by Provider: 11/21/22 16:20 History of Present Illness: 87-year-old gentleman on aspirin returning to the emergency department today for recurrent nosebleed. He was seen yesterday and had hemostasis achieved the right anterior nosebleed with cautery. He reports onset of symptoms again with no known specific provoking event approximately 3 hours ago. Initially was moderate however is mildly improved. Denies other associated symptoms. No other specific changes in health, exacerbating, or alleviating factors identified. Review of Systems General: Reports: 10 or more systems reviewed and unremarkable except in HPI and below PFSH ED PFSH: Medical History BPH (benign prostatic hyperplasia) CAD (coronary atherosclerotic disease) Carotid artery disease CKD (chronic kidney disease) Congestive heart failure (CHF) COPD (chronic obstructive pulmonary disease) Elevated troponin Enrolled in chronic care management Essential hypertension History of nonmelanoma skin cancer Hypokalemia Intermittent self-catheterization of bladder Left renal mass Lung granuloma Physical deconditioning Prediabetes Protein calorie malnutrition Seborrheic keratoses Urinary retention UTI due to extended-spectrum beta lactamase (ESBL) producing Escherichia coli Surgical History H/O carotid angioplasty H/O heart surgery History of cholecystectomy History of quadruple bypass Hx of knee surgery S/P TURP (transurethral resection of prostate) Family History Mother , at age 65 Cancer Brother Tuberculosis Brother Tuberculosis Other CAD (coronary artery disease) Social History Smoking and tobacco status: former smoker Quit status (tobacco): has quit using tobacco Former quit date comment: 40 yr 1-3ppd Second hand smoke exposure: No Alcohol intake: never Desire information about alcohol rehabilitation?: No Substance/Drug Use: never Desire information about substance/drug rehabilitation?: No Caregiver/support person: Yes Lives independently: No Housing: House Marital status: / Current occupational status: retired Do you think of yourself as: Straight/Heterosexual Current gender identity: Male Physical Exam Const: COMMON NORMALS: alert GENERAL APPEARANCE: cooperative and well developed HENMT: COMMON NORMALS: normocephalic and atraumatic HEAD & SCALP: normocephalic and atraumatic THROAT: posterior oropharynx normal OTHER: Right nares epistaxis. Appears anterior. Eye: COMMON NORMALS: conjunctivae normal CONJUNCTIVA: Yes conjunctivae normal SCLERA: sclerae normal Neck/C-Spine: COMMON NORMALS: supple GENERAL: Yes trachea midline Resp: COMMON NORMALS: normal respiratory effort EFFORT & INSPECTION: Yes able to speak in complete sentences Cardio: COMMON NORMALS: regular rate and regular rhythm RATE: regular rate RHYTHM: regular rhythm GI: COMMON NORMALS: Soft to palpation PALPATION: Yes Soft to palpation and No Tenderness to palpation present (GI) Extremity: GENERAL: Yes normal exam except as noted Neuro: COMMON NORMALS: moves all extremities SENSORIUM/ORIENTATION: Yes alert and No Orientation impaired Psych: COMMON NORMALS: mental status grossly normal and Normal thought process present THOUGHT PROCESS: Normal thought process present Course Vital Signs: Vital signs: Vital Signs Temperature 97.9 F 11/21/22 16:24 Pulse Rate 84 11/21/22 18:37 Respiratory Rate 22 H 11/21/22 18:37 Blood Pressure 171/92 11/21/22 18:37 Pulse Oximetry 95 11/21/22 18:37 Oxygen Delivery Me thod Room Air 11/21/22 18:26 MDM - Epistaxis Medical Decision Making 87-year-old gentleman presenting with recurrent nosebleed. Attempted conservative measures and patient had cautery yesterday. Therefore no hemostasis required Rhino Rocket placement. Antibiotic given. Breathing treatment for shortness of breath and hydralazine given for hypertension. On reassessment hemostasis is achieved and sustained. Patient is somewhat frustrated however he does not qualify for inpatient admission or observation at this time as discussed with hospitalist. The results of ED evaluation were discussed with the patient including prescriptions and/or symptomatic cares (if applicable) including appropriate and responsible use, followup plan, and return precautions. Plan for ENT follow-up. Medical Records I reviewed the patient's medical records. Lab Data I reviewed the patient's lab results. 11/21/22 16:49 Radiology Impressions Chest X-Ray 11/21/22 17:45 IMPRESSION: 1. Possible increased size of 10 mm pulmonary nodule right mid lung field. Correlation with nonemergent CT chest may be helpful. 2. Stable moderate left basilar atelectasis and/or infiltrate and/or effusion. 3. Stable CABG procedure. 4. Stable COPD . Laboratory Results Hgb 10.2 g/dL (11.7-16.6) L 11/21/22 16:49 Hct 31.8 % (42.0-52.0) L 11/21/22 16:49 Discharge Plan Discharge Patient Disposition: Home Clinical Impression: Acute anterior epistaxis Condition: Stable Prescriptions: No Action PreserVision AREDS [id number] frbr-mt-eaxs capsule 1 cap PO BID@0530,1730 aspirin 81 mg tablet,delayed release (DR/EC) 81 mg PO DAILY@0530 Hold Instructions: Resume on 11/21/21. latanoprost 0.005 % drops 1 drop ophthalmic (eye) BEDTIME Rx Instructions: both eyes Spiriva Respimat 2.5 mcg/actuation mist 2 inh INHALATION QAM Qty: 4 5RF ipratropium-albuterol 0.5 mg-3 mg(2.5 mg base)/3 mL solution for nebulization 3 ml inhalation Q6H PRN (Reason: wheezing) Qty: 90 0RF (DME) nebulizers Misc See Rx Instructions .Route Qty: 1 0RF Rx Instructions: Nebulizer machine with tubing and supplies Combivent Respimat 20-100 mcg/actuation mist 1 puff inhalation QID Qty: 4 5RF Rx Instructions: space evenly during waking hours miscellaneous medical supply Misc See Rx Instructions miscellaneous .COMPLEX Qty: 1 0RF Rx Instructions: rolling walker with seat as directed; miscellaneous medical supply Misc See Rx Instructions miscellaneous .COMPLEX Qty: 1 0RF Rx Instructions: Inogen portable oxygen 3L at all times with activity and rest as directed; miscellaneous medical supply Misc See Rx Instructions miscellaneous .COMPLEX Qty: 1 0RF Rx Instructions: extra long oxygen hose as directed; for use in [facility] hydralazine 25 mg tablet 25 mg PO BID PRN (Reason: BP >150/90) Qty: 180 2RF Hold Instructions: Home Medication placed on hold at Doctor's office albuterol sulfate [Ventolin HFA] 90 mcg/actuation HFA aerosol inhaler 1 inh inhalation Q6H PRN (Reason: shortness of breath or wheezing) Qty: 6.7 0RF multivitamin Tablet 1 tab PO DAILY@0530 fluticasone propion-salmeterol 250-50 mcg/dose Blister With Device 1 inh INHALATION BID tamsulosin 0.4 mg capsule 0.4 mg PO BID@0530,1730 carvedilol 6.25 mg tablet 12.5 mg PO BID@0530,1200 Hold Instructions: Home Medication placed on hold at Doctor's office amlodipine 10 mg tablet 5 mg PO BID@06,12 dorzolamide 2 % drops 1 drp ophthalmic (eye) BID Lasix 40 mg tablet 40 mg PO DAILY Qty: 30 0RF atorvastatin 80 mg tablet 80 mg PO DAILY@1730 potassium chloride 10 mEq tablet,ER particles/crystals See Rx Instructions .ROUTE .COMPLEX Rx Instructions: 30meq po qam and 20meq po at bedtime ascorbic acid (vitamin C) [Vitamin C] 1,000 mg Tablet 1,000 mg PO BID@0530,1730 methenamine hippurate [Hiprex] 1 gram Tablet 1 g PO BID Rx Instructions: take with 1000mg of vit c twice a day Discharge Orders: Discharge ED (Routine); Ordered 11/21/22 Ordered By: Juan Ramon Dumont Referrals: Deloris Conway MD [Primary Care Provider] - Discharge Diet: Usual diet Discharge Activity: Limit activity as instructed Patient Instructions: Nosebleed (ED) Activity Restrictions/Additional Instructions: Thank you for visiting the emergency department. You were seen and followed for recurrent nosebleed. The likely cause of this is multifactorial. Nasal packing was placed and I will message case management for follow-up with ENT. I will prescribe empiric antibiotics. Please continue your other medications. If you do not hear from case management by noon please call for follow-up and let them know that you were seen in the emergency department and a Rhino Rocket was placed. [facility] [address] [place] [address] Return for uncontrolled symptoms or anything else that you are concerned about and feel needs emergency department evaluation. Coding Level of Care Code ED Rigging Up Man for Sobeida Zambrano
[2022-11-21 16:24] VITALS: BP 190/84; PULSE 84; RESP 20; TEMP 36.6; O2SAT 97; BMI 19.3
[2022-11-21 17:09] LABS: Hematocrit 31.8 % (42.0-52.0); Hemoglobin 10.2 g/dL (11.7-16.6)
--- NOTE | 2022-11-21 17:45 | XRR_ITS ---
PROCEDURE INFORMATION: Exam: XR Chest Exam date and time: 11/21/2022 5:52 PM Age: 87 years old Clinical indication: Shortness of breath; Prior surgery; Surgery date: 6+ months; Surgery type: Quadruple bypass; Additional info: SOB TECHNIQUE: Imaging protocol: Radiologic exam of the chest. Views: 1 view. COMPARISON: CR (CHEST, ) 11/16/2022 5:29 PM FINDINGS: Lungs: Possible increased size of 10 mm pulmonary nodule right mid lung field. Correlation with nonemergent CT chest may be helpful. Stable moderate left basilar atelectasis and/or infiltrate and/or effusion. Stable COPD . Pleural spaces: Unremarkable. No pleural effusion. No pneumothorax. Heart/Mediastinum: Stable CABG procedure. Vasculature: Calcification of the thoracic aorta and/or great vessels consistent with atherosclerotic vessel disease. Bones/joints: Unremarkable. XR/XR chest 1V portable [id number] IMPRESSION: 1. Possible increased size of 10 mm pulmonary nodule right mid lung field. Correlation with nonemergent CT chest may be helpful. 2. Stable moderate left basilar atelectasis and/or infiltrate and/or effusion. 3. Stable CABG procedure. 4. Stable COPD .
[2022-11-21 17:50] VITALS: PULSE 84; RESP 22; O2SAT 95
[2022-11-21] MEDS: ipratropium-albuterol 3 mL Neb INHALATION (17:53)
[2022-11-21 17:58] VITALS: PULSE 80
[2022-11-21] MEDS: amoxicillin-clav 875-125 mg Tablet 1 TAB PO (18:04)
[2022-11-21 18:26] VITALS: BP 206/81; PULSE 86; RESP 22; O2SAT 97
[2022-11-21] MEDS: hyDRALAzine 25 mg Tablet PO (18:36)
[2022-11-21 18:37] VITALS: BP 171/92; PULSE 84; RESP 22; O2SAT 95
--- NOTE | 2022-11-21 19:14 | PC.NURSE ---
Assumed care of patient at 1900.
--- NOTE | 2022-11-22 07:42 | DCPLANNER ---
Addendum entered by Lana Odell 11/26/22 15:07: Patient did attend appointment with ENT. Original Note: medication care manager had message to schedule a follow up appointment for patient with ENT. medication care manager sent patients information to the front office staff at ENT. Patients information will be printed and reviewed. Clinic will call patient with appointment information.
== END 2022-11-21 20:29 | disposition home or self-care (01) ==
PROVIDERS: Emergency Provider Emergency Medicine; PCP Family Medicine
DX: R04.0 Epistaxis (principal)
CPT/HCPCS: 36415; 71045; 85014; 85018; 94640; 99284

== ENCOUNTER → 2022-11-26 09:08 | Outpatient (BNVA) | payer MEDICARE, SELFPAY | PROVIDERS: PCP Family Medicine; Visit Provider Otolaryngology | DX: R04.0 Epistaxis (principal) | CPT/HCPCS: 99203 ==

== ENCOUNTER 2022-12-02 11:51 | Observation (INO) | payer OTHER, SELFPAY ==
[2022-12-02] VITALS (13 sets, daily range): BP systolic 164–191; BP diastolic 81–105; PULSE 50–104; RESP 16–38; TEMP 36.3–36.7; O2SAT 90–97; BMI 20.2
--- NOTE | 2022-12-02 12:25 | ECG_ITS ---
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 Measurements Intervals [place] Rate: 96 P: 0 NH: 0 QRS: 91 QRSD: 113 T: 91 QT: 375 QTc: 475 Interpretive Statements SINUS RHYTHM WITH FREQUENT PAC'S AND VENTRICULAR PREMATURE COMPLEXES BORDERLINE RIGHT AXIS DEVIATION [QRS AXIS > 90] INFERIOR MYOCARDIAL INFARCTION , PROBABLY OLD [40+ ms Q WAVE AND/OR ST/T ABNORMALITY IN II/aVF] ANTEROLATERAL MYOCARDIAL INFARCTION , OF INDETERMINATE AGE [40+ ms Q WAVE IN I/aVL/V3-V6] Compared to ECG 11/16/2022 17:30:16 Ventricular premature complex(es) now present Myocardial infarct finding still present Electronically Signed On 12-03-2022 6:44:45 CDT by Kaylee Luna M.D. [id number]
--- NOTE | 2022-12-02 12:56 | XRR_ITS ---
PROCEDURE INFORMATION: Exam: XR Chest Exam date and time: 12/02/2022 1:15 PM Age: 87 years old Clinical indication: Shortness of breath; Additional info: SOB TECHNIQUE: Imaging protocol: Radiologic exam of the chest. Views: 1 view. COMPARISON: CR (CHEST, ) 11/21/2022 5:52 PM FINDINGS: Lungs: There is patchy opacification in the bilateral lung bases which has mildly increased in the interval. There is lung emphysema. Pleural spaces: There are small pleural effusions, left greater than right. No pneumothorax. Heart/Mediastinum: Unremarkable. No cardiomegaly. Bones/joints: There has been sternotomy. XR/XR chest 1V portable [id number] IMPRESSION: When compared with 11/21/2022, there has been mild interval increase in bilateral lung base opacification. Otherwise, no significant change.
--- NOTE | 2022-12-02 13:05 | W.ED.SOB ---
HPI - SOB/Dyspnea General: Chief Complaint: Shortness of Breath/Dyspnea Stated Complaint: sob Time Seen by Provider: 12/02/22 13:04 Source: patient Mode of arrival: ambulatory History of Present Illness: HPI Narrative: 87-year-old male presents to the emergency room with complaints of cough shortness of breath worsening orthopnea and increasing swelling of the legs. Denies chest pain. Patient has known history of congestive heart failure has been progressively worsening over the last 3 days. MD elicited complaint: shortness of breath Pertinent past history: congestive heart failure Onset (ago): day(s) (3) Timing: constant Severity: moderate Exacerbating factors: lying flat and exertion Relieving factors: oxygen, rest and upright position Known history of: congestive heart failure Associated symptoms: Reports chest congestion, cough and orthopnea; Deny abdominal pain, chest pain, diaphoresis, dizziness, extremity pain, fever(s), hemoptysis, lightheadedness, myalgias, nausea, palpitations, paresthesias, polydipsia, polyuria, rash, sense of impending doom, syncope or vomiting Treatment prior to arrival: oxygen Review of Systems Const: Reports: fatigue; Denies: fever(s), chills or diaphoresis Card: Reports: edema, swelling of feet/ankles and orthopnea; Denies: chest pain, palpitations, lightheadedness or syncope Resp: Reports: dyspnea and chest congestion; Denies: productive cough, non-productive cough, wheezing or hemoptysis GI: Denies: abdominal pain, nausea or vomiting : Denies: flank pain, dysuria, urinary frequency or urinary urgency Musc: Denies: extremity pain Skin/Breast: Denies: rash or pruritus Neuro: Denies: dizziness Endo: Denies: polyuria or polydipsia PFS ED PFSH: Medical History BPH (benign prostatic hyperplasia) CAD (coronary atherosclerotic disease) Carotid artery disease CKD (chronic kidney disease) Congestive heart failure (CHF) COPD (chronic obstructive pulmonary disease) Elevated troponin Enrolled in chronic care management Essential hypertension History of nonmelanoma skin cancer Hypokalemia Intermittent self-catheterization of bladder Left renal mass Lung granuloma Physical deconditioning Prediabetes Protein calorie malnutrition Seborrheic keratoses Urinary retention UTI due to extended-spectrum beta lactamase (ESBL) producing Escherichia coli Surgical History H/O carotid angioplasty H/O heart surgery History of cholecystectomy History of quadruple bypass Hx of knee surgery S/P TURP (transurethral resection of prostate) Family History Mother , at age 65 Cancer Brother Tuberculosis Brother Tuberculosis Other CAD (coronary artery disease) Social History Smoking and tobacco status: former smoker Quit status (tobacco): has quit using tobacco Former quit date comment: 40 yr 1-3ppd Second hand smoke exposure: No Alcohol intake: never Desire information about alcohol rehabilitation?: No Substance/Drug Use: never Desire information about substance/drug rehabilitation?: No Caregiver/support person: Yes Lives independently: No Housing: House Marital status: / Current occupational status: retired Do you think of yourself as: Straight/Heterosexual Current gender identity: Male Physical Exam Const: GENERAL APPEARANCE: cooperative and comfortable ORIENTATION/CONSCIOUSNESS: Yes awake, Yes oriented to person, Yes oriented to place and Yes oriented to time HENMT: COMMON NORMALS: normocephalic, atraumatic and hearing grossly normal bilaterally HEAD & SCALP: normocephalic and atraumatic Resp: COMMON NORMALS: normal respiratory effort, No retractions and No use of accessory muscles AUSCULTATION: crackles Cardio: RHYTHM: abnormal rhythm irregularly irregular GI: COMMON NORMALS: Soft to palpation and No hepatosplenomegaly present AUSCULTATION: Yes normoactive bowel sounds PALPATION: Yes Soft to palpation, No Tenderness to palpation present (GI), No Guarding due to palpation present (GI) and Yes No hepatosplenomegaly present Extremity: COMMON NORMALS: normal to inspection, capillary refill normal and no calf tenderness GENERAL: Yes edema (+2 lower extremity to the knees) Neuro: SENSORIUM/ORIENTATION: Yes oriented to person, Yes oriented to place and Yes oriented to time Skin: COMMON NORMALS: no rashes or lesions noted GENERAL SKIN EXAM: no rashes or lesions noted Course Vital Signs: Vital signs: Vital Signs Temperature 97.8 F 12/03/22 04:36 Pulse Rate 84 12/03/22 04:36 Respiratory Rate 18 12/03/22 04:36 Blood Pressure 183/76 12/03/22 04:36 Pulse Oximetry 98 12/03/22 04:36 Oxygen Delivery Me thod Simple Mask 12/03/22 04:36 Oxygen Flow Rate 3 12/03/22 04:36 MDM - SOB/Dyspnea Medical Decision Making Decompensated congestive heart failure with increasing swelling. Patient given Lasix in the emergency room Sam placed. Discussed with hospitalist will place on observation for CHF. Medical Records I reviewed the patient's medical records. Lab Data I reviewed the patient's lab results. 12/03/22 04:16 12/03/22 04:16 Labs/Radiology: Radiology Impressions Chest X-Ray 12/02/22 12:56 IMPRESSION: When compared with 11/21/2022, there has been mild interval increase in bilateral lung base opacification. Otherwise, no significant change. Laboratory Results WBC 11.5 10^3/uL (4.0-10.0) H 12/02/22 13:14 RBC 3.36 10^6/uL (4.1-5.3) L 12/02/22 13:14 Hgb 9.5 g/dL (11.7-16.6) L 12/02/22 13:14 Hct 30.4 % (42.0-52.0) L 12/02/22 13:14 MCV 90.5 fl (80-94) 12/02/22 13:14 MCH 28.3 pg (28.0-34.0) 12/02/22 13:14 MCHC 31.3 g/dL (30.0-36.0) 12/02/22 13:14 RDW 16.6 % (12.1-15.1) H 12/02/22 13:14 Plt Count 354 10^3/cmm (130-400) 12/02/22 13:14 MPV 9.3 fL (7.4-10.4) 12/02/22 13:14 Neut % (Auto) 75.5 % 12/02/22 13:14 Lymph % (Auto) 12.2 % 12/02/22 13:14 Smyth % (Auto) 9.6 % 12/02/22 13:14 Eos % (Auto) 1.5 % 12/02/22 13:14 Baso % (Auto) 0.7 % 12/02/22 13:14 Neut # (Auto) 8.68 10^3/uL (1.8-7.7) H 12/02/22 13:14 Lymph # (Auto) 1.4 10^3/uL (0.8-4.8) 12/02/22 13:14 Smyth # (Auto) 1.1 10^3/uL (0.2-0.9) H 12/02/22 13:14 Eos # (Auto) 0.2 10^3/uL (0.0-0.8) 12/02/22 13:14 Baso # (Auto) 0.1 10^3/uL (0.0-0.1) 12/02/22 13:14 Nucleated RBC % (auto) 0 % 12/02/22 13:14 Nucleated RBCs # 0.0 /100WBC 12/02/22 13:14 Sodium 135 mmol/L (136-145) L 12/02/22 13:14 Potassium 4.3 mmol/L (3.5-5.1) 12/02/22 13:14 Chloride 99 mmol/L (98-107) 12/02/22 13:14 Carbon Dioxide 25 mmol/L (22-29) 12/02/22 13:14 Anion Gap 15.3 (5-19) 12/02/22 13:14 BUN 22 mg/dL (8-23) 12/02/22 13:14 Creatinine 1.1 mg/dL (0.7-1.2) 12/02/22 13:14 GFR Calculation Not Reportable 12/02/22 13:14 Glucose 123 mg/dL (65-115) H 12/02/22 13:14 Calculated Osmolality 285 mOsm/kg (285-295) 12/02/22 13:14 Calcium 9.2 mg/dL (8.5-10.5) 12/02/22 13:14 Total Bilirubin 0.9 mg/dL (0.15-1.2) 12/02/22 13:14 AST 44 U/L (0-40) H 12/02/22 13:14 ALT 44 U/L (0-41) H 12/02/22 13:14 Alkaline Phosphatase 179 U/L (40-130) H 12/02/22 13:14 Troponin T Baseline 46 ng/L (0-15) H 12/02/22 13:14 NT-Pro-B Natriuret Pep 01552 pg/mL (0-450) H 12/02/22 13:14 Total Protein 6.0 g/dL (6.6-8.7) L 12/02/22 13:14 Albumin 3.8 g/dL (3.5-5.2) 12/02/22 13:14 Globulin 2.2 g/dL (1.3-4.6) 12/02/22 13:14 Discharge Plan Discharge Patient Disposition: Admitted As Inpatient Admit Provider: Ronnell Gonzalez Clinical Impression: Congestive heart failure (CHF), Paroxysmal A-fib, Essential hypertension Condition: Stable Coding Level of Care Code ED [employer] for Sobeida Zambrano
[2022-12-02] MEDS: ipratropium-albuterol 3 mL Neb INHALATION ×2 (13:19→20:18)
[2022-12-02 13:26] LABS: Basophils # 0.1 10^3/uL (0.0-0.1); Basophils % 0.7 %; Eosinophils # 0.2 10^3/uL (0.0-0.8); Eosinophils % 1.5 %; Hematocrit 30.4 % (42.0-52.0); Hemoglobin 9.5 g/dL (11.7-16.6); Lymphocytes # 1.4 10^3/uL (0.8-4.8); Lymphocytes % 12.2 %; Mean Corpuscular HGB Conc 31.3 g/dL (30.0-36.0); Mean Corpuscular Hemoglobin 28.3 pg (28.0-34.0); Mean Corpuscular Volume 90.5 fl (80-94); Mean Platelet Volume 9.3 fL (7.4-10.4); Monocytes # 1.1 10^3/uL (0.2-0.9); Monocytes % 9.6 %; Neutrophils # 8.68 10^3/uL (1.8-7.7); Neutrophils % 75.5 %; Nucleated Red Blood Cells % 0 %; Platelet Count 354 10^3/cmm (130-400); Red Blood Count 3.36 10^6/uL (4.1-5.3); Red Cell Distribution Width 16.6 % (12.1-15.1); White Blood Count 11.5 10^3/uL (4.0-10.0)
[2022-12-02 13:42] LABS: Troponin(5th) Baseline 46 ng/L (0-15)
[2022-12-02 13:49] LABS: Alanine Aminotransferase 44 U/L (0-41); Albumin Level 3.8 g/dL (3.5-5.2); Alkaline Phosphatase 179 U/L (40-130); Anion Gap 15.3 (5-19); Aspartate Amino Transferase 44 U/L (0-40); Blood Urea Nitrogen 22 mg/dL (8-23); Calcium 9.2 mg/dL (8.5-10.5); Carbon Dioxide 25 mmol/L (22-29); Chloride 99 mmol/L (98-107); Globulin 2.2 g/dL (1.3-4.6); Glucose 123 mg/dL (65-115); NT Pro B Type Natriuretic Pept 11447 pg/mL (0-450); Osmolality Calculated 285 mOsm/kg (285-295); Potassium 4.3 mmol/L (3.5-5.1); Sodium 135 mmol/L (136-145); Total Bilirubin 0.9 mg/dL (0.15-1.2)
--- NOTE | 2022-12-02 13:52 | PC.PHAR ---
pt states he takes care of his own medications-pt states put his carvedilol 12.5mg bid and hydralazine 25mg bid prn bp >150/90 on hold a week ago-pt states he hasnt taken a lisinopril 40mg daily in years states he is on a auto refill with the mail order but states he is not taking lisinopril ext shows last filled 11/14/22 90d/s-pt states his timolol eye drops were dced-pt states dced his aspirin 81mg daily a week ago-pt states he takes lasix 40mg po daily on mon, wed and fri and 20mg po daily on fri,tu,thurs,and sat unless swelling is bad then take 40mg daily ext shows last filled 40mg daily on 11/18/22 30d/s and 20mg filled 11/14/22-pt states he takes kcl 30meq qam and 20meq hs rx filled 10/23/22 90d/s 10meq qid-pt states [facility]
[2022-12-02] MEDS: FUROsemide 10 mg/mL SDV 10mL 60 MG IVP (13:55)
--- NOTE | 2022-12-02 14:07 | PC.NURSE ---
pt had rhinoplasty recently and is unable to have nc or lay farther back than 60%
--- NOTE | 2022-12-02 14:30 | P.HP_ITS ---
Providers/Chief Complaint Primary Care Provider: Deloris oCnway MD Chief Complaint: sob History of Present Illness Lowell Salazar is a 87 year old male with a past medical history significant for recent epistaxis, paroxysmal atrial fibrillation, COPD, coronary artery disease, hypertension, and urinary retention with self-catheterizing?who presents to the emergency who shortness of breath x2-3 days. Reports symptoms are constant, w orse with exertion, and improved with rest. He has a known history of congestive heart failure for which he takes Lasix. He takes alternating doses on different days of 20 and 40 mg. He has been instructed to take extra 40 mg for edema for which he is taken a couple times here lately. He reports his most recent weight yesterday at home was 153 pounds. He has a history of chronic hypoxic respiratory failure for which he has been wearing about 3-1/2 L at home this past week. He endorses associated symptoms of generalized fatigue and malaise. He reports he lives alone he is having trouble caring for himself. Of note, this is his second presentation with heart failure in the last few weeks. Review of Systems Narrative: A complete review of systems was obtained and is negative except as stated in HPI. Medications/Allergies Home Medications Medication Instructions Recorded Confirmed Last Taken Type latanoprost 0.005 % eye drops 1 drop ophthalmic (eye) BEDTIME 05/22/19 12/02/22 12/01/22 History vitamins A,C,K-qxjy-vskddz 4,296 1 cap PO BID@0530,1730 05/22/19 12/02/22 12/02/22 History mcg-226 mg-90 mg capsule (PreserVision AREDS) tiotropium bromide 2.5 2 inh inhalation QAM #4 grams 10/17/21 12/02/22 08/17/22 Rx mcg/actuation mist for inhalation (Spiriva Respimat) multivitamin 1 tab PO DAILY@0530 11/27/21 12/02/22 12/02/22 History fluticasone 250 mcg-salmeterol 50 1 inh inhalation BID 03/26/22 12/02/22 08/17/22 History mcg/dose blistr powdr for inhalation tamsulosin 0.4 mg capsule 0.4 mg PO BID@0530,1730 03/26/22 12/02/22 12/02/22 History hydralazine 25 mg tablet 25 mg PO BID PRN BP >150/90 #180 07/11/22 12/02/22 11/12/22 Rx tabs ipratropium 20 mcg-albuterol 100 1 puff inhalation QID #4 grams 09/11/22 12/02/22 Unknown Rx mcg/actuation mist for inhalation (Combivent Respimat) miscellaneous medical supply See Rx Instructions miscellaneous 09/11/22 12/02/22 Unknown Rx .COMPLEX #1 ea ipratropium 0.5 mg-albuterol 3 mg 3 ml inhalation Q6H PRN wheezing 09/18/22 12/02/22 Unknown Rx (2.5 mg base)/3 mL nebulization #90 mL soln nebulizers #1 ea 09/18/22 12/02/22 Unknown Rx ascorbic acid (vitamin C) 1,000 mg 1,000 mg PO BID@0530,1730 10/02/22 12/02/22 12/02/22 History tablet (Vitamin C) atorvastatin 80 mg tablet 80 mg PO DAILY@1730 10/02/22 12/02/22 12/01/22 History methenamine hippurate 1 gram 1 g PO BID 10/02/22 12/02/22 12/02/22 History tablet (Hiprex) potassium chloride 10 mEq See Rx Instructions .Route .COMPLEX 10/02/22 12/02/22 12/02/22 History tablet,extended release(part/cryst) see pharmacy comment albuterol sulfate 90 mcg/actuation 1 inh inhalation Q6H PRN shortness 10/19/22 12/02/22 Unknown Rx aerosol inhaler (Ventolin HFA) of breath or wheezing #6.7 grams amlodipine 10 mg tablet 5 mg PO BID@06,12 high BP 10/26/22 12/02/22 12/02/22 History carvedilol 6.25 mg tablet 12.5 mg PO BID@0530,1200 10/26/22 12/02/22 10/26/22 05:30 History miscellaneous medical supply See Rx Instructions miscellaneous 10/31/22 12/02/22 Unknown Rx .COMPLEX #1 ea miscellaneous medical supply See Rx Instructions miscellaneous 10/31/22 12/02/22 Unknown Rx .COMPLEX #1 ea dorzolamide 2 % eye drops 1 drp ophthalmic (eye) BID 11/17/22 12/02/22 Unknown History furosemide 40 mg tablet (Lasix) See Rx Instructions .Route .COMPLEX 12/02/22 12/02/22 12/02/22 History 40 mg Allergies Allergy/AdvReac Type Severity Reaction Status Date / Time ranitidine [From Zantac] Allergy Unknown UNKNOWN Verified 12/02/22 13:43 simvastatin [From Zocor] Allergy Unknown ADR-Muscle Verified 12/02/22 13:43 Pain PFSH Acute PFSH: Medical History BPH (benign prostatic hyperplasia) CAD (coronary atherosclerotic disease) Carotid artery disease CKD (chronic kidney disease) Congestive heart failure (CHF) COPD (chronic obstructive pulmonary disease) Elevated troponin Enrolled in chronic care management Essential hypertension History of nonmelanoma skin cancer Hypokalemia Intermittent self-catheterization of bladder Left renal mass Lung granuloma Physical deconditioning Prediabetes Protein calorie malnutrition Seborrheic keratoses Urinary retention UTI due to extended-spectrum beta lactamase (ESBL) producing Escherichia coli Surgical History H/O carotid angioplasty H/O heart surgery History of cholecystectomy History of quadruple bypass Hx of knee surgery S/P TURP (transurethral resection of prostate) Family History Mother , at age 65 Cancer Brother Tuberculosis Brother Tuberculosis Other CAD (coronary artery disease) Social History Smoking and tobacco status: former smoker Quit status (tobacco): has quit using tobacco Former quit date comment: 40 yr 1-3ppd Second hand smoke exposure: No Alcohol intake: never Desire information about alcohol rehabilitation?: No Substance/Drug Use: never Desire information about substance/drug rehabilitation?: No Caregiver/support person: Yes Lives independently: No Housing: House Marital status: / Current occupational status: retired Do you think of yourself as: Straight/Heterosexual Current gender identity: Male Vitals/I&O/Wt Last Vital Signs Temp 97.4 F L 12/02/22 12:16 Pulse 103 H 12/02/22 14:25 Resp 38 H 12/02/22 14:25 BP 181/92 12/02/22 14:25 Pulse Ox 93 12/02/22 14:25 O2 Del Method Oxymask 12/02/22 14:25 O2 Flow Rate 3 12/02/22 14:25 Weight last 48 hrs Weight 69.4 kg Physical Exam Narrative: General: Patient is awake. Frail appearing. Appears fatigued. Head: Normocephalic. Atraumatic. EOM intact. Neck: Elevated JVD. Cardiovascular: Tachycardic. No gallops. No murmurs. 3+ pitting edema to thighs bilaterally Lungs: Decreased breath sounds in bilateral bases, tachypnea when speaking, dependent crackles, on supplemental respiratory support, no wheezing Skin: No jaundice. No rashes. Abdomen: Normal bowel sounds, abdomen soft and nontender. Genito Urinary: Sam Extremities: No cyanosis or clubbing. Musculoskeletal: No erythematous joints. Neurological: Moves all 4 extremities. No myoclonus. Urinary Catheter Management: Sam: Cath Placed During This Visit: yes Urinary Catheter Date of Insertion: 12/02/22 Urinary Catheter Time of Insertion: 14:15 Data 12/02/22 13:14 12/02/22 13:14 A&P Assessment and plan (1) Debility: Debility and physical deconditioning associated with adult failure to thrive Treat underlying heart failure exacerbation Therapy evaluation Medication management Supportive care (2) Congestive heart failure (CHF): Acute on chronic heart failure with reduced ejection fraction exacerbation Associated with chronic hypoxic respiratory failure Last echocardiogram from March 2022 reviewed Repeat echo Strict I's and O's Daily weights Start IV Lasix CHF education provided to family and patient Qualifiers: Heart failure type: unspecified Heart failure chronicity: unspecified Qualified Code(s): I50.9 - Heart failure, unspecified (3) Paroxysmal A-fib: Continue beta-branden for rate control Not on home anticoagulation Will not initiate anticoagulation considering recent severe epistaxis requiring Rhino Rocket (4) COPD (chronic obstructive pulmonary disease): No wheezing on exam Continue to monitor for exacerbation Continue breathing treatments Qualifiers: COPD type: chronic bronchitis Chronic bronchitis type: simple Qualified Code(s): J41.0 - Simple chronic bronchitis (5) Essential hypertension: Blood pressure is elevated Starting diuresis Start afterload reduction as well Plan DVT prophylaxis: SCD considering recent bleed CODE STATUS: DNR Attestations Medical Necessity Statement*: Patient presents with debility, physical deconditioning, failure to thrive, and acute exacerbation of heart failure with expected hospitalization not to cross 2 midnights. Coding Level of Care Code Acute Code for Chg Fwd Diagnoses Debility R53.81 Congestive heart failure (CHF) I50.9 Heart failure type: unspecified Heart failure chronicity: unspecified Paroxysmal A-fib I48.0 COPD (chronic obstructive pulmonary disease) J41.0 COPD type: chronic bronchitis Chronic bronchitis type: simple Essential hypertension I10
--- NOTE | 2022-12-02 14:57 | ECG_ITS ---
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 Measurements Intervals [place] Rate: 105 P: 0 VA: 0 QRS: 90 QRSD: 114 T: 0 QT: 401 QTc: 531 Interpretive Statements SINUS RHYTHM WITH FREQUENT PAC'S AND VENTRICULAR PREMATURE COMPLEXES INFERIOR MYOCARDIAL INFARCTION , OF INDETERMINATE AGE [40+ ms Q WAVE AND/OR ST/T ABNORMALITY IN II/aVF] ANTEROLATERAL MYOCARDIAL INFARCTION , OF INDETERMINATE AGE [40+ ms Q WAVE IN I/aVL/V3-V6] Compared to ECG 12/02/2022 12:25:11 No significant changes Electronically Signed On 12-03-2022 6:59:24 CDT by Kaylee Luna M.D. [id number]
--- NOTE | 2022-12-02 15:18 | USCV_ITS ---
Lowell Salazar Age: 87 Gender: M : 1935 Exam Date: 12/02/2022 20:33 Ordering Phys: Jai Velasco MD Technologist: CT [place] [facility] [place]: sob BP: 160 / 85 HR: 89 Rhythm: Sinus Technical Quality: Adequate MEASUREMENTS (Male / Female) Normal Values 2D ECHO LV Diastolic Diameter PLAX 4.7 cm 4.2 - 5.9 / 3.9 - 5.3 cm LV Systolic Diameter PLAX 4.5 cm LV Chamber Size 5.7 cm IVS Diastolic Thickness 1.4 cm 0.6 - 1.0 / 0.6 - 0.9 cm IVS Systolic Thickness 1.7 cm LVPW Diastolic Thickness 1.1 cm 0.6 - 1.0 / 0.6 - 0.9 cm LVPW Systolic Thickness 1.6 cm RV Chamber Size 5.2 cm LVOT Diameter 2.1 cm LV Ejection Fraction 2D Teich 3.9 % LV Ejection Fraction MOD 2C 2.4 % LV Ejection Fraction 2C AL 2.5 % LA Diameter 4.2 cm LA Width 4.8 cm LA Height 6.2 cm RA Width 4.1 cm RA Height 5.9 cm Aorta at Sinotubular Diameter 2.6 cm IVC Diameter 1.7 cm M-MODE Aortic Annulus Diameter 3.9 cm LA Ao Ratio MM 1.1 MV E Point Septal Separation 1.1 cm DOPPLER AV Peak Velocity 126.0 cm/s LVOT Peak Velocity 97.0 cm/s AV Area Cont Eq vti 3.5 cm squared AV Area Cont Eq pk 2.6 cm squared MV Area PHT 5.6 cm squared Mitral E to A Ratio 8.5 MV E' Velocity 83.0 cm/s Mitral E to MV E' Ratio 18.1 Mitral E to LV E' Lateral Ratio 20.0 Mitral E to LV E' Septal Ratio 16.8 TR Peak Velocity 89.0 cm/s TR Peak Gradient 3.2 mmHg TV Peak E Velocity 105.0 cm/s Right Atrial Pressure 8.0 mmHg Pulmonary Artery Systolic Pressu 11.2 mmHg PV Peak Velocity 87.0 cm/s FINDINGS Left Ventricle Diffuse hypokinesia of the left ventricle with an ejection fraction of 40%. Right Ventricle Normal RV size with a slightly diminished ejection fraction Right Atrium Mildly increased right atrial size. Left Atrium Mildly increased left atrial size. Mitral Valve Thickened mitral valve. Mild to moderate mitral valve regurgitation. Aortic Valve Thickened aortic valve. Tricuspid Valve Trace to mild tricuspid valve regurgitation. Pulmonic Valve Trace pulmonary valve regurgitation. Pericardium Normal pericardium without effusion. Aorta Normal ascending aorta dimension. IVC Normal IVC dimension with <50% respiratory change of the inferior vena cava. CONCLUSIONS Diffuse hypokinesia of the left ventricle with an ejection fraction of 40 % Normal RV size with a slightly diminished ejection fraction. Mild biatrial enlargement. Thickened mitral valve. Mild to moderate mitral valve regurgitation. Thickened aortic valve. Trace to mild tricuspid valve regurgitation. Estimated pulmonary artery peak systolic pressure within normal limit Trace pulmonary valve regurgitation. There is no pericardial effusion. There are no intracardiac masses. Compared to the study from 03/26/2022, both the atria appear to be mildly dilated Dr Kristi Vazquez MD [facility] (Electronically Signed) Final Date: 03 December 2022 09:58 S
[2022-12-02 15:34] LABS: Troponin 5 2HR 52.05 ng/L (0-15)
[2022-12-02 15:38] LABS: Troponin 5 2HR Delta 6.05 ABS# (0-10)
[2022-12-02] MEDS: atorvastatin 40 mg Tablet 80 MG PO (18:17)
[2022-12-02] MEDS: tamsulosin 0.4 mg Capsule PO (18:17)
--- NOTE | 2022-12-02 18:57 | ECG_ITS ---
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 Measurements Intervals [place] Rate: 93 P: 0 NV: 0 QRS: 78 QRSD: 116 T: 135 QT: 395 QTc: 493 Interpretive Statements Multifocal atrial rhythm WITH ABERRANT CONDUCTION OR VENTRICULAR PREMATURE COMPLEXES PROBABLE ANTEROLATERAL MYOCARDIAL INFARCTION , OF INDETERMINATE AGE [35 ms Q WAVE IN I/aVL/V3-V6] Compared to ECG 12/02/2022 15:01:20 No significant changes Electronically Signed On 12-04-2022 20:10:33 CDT by Kristi Vazquez M.D. [id number]
[2022-12-02 20:58] LABS: Troponin 5 6HR 47.94 ng/L (0-15)
[2022-12-02 21:00] LABS: Troponin 5 6HR Delta 1.94 ng/L (0-12)
[2022-12-02] MEDS: FUROsemide 10 mg/mL SDV 4mL 40 MG IVP (21:25)
[2022-12-03] VITALS (14 sets, daily range): BP systolic 125–183; BP diastolic 56–76; PULSE 58–96; RESP 16–20; TEMP 36.1–36.7; O2SAT 93–99
[2022-12-03] MEDS: ipratropium-albuterol 3 mL Neb INHALATION ×5 (01:34→20:21)
[2022-12-03] MEDS: acetaminophen 325 mg Tablet 1000 MG PO (03:38)
[2022-12-03 05:05] LABS: Basophils # 0.1 10^3/uL (0.0-0.1); Basophils % 1.1 %; Eosinophils # 0.3 10^3/uL (0.0-0.8); Eosinophils % 2.7 %; Hematocrit 28.1 % (42.0-52.0); Hemoglobin 8.8 g/dL (11.7-16.6); Lymphocytes # 1.5 10^3/uL (0.8-4.8); Mean Corpuscular HGB Conc 31.3 g/dL (30.0-36.0); Mean Corpuscular Hemoglobin 28.5 pg (28.0-34.0); Mean Corpuscular Volume 90.9 fl (80-94); Mean Platelet Volume 9.5 fL (7.4-10.4); Monocytes # 1.2 10^3/uL (0.2-0.9); Monocytes % 10.7 %; Neutrophils # 8.04 10^3/uL (1.8-7.7); Nucleated Red Blood Cells % 0 %; Platelet Count 335 10^3/cmm (130-400); Red Blood Count 3.09 10^6/uL (4.1-5.3); Red Cell Distribution Width 16.4 % (12.1-15.1); White Blood Count 11.2 10^3/uL (4.0-10.0)
[2022-12-03] MEDS: tamsulosin 0.4 mg Capsule PO ×2 (05:33→19:18)
[2022-12-03] MEDS: carvedilol 6.25 mg Tablet 12.5 MG PO ×2 (05:34→14:15)
[2022-12-03 05:35] LABS: Anion Gap 14.4 (5-19); Blood Urea Nitrogen 23 mg/dL (8-23); Calcium 8.9 mg/dL (8.5-10.5); Carbon Dioxide 29 mmol/L (22-29); Chloride 98 mmol/L (98-107); Creatinine Clr Calc Pharmacy 47.3125; Glucose 98 mg/dL (65-115); Magnesium 1.9 mg/dL (1.7-2.3); Osmolality Calculated 290 mOsm/kg (285-295); Phosphorus 4.2 mg/dL (2.5-4.5); Potassium 3.4 mmol/L (3.5-5.1); Sodium 138 mmol/L (136-145)
[2022-12-03 07:04] LABS: Glucose Point of Care 107 mg/dL (70-110)
[2022-12-03] MEDS: ascorbic acid 500 mg Tablet 1000 MG PO ×2 (08:14→19:18)
[2022-12-03] MEDS: FUROsemide 10 mg/mL SDV 4mL 40 MG IVP ×2 (08:14→20:47)
--- NOTE | 2022-12-03 09:53 | PC.CHAP ---
Pastoral Care Encounter/Spiritual Assessment Type of Contact [] Declined house painter helper visit [] Patient/Family/Request visit [] Outpatient visit [] Follow-up visit [] Physician referral [] Code/Alert [] Routine visit [] Staff referral [] Actively dying [] Patient sleeping [] Family support [] [] Out of room [] Palliative care [] [x] Receiving care in room [] Pre-surgical visit [] Trauma [] Long length of stay [] ICU visit [] Other: Relational/Emotional Strength [] Patient feels connected with others/family/visitors/staff [] Distress [] Loneliness/isolation [] Abandonment Spirituality of Patient [] Person of Aicha [] Attends Voodoo of their Aicha [] Believes in Prayer [] Reads Bible or Orthodox materials [] There are Spiritual issues to be addressed Grips Interventions [] Prayer [] Active listening [] Non-anxious presence [] Spiritual/emotional support [] Crisis/trauma care [] Spiritual counseling [] Bereavement support [] Provided bereavement packet [] Provided Bible/devotional materials [] Provided toy/stuffed animal, coloring book to patient or family member [] Provided Communion [] Anointing/[place] [] Salvation [] Completed spiritual assessment [] Other: Impact on Illness or Injury [] Angry [] Fearful [] Anxious [] Often cries [] Exhaustion [] Unable to work [] Unable to attend buddhist [] Unable to walk/stand [] Unable to read [] Unable to drive [] Unable to eat/drink [] Unable to sleep [] Unable to be with family [] Patient intubated [] Other: Summary Time spent with patient
--- NOTE | 2022-12-03 09:55 | P.PN_ITS ---
Subjective Subjective: Patient endorses continued shortness of breath and persistent lower extremity edema worse than his usual baseline. He also reports he did not sleep very well. Has yet been up out of bed. Overall feels weak and tired. Denies nausea, emesis, fevers or chills. Medications: Reviewed: Yes Vitals/I&O/Wt Last Vital Signs Temp 98.1 F 12/03/22 06:00 Pulse 92 12/03/22 08:36 Resp 18 12/03/22 08:34 BP 163/65 12/03/22 06:00 Pulse Ox 95 12/03/22 08:34 O2 Del Method Oxymask 12/03/22 08:34 O2 Flow Rate 3 12/03/22 08:34 12/02/22 12/03/22 12/03/22 22:59 06:59 14:59 Output Total 1900 / 1900 1500 / 3400 Balance -1900 / -1900 -1500 / -3400 Weight last 48 hrs Weight 69.4 kg Physical Exam Narrative: General: Patient is awake. Frail and cachectic appearing. Lying in bed. Oriented. Head: Normocephalic. Atraumatic. EOM intact. Neck: Elevated JVD. Cardiovascular: No gallops. No murmurs. 2+ pitting edema in bilateral lower extremities. Hypertensive. Lungs: Decreased breath sounds in bilateral bases, slight tachypnea when speaking, dependent crackles, on supplemental respiratory support, no wheezing Skin: No jaundice. No rashes. Abdomen: Normal bowel sounds, abdomen soft and nontender. Genito Urinary: Sam Extremities: No cyanosis or clubbing. Musculoskeletal: No erythematous joints. Neurological: Moves all 4 extremities. No myoclonus. Urinary Catheter Management: Sam: Cath Placed During This Visit: yes Reason for Continuing Indwelling Catheter: Not indwelling catheter Urinary Catheter Date of Insertion: 12/02/22 Urinary Catheter Time of Insertion: 14:15 Data 12/03/22 04:16 12/03/22 04:16 A&P Assessment and plan (1) Debility: Debility and physical deconditioning associated with adult failure to thrive Treat underlying heart failure exacerbation Physical therapy evaluation Supportive care CM consult (2) Congestive heart failure (CHF): Acute on chronic heart failure with reduced ejection fraction exacerbation Associated with chronic hypoxic respiratory failure Last echocardiogram from March 2022 reviewed Repeat echo pending Strict I's and O's with catheter Daily weights Continue IV Lasix (3) Paroxysmal A-fib: Continue beta-branden for rate control Not on home anticoagulation Will not initiate anticoagulation considering recent severe epistaxis requiring Rhino Rocket (4) COPD (chronic obstructive pulmonary disease): No wheezing on exam Continue to monitor for exacerbation Continue breathing treatments Qualifiers: COPD type: chronic bronchitis Chronic bronchitis type: simple Qualified Code(s): J41.0 - Simple chronic bronchitis (5) Essential hypertension: Blood pressure is elevated Continue Coreg Continue Lasix Hydralazine as needed started Plan DVT prophylaxis: SCD (recent epistaxis) CODE STATUS: DNR Attestations Medical Necessity Statement*: Patient requires ongoing hospitalization for IV diuresis, supplemental oxygen support, telemetry monitoring, electrolyte monitoring, therapy evaluation, and supportive care. Coding Level of Care Code Acute Code for [facility] Fwd Diagnoses Debility R53.81 Congestive heart failure (CHF) I50.9 Paroxysmal A-fib I48.0 COPD (chronic obstructive pulmonary disease) J41.0 COPD type: chronic bronchitis Chronic bronchitis type: simple Essential hypertension I10
[2022-12-03] MEDS: potassium chloride ER 20 mEq Tablet 40 MEQ PO (10:22)
[2022-12-03] MEDS: acetaminophen 500 mg Tablet 1000 MG PO ×2 (14:39→20:39)
[2022-12-03] MEDS: atorvastatin 40 mg Tablet 80 MG PO (19:18)
[2022-12-04] VITALS (11 sets, daily range): BP systolic 139–169; BP diastolic 66–77; PULSE 61–77; RESP 16–18; TEMP 36.3–36.5; O2SAT 94–99
[2022-12-04] MEDS: acetaminophen 500 mg Tablet 1000 MG PO ×3 (03:50→20:36)
[2022-12-04] MEDS: tamsulosin 0.4 mg Capsule PO ×2 (05:09→16:49)
[2022-12-04] MEDS: carvedilol 6.25 mg Tablet 12.5 MG PO ×2 (05:09→11:24)
[2022-12-04 05:15] LABS: Basophils # 0.1 10^3/uL (0.0-0.1); Basophils % 0.9 %; Eosinophils # 0.5 10^3/uL (0.0-0.8); Eosinophils % 5.7 %; Lymphocytes # 1.6 10^3/uL (0.8-4.8); Lymphocytes % 18.3 %; Mean Corpuscular HGB Conc 31.1 g/dL (30-55); Mean Corpuscular Hemoglobin 28.4 pg (27-33); Mean Corpuscular Volume 91.2 fl (82-101); Mean Platelet Volume 9.6 fL (7.4-10.4); Monocytes % 11.2 %; Neutrophils # 5.69 10^3/uL (1.8-7.7); Neutrophils % 63.5 %; Nucleated Red Blood Cells % 0 %; Platelet Count 301 10^3/cmm (157-399); Red Blood Count 2.96 10^6/uL (3.85-5.65); Red Cell Distribution Width 16.6 % (12.1-15.1); White Blood Count 8.96 10^3/uL (3.29-11.43)
[2022-12-04 05:40] LABS: Albumin Level 2.9 g/dL (3.5-5.2); Anion Gap 12.4 (5-19); Blood Urea Nitrogen 29 mg/dL (8-23); Calcium 8.5 mg/dL (8.5-10.5); Carbon Dioxide 30 mmol/L (22-29); Chloride 100 mmol/L (98-107); Glucose 104 mg/dL (65-115); Phosphorus 4.5 mg/dL (2.5-4.5); Potassium 3.4 mmol/L (3.5-5.1); Sodium 139 mmol/L (136-145)
[2022-12-04] MEDS: ipratropium-albuterol 3 mL Neb INHALATION ×3 (07:12→15:10)
[2022-12-04] MEDS: FUROsemide 10 mg/mL SDV 4mL 40 MG IVP ×2 (07:43→20:56)
[2022-12-04] MEDS: ascorbic acid 500 mg Tablet 1000 MG PO ×2 (07:43→16:49)
[2022-12-04] MEDS: potassium chloride ER 20 mEq Tablet 40 MEQ PO (11:18)
--- NOTE | 2022-12-04 14:12 | P.PN_ITS ---
Subjective Subjective: No acute events overnight. Patient remains with a nausea accounting, headache. States he is feeling a lot better. Edema in his lower limbs seems to be resolving. Currently is on oxime mask. He states he has been told by the ENT in the past not to use nasal prong because that can induce epistaxis for him so he likes using the oxygen mask. Blood work reported for resolution of leukocytosis, stable hemoglobin of 8.4, BMP showing mild hypokalemia of 3.4 and a creatinine of 1.3 which seems to be his baseline. Medications: Reviewed: Yes Vitals/I&O/Wt Last Vital Signs Temp 97.5 F L 12/04/22 12:00 Pulse 62 12/04/22 12:00 Resp 18 12/04/22 12:00 BP 147/69 12/04/22 12:00 Pulse Ox 98 12/04/22 12:00 O2 Del Method Oxymask 12/04/22 12:00 O2 Flow Rate 3 12/04/22 12:00 12/03/22 12/04/22 12/04/22 22:59 06:59 14:59 Intake Total 360 / 840 480 / 480 Output Total 500 / 1125 500 / 1625 Balance -140 / -285 -500 / -785 480 / 480 Physical Exam Narrative: General: Patient is awake. Frail and cachectic appearing. Lying in bed. Oriented. Head: Normocephalic. Atraumatic. EOM intact. Neck: Elevated JVD. Cardiovascular: No gallops. No murmurs. 2+ pitting edema in bilateral lower extremities. Hypertensive. Lungs: Decreased breath sounds in bilateral bases, slight tachypnea when speaking, dependent crackles, on supplemental respiratory support, no wheezing Skin: No jaundice. No rashes. Abdomen: Normal bowel sounds, abdomen soft and nontender. Genito Urinary: Sam Extremities: No cyanosis or clubbing. Musculoskeletal: No erythematous joints. Neurological: Moves all 4 extremities. No myoclonus. Urinary Catheter Management: Sam: Cath Placed During This Visit: yes Reason for Continuing Indwelling Catheter: Acute Urinary Retention or Obstruction Urinary Catheter Date of Insertion: 12/02/22 Urinary Catheter Time of Insertion: 14:15 Data 12/04/22 04:05 12/04/22 04:05 A&P Assessment and plan (1) Debility: Debility and physical deconditioning associated with adult failure to thrive Treat underlying heart failure exacerbation Physical therapy evaluation Supportive care CM consult (2) Congestive heart failure (CHF): Acute on chronic heart failure with reduced ejection fraction exacerbation associated with chronic hypoxic respiratory failure and recurrent admissions. Outpatient body weight was increasing by 7 pounds within the last 2 weeks. Repeat echocardiogram appreciated for stable EF but mildly increased biatrial enlargement. Continue with IV diuresis with 40 mg twice daily. Fluid restriction up to 1500 cc. Monitor potassium. Replete 40 mg oral 1 time. Strict I's and O's with catheter Daily weights Continue IV Lasix (3) Paroxysmal A-fib: Continue beta-branden for rate control Not on home anticoagulation Will not initiate anticoagulation considering recent severe epistaxis requiring Rhino Rocket (4) COPD (chronic obstructive pulmonary disease): No wheezing on exam Continue to monitor for exacerbation Continue breathing treatments Qualifiers: COPD type: chronic bronchitis Chronic bronchitis type: simple Qualified Code(s): J41.0 - Simple chronic bronchitis (5) Essential hypertension: Goal blood pressure less than 140/90 mmHg. Continue with home dose of amlodipine, carvedilol, Flomax. Hydralazine as needed started Plan DVT prophylaxis: SCD, heparin 5000 every 12 hourly. CODE STATUS: DNR Discharge planning: Patient was being set up as an outpatient to transition to skilled nursing. Given recurrent admissions looking for discharge to SNF on current admission. Plan to discharge to SNF once accepted. Attestations Medical Necessity Statement*: Quires further hospitalization for management of acute exacerbation of systolic congestive heart failure by safe discharge planning discharge. Diagnoses Debility R53.81 Congestive heart failure (CHF) I50.9 Paroxysmal A-fib I48.0 COPD (chronic obstructive pulmonary disease) J41.0 COPD type: chronic bronchitis Chronic bronchitis type: simple Essential hypertension I10
[2022-12-04] MEDS: atorvastatin 40 mg Tablet 80 MG PO (16:49)
[2022-12-05] VITALS (12 sets, daily range): BP systolic 144–168; BP diastolic 63–76; PULSE 62–76; RESP 15–18; TEMP 36.3–36.6; O2SAT 91–98
[2022-12-05] MEDS: acetaminophen 500 mg Tablet 1000 MG PO ×3 (04:14→22:19)
[2022-12-05] MEDS: carvedilol 6.25 mg Tablet 12.5 MG PO ×2 (05:31→12:49)
[2022-12-05] MEDS: amlodipine 5 mg Tablet PO ×2 (05:31→12:49)
[2022-12-05] MEDS: tamsulosin 0.4 mg Capsule PO ×2 (05:31→15:15)
[2022-12-05] MEDS: ipratropium-albuterol 3 mL Neb INHALATION ×3 (09:01→19:48)
[2022-12-05] MEDS: FUROsemide 10 mg/mL SDV 4mL 40 MG IVP ×2 (09:04→20:31)
--- NOTE | 2022-12-05 14:34 | P.PN_ITS ---
Subjective Subjective: No acute events overnight. Patient states he is feeling a lot better. Denies any nausea, vomiting, headache. States he feels he is back to baseline. On review it seems blood pressure has been running little higher. Patient remains on his baseline 2 to 3 L of oxygen supplementation through oxygen mask given recurrent epistaxis. Given lab holiday today. Medications: Reviewed: Yes Vitals/I&O/Wt Last Vital Signs Temp 97.4 F L 12/05/22 11:18 Pulse 72 12/05/22 11:18 Resp 18 12/05/22 11:18 BP 159/65 12/05/22 11:18 Pulse Ox 98 12/05/22 11:18 O2 Del Method Aerosol Mask 12/05/22 11:18 O2 Flow Rate 3 12/05/22 09:00 12/04/22 12/05/22 12/05/22 22:59 06:59 14:59 Intake Total 240 / 720 360 / 360 Output Total 400 / 400 500 / 900 Balance -160 / 320 -500 / -180 360 / 360 Physical Exam Narrative: General: Patient is awake. Frail and cachectic appearing. Lying in bed. Oriented. Head: Normocephalic. Atraumatic. EOM intact. Neck: Elevated JVD. Cardiovascular: No gallops. No murmurs. 2+ pitting edema in bilateral lower extremities. Hypertensive. Lungs: Decreased breath sounds in bilateral bases, slight tachypnea when speaking, dependent crackles, on supplemental respiratory support, no wheezing Skin: No jaundice. No rashes. Abdomen: Normal bowel sounds, abdomen soft and nontender. Genito Urinary: Sam Extremities: No cyanosis or clubbing. Musculoskeletal: No erythematous joints. Neurological: Moves all 4 extremities. No myoclonus. Urinary Catheter Management: Sam: Cath Placed During This Visit: yes Reason for Continuing Indwelling Catheter: Other Urinary Catheter Date of Insertion: 12/02/22 Urinary Catheter Time of Insertion: 14:15 Data 12/04/22 04:05 12/04/22 04:05 Micro: Microbiology 12/03/22 17:17 Gram Stain - Final Sputum - Expectorated Sputum Sputum Culture - Final A&P Assessment and plan (1) Debility: Debility and physical deconditioning associated with adult failure to thrive Treat underlying heart failure exacerbation Physical therapy evaluation Supportive care CM consult (2) Congestive heart failure (CHF): Acute on chronic heart failure with reduced ejection fraction exacerbation associated with chronic hypoxic respiratory failure and recurrent admissions. Outpatient body weight was increasing by 7 pounds within the last 2 weeks. Repeat echocardiogram appreciated for stable EF but mildly increased biatrial enlargement. Continue with IV diuresis with 40 mg twice daily. Fluid restriction up to 1500 cc. Monitor potassium. Replete 40 mg oral 1 time. Strict I's and O's with catheter Daily weights Continue IV Lasix (3) Paroxysmal A-fib: Continue beta-branden for rate control Not on home anticoagulation Will not initiate anticoagulation considering recent severe epistaxis requiring Rhino Rocket (4) COPD (chronic obstructive pulmonary disease): No wheezing on exam Continue to monitor for exacerbation Continue breathing treatments Qualifiers: COPD type: chronic bronchitis Chronic bronchitis type: simple Qualified Code(s): J41.0 - Simple chronic bronchitis (5) Essential hypertension: Goal blood pressure less than 140/90 mmHg. Continue with home dose of amlodipine, carvedilol, Flomax. Hydralazine as needed started Plan DVT prophylaxis: SCD, heparin 5000 every 12 hourly. CODE STATUS: DNR Plan for the day: Continue IV diuresis with Lasix 40 mg twice daily. Monitor potassium. Repeat CBC and CMP in AM. Continue with fluid restriction up to 1500 cc. Blood pressure is elevated. Start on hydralazine 25 mg 3 times a day along with home dose of carvedilol 12.5 mg twice daily, amlodipine 5 mg twice daily. Goal blood pressure less than 140/90 mmHg. Follow sputum culture. Holding off antibiotics for now as concerns for pneumonia are on the lower side. Discharge planning: Patient was being set up as an outpatient to transition to residential. Given recurrent admissions looking for discharge to SNF on current admission. Patient has been accepted to SNF. Awaiting authorization. Attestations Medical Necessity Statement*: Requires further hospitalization for management of acute on chronic hypoxic respiratory failure in setting of congestive heart failure while safe discharge planning a SNF is sought. Diagnoses Debility R53.81 Congestive heart failure (CHF) I50.9 Paroxysmal A-fib I48.0 COPD (chronic obstructive pulmonary disease) J41.0 COPD type: chronic bronchitis Chronic bronchitis type: simple Essential hypertension I10
[2022-12-05] MEDS: hyDRALAzine 25 mg Tablet PO ×2 (15:14→20:14)
[2022-12-05] MEDS: atorvastatin 40 mg Tablet 80 MG PO (15:14)
[2022-12-05] MEDS: ascorbic acid 500 mg Tablet 1000 MG PO (15:15)
[2022-12-06 04:34] VITALS: BP 165/66; PULSE 65; RESP 16; TEMP 36.4; O2SAT 96
[2022-12-06 05:12] LABS: Basophils # 0.1 10^3/uL (0.0-0.1); Basophils % 0.6 %; Eosinophils # 0.5 10^3/uL (0.0-0.8); Hematocrit 28.6 % (37-53); Lymphocytes # 1.5 10^3/uL (0.8-4.8); Lymphocytes % 15.8 %; Mean Corpuscular HGB Conc 30.8 g/dL (30-55); Mean Corpuscular Hemoglobin 27.6 pg (27-33); Mean Corpuscular Volume 89.7 fl (82-101); Mean Platelet Volume 9.5 fL (7.4-10.4); Monocytes % 10.8 %; Neutrophils # 6.39 10^3/uL (1.8-7.7); Neutrophils % 67.2 %; Nucleated Red Blood Cells % 0 %; Platelet Count 290 10^3/cmm (157-399); Red Blood Count 3.19 10^6/uL (3.85-5.65); Red Cell Distribution Width 16.7 % (12.1-15.1); White Blood Count 9.52 10^3/uL (3.29-11.43)
[2022-12-06 05:32] LABS: Alanine Aminotransferase 42 U/L (0-41); Alkaline Phosphatase 136 U/L (40-130); Anion Gap 12.1 (5-19); Aspartate Amino Transferase 58 U/L (0-40); Blood Urea Nitrogen 30 mg/dL (8-23); Calcium 8.5 mg/dL (8.5-10.5); Carbon Dioxide 32 mmol/L (22-29); Chloride 98 mmol/L (98-107); Globulin 2.6 g/dL (1.3-4.6); Glucose 97 mg/dL (65-115); Osmolality Calculated 294 mOsm/kg (285-295); Potassium 3.1 mmol/L (3.5-5.1); Sodium 139 mmol/L (136-145); Total Bilirubin 0.7 mg/dL (0.15-1.2); Total Protein 5.6 g/dL (6.6-8.7)
[2022-12-06] MEDS: amlodipine 5 mg Tablet PO (05:39)
[2022-12-06] MEDS: tamsulosin 0.4 mg Capsule PO (05:39)
[2022-12-06] MEDS: carvedilol 6.25 mg Tablet 12.5 MG PO (05:39)
[2022-12-06] MEDS: acetaminophen 500 mg Tablet 1000 MG PO ×2 (05:39→12:40)
[2022-12-06 05:48] VITALS: PULSE 61
[2022-12-06 07:19] VITALS: BP 142/59; PULSE 61; RESP 18; TEMP 36.4; O2SAT 93
[2022-12-06] MEDS: ascorbic acid 500 mg Tablet 1000 MG PO (08:40)
[2022-12-06] MEDS: hyDRALAzine 25 mg Tablet PO (08:44)
[2022-12-06 08:58] VITALS: PULSE 58; RESP 18; O2SAT 98
[2022-12-06] MEDS: ipratropium-albuterol 3 mL Neb INHALATION (08:58)
[2022-12-06] MEDS: FUROsemide 10 mg/mL SDV 4mL 40 MG IVP (08:59)
--- NOTE | 2022-12-06 10:24 | P.DS_ITS ---
Discharge Providers Date of Admission: 12/02/22 14:16 Date of Discharge: December 06, 2022 Attending Provider at Admission: Ronnell Gonzalez MD Attending Provider at Discharge: Scooby Montalvo MD Primary Care Provider: Deloris Conway MD Diagnoses at Discharge Discharge Diagnosis (1) Debility: Status: Acute (2) Congestive heart failure (CHF): Status: Acute (3) Paroxysmal A-fib: Status: Acute (4) COPD (chronic obstructive pulmonary disease): Status: Acute Qualifiers: COPD type: chronic bronchitis Chronic bronchitis type: simple Qu alified Code(s): J41.0 - Simple chronic bronchitis (5) Essential hypertension: Status: Chronic Reason for Visit Reason for Visit: sob Brief History: Lowell Salazar is a 87 year old male with a past medical history significant for recent epistaxis, paroxysmal atrial fibrillation, COPD, coronary artery disease, hypertension, and urinary retention with self-catheterizing?who presents to the emergency who shortness of breath x2-3 days.? Reports symptoms are constant, worse with exertion, and improved with rest.? He has a known history of congestive heart failure for which he takes Lasix.? He takes alternating doses on different days of 20 and 40 mg.? He has been instructed to take extra 40 mg for edema for which he is taken a couple times here lately.? He reports his most recent weight yesterday at home was 153 pounds.? He has a history of chronic hypoxic respiratory failure for which he has been wearing about 3-1/2 L at home this past week. He endorses associated symptoms of generalized fatigue and malaise.? He reports he lives alone he is having trouble caring for himself.? Of note, this is his second presentation with heart failure in the last few weeks. Hospital Course Hospital Course Patient was admitted to the hospital for further evaluation and management. He was started on IV diuresis. He responded well to the treatment and has been back to his baseline oxygen supplementation, physical capabilities. 48 hours. His hospitalization was unremarkable. Patient was counseled in detail again regarding need for adherence with medication, lifestyle changes with fluid restriction up to 1500 cc, salt restriction up to 2 g, daily blood pressure check and antihypertensives. Due to recurrent admission safe discharge planning was discussed in detail with the patient again. Patient and family at this time verbalized understanding and wants to go to SNF for further rehabilitation and closer monitoring. He is being discharged to SNF for further rehabilitation and closer monitoring. During hospitalization he was found to have mildly elevated blood pressures for which his antihypertensives were adjusted and hydralazine 25 mg 3 times a day- added. Physical Exam Narrative: General: Patient is awake. Frail and cachectic appearing. Lying in bed. Oriented. Head: Normocephalic. Atraumatic. EOM intact. Neck: Elevated JVD. Cardiovascular: No gallops. No murmurs. 2+ pitting edema in bilateral lower extremities. Hypertensive. Lungs: Decreased breath sounds in bilateral bases, slight tachypnea when speaking, dependent crackles, on supplemental respiratory support, no wheezing Skin: No jaundice. No rashes. Abdomen: Normal bowel sounds, abdomen soft and nontender. Genito Urinary: Sam Extremities: No cyanosis or clubbing. Musculoskeletal: No erythematous joints. Neurological: Moves all 4 extremities. No myoclonus. Urinary Catheter Management: Sam: Cath Placed During This Visit: yes Reason for Continuing Indwelling Catheter: Other Urinary Catheter Date of Insertion: 12/02/22 Urinary Catheter Time of Insertion: 14:15 Discharge Data Studies Completed and Pending Completed Studies During Hospitalization Category Date Time Status XR chest 1V portable [id number] Stat Exams 12/02/22 12:56 Completed CV. echo complete* [id number] Routine Ultrasound 12/02/22 15:18 Completed Pending at discharge Category Date Time Status SARS Covid-2 Antigen Routine Lab 12/06/22 10:08 Received Radiology Impressions Chest X-Ray 12/02/22 12:56 IMPRESSION: When compared with 11/21/2022, there has been mild interval increase in bilateral lung base opacification. Otherwise, no significant change. Microbiology 12/03/22 17:17 Sputum - Expectorated Sputum Gram Stain - Final 12/03/22 17:17 Sputum - Expectorated Sputum Sputum Culture - Final Laboratory Results WBC 9.52 10^3/uL (3.29-11.43) 12/06/22 04:15 RBC 3.19 10^6/uL (3.85-5.65) L 12/06/22 04:15 Hgb 8.80 g/dL (11.27-16.99) L 12/06/22 04:15 Hct 28.6 % (37-53) L 12/06/22 04:15 MCV 89.7 fl (82-101) 12/06/22 04:15 MCH 27.6 pg (27-33) 12/06/22 04:15 MCHC 30.8 g/dL (30-55) 12/06/22 04:15 RDW 16.7 % (12.1-15.1) H 12/06/22 04:15 Plt Count 290 10^3/cmm (157-399) 12/06/22 04:15 MPV 9.5 fL (7.4-10.4) 12/06/22 04:15 Neut % (Auto) 67.2 % 12/06/22 04:15 Lymph % (Auto) 15.8 % 12/06/22 04:15 [place] % (Auto) 10.8 % 12/06/22 04:15 Eos % (Auto) 5.0 % 12/06/22 04:15 Baso % (Auto) 0.6 % 12/06/22 04:15 Neut # (Auto) 6.39 10^3/uL (1.8-7.7) 12/06/22 04:15 Lymph # (Auto) 1.5 10^3/uL (0.8-4.8) 12/06/22 04:15 [place] # (Auto) 1.0 10^3/uL (0.2-0.9) H 12/06/22 04:15 Eos # (Auto) 0.5 10^3/uL (0.0-0.8) 12/06/22 04:15 Baso # (Auto) 0.1 10^3/uL (0.0-0.1) 12/06/22 04:15 Nucleated RBC % (auto) 0 % 12/06/22 04:15 Nucleated RBCs # 0.0 /100WBC 12/06/22 04:15 Sodium 139 mmol/L (136-145) 12/06/22 04:15 Potassium 3.1 mmol/L (3.5-5.1) L 12/06/22 04:15 Chloride 98 mmol/L (98-107) 12/06/22 04:15 Carbon Dioxide 32 mmol/L (22-29) H 12/06/22 04:15 Anion Gap 12.1 (5-19) 12/06/22 04:15 BUN 30 mg/dL (8-23) H 12/06/22 04:15 Creatinine 1.5 mg/dL (0.7-1.2) H 12/06/22 04:15 GFR Calculation Not Reportable 12/06/22 04:15 Glucose 97 mg/dL (65-115) 12/06/22 04:15 POC Glucose 107 mg/dL (70-110) 12/03/22 07:00 Calculated Osmolality 294 mOsm/kg (285-295) 12/06/22 04:15 Calcium 8.5 mg/dL (8.5-10.5) 12/06/22 04:15 Phosphorus 4.5 mg/dL (2.5-4.5) 12/04/22 04:05 Magnesium 1.9 mg/dL (1.7-2.3) 12/03/22 04:16 Total Bilirubin 0.7 mg/dL (0.15-1.2) 12/06/22 04:15 AST 58 U/L (0-40) H 12/06/22 04:15 ALT 42 U/L (0-41) H 12/06/22 04:15 Alkaline Phosphatase 136 U/L (40-130) H 12/06/22 04:15 Troponin T Baseline 46 ng/L (0-15) H 12/02/22 13:14 Troponin T 120 Minute 52.05 ng/L (0-15) H 12/02/22 15:12 Delta Troponin T 6.05 ABS# (0-10) 12/02/22 15:12 Troponin T Hi Sens 6Hr 47.94 ng/L (0-15) H 12/02/22 19:52 Troponin T Hi Sens 6Hr Delta 1.94 ng/L (0-12) 12/02/22 19:52 C-Reactive Protein 25.0 mg/L (0.0-4.9) H 12/02/22 15:12 NT-Pro-B Natriuret Pep 25393 pg/mL (0-450) H 12/02/22 13:14 Total Protein 5.6 g/dL (6.6-8.7) L 12/06/22 04:15 Albumin 3.0 g/dL (3.5-5.2) L 12/06/22 04:15 Globulin 2.6 g/dL (1.3-4.6) 12/06/22 04:15 Procalcitonin 0.10 ng/mL (0-0.5) 12/02/22 15:12 Vitals Last Vital Signs Temp 97.5 F L 12/06/22 07:19 Pulse 58 L 12/06/22 08:58 Resp 18 12/06/22 08:58 BP 142/59 12/06/22 07:19 Pulse Ox 98 12/06/22 08:58 O2 Del Method Oxymask 12/06/22 08:58 O2 Flow Rate 3 12/06/22 08:58 Discharge Plan Discharge Patient Disposition: Xfer SNF Condition: Stable Prescriptions: New hydralazine 25 mg Tablet 25 mg PO TID Qty: 90 0RF Jardiance 25 mg tablet 25 mg PO DAILY Qty: 30 0RF Continued PreserVision AREDS [id number] mejq-xn-detb capsule 1 cap PO BID@0530,1730 latanoprost 0.005 % drops 1 drop ophthalmic (eye) BEDTIME Rx Instructions: both eyes Spiriva Respimat 2.5 mcg/actuation mist 2 inh INHALATION QAM Qty: 4 5RF ipratropium-albuterol 0.5 mg-3 mg(2.5 mg base)/3 mL solution for nebulization 3 ml inhalation Q6H PRN (Reason: wheezing) Qty: 90 0RF (DME) nebulizers Misc See Rx Instructions .Route Qty: 1 0RF Rx Instructions: Nebulizer machine with tubing and supplies Combivent Respimat 20-100 mcg/actuation mist 1 puff inhalation QID Qty: 4 5RF Rx Instructions: space evenly during waking hours miscellaneous medical supply Misc See Rx Instructions miscellaneous .COMPLEX Qty: 1 0RF Rx Instructions: rolling walker with seat as directed; miscellaneous medical supply Misc See Rx Instructions miscellaneous .COMPLEX Qty: 1 0RF Rx Instructions: Inogen portable oxygen 3L at all times with activity and rest as directed; miscellaneous medical supply Misc See Rx Instructions miscellaneous .COMPLEX Qty: 1 0RF Rx Instructions: extra long oxygen hose as directed; for use in town hydralazine 25 mg tablet 25 mg PO BID PRN (Reason: BP >150/90) Qty: 180 2RF Hold Instructions: Home Medication placed on hold at Doctor's office Rx Instructions: medication put on hold a week ago per pt 12/02/22 albuterol sulfate [Ventolin HFA] 90 mcg/actuation HFA aerosol inhaler 1 inh inhalation Q6H PRN (Reason: shortness of breath or wheezing) Qty: 6.7 0RF multivitamin Tablet 1 tab PO DAILY@0530 fluticasone propion-salmeterol 250-50 mcg/dose Blister With Device 1 inh INHALATION BID tamsulosin 0.4 mg capsule 0.4 mg PO BID@0530,1730 carvedilol 6.25 mg tablet 12.5 mg PO BID@0530,1200 Hold Instructions: Home Medication placed on hold at Doctor's office Rx Instructions: medication put on hold a week ago per pt 12/02/22 amlodipine 10 mg tablet 5 mg PO BID@06,12 dorzolamide 2 % drops 1 drp ophthalmic (eye) BID atorvastatin 80 mg tablet 80 mg PO DAILY@1730 potassium chloride 10 mEq tablet,ER particles/crystals See Rx Instructions .ROUTE .COMPLEX Rx Instructions: 30meq po qam and 20meq po at bedtime methenamine hippurate [Hiprex] 1 gram Tablet 1 g PO BID Rx Instructions: take with 1000mg of vit c twice a day Changed Lasix 40 mg tablet 40 mg PO BID Qty: 30 0RF Discontinued ascorbic acid (vitamin C) [Vitamin C] 1,000 mg Tablet 1,000 mg PO BID@0530,1730 Discharge Orders: Discharge Order (Routine); Ordered 12/06/22 Ordered By: Scooby Montalvo Referrals: [facility], [Occupational Therapist] - Deloris Conway MD [Primary Care Provider] - 4-7 days Discharge Diet: Cardiac Discharge Activity: Resume usual activity and Increase activity as tolerated Patient Instructions: Hydralazine (By mouth), Empagliflozin (By mouth), COPD (Chronic Obstructive Pulmonary Disease) (GEN), Opioid Safety Activity Restrictions/Additional Instructions: Dose of Lasix has been increased to 40 mg twice daily. Hydralazine 25 mg 3 times a day has been added to your medication list for high blood pressure. Check your blood pressure daily at home and maintain a blood pressure diary. Jardiance has been added to the list for congestive heart failure. Please check BMP in 1 week. Fluid restriction up to less than 1500 cc, salt restriction to less than 2 g/day Discharge Attestations Time Spent in Discharge Care*: greater than 30 min Specific Discharge Activities: educating patient, educating and/or supporting family/caregiver, discussing with pcp/other providers, discussing with behavioral health case manager/social workers/dc planners, documenting/other paperwork and evaluating patient/reviewing data Status at Discharge: Cognitive status at discharge: cognitively intact , Behavioral status at discharge: cooperative , Functional status at discharge: independent ambulation , Overall status at discharge: patient is back to baseline Quality Metrics Clinical Quality Measures [ No reported AMI, CVA or VTE this stay] Coding Level of Care Code 36568 Total time (in minutes) for Discharge: 60 Diagnoses Debility R53.81 Congestive heart failure (CHF) I50.9 Paroxysmal A-fib I48.0 COPD (chronic obstructive pulmonary disease) J41.0 COPD type: chronic bronchitis Chronic bronchitis type: simple Essential hypertension I10
[2022-12-06 10:47] LABS: SARS Covid-2 Antigen negative (Negative)
[2022-12-06 12:00] VITALS: BP 152/60; PULSE 72; RESP 18; TEMP 36.5; O2SAT 95
[2022-12-06 13:41] VITALS: BP 152/60; PULSE 72; RESP 18; TEMP 36.5; O2SAT 95
== END 2022-12-06 14:36 | disposition skilled nursing facility (03) ==
LOC: ER 14:44 → MEDSURG 15:35
PROVIDERS: Emergency Medicine; Internal Medicine; Admitting Provider Family Medicine; Emergency Provider Family Medicine; PCP Family Medicine; Visit Provider Student in an Organized Health Care Education/Training Program
DX: R53.81 Other malaise (principal); I11.0 Hypertensive heart disease with heart failure; I50.9 Heart failure, unspecified; I48.0 Paroxysmal atrial fibrillation; J41.0 Simple chronic bronchitis; I25.10 Atherosclerotic heart disease of native coronary artery without angina pectoris; Z87.891 Personal history of nicotine dependence
CPT/HCPCS: 36415; 36416; 51702; 71045; 80048; 80053; 80069; 82962; 83735; 83880; 84100; 84145; 84484; 85025; 86140; 87070; 87205; 87426; 93005; 93306; 94640; 96374; 96376; 97110; 97161; 97165; 97535; 99285; G0378; J1940

== ENCOUNTER → 2022-12-10 10:34 | Outpatient (BNVA) | payer MEDICARE, SELFPAY | PROVIDERS: PCP Family Medicine; Visit Provider Otolaryngology | DX: R04.0 Epistaxis (principal) | CPT/HCPCS: 99213 ==

== ENCOUNTER 2022-12-15 18:27 | Inpatient (IN) | payer OTHER, SELFPAY ==
[2022-12-15 18:28] VITALS: BP 168/76; PULSE 94; RESP 28; TEMP 36.8; O2SAT 88; BMI 19.8
--- NOTE | 2022-12-15 18:30 | ECG_ITS ---
[facility] Test Date: 2022-12-15 Pat Name: Lowell Salazar Department: Room: 105 Gender: Male [place]: : 1935 Requested By: Low Romano Order Number: [id number] Jose Alberto MD: Dionisio Ansari M.D. Measurements Intervals [place] Rate: 94 P: 230 MT: 286 QRS: 74 QRSD: 114 T: 32 QT: 367 QTc: 459 Interpretive Statements SINUS RHYTHM WITH FIRST DEGREE AV BLOCK WITH OCCASIONAL VENTRICULAR PREMATURE COMPLEXES POSSIBLE LEFT ATRIAL ENLARGEMENT [-0.1mV P-WAVE IN V1/V2] INFERIOR MYOCARDIAL INFARCTION , PROBABLY OLD [40+ ms Q WAVE AND/OR ST/T ABNORMALITY IN II/aVF] Compared to ECG 12/02/2022 20:19:15 First degree AV block now present Aberrant conduction of supraventricular beat(s) no longer present Myocardial infarct finding still present Electronically Signed On 12-16-2022 22:32:27 CDT by Dionisio Ansari M.D. [id number]
--- NOTE | 2022-12-15 18:36 | XRR_ITS ---
PROCEDURE INFORMATION: Exam: XR Chest Exam date and time: 12/15/2022 6:46 PM Age: 87 years old Clinical indication: Cough and shortness of breath; Prior surgery; Surgery date: 6+ months; Surgery type: Cabg; Patient HX: Cough with SOB. History of copd and chf; Additional info: Dyspnea/cough TECHNIQUE: Imaging protocol: Radiologic exam of the chest. Views: 1 view. COMPARISON: CR XR chest 1V portable [id number] 12/02/2022 1:15 PM FINDINGS: Lungs: Stable mild to moderate bibasilar atelectasis and/or infiltrate and/or effusion. Slight increased perihilar opacities bilaterally suggesting possible pulmonary edema. Pleural spaces: Stable small right pleural fluid collection. Heart/Mediastinum: Slight increased borderline to mild cardiomegaly. Vasculature: Calcification of the thoracic aorta and/or great vessels consistent with atherosclerotic vessel disease. Bones/joints: Stable sternotomy. XR/XR chest 1V portable [id number] IMPRESSION: 1. Stable small right pleural fluid collection. 2. Stable mild to moderate bibasilar atelectasis and/or infiltrate and/or effusion. 3. Slight increased borderline to mild cardiomegaly. 4. Slight increased perihilar opacities bilaterally suggesting possible pulmonary edema.
--- NOTE | 2022-12-15 18:38 | W.ED.SOB ---
HPI - SOB/Dyspnea General: Chief Complaint: Shortness of Breath/Dyspnea Stated Complaint: SOB Time Seen by Provider: 12/15/22 18:28 Source: patient Mode of arrival: ambulatory History of Present Illness: HPI Narrative: Male presents emergency complaining increasing shortness of breath give him several breathing treatments at the halfway despite this he continued to get worse he usually wears 3 L/min by nasal cannula now is up to 5 L to keep him in the low 90s. He has noticed increased swelling in his legs and some moderate orthopnea he has had problems with recurrent congestive heart failure in the past. MD elicited complaint: shortness of breath Associated symptoms: Reports orthopnea; Deny abdominal pain, chest pain, fever(s), nausea or vomiting Review of Systems Const: Denies: fever(s), chills, fatigue or malaise ENMT: Denies: throat pain, ear or mastoid pain, nasal discharge or nasal congestion Card: Reports: dyspnea on exertion and orthopnea; Denies: chest pain or edema Resp: Reports: dyspnea; Denies: productive cough or non-productive cough GI: Denies: abdominal pain, nausea, vomiting, hematemesis, coffee ground emesis, diarrhea, constipation, bloating, hematochezia or melena : Denies: flank pain, dysuria, urinary frequency or urinary urgency Skin/Breast: Denies: rash or pruritus PFSH ED PFSH: Medical History BPH (benign prostatic hyperplasia) CAD (coronary atherosclerotic disease) Carotid artery disease CKD (chronic kidney disease) Congestive heart failure (CHF) COPD (chronic obstructive pulmonary disease) Elevated troponin Enrolled in chronic care management Essential hypertension History of nonmelanoma skin cancer Hypokalemia Intermittent self-catheterization of bladder Left renal mass Lung granuloma Physical deconditioning Prediabetes Protein calorie malnutrition Seborrheic keratoses Urinary retention UTI due to extended-spectrum beta lactamase (ESBL) producing Escherichia coli Surgical History H/O carotid angioplasty H/O heart surgery History of cholecystectomy History of quadruple bypass Hx of knee surgery S/P TURP (transurethral resection of prostate) Family History Mother , at age 65 Cancer Brother Tuberculosis Brother Tuberculosis Other CAD (coronary artery disease) Social History Smoking and tobacco status: former smoker Quit status (tobacco): has quit using tobacco Former quit date comment: 40 yr 1-3ppd Second hand smoke exposure: No Alcohol intake: never Desire information about alcohol rehabilitation?: No Substance/Drug Use: never Desire information about substance/drug rehabilitation?: No Caregiver/support person: Yes Lives independently: No Housing: House Marital status: / Current occupational status: retired Do you think of yourself as: Straight/Heterosexual Current gender identity: Male Physical Exam Const: GENERAL APPEARANCE: cooperative and comfortable ORIENTATION/CONSCIOUSNESS: Yes awake, Yes oriented to person, Yes oriented to place and Yes oriented to time HENMT: COMMON NORMALS: normocephalic, atraumatic and hearing grossly normal bilaterally HEAD & SCALP: normocephalic and atraumatic Resp: COMMON NORMALS: normal respiratory effort, No retractions and No use of accessory muscles AUSCULTATION: crackles Cardio: COMMON NORMALS: regular rate, regular rhythm and No murmurs present (Cardio) RATE: regular rate RHYTHM: regular rhythm GI: COMMON NORMALS: Soft to palpation and No hepatosplenomegaly present AUSCULTATION: Yes normoactive bowel sounds PALPATION: Yes Soft to palpation, No Tenderness to palpation present (GI), No Guarding due to palpation present (GI) and Yes No hepatosplenomegaly present Extremity: COMMON NORMALS: normal to inspection, capillary refill normal, no clubbing, cyanosis or edema, no calf tenderness and no pedal edema Neuro: SENSORIUM/ORIENTATION: Yes oriented to person, Yes oriented to place and Yes oriented to time Skin: COMMON NORMALS: no rashes or lesions noted GENERAL SKIN EXAM: no rashes or lesions noted Course Vital Signs: Vital signs: Vital Signs Temperature 98.3 F 12/15/22 18:28 Pulse Rate 85 12/15/22 19:42 Respiratory Rate 28 H 12/15/22 18:28 Blood Pressure 148/68 12/15/22 19:42 Pulse Oximetry 93 12/15/22 19:42 Oxygen Delivery Me thod Nasal Cannula 12/15/22 19:42 Oxygen Flow Rate 5 12/15/22 19:42 MDM - SOB/Dyspnea Medical Decision Making Exacerbation congestive heart failure admit for diuresis discussed with hospitalist orders written Medical Records I reviewed the patient's medical records. Lab Data I reviewed the patient's lab results. 12/15/22 18:56 12/15/22 18:56 Labs/Radiology: Radiology Impressions Chest X-Ray 12/15/22 18:36 IMPRESSION: 1. Stable small right pleural fluid collection. 2. Stable mild to moderate bibasilar atelectasis and/or infiltrate and/or effusion. 3. Slight increased borderline to mild cardiomegaly. 4. Slight increased perihilar opacities bilaterally suggesting possible pulmonary edema. Laboratory Results WBC 14.48 10^3/uL (3.29-11.43) H 12/15/22 18:56 RBC 3.62 10^6/uL (3.85-5.65) L 12/15/22 18:56 Hgb 10.20 g/dL (11.27-16.99) L 12/15/22 18:56 Hct 32.8 % (37-53) L 12/15/22 18:56 MCV 90.6 fl (82-101) 12/15/22 18:56 MCH 28.2 pg (27-33) 12/15/22 18:56 MCHC 31.1 g/dL (30-55) 12/15/22 18:56 RDW 17.8 % (12.1-15.1) H 12/15/22 18:56 Plt Count 327 10^3/cmm (157-399) 12/15/22 18:56 MPV 9.7 fL (7.4-10.4) 12/15/22 18:56 Neut % (Auto) 78.2 % 12/15/22 18:56 Lymph % (Auto) 9.6 % 12/15/22 18:56 [place] % (Auto) 9.5 % 12/15/22 18:56 Eos % (Auto) 1.7 % 12/15/22 18:56 Baso % (Auto) 0.6 % 12/15/22 18:56 Neut # (Auto) 11.32 10^3/uL (1.8-7.7) H 12/15/22 18:56 Lymph # (Auto) 1.4 10^3/uL (0.8-4.8) 12/15/22 18:56 [place] # (Auto) 1.4 10^3/uL (0.2-0.9) H 12/15/22 18:56 Eos # (Auto) 0.3 10^3/uL (0.0-0.8) 12/15/22 18:56 Baso # (Auto) 0.1 10^3/uL (0.0-0.1) 12/15/22 18:56 Nucleated RBC % (auto) 0 % 12/15/22 18:56 Nucleated RBCs # 0.0 /100WBC 12/15/22 18:56 Specimen Type Arterial 12/15/22 18:34 Sample Site Radial, right 12/15/22 18:34 ABG pH 7.48 (7.35-7.45) H 12/15/22 18:34 ABG pCO2 38.0 mmHg (35-45) 12/15/22 18:34 ABG pO2 60.5 mmHg (80.0-100.0) L 12/15/22 18:34 ABG HCO3 28.0 mmol/L (22-26) H 12/15/22 18:34 ABG Base Excess 4.2 mmol/L (-2.0-2.0) H 12/15/22 18:34 Natan Test Pos 12/15/22 18:34 Hematocrit 30.2 % (42-52) L 12/15/22 18:34 O2 Delivery Device Nc 12/15/22 18:34 O2 Liters/Min 6.0 % 12/15/22 18:34 FiO2 44.0 % 12/15/22 18:34 Technical Support Consultant ID glc 12/15/22 18:34 Sodium 135 mmol/L (136-145) L 12/15/22 18:56 Potassium 4.4 mmol/L (3.5-5.1) 12/15/22 18:56 Chloride 96 mmol/L (98-107) L 12/15/22 18:56 Carbon Dioxide 28 mmol/L (22-29) 12/15/22 18:56 Anion Gap 15.4 (5-19) 12/15/22 18:56 BUN 42 mg/dL (8-23) H 12/15/22 18:56 Creatinine 1.6 mg/dL (0.7-1.2) H 12/15/22 18:56 GFR Calculation Not Reportable 12/15/22 18:56 Glucose 154 mg/dL (65-115) H 12/15/22 18:56 Calculated Osmolality 294 mOsm/kg (285-295) 12/15/22 18:56 Calcium 9.2 mg/dL (8.5-10.5) 12/15/22 18:56 Total Bilirubin 0.9 mg/dL (0.15-1.2) 12/15/22 18:56 AST 110 U/L (0-40) H 12/15/22 18:56 ALT 122 U/L (0-41) H 12/15/22 18:56 Alkaline Phosphatase 197 U/L (40-130) H 12/15/22 18:56 NT-Pro-B Natriuret Pep 22253 pg/mL (0-450) H 12/15/22 18:56 Total Protein 6.8 g/dL (6.6-8.7) 12/15/22 18:56 Albumin 3.6 g/dL (3.5-5.2) 12/15/22 18:56 Globulin 3.2 g/dL (1.3-4.6) 12/15/22 18:56 Discharge Plan Discharge Patient Disposition: Admitted As Inpatient Clinical Impression: Congestive heart failure (CHF) Condition: Stable Coding Level of Care Code ED Operations Chief for Sobeida Zambrano
[2022-12-15 18:46] LABS: ABG PH Result 7.48 (7.35-7.45); Arterial Blood Gas Hematocrit 30.2 % (42-52); Base Excess ABG 4.2 mmol/L (-2.0-2.0); Blood Gas Allen Test Pos; Blood Gas Operator Identificat glc; Blood Gas Sample Site Radial, right; Blood Gas Sample Type Arterial; Oxygen Device NC; PO2 ABG 60.5 mmHg (80.0-100.0)
[2022-12-15 19:02] LABS: Basophils # 0.1 10^3/uL (0.0-0.1); Basophils % 0.6 %; Eosinophils # 0.3 10^3/uL (0.0-0.8); Eosinophils % 1.7 %; Hematocrit 32.8 % (37-53); Lymphocytes # 1.4 10^3/uL (0.8-4.8); Lymphocytes % 9.6 %; Mean Corpuscular HGB Conc 31.1 g/dL (30-55); Mean Corpuscular Hemoglobin 28.2 pg (27-33); Mean Corpuscular Volume 90.6 fl (82-101); Mean Platelet Volume 9.7 fL (7.4-10.4); Monocytes # 1.4 10^3/uL (0.2-0.9); Monocytes % 9.5 %; Neutrophils # 11.32 10^3/uL (1.8-7.7); Neutrophils % 78.2 %; Nucleated Red Blood Cells % 0 %; Platelet Count 327 10^3/cmm (157-399); Red Blood Count 3.62 10^6/uL (3.85-5.65); Red Cell Distribution Width 17.8 % (12.1-15.1); White Blood Count 14.48 10^3/uL (3.29-11.43)
[2022-12-15] MEDS: FUROsemide 10 mg/mL SDV 10mL 60 MG IVP (19:17)
[2022-12-15 19:36] LABS: Alanine Aminotransferase 122 U/L (0-41); Albumin Level 3.6 g/dL (3.5-5.2); Alkaline Phosphatase 197 U/L (40-130); Anion Gap 15.4 (5-19); Aspartate Amino Transferase 110 U/L (0-40); Blood Urea Nitrogen 42 mg/dL (8-23); Calcium 9.2 mg/dL (8.5-10.5); Carbon Dioxide 28 mmol/L (22-29); Chloride 96 mmol/L (98-107); Globulin 3.2 g/dL (1.3-4.6); Glucose 154 mg/dL (65-115); NT Pro B Type Natriuretic Pept 10016 pg/mL (0-450); Osmolality Calculated 294 mOsm/kg (285-295); Potassium 4.4 mmol/L (3.5-5.1); Sodium 135 mmol/L (136-145); Total Bilirubin 0.9 mg/dL (0.15-1.2); Total Protein 6.8 g/dL (6.6-8.7)
[2022-12-15 19:42] VITALS: BP 148/68; PULSE 85; O2SAT 93
[2022-12-15 21:31] VITALS: BP 165/76; PULSE 89; O2SAT 90
[2022-12-15 21:59] VITALS: BP 164/94; PULSE 87; RESP 26; TEMP 36.5; O2SAT 93
[2022-12-15 22:00] VITALS: PULSE 83
[2022-12-15] MEDS: acetaminophen 500 mg Tablet PO (22:10)
[2022-12-15] MEDS: diphenhydrAMINE 25 mg Capsule PO (22:11)
[2022-12-15] MEDS: heparin 5,000 unit/mL INJ 1 mL 5000 UNIT SUBCUT (22:12)
--- NOTE | 2022-12-15 22:37 | P.HP_ITS ---
Providers/Chief Complaint Admitting Physician: Raul Song DO Chief Complaint: SOB History of Present Illness Lowell Salazar is a 87 year old male with known CHF, COPD presents after discharge 1 week ago for same condition with decompensated biventricular heart failure. The patient expresses frustration with getting so short of breath. He states that he has a doctor that wants him to wear a facemask however he feels better with the nasal cannula. He does have a history of epistaxis and does not have moisture in his nasal cannula. Patient is also frustrated with his return to the hospital. He is very short of breath. He says he could hardly breathe at home, which is now a penitentiary. He states that he will be moving into a penitentiary probably a [place] home. He denies chest pain or pressure no nausea or vomiting no lightheadedness or dizziness. He does state he feels that his legs are swollen. Left greater than right Review of Systems Const: Denies: fever(s) or chills Eyes: Denies: change in vision ENMT: Denies: throat pain or nasal congestion Card: Denies: chest pain or palpitations Resp: Reports: dyspnea; Denies: productive cough GI: Denies: abdominal pain, nausea, vomiting or change in stool character : Denies: difficulty urinating or dysuria Musc: Denies: back pain or extremity pain Skin/Breast: Denies: rash or lesions Neuro: Denies: headache(s) or dizziness Psych: Denies: anxiety or depression Brock/Lymph: Denies: easy bruising or easy bleeding Medications/Allergies Home Medications Medication Instructions Recorded Confirmed Last Taken Type latanoprost 0.005 % eye drops 1 drop ophthalmic (eye) BEDTIME 05/22/19 12/10/22 12/01/22 History vitamins A,C,E-hmap-qkhcuc 4,296 1 cap PO BID@0530,1730 05/22/19 12/10/22 12/02/22 History mcg-226 mg-90 mg capsule (PreserVision AREDS) tiotropium bromide 2.5 2 inh inhalation QAM #4 grams 10/17/21 12/10/22 08/17/22 Rx mcg/actuation mist for inhalation (Spiriva Respimat) multivitamin 1 tab PO DAILY@0530 11/27/21 12/10/22 12/02/22 History fluticasone 250 mcg-salmeterol 50 1 inh inhalation BID 03/26/22 12/10/22 08/17/22 History mcg/dose blistr powdr for inhalation tamsulosin 0.4 mg capsule 0.4 mg PO BID@0530,1730 03/26/22 12/10/22 12/02/22 History hydralazine 25 mg tablet 25 mg PO BID PRN BP >150/90 #180 07/11/22 12/10/22 11/12/22 Rx tabs ipratropium 20 mcg-albuterol 100 1 puff inhalation QID #4 grams 09/11/22 12/10/22 Unknown Rx mcg/actuation mist for inhalation (Combivent Respimat) miscellaneous medical supply See Rx Instructions miscellaneous 09/11/22 12/10/22 Unknown Rx .COMPLEX #1 ea ipratropium 0.5 mg-albuterol 3 mg 3 ml inhalation Q6H PRN wheezing 09/18/22 12/10/22 Unknown Rx (2.5 mg base)/3 mL nebulization #90 mL soln nebulizers #1 ea 09/18/22 12/10/22 Unknown Rx atorvastatin 80 mg tablet 80 mg PO DAILY@1730 10/02/22 12/10/22 12/01/22 History methenamine hippurate 1 gram 1 g PO BID 10/02/22 12/10/22 12/02/22 History tablet (Hiprex) potassium chloride 10 mEq See Rx Instructions .Route .COMPLEX 10/02/22 12/10/22 12/02/22 History tablet,extended release(part/cryst) see pharmacy comment albuterol sulfate 90 mcg/actuation 1 inh inhalation Q6H PRN shortness 10/19/22 12/10/22 Unknown Rx aerosol inhaler (Ventolin HFA) of breath or wheezing #6.7 grams amlodipine 10 mg tablet 5 mg PO BID@06,12 high BP 10/26/22 12/10/22 12/02/22 History carvedilol 6.25 mg tablet 12.5 mg PO BID@0530,1200 10/26/22 12/10/22 10/26/22 05:30 History miscellaneous medical supply See Rx Instructions miscellaneous 10/31/22 12/10/22 Unknown Rx .COMPLEX #1 ea miscellaneous medical supply See Rx Instructions miscellaneous 10/31/22 12/10/22 Unknown Rx .COMPLEX #1 ea dorzolamide 2 % eye drops 1 drp ophthalmic (eye) BID 11/17/22 12/10/22 Unknown History empagliflozin 25 mg tablet 25 mg PO DAILY #30 tabs 12/06/22 12/10/22 Unknown Rx (Jardiance) furosemide 40 mg tablet (Lasix) 40 mg PO BID #30 tabs 12/06/22 12/10/22 12/02/22 Rx 40 mg hydralazine 25 mg tablet 25 mg PO TID #90 tabs 12/06/22 12/10/22 Unknown Rx Allergies Allergy/AdvReac Type Severity Reaction Status Date / Time ranitidine [From Zantac] Allergy Unknown UNKNOWN Verified 12/15/22 18:28 simvastatin [From Zocor] Allergy Unknown ADR-Muscle Verified 12/15/22 18:28 Pain PFSH Acute PFSH: Medical History (Updated 12/15/22 @ 22:52 by Raul Song DO) Acute decompensated heart failure biventricular BPH (benign prostatic hyperplasia) CAD (coronary atherosclerotic disease) Carotid artery disease CKD (chronic kidney disease) Congestive heart failure (CHF) COPD (chronic obstructive pulmonary disease) Elevated troponin Enrolled in chronic care management Essential hypertension History of nonmelanoma skin cancer Hypokalemia Hypoxia Intermittent self-catheterization of bladder Left renal mass Lung granuloma Physical deconditioning Prediabetes Protein calorie malnutrition Seborrheic keratoses Urinary retention UTI due to extended-spectrum beta lactamase (ESBL) producing Escherichia coli Surgical History H/O carotid angioplasty H/O heart surgery History of cholecystectomy History of quadruple bypass Hx of knee surgery S/P TURP (transurethral resection of prostate) Family History Mother , at age 65 Cancer Brother Tuberculosis Brother Tuberculosis Other CAD (coronary artery disease) Social History Smoking and tobacco status: former smoker Quit status (tobacco): has quit using tobacco Former quit date comment: 40 yr 1-3ppd Second hand smoke exposure: No Alcohol intake: never Desire information about alcohol rehabilitation?: No Substance/Drug Use: never Desire information about substance/drug rehabilitation?: No Caregiver/support person: Yes Lives independently: No Housing: House Marital status: / Current occupational status: retired Do you think of yourself as: Straight/Heterosexual Current gender identity: Male Vitals/I&O/Wt Last Vital Signs Temp 97.7 F 12/15/22 21:59 Pulse 87 12/15/22 21:59 Resp 26 H 12/15/22 21:59 BP 164/94 12/15/22 21:59 Pulse Ox 93 12/15/22 21:59 O2 Del Method Room Air 12/15/22 21:59 O2 Flow Rate 5 12/15/22 19:42 12/15/22 12/15/22 12/15/22 06:59 14:59 22:59 Intake Total 237 / 237 Output Total 900 / 900 Balance -663 / -663 Weight last 48 hrs Weight 68.039 kg Physical Exam Narrative: 87-year-old male appears his stated age in mild distress due to respiratory failure. Neurologic: Alert and oriented x3 exam is nonfocal H EENT: Head is normocephalic atraumatic patient has temporal wasting. Pupils equal and reactive to light and accommodation no scleral icterus Mucous membranes are moist and pink without lesions or exudates Neck is supple no JVD carotid bruits or lymphadenopathy Chest rises symmetrically with inspiration. Heart: Normal S1-S2 without murmurs clicks gallops or rubs Respiratory: Crackles heard at the right base otherwise clear to auscultation without wheezes rales or rhonchi Abdomen: Flat soft nontender nondistended positive bowel sounds no HSM Extremities: No pitting edema in the lower extremities. No clubbing or cyanosis noted Back: Severe kyphosis. No CVA tenderness Lymph: No lymphadenopathy noted Skin: Warm and dry no rashes or lesions noted Psych: Mood and affect appropriate for illness Data 12/15/22 18:56 12/15/22 18:56 CXR: My impression: Increased pulmonary vascular congestion Radiologist's impression: IMPRESSION: 1. ? Stable small right pleural fluid collection. 2. ? Stable mild to moderate bibasilar atelectasis and/or infiltrate and/or effusion. 3. ? Slight increased borderline to mild cardiomegaly. 4. ? Slight increased perihilar opacities bilaterally suggesting possible pulmonary edema. A&P Assessment and plan (1) Acute decompensated heart failure: Patient was just here 12/02/2022 with a discharge date of 12/06/2022. Unfortunately he was not placed on the usual standard for CHF treatment. While his Lasix dose was increased he has not been on ANNIE inhibitor for 2 to 3 years he has no allergy and does not know why this was discontinued. His beta-branden dose will be lowered while he is here and increased as tolerated. We will add lisinopril once his he becomes more compensated. I have stopped Jardiance as this drug has indication for decreased mortality and not symptom control. At this point the patient requires more symptom control also consider adding spironolactone again when compensated. We will plan on stopping hydralazine as well. Would also stop amlodipine. Recommend diuresis beta-branden ANNIE inhibitor plus or minus spironolactone as this patient's stable medications for CHF. (2) Shortness of breath: Recommend low doses of the morphine product to help with dyspnea and the feeling of air hunger. (3) Hypoxia: Patient is usually on 3 to 3-1/2 L and has required 6 L during this hospitalization. (4) Acute and chronic respiratory failure with hypoxia: Patient states he carries a diagnosis of COPD however his respiratory failure with hypoxia seems to be more related to his biventricular heart failure. (5) DNR (do not resuscitate): Patient states he has filled out a form for this previously however I do not see it. (6) Elevated WBC count: While the patient usually runs a WBC count around 11,000 and it is elevated at 14,000. Clinically I do not see signs of an infection we will follow. (7) COPD (chronic obstructive pulmonary disease): Continue home nebulizer. Qualifiers: COPD type: chronic bronchitis Chronic bronchitis type: simple Qualified Code(s): J41.0 - Simple chronic bronchitis Attestations Medical Necessity Statement*: Patient will require a 2 midnight stay for adequate diuresis lowering of his oxygen supplementation and medication management. Coding Level of Care Code Acute Code for [facility] Diagnoses Acute decompensated heart failure I50.9 Shortness of breath R06.02 Hypoxia R09.02 Acute and chronic respiratory failure with hypoxia J96.21 DNR (do not resuscitate) Z66 Elevated WBC count D72.829 COPD (chronic obstructive pulmonary disease) J41.0 COPD type: chronic bronchitis Chronic bronchitis type: simple
[2022-12-15 23:40] VITALS: BP 140/63; PULSE 90; RESP 18; TEMP 36.7; O2SAT 92
[2022-12-16] VITALS (13 sets, daily range): BP systolic 145–161; BP diastolic 63–74; PULSE 64–85; RESP 16–25; TEMP 36.3–36.8; O2SAT 90–98
[2022-12-16] MEDS: morphine 4 mg/mL SDV 1 mL 2 MG IVP (02:33)
[2022-12-16 04:24] LABS: Basophils # 0.1 10^3/uL (0.0-0.1); Basophils % 0.7 %; Eosinophils # 0.3 10^3/uL (0.0-0.8); Eosinophils % 2.5 %; Hematocrit 28.4 % (37-53); Lymphocytes # 1.5 10^3/uL (0.8-4.8); Lymphocytes % 15.1 %; Mean Corpuscular Hemoglobin 28.7 pg (27-33); Mean Corpuscular Volume 92.5 fl (82-101); Mean Platelet Volume 10.2 fL (7.4-10.4); Monocytes # 1.2 10^3/uL (0.2-0.9); Monocytes % 12.2 %; Neutrophils % 68.9 %; Nucleated Red Blood Cells % 0 %; Platelet Count 286 10^3/cmm (157-399); Red Blood Count 3.07 10^6/uL (3.85-5.65); Red Cell Distribution Width 17.7 % (12.1-15.1); White Blood Count 10.01 10^3/uL (3.29-11.43)
[2022-12-16 04:43] LABS: Anion Gap 12.3 (5-19); Blood Urea Nitrogen 39 mg/dL (8-23); Calcium 8.5 mg/dL (8.5-10.5); Carbon Dioxide 29 mmol/L (22-29); Chloride 100 mmol/L (98-107); Glucose 100 mg/dL (65-115); Magnesium 2.6 mg/dL (1.7-2.3); Osmolality Calculated 295 mOsm/kg (285-295); Phosphorus 4.3 mg/dL (2.5-4.5); Potassium 3.3 mmol/L (3.5-5.1); Sodium 138 mmol/L (136-145)
[2022-12-16] MEDS: FUROsemide 10 mg/mL SDV 10mL 60 MG IVP ×2 (06:17→17:34)
--- NOTE | 2022-12-16 07:15 | PC.PHAR ---
pt is from [facility] [phone] gifty nurse from [facility] states she will fax mar and tar
[2022-12-16] MEDS: carvedilol 6.25 mg Tablet PO (09:03)
[2022-12-16] MEDS: docusate sodium 100 mg Capsule PO ×2 (09:03→17:36)
[2022-12-16] MEDS: heparin 5,000 unit/mL INJ 1 mL 5000 UNIT SUBCUT ×2 (11:20→23:13)
--- NOTE | 2022-12-16 11:28 | P.PN_ITS ---
Subjective Subjective: Patient is endorsing feeling better right now he is on 3 L nasal cannula H&P reviewed and, I did tell the patient that I would not add lisinopril or spironolactone at this point considering creatinine 1.5 Potassium is 3.3 which was replenished Morning patient is on 3 L of nasal cannula as per the PCP he should be on facemask instead of nasal cannula It was recommended by Dr. Estevez Vitals/I&O/Wt Last Vital Signs Temp 97.4 F L 12/16/22 08:00 Pulse 69 12/16/22 08:00 Resp 23 H 12/16/22 08:00 BP 161/74 12/16/22 08:00 Pulse Ox 91 12/16/22 08:00 O2 Del Method Nasal Cannula 12/16/22 08:00 O2 Flow Rate 5 12/16/22 07:43 12/15/22 12/16/22 12/16/22 22:59 06:59 14:59 Intake Total 237 / 237 250 / 487 240 / 240 Output Total 900 / 900 450 / 1350 730 / 730 Balance -663 / -663 -200 / -863 -490 / -490 Weight last 48 hrs Weight 68.039 kg Physical Exam Narrative: No lower extremity edema Positive crackles GCS 15 Awake and alert S1, S2 3 L nasal cannula Abdomen soft Pleasant and cooperative Nonfocal neuro exam Data 12/16/22 03:31 12/16/22 03:31 A&P Assessment and plan (1) Acute and chronic respiratory failure with hypoxia: (2) Acute decompensated heart failure: (3) Shortness of breath: (4) DNR (do not resuscitate): (5) COPD (chronic obstructive pulmonary disease): Qualifiers: COPD type: chronic bronchitis Chronic bronchitis type: simple Qualified Code(s): J41.0 - Simple chronic bronchitis (6) Recurrent epistaxis: (7) Essential hypertension: (8) Hypokalemia: (9) Detrusor dysfunction: Plan Acute on chronic diastolic CHF exacerbation Continue IV diuresis, at long-term he is supposed to get 40 mg of p.o. Lasix q. twice daily Adequate urine output Patient does have positive crackles with congestive hepatopathy Monitor liver function for now No need to repeat echo Chronic kidney disease without acute exacerbation not a good candidate to be on lisinopril or spironolactone at this point, Improvement anticipated with diuresis Hypokalemia: Add potassium twice daily regimen along IV Lasix Magnesium 2.6 Acute on chronic hypoxia: Currently on 3 L, facemask recommended by his PCP At the time of admission he was on 6 L Paroxysmal A-fib, without RVR Patient will return to [place] long-term once stable DNR/DNI Cardiac diet Attestations Medical Necessity Statement*: Continue medical management Diagnoses Acute and chronic respiratory failure with hypoxia J96.21 Acute decompensated heart failure I50.9 Shortness of breath R06.02 DNR (do not resuscitate) Z66 COPD (chronic obstructive pulmonary disease) J41.0 COPD type: chronic bronchitis Chronic bronchitis type: simple Recurrent epistaxis R04.0 Essential hypertension I10 Hypokalemia E87.6 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
[2022-12-16] MEDS: potassium chloride ER 20 mEq Tablet 40 MEQ PO ×2 (11:52→17:36)
[2022-12-16 12:08] LABS: Glucose Point of Care 128 mg/dL (70-110)
[2022-12-16] MEDS: saline nasal spray 44mL Btl 1 SPRAY NASAL (16:12)
[2022-12-16 16:41] LABS: Glucose Point of Care 121 mg/dL (70-110)
--- NOTE | 2022-12-16 17:51 | ECG_ITS ---
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 Measurements Intervals [place] Rate: 87 P: 0 [place]: 0 QRS: 59 QRSD: 113 T: 90 QT: 411 QTc: 496 Interpretive Statements ATRIAL FIBRILLATION WITH ABERRANT CONDUCTION OR VENTRICULAR PREMATURE COMPLEXES INFERIOR MYOCARDIAL INFARCTION , PROBABLY OLD [40+ ms Q WAVE AND/OR ST/T ABNORMALITY IN II/aVF] MODERATE T-WAVE ABNORMALITY, CONSIDER LATERAL ISCHEMIA [-0.1+ mV T-WAVE IN I/aVL/V5/V6] Compared to ECG 12/15/2022 18:30:45 Ventricular premature complex(es) now present Possible ischemia now present Sinus rhythm no longer present First degree AV block no longer present Myocardial infarct finding still present Electronically Signed On 12-16-2022 22:28:28 CDT by Dionisio Ansari M.D. [id number]
--- NOTE | 2022-12-16 18:53 | ECG_ITS ---
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 Measurements Intervals [place] Rate: 83 P: -42 WI: 309 QRS: 74 QRSD: 122 T: 115 QT: 424 QTc: 500 Interpretive Statements SINUS RHYTHM WITH FIRST DEGREE AV BLOCK WITH OCCASIONAL VENTRICULAR PREMATURE COMPLEXES POSSIBLE LEFT ATRIAL ENLARGEMENT [-0.1mV P-WAVE IN V1/V2] INFERIOR MYOCARDIAL INFARCTION , PROBABLY OLD [40+ ms Q WAVE AND/OR ST/T ABNORMALITY IN II/aVF] ANTEROLATERAL MYOCARDIAL INFARCTION , OF INDETERMINATE AGE [40+ ms Q WAVE IN I/aVL/V3-V6] Compared to ECG 12/16/2022 17:51:55 First degree AV block now present Atrial fibrillation no longer present Aberrant conduction of supraventricular beat(s) no longer present T-wave abnormality no longer present Possible ischemia no longer present Myocardial infarct finding still present Electronically Signed On 12-16-2022 22:27:49 CDT by Dionisio Ansari M.D. [id number]
[2022-12-16 20:42] LABS: Troponin(5th) Baseline 89 ng/L (0-15)
--- NOTE | 2022-12-16 20:53 | ECG_ITS ---
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 Measurements Intervals [place] Rate: 81 P: -9 [place]: 298 QRS: 76 QRSD: 116 T: 89 QT: 411 QTc: 478 Interpretive Statements SINUS RHYTHM WITH FIRST DEGREE AV BLOCK POSSIBLE LEFT ATRIAL ENLARGEMENT [-0.1mV P-WAVE IN V1/V2] INFERIOR MYOCARDIAL INFARCTION , PROBABLY OLD [40+ ms Q WAVE AND/OR ST/T ABNORMALITY IN II/aVF] ANTEROLATERAL MYOCARDIAL INFARCTION , OF INDETERMINATE AGE [40+ ms Q WAVE IN I/aVL/V3-V6] Compared to ECG 12/16/2022 18:30:06 Ventricular premature complex(es) no longer present Myocardial infarct finding still present Electronically Signed On 12-16-2022 22:32:46 CDT by Dionisio Ansari M.D. [id number]
[2022-12-16 21:47] LABS: Glucose Point of Care 111 mg/dL (70-110)
[2022-12-17] VITALS (12 sets, daily range): BP systolic 143–169; BP diastolic 64–77; PULSE 65–93; RESP 18–22; TEMP 36.7–37.1; O2SAT 93–98
--- NOTE | 2022-12-17 00:48 | ECG_ITS ---
[facility] Test Date: 2022-12-17 Pat Name: Lowell Salazar Department: Room: 105 Gender: Male Chief Lending Officer: : 1935 Requested By: Uriah Malin Order Number: [id number] Jose Alberto MD: Dionisio Ansari M.D. Measurements Intervals [place] Rate: 80 P: 0 MD: 0 QRS: -21 QRSD: 118 T: -11 QT: 417 QTc: 482 Interpretive Statements SUPRAVENTRICULAR RHYTHM LEFT VENTRICULAR HYPERTROPHY AND ST-T CHANGE [VOLTAGE CRITERIA PLUS ST/T ABNORMALITY] ANTEROLATERAL MYOCARDIAL INFARCTION , OF INDETERMINATE AGE [40+ ms Q WAVE IN I/aVL/V3-V6] Compared to ECG 12/16/2022 21:01:34 Supraventricular rhythm now present Left ventricular hypertrophy now present ST (T wave) deviation now present Sinus rhythm no longer present First degree AV block no longer present Myocardial infarct finding still present Electronically Signed On 12-17-2022 12:06:20 CDT by Dionisio Ansari M.D. [id number]
[2022-12-17 01:29] LABS: Basophils # 0.1 10^3/uL (0.0-0.1); Basophils % 0.8 %; Eosinophils # 0.3 10^3/uL (0.0-0.8); Eosinophils % 3.1 %; Hematocrit 28.8 % (37-53); Lymphocytes # 1.7 10^3/uL (0.8-4.8); Lymphocytes % 15.9 %; Mean Corpuscular HGB Conc 31.3 g/dL (30-55); Mean Corpuscular Hemoglobin 28.4 pg (27-33); Mean Corpuscular Volume 90.9 fl (82-101); Mean Platelet Volume 9.9 fL (7.4-10.4); Monocytes # 1.2 10^3/uL (0.2-0.9); Monocytes % 11.7 %; Neutrophils # 7.13 10^3/uL (1.8-7.7); Nucleated Red Blood Cells % 0 %; Platelet Count 308 10^3/cmm (157-399); Red Blood Count 3.17 10^6/uL (3.85-5.65); Red Cell Distribution Width 17.7 % (12.1-15.1); White Blood Count 10.47 10^3/uL (3.29-11.43)
[2022-12-17 01:52] LABS: Anion Gap 11.8 (5-19); Blood Urea Nitrogen 38 mg/dL (8-23); Calcium 8.9 mg/dL (8.5-10.5); Carbon Dioxide 32 mmol/L (22-29); Chloride 100 mmol/L (98-107); Glucose 118 mg/dL (65-115); Osmolality Calculated 300 mOsm/kg (285-295); Phosphorus 4.4 mg/dL (2.5-4.5); Potassium 3.8 mmol/L (3.5-5.1); Sodium 140 mmol/L (136-145)
[2022-12-17 01:53] LABS: Troponin 5 6HR 98.75 ng/L (0-15)
[2022-12-17 01:55] LABS: Troponin 5 6HR Delta 9.75 ng/L (0-12)
[2022-12-17] MEDS: FUROsemide 10 mg/mL SDV 10mL 60 MG IVP ×2 (06:11→18:05)
[2022-12-17] MEDS: docusate sodium 100 mg Capsule PO ×2 (09:02→17:59)
[2022-12-17] MEDS: carvedilol 12.5 mg Tablet PO (09:02)
[2022-12-17] MEDS: potassium chloride ER 20 mEq Tablet 40 MEQ PO ×2 (09:02→17:59)
[2022-12-17] MEDS: amlodipine 5 mg Tablet PO (09:02)
[2022-12-17] MEDS: magnesium hydroxide 30 mL UDC PO (10:02)
[2022-12-17] MEDS: heparin 5,000 unit/mL INJ 1 mL 5000 UNIT SUBCUT ×2 (10:03→22:13)
--- NOTE | 2022-12-17 10:44 | PM.PN ---
Subjective Subjective: Patient was able to lay semi-flat and sleep Stating that his chest pressure has resolved but he gets short of breath with mild exertion which is not new for him There was some consideration to change halfway or moved to hospice, we are not able to get in touch with the family Patient at this point is not complaining of chest pain or shortness of breath currently on 5 L nasal cannula Adequate urine output Patient has been passing gas, no BM yet Vitals/I&O/Wt Last Vital Signs Temp 98.1 F 12/17/22 08:00 Pulse 93 12/17/22 10:31 Resp 21 H 12/17/22 08:00 BP 148/69 12/17/22 08:00 Pulse Ox 98 12/17/22 10:31 O2 Del Method Nasal Cannula 12/17/22 10:31 O2 Flow Rate 5 12/17/22 10:31 12/16/22 12/17/22 12/17/22 22:59 06:59 14:59 Intake Total 250 / 730 457 / 1187 360 / 360 Output Total 2050 / 3880 300 / 4180 1000 / 1000 Balance -1800 / -3150 157 / -2993 -640 / -640 Weight last 48 hrs Weight 67.245 kg Weight 66.366 kg Weight 68.039 kg Physical Exam Narrative: Positive lung crackles No signs of edema of legs No active chest pain or shortness of breath Currently on 5 L Hemodynamically stable Pleasant and cooperative GCS [address] Data 12/17/22 01:00 12/17/22 01:00 A&P Assessment and plan (1) Acute and chronic respiratory failure with hypoxia: (2) Acute decompensated heart failure: (3) Shortness of breath: (4) DNR (do not resuscitate): (5) COPD (chronic obstructive pulmonary disease): Qualifiers: COPD type: chronic bronchitis Chronic bronchitis type: simple Qualified Code(s): J41.0 - Simple chronic bronchitis (6) Paroxysmal A-fib: (7) Detrusor dysfunction: (8) Intermittent self-catheterization of bladder: Plan Acute systolic CHF exacerbation, EF35- 40% Positive crackles, I will increase dose of IV Lasix We will target 400 mL of urine per hour Watch for electrolyte imbalance or contraction alkalosis Hemodynamic stable No need to repeat echo Had a stress test done in May 2022 which showed myocardial scarring in distribution of right coronary artery circumflex and LAD with EF 41% there is diffuse hypokinesia septum and left ventricle apex Acute on chronic hypoxia: Currently on 5 L I am anticipating this will improve with better diuresis Hypokalemia: Repleted Chronic kidney disease: Creatinine stable BPH: Detrusor instability patient does self caths at home Currently has a Sam catheter for accurate urine output measurement Congestive hepatopathy: Repeat CMP tomorrow No active chest pain EKG showing sinus rhythm first-degree AV block without ischemic infarctive changes Patient has history of COPD, asthma, coronary disease status post CABG, peripheral arterial disease, carotid artery stenosis, exertional dyspnea Left renal mass: Since 2020, patient is not pursuing any active therapeutic options DNR/DNI Cardiac diet Attestations Medical Necessity Statement*: Continue medical management Diagnoses Acute and chronic respiratory failure with hypoxia J96.21 Acute decompensated heart failure I50.9 Shortness of breath R06.02 DNR (do not resuscitate) Z66 COPD (chronic obstructive pulmonary disease) J41.0 COPD type: chronic bronchitis Chronic bronchitis type: simple Paroxysmal A-fib I48.0 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
[2022-12-17] MEDS: sennosides-docusate Tablet 1 TAB PO (12:15)
[2022-12-17] MEDS: hyDRALAzine 10 mg Tablet PO ×2 (15:58→21:17)
[2022-12-17] MEDS: polyethylene glycol 3350 Pkt 17 gm PO (21:17)
[2022-12-17 21:52] LABS: Glucose Point of Care 156 mg/dL (70-110)
[2022-12-17] MEDS: diphenhydrAMINE 25 mg Capsule PO (22:37)
[2022-12-17] MEDS: acetaminophen 325 mg Tablet 650 MG PO (22:37)
[2022-12-18 01:00] VITALS: RESP 18; O2SAT 92
[2022-12-18] MEDS: morphine 4 mg/mL SDV 1 mL 2 MG IVP (01:00)
[2022-12-18 03:45] VITALS: BP 114/51; PULSE 66; RESP 21; TEMP 36.8; O2SAT 92
[2022-12-18 04:17] LABS: Basophils # 0.1 10^3/uL (0.0-0.1); Basophils % 0.6 %; Eosinophils # 0.4 10^3/uL (0.0-0.8); Eosinophils % 3.4 %; Hematocrit 27.9 % (37-53); Lymphocytes # 1.9 10^3/uL (0.8-4.8); Lymphocytes % 17.9 %; Mean Corpuscular HGB Conc 31.5 g/dL (30-55); Mean Corpuscular Hemoglobin 28.6 pg (27-33); Mean Corpuscular Volume 90.6 fl (82-101); Mean Platelet Volume 9.8 fL (7.4-10.4); Monocytes # 1.3 10^3/uL (0.2-0.9); Monocytes % 11.9 %; Neutrophils # 6.96 10^3/uL (1.8-7.7); Neutrophils % 65.6 %; Nucleated Red Blood Cells % 0 %; Platelet Count 316 10^3/cmm (157-399); Red Blood Count 3.08 10^6/uL (3.85-5.65); Red Cell Distribution Width 17.4 % (12.1-15.1)
[2022-12-18 04:26] VITALS: PULSE 64
[2022-12-18 04:39] LABS: Alanine Aminotransferase 93 U/L (0-41); Albumin Level 3.2 g/dL (3.5-5.2); Alkaline Phosphatase 171 U/L (40-130); Anion Gap 10.8 (5-19); Aspartate Amino Transferase 78 U/L (0-40); Blood Urea Nitrogen 35 mg/dL (8-23); Calcium 8.8 mg/dL (8.5-10.5); Carbon Dioxide 32 mmol/L (22-29); Chloride 98 mmol/L (98-107); Globulin 2.7 g/dL (1.3-4.6); Glucose 100 mg/dL (65-115); Osmolality Calculated 292 mOsm/kg (285-295); Potassium 3.8 mmol/L (3.5-5.1); Sodium 137 mmol/L (136-145); Total Bilirubin 0.6 mg/dL (0.15-1.2); Total Protein 5.9 g/dL (6.6-8.7)
[2022-12-18] MEDS: FUROsemide 10 mg/mL SDV 10mL 60 MG IVP (07:00)
[2022-12-18 08:00] VITALS: BP 158/70; PULSE 62; PULSE 73; RESP 22; O2SAT 99
[2022-12-18] MEDS: polyethylene glycol 3350 Pkt 17 gm PO (08:04)
[2022-12-18] MEDS: carvedilol 12.5 mg Tablet PO (08:04)
[2022-12-18] MEDS: aspirin 81 mg EC Tablet PO (08:04)
[2022-12-18] MEDS: docusate sodium 100 mg Capsule PO (08:04)
[2022-12-18] MEDS: potassium chloride ER 20 mEq Tablet 40 MEQ PO (08:04)
[2022-12-18] MEDS: sennosides-docusate Tablet 1 TAB PO (08:04)
[2022-12-18] MEDS: hyDRALAzine 10 mg Tablet PO ×2 (08:04→14:57)
[2022-12-18] MEDS: heparin 5,000 unit/mL INJ 1 mL 5000 UNIT SUBCUT (12:23)
--- NOTE | 2022-12-18 13:08 | PM.PN ---
Subjective Subjective: Patient is waiting for placement now Creatinine stable Hemoglobin stable Adequate urine output Remove Sam catheter before discharge tomorrow Vitals/I&O/Wt Last Vital Signs Temp 98.3 F 12/18/22 03:45 Pulse 62 12/18/22 08:00 Resp 22 H 12/18/22 08:00 BP 158/70 12/18/22 08:00 Pulse Ox 99 12/18/22 08:00 O2 Del Method Nasal Cannula 12/18/22 08:00 O2 Flow Rate 3 12/18/22 08:00 12/17/22 12/18/22 12/18/22 22:59 06:59 14:59 Intake Total 386 / 1346 100 / 1446 953 / 953 Output Total 450 / 1450 250 / 1700 Balance -64 / -104 -150 / -254 953 / 953 Weight last 48 hrs Weight 67.245 kg Physical Exam Narrative: No signs of fluid overload Crackles improved significantly Currently on 3 L Awake and alert Pleasant and cooperative Euvolemic Abdomen soft S1, S2 Data 12/18/22 03:31 12/18/22 03:31 A&P Assessment and plan (1) Acute and chronic respiratory failure with hypoxia: (2) Acute decompensated heart failure: (3) Shortness of breath: (4) DNR (do not resuscitate): (5) Paroxysmal A-fib: (6) Left renal mass: (7) Intermittent self-catheterization of bladder: Plan Acute systolic CHF exacerbation I will continue IV Lasix until the day of discharge Adequate urine output Crackles improved significantly Acute on chronic hypoxia currently doing well on 3 L which is his home requirement Chronic kidney disease creatinine stable Left renal mass patient is not pursuing any intervention he has seen Dr. Grajeda in the past For BPH he does self cath at home Congestive hepatopathy: Improving Patient is stating that he is not ready for hospice, he is DNR/DNI for now Cardiac diet Attestations Medical Necessity Statement*: Discharge tomorrow Diagnoses Acute and chronic respiratory failure with hypoxia J96.21 Acute decompensated heart failure I50.9 Shortness of breath R06.02 DNR (do not resuscitate) Z66 Paroxysmal A-fib I48.0 Left renal mass N28.89 Intermittent self-catheterization of bladder Z78.9
--- NOTE | 2022-12-18 14:33 | P.DS_ITS ---
Discharge Providers Date of Admission: 12/15/22 21:59 Date of Discharge: December 18, 2022 Attending Provider at Admission: Raul Song DO Attending Provider at Discharge: Uriah Malin MD Diagnoses at Discharge Discharge Diagnosis (1) Acute and chronic respiratory failure with hypoxia: Status: Acute (2) Acute decompensated heart failure: Status: Acute (3) Shortness of breath: Status: Acute (4) DNR (do not resuscitate): Status: Acute (5) Paroxysmal A-fib: Status: Acute (6) Left renal mass: Status: Acute (7) Intermittent self-catheterization of bladder: Status: Acute Reason for Visit Reason for Visit: SOB Hospital Course Hospital Course 87-year-old male who has history of chronic kidney disease, reduced ejection fraction heart failure presented with exacerbation of heart failure he was put on IV diuretics 60 mg of Lasix every 12 hours he is in -4 L balance, his lung crackles improved significantly, initially he was requiring 5 L of oxygen via nasal cannula we were able to wean it down to 3 L home requirement, at the time of discharge I have discontinued his Lasix 40 mg daily regimen and change to Bumex 1 mg, I have counseled patient to use extra dose if he is not able to lay flat without shortness of breath, he does have chronic dyspnea on exertion, for his renal mass he does not want to pursue any intervention he has seen Dr. Grajeda in the past, patient is stating that he is not ready for palliative care as of yet, he is DNR/DNI Physical Exam Narrative: No signs of fluid overload Crackles improved significantly Currently on 3 L Awake and alert Pleasant and cooperative Euvolemic Abdomen soft S1, S2 Discharge Data Studies Completed and Pending Completed Studies During Hospitalization Category Date Time Status XR chest 1V portable [id number] Stat Exams 12/15/22 18:36 Completed Pending at discharge Category Date Time Status Basic Metabolic Panel AM LABS Lab 12/19/22 04:00 Ordered Radiology Impressions Chest X-Ray 12/15/22 18:36 IMPRESSION: 1. Stable small right pleural fluid collection. 2. Stable mild to moderate bibasilar atelectasis and/or infiltrate and/or effusion. 3. Slight increased borderline to mild cardiomegaly. 4. Slight increased perihilar opacities bilaterally suggesting possible pulmonary edema. Laboratory Results WBC 10.60 10^3/uL (3.29-11.43) 12/18/22 03:31 RBC 3.08 10^6/uL (3.85-5.65) L 12/18/22 03:31 Hgb 8.80 g/dL (11.27-16.99) L 12/18/22 03:31 Hct 27.9 % (37-53) L 12/18/22 03:31 MCV 90.6 fl (82-101) 12/18/22 03:31 MCH 28.6 pg (27-33) 12/18/22 03:31 MCHC 31.5 g/dL (30-55) 12/18/22 03:31 RDW 17.4 % (12.1-15.1) H 12/18/22 03:31 Plt Count 316 10^3/cmm (157-399) 12/18/22 03:31 MPV 9.8 fL (7.4-10.4) 12/18/22 03:31 Neut % (Auto) 65.6 % 12/18/22 03:31 Lymph % (Auto) 17.9 % 12/18/22 03:31 [place] % (Auto) 11.9 % 12/18/22 03:31 Eos % (Auto) 3.4 % 12/18/22 03:31 Baso % (Auto) 0.6 % 12/18/22 03:31 Neut # (Auto) 6.96 10^3/uL (1.8-7.7) 12/18/22 03:31 Lymph # (Auto) 1.9 10^3/uL (0.8-4.8) 12/18/22 03:31 [place] # (Auto) 1.3 10^3/uL (0.2-0.9) H 12/18/22 03:31 Eos # (Auto) 0.4 10^3/uL (0.0-0.8) 12/18/22 03:31 Baso # (Auto) 0.1 10^3/uL (0.0-0.1) 12/18/22 03:31 Nucleated RBC % (auto) 0 % 12/18/22 03:31 Nucleated RBCs # 0.0 /100WBC 12/18/22 03:31 Specimen Type Arterial 12/15/22 18:34 Sample Site Radial, right 12/15/22 18:34 ABG pH 7.48 (7.35-7.45) H 12/15/22 18:34 ABG pCO2 38.0 mmHg (35-45) 12/15/22 18:34 ABG pO2 60.5 mmHg (80.0-100.0) L 12/15/22 18:34 ABG HCO3 28.0 mmol/L (22-26) H 12/15/22 18:34 ABG Base Excess 4.2 mmol/L (-2.0-2.0) H 12/15/22 18:34 Natan Test Pos 12/15/22 18:34 Hematocrit 30.2 % (42-52) L 12/15/22 18:34 O2 Delivery Device Nc 12/15/22 18:34 O2 Liters/Min 6.0 % 12/15/22 18:34 FiO2 44.0 % 12/15/22 18:34 Loan Auditor ID glc 12/15/22 18:34 Sodium 137 mmol/L (136-145) 12/18/22 03:31 Potassium 3.8 mmol/L (3.5-5.1) 12/18/22 03:31 Chloride 98 mmol/L (98-107) 12/18/22 03:31 Carbon Dioxide 32 mmol/L (22-29) H 12/18/22 03:31 Anion Gap 10.8 (5-19) 12/18/22 03:31 BUN 35 mg/dL (8-23) H 12/18/22 03:31 Creatinine 1.4 mg/dL (0.7-1.2) H 12/18/22 03:31 GFR Calculation Not Reportable 12/18/22 03:31 Glucose 100 mg/dL (65-115) 12/18/22 03:31 POC Glucose 156 mg/dL (70-110) H 12/17/22 21:47 Calculated Osmolality 292 mOsm/kg (285-295) 12/18/22 03:31 Calcium 8.8 mg/dL (8.5-10.5) 12/18/22 03:31 Phosphorus 4.4 mg/dL (2.5-4.5) 12/17/22 01:00 Magnesium 2.6 mg/dL (1.7-2.3) H 12/16/22 03:31 Total Bilirubin 0.6 mg/dL (0.15-1.2) 12/18/22 03:31 AST 78 U/L (0-40) H 12/18/22 03:31 ALT 93 U/L (0-41) H 12/18/22 03:31 Alkaline Phosphatase 171 U/L (40-130) H 12/18/22 03:31 Troponin T Baseline 89 ng/L (0-15) H 12/16/22 19:16 Troponin T 120 Minute 91.10 ng/L (0-15) H 12/16/22 21:20 Delta Troponin T 2.10 ABS# (0-10) 12/16/22 21:20 Troponin T Hi Sens 6Hr 98.75 ng/L (0-15) H 12/17/22 01:10 Troponin T Hi Sens 6Hr Delta 9.75 ng/L (0-12) 12/17/22 01:10 NT-Pro-B Natriuret Pep 13671 pg/mL (0-450) H 12/15/22 18:56 Total Protein 5.9 g/dL (6.6-8.7) L 12/18/22 03:31 Albumin 3.2 g/dL (3.5-5.2) L 12/18/22 03:31 Globulin 2.7 g/dL (1.3-4.6) 12/18/22 03:31 Vitals Last Vital Signs Temp 98.3 F 12/18/22 03:45 Pulse 62 12/18/22 08:00 Resp 22 H 12/18/22 08:00 BP 158/70 12/18/22 08:00 Pulse Ox 99 12/18/22 08:00 O2 Del Method Nasal Cannula 12/18/22 08:00 O2 Flow Rate 3 12/18/22 08:00 Discharge Plan Discharge Patient Disposition: Xfer SNF Condition: Stable Prescriptions: New bumetanide 1 mg tablet 1 mg PO DAILY Qty: 90 5RF Continued PreserVision AREDS [id number] ienr-wa-ynag capsule 1 cap PO BID@, latanoprost 0.005 % drops 1 drop ophthalmic (eye) BEDTIME Rx Instructions: both eyes ipratropium-albuterol 0.5 mg-3 mg(2.5 mg base)/3 mL solution for nebulization 3 ml inhalation Q6H PRN (Reason: wheezing) Qty: 90 0RF (DME) nebulizers [facility] See Rx Instructions .Route Qty: 1 0RF Rx Instructions: Nebulizer machine with tubing and supplies Combivent Respimat 20-100 mcg/actuation mist 1 puff inhalation QID Qty: 4 5RF Rx Instructions: space evenly during waking hours miscellaneous medical supply [facility] See Rx Instructions miscellaneous .COMPLEX Qty: 1 0RF Rx Instructions: rolling walker with seat as directed; miscellaneous medical supply [facility] See Rx Instructions miscellaneous .COMPLEX Qty: 1 0RF Rx Instructions: Inogen portable oxygen 3L at all times with activity and rest as directed; miscellaneous medical supply [facility] See Rx Instructions miscellaneous .COMPLEX Qty: 1 0RF Rx Instructions: extra long oxygen hose as directed; for use in [facility] [address] albuterol sulfate [Ventolin HFA] 90 mcg/actuation HFA aerosol inhaler 1 inh inhalation Q6H PRN (Reason: shortness of breath or wheezing) Qty: 6.7 0RF fluticasone propion-salmeterol 250-50 mcg/dose Blister With Device 1 inh INHALATION BID tamsulosin 0.4 mg capsule 0.4 mg PO BID@08,19 dorzolamide 2 % drops 1 drp ophthalmic (eye) DAILY@08 hydralazine 25 mg Tablet 25 mg PO TID Qty: 90 0RF Jardiance 25 mg tablet 25 mg PO DAILY Qty: 30 0RF atorvastatin 80 mg tablet 80 mg PO DAILY@08 methenamine hippurate [Hiprex] 1 gram Tablet 1 g PO BID carvedilol 12.5 mg Tablet 12.5 mg PO DAILY@08 amlodipine 5 mg Tablet 5 mg PO DAILY@08 potassium chloride 10 mEq Capsule, Extended Release See Rx Instructions .ROUTE .COMPLEX Rx Instructions: 30 MEQ PO IN THE AM AND 20 MEQ PO AT BEDTIME Miralax 17 gram Powder In Packet 17 g PO DAILY multivitamin with iron-mineral Tablet 1 tab PO DAILY Tylenol 325 mg Tablet 650 mg PO Q4H PRN (Reason: Pain) Xanax 0.25 mg Tablet 0.25 mg PO BEDTIME Milk of Magnesia 400 mg/5 mL Suspension 10 ml PO DAILY PRN (Reason: Laxative Effect) Saline Nasal (aloe vera) Gel 1 applic TOPICAL DAILY PRN (Reason: MAY KEEP AT BEDSIDE) Spiriva Respimat 2.5 mcg/actuation mist 2 inh INHALATION DAILY@08 Discontinued furosemide [Lasix] 40 mg tablet 40 mg PO BID Qty: 30 0RF Discharge Orders: Discharge Order (Routine); Ordered 12/18/22 Ordered By: Uriah Malin Referrals: Deloris Conway MD [Physician] - Discharge Diet: Cardiac Patient Instructions: Bumetanide (By mouth) (Bumex), A-fib (Atrial Fibrillation) (DC), Dyspnea (DC), Acute Respiratory Failure (GEN), CHF Stoplight Activity Restrictions/Additional Instructions: You can start with Bumex 1 mg daily and increase it to 1 mg twice daily if your symptoms of heart failure persist which are shortness of breath on laying flat leg initially and progress towards leg swelling Discharge Attestations Time Spent in Discharge Care*: greater than 30 min Status at Discharge: Cognitive status at discharge: cognitively intact , Behavioral status at discharge: cooperative , Quality Metrics Clinical Quality Measures [ No reported AMI, CVA or VTE this stay] Coding Level of Care Code Acute Code for Chg Fwd Diagnoses Acute and chronic respiratory failure with hypoxia J96.21 Acute decompensated heart failure I50.9 Shortness of breath R06.02 DNR (do not resuscitate) Z66 Paroxysmal A-fib I48.0 Left renal mass N28.89 Intermittent self-catheterization of bladder Z78.9
[2022-12-18 15:10] VITALS: BP 140/61; PULSE 75; O2SAT 94
--- NOTE | 2022-12-18 15:57 | PC.NURSE ---
Report given to [facility] staff Sowmya
--- NOTE | 2022-12-20 13:21 | DCPLANNER ---
facility manager histology was triggered to call patient due to no primary care physician. Patient sees Dr. Conway at [facility]
== END 2022-12-18 17:17 | disposition skilled nursing facility (03) | DRG 291 ==
LOC: ER 20:39 → CSU 12-16 06:05
PROVIDERS: Admitting Provider Internal Medicine; Emergency Provider Family Medicine; Visit Provider Internal Medicine
DX: I13.0 Hypertensive heart and chronic kidney disease with heart failure and stage 1 through stage 4 chronic kidney disease, or unspecified chronic kidney disease (principal); I50.23 Acute on chronic systolic (congestive) heart failure; J96.21 Acute and chronic respiratory failure with hypoxia; E46 Unspecified protein-calorie malnutrition; Z68.1 Body mass index [BMI] 19.9 or less, adult; Z16.12 Extended spectrum beta lactamase (ESBL) resistance; N18.9 Chronic kidney disease, unspecified; Z66 Do not resuscitate; Z79.51 Long term (current) use of inhaled steroids; Z99.81 Dependence on supplemental oxygen; N40.1 Benign prostatic hyperplasia with lower urinary tract symptoms; R33.8 Other retention of urine; I25.10 Atherosclerotic heart disease of native coronary artery without angina pectoris; Z95.1 Presence of aortocoronary bypass graft; J44.9 Chronic obstructive pulmonary disease, unspecified; Z85.828 Personal history of other malignant neoplasm of skin; L82.1 Other seborrheic keratosis; I73.9 Peripheral vascular disease, unspecified; Z98.62 Peripheral vascular angioplasty status; Z87.891 Personal history of nicotine dependence; E87.6 Hypokalemia; Z75.1 Person awaiting admission to adequate facility elsewhere; N28.89 Other specified disorders of kidney and ureter; I48.0 Paroxysmal atrial fibrillation
CPT/HCPCS: 36415; 36416; 36600; 71045; 80048; 80053; 82803; 82962; 83735; 83880; 84100; 84484; 85025; 93005; 96372; 96374; 96376; 97110; 97165; 99285; J1644; J1940; J2270